=== PATIENT | female | born 1990 | race African-American/Black ===

== ENCOUNTER 2023-05-14 09:40 | Emergency (ER) | payer OTHER, SELFPAY ==
[2023-05-14 09:45] VITALS: BP 159/109; PULSE 68; RESP 16; TEMP 36.7; O2SAT 99; BMI 36.6
[2023-05-14 10:21] LABS: Basophils Absolute Auto 0.1 10^3/uL (0.0-0.1); Basophils Percent Auto 1.2 % (0.2-2.0); Eosinophils Absolute Auto 0.2 10^3/uL (0.0-0.7); Eosinophils Percent Auto 4.1 % (0.9-7.0); Hematocrit 37.6 % (36.0-48.0); Hemoglobin 12.6 g/dL (12.0-16.0); Immature Granulocytes Abs Auto 0.02 10^3/uL (0.00-0.03); Immature Granulocytes Pct Auto 0.3 % (0.0-0.5); Lymphocytes Absolute Auto 1.9 10^3/uL (1.2-3.8); Mean Corpuscular HGB Conc 33.5 g/dL (29.9-35.2); Mean Corpuscular Hemoglobin 28.8 pg (26.7-34.0); Mean Platelet Volume 9.3 fL (9.5-13.5); Monocytes Absolute Auto 0.4 10^3/uL (0.3-0.8); Monocytes Percent Auto 7.5 % (1.7-12.0); Neutrophils Absolute Auto 3.2 10^3/uL (1.4-6.5); Neutrophils Percent Auto 54.9 % (43.0-75.0); Platelet Count 332 10^3/uL (150-450); Red Blood Count 4.37 10^6/uL (4.20-5.40); Red Cell Distribution Width 13.5 % (11.0-15.0); White Blood Count 5.9 10^3/uL (4.0-11.0)
[2023-05-14 10:27] LABS: Bilirubin Urine NEGATIVE (NEGATIVE); Blood Urine NEGATIVE (NEGATIVE); Clarity Urine CLEAR (CLEAR); Color Urine YELLOW (YELLOW); Glucose Urine UA NEGATIVE (NEGATIVE); Ketones Urine NEGATIVE (NEGATIVE); Leukocyte Esterase Urine SMALL (NEGATIVE); Nitrite Urine NEGATIVE (NEGATIVE); Protein Urine NEGATIVE (NEG/TRACE); Specific Gravity Urine 1.015 (1.005-1.025); Urobilinogen Urine 0.2 EU/dL (0.2-1.0); pH Urine 6.5 (5.0-9.0)
--- NOTE | 2023-05-14 10:27 | US_ITS ---
[address] [address] Patient Name: ERICK LAST MRN: [id number] date: 1990 Sex: F Assigned Patient Location: ER Current Patient Location: Accession/Order Number: [id number] Exam Date: 05/14/2023 10:45 Report Date: 05/14/2023 12:01 At the request of: ANEESH ABRAHAM Procedure: US pelvis transvaginal PROCEDURE: US pelvis transvaginal, 05/14/2023 10:45 AM EDT CLINICAL INDICATIONS: Medical induced 3 weeks earlier, pain 4 para 1 AB 3 Uncertain LMP COMPARISON: None TECHNIQUE: Transabdominal, transvaginal pelvic sonogram, grayscale color and spectral evaluation. FINDINGS: Uterus: 10.2 x 5.8 x 6.8 cm. The endometrial echo complex is mildly heterogeneous, estimated at 1.1 cm. There is fluid within the endometrial cavity measuring up to 0.5 x 0.4 x 0.3 cm.. Internal vascularity is not confirmed. A focal uterine abnormality is not confirmed. Right ovary: 3.2 x 1.3 x 1.5 cm. Volume 3 mL. Normal sonographic morphology. Left ovary: 2.7 x 2.4 x 2.2 cm. Volume 8 mL. Normal sonographic morphology. DUPLEX PELVIC VASCULATURE: There is intact flow within the ovarian tissue bilaterally by color-flow assessment. Arterial spectral tracing is identified from within. Right resistive index 0.51, left 0.45. US/US pelvis transvaginal IMPRESSION: 1. Heterogeneous thickening of the endometrial echo complex up to 1.1 cm with nonspecific fluid accumulation within the endometrial cavity. No sign of intrauterine or extra uterine is documented. Incomplete spontaneous with retained products of conception are not excluded. Endometritis, endometrial clot could present a similar pattern in the appropriate clinical setting. Correlation with serial quantitative beta-hCG recommended in this regard. 2. No significant pelvic mass or free fluid 3. Normal bilateral ovarian sonographic morphology 4. No sonographic sign of maternal adnexal torsion Electronically authenticated by: GAGE SHARP Date: 05/14/2023 12:01
[2023-05-14 10:28] LABS: Urine Microscopic Indicated YES
--- NOTE | 2023-05-14 10:29 | CT_ITS ---
[address] [address] Patient Name: ERICK LAST MRN: [id number] date: 1990 Sex: F Assigned Patient Location: Current Patient Location: Accession/Order Number: [id number] Exam Date: 05/14/2023 11:00 Report Date: 05/14/2023 12:02 At the request of: ANEESH ABRAHAM Procedure: CT abdomen pelvis w con EXAMINATION: CT abdomen pelvis w con HISTORY: s/p 3 weeks ago ; bilateral lower quadrant pain, low back pain COMPARISON: No relevant comparison available. TECHNIQUE: Axial, Coronal, and Sagittal images were obtained without and/or with IV contrast as indicated by examination type. Dose reduction techniques were achieved by using automated exposure control and/or adjustment of mA and/or kV according to patient size and/or use of iterative reconstruction technique. FINDINGS: LUNG BASES: No visible pulmonary or pleural disease. LIVER: No enlargement, atrophy, suspicious density, or significant focal lesion. BILIARY: No dilatation or calcification. PANCREAS: No lesion, fluid collection, or abnormal duct dilatation. SPLEEN: No enlargement or focal lesion. ADRENALS: No mass or enlargement. KIDNEYS: Nonobstructing stone within left kidney. BOWEL/MESENTERY: No visible mass, obstruction, or bowel wall thickening. Normal appendix. AORTA/VASCULAR: No aneurysm or dissection. RETROPERITONEUM: No mass or adenopathy. LYMPH NODES: No adenopathy. URINARY BLADDER: No visible focal wall thickening, lesion, or calculus. PELVIC ORGANS: Fluid within endometrial cavity. Trace amount of free fluid within right adnexa. ABDOMINAL WALL: No mass or hernia. BONES: No bony lesion or fracture. OTHER: Negative. CT/CT abdomen pelvis w con IMPRESSION: 1.Suspect small moderate free fluid within endometrial cavity; nonspecific. 2.Trace amount of free fluid within right adnexa; nonspecific. 3.Unremarkable bowel. 4.No abscess or appreciable inflammatory changes within the pelvis. Electronically authenticated by: AMILCAR VALADEZ Date: 05/14/2023 12:02
--- NOTE | 2023-05-14 10:32 | ED_ITS ---
HPI - General Adult General Chief complaint: Abdominal Pain Stated complaint: LOWER ABDOMEN/BACK PAIN Time Seen by Provider: 05/14/23 10:27 Source: patient Mode of arrival: walk-in Limitations: no limitations History of Present Illness HPI narrative: Patient is a 32-year-old female who is presenting with abdominal pain, pelvic pain, and right lower quadrant pain. Patient had a 3 weeks ago. Patient had a 19-week-old fetus that she had a in [facility]. Patient states for the past few days been having right lower quadrant pain, right lower pelvic pain, that she was not having several weeks ago. Patient has no vaginal bleeding, no discharge, no orders. No urinary complaints. No diarrhea constipation. Patient still has her gallbladder and appendix. 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 Patient can't to the Emergency Room for evaluation. Patient has Segundo told us that of her testing is not back by 12 or 12:30, she is leaving the Emergency Room because she has to career technical supervisor her daughter. . All systems are negative except as noted/marked. All systems reviewed and otherwise negative. . Nurses note and vital signs reviewed and patient is not hypoxic. General: The patient appears well and in no apparent distress. Patient is resting comfortably on cart. Patient is not toxic, lethargic, or listless Skin: Warm, dry, no pallor noted. There is no rash noted. No petechiae, purpura. Head: Normocephalic, atraumatic Eye: Normal conjunctiva, no drainage, EOMI. PERRL Ears, Nose, Mouth, and Throat: oral mucosa is moist. Nares patent. Mouth without vesicles. Cardiovascular: Regular Rate and Rhythm, no murmur, gallop, rub Respiratory: Patient is in no distress, no accessory muscle use, lungs are clear to auscultation, no wheezing, rales or rhonchi Back: non-tender, no CVA tenderness bilaterally to percussion. No CT LS midline pain GI: soft, Moderate suprapubic tenderness to palpation, mild right lower quadrant tenderness to palpation, no rash, no guarding, no peritoneal signs, no flank pain bilateral; otherwise no tenderness to palpation, no masses appreciated. No rebound, guarding, or rigidity noted. No flank pain bilateral, No distention Musculoskeletal: Patient has full range of motion of all of the extremities, no motor, sensory, or focal neurological deficits Neurological: A&O x3, normal speech Psychiatric: Cooperative Related Data Allergies Allergy/AdvReac Type Severity Reaction Status Date / Time No Known Drug Allergies Allergy Verified 05/14/23 09:45 PFSH PFSH Social History Smoking status: Current every day smoker Exam Constitutional Vital Signs, click to edit/add: Last Vital Signs Temp 98.0 F 05/14/23 09:45 Pulse 68 05/14/23 09:45 Resp 16 05/14/23 09:45 BP 159/109 H 05/14/23 09:45 Pulse Ox 99 05/14/23 09:45 O2 Del Method Room Air 05/14/23 09:45 Course Vital Signs Vital signs: Vital Signs Temperature 98.0 F 05/14/23 09:45 Pulse Rate 68 05/14/23 09:45 Respiratory Rate 16 05/14/23 09:45 Blood Pressure 159/109 H 05/14/23 09:45 Pulse Oximetry 99 05/14/23 09:45 Oxygen Delivery Method Room Air 05/14/23 09:45 Temperature 98.0 F 05/14/23 09:45 Pulse Rate 68 05/14/23 09:45 Respiratory Rate 16 05/14/23 09:45 Blood Pressure 159/109 H 05/14/23 09:45 Pulse Oximetry 99 05/14/23 09:45 Oxygen Delivery Method Room Air 05/14/23 09:45 Medical Decision Making MDM Narrative Medical decision making narrative: Patient left against medical advice without patient's lab work, CT report and ultrasound report being completed. The patient is oriented to person, place, and time, demonstrating all staples elements of capacity to make decisions regarding the medical care offered. The patient speaks coherently and exhibits no evidence of having an altered level of consciousness or alcohol or drug intoxication to a point that would impair ability to delineate a choice. He/she is able to ambulate without difficulty. The patient demonstrates understanding and appreciation of the relevant information of the nature their medical condition, as well as the risks, benefits, and treatment alternatives (including nontreatment), Consequences of refusing care, and can appropriately communicative rational reasoning about their choice of care options. Patient is aware of a suspected diagnosis suggested by history and exam. The risks of refusing recommended care that were disclosed and acknowledged by the patient including , unforeseen complications, neurological dysfunction, permanent mental impairment, loss of limb, loss of sexual function, loss of current lifestyle, worsening chronic condition, long-term disability were disclosed. The patient understands they are welcome to return to the hospital anytime to receive the recommended care or any other care at any time, regardless of their ability to pay for such care. Discharge instructions were provided to the patient along with necessary prescriptions if indicated. 2015 I spoke to the patient on the telephone, patient had her CT report im pression and the ultrasound impression red to her over the phone by myself. Patient's lab work and urine was discussed as well. Patient understands importance of following up with TRACK LINER OPERATOR and calling their office tomorrow for a follow-up. Patient understands or could still be retained products of conception and she may need additional procedures done by her TRACK LINER OPERATOR. Patient understands this is extremely important. No questions at discharge. Patient voiced back to me that she understood the directions and said that she will call her TRACK LINER OPERATOR tomorrow. Lab Data Lab results reviewed: Yes I reviewed the patient's lab results Labs: Lab Results 05/14/23 Range/Units 10:00 WBC 5.9 (4.0-11.0) 10^3/uL RBC 4.37 (4.20-5.40) 10^6/uL Hgb 12.6 (12.0-16.0) g/dL Hct 37.6 (36.0-48.0) % MCV 86.0 (81.0-99.0) fL MCH 28.8 (26.7-34.0) pg MCHC 33.5 (29.9-35.2) g/dL RDW 13.5 (11.0-15.0) % Plt Count 332 (150-450) 10^3/uL MPV 9.3 L (9.5-13.5) fL Neut % (Auto) 54.9 (43.0-75.0) % Lymph % (Auto) 32.0 (20.5-60.0) % [place] % (Auto) 7.5 (1.7-12.0) % Eos % (Auto) 4.1 (0.9-7.0) % Baso % (Auto) 1.2 (0.2-2.0) % Neut # (Auto) 3.2 (1.4-6.5) 10^3/uL Lymph # (Auto) 1.9 (1.2-3.8) 10^3/uL [place] # (Auto) 0.4 (0.3-0.8) 10^3/uL Eos # (Auto) 0.2 (0.0-0.7) 10^3/uL Baso # (Auto) 0.1 (0.0-0.1) 10^3/uL Abs Immat Gran (auto) 0.02 (0.00-0.03) 10^3/uL Imm/Tot Granulo (auto) 0.3 (0.0-0.5) % Sodium 136 (136-145) mmol/L Potassium 3.7 (3.5-5.1) mmol/L Chloride 102 (98-107) mmol/L Carbon Dioxide 25.2 (21.0-32.0) mmol/L Anion Gap 12.5 BUN 6.0 L (7.0-18.0) mg/dL Creatinine 0.76 (0.55-1.02) mg/dL Est GFR ( Amer) >60 (>=60) Est GFR (Non-Af Amer) >60 (>=60) BUN/Creatinine Ratio 7.9 Glucose 84 (74-106) mg/dL Lactate 0.8 (0.4-2.0) mmol/L Calcium 9.1 (8.5-10.1) mg/dL Total Bilirubin 0.8 (0.2-1.0) mg/dL AST 17 (15-37) U/L ALT 14 (14-59) U/L Alkaline Phosphatase 66 (46-116) U/L Total Protein 7.3 (6.4-8.2) g/dL Albumin 3.5 (3.4-5.0) g/dL Globulin 3.8 g/dL Albumin/Globulin Ratio 0.9 Lipase 66.0 L (73.0-393.0) U/L Serum HCG, Qual Negative (NEGATIVE) HCG, Quant 3 mIU/mL Urine Color Yellow (YELLOW) Urine Clarity Clear (CLEAR) Urine pH 6.5 (5.0-9.0) Ur Specific [place] 1.015 (1.005-1.025) Urine Protein Negative (NEG/TRACE) mg/dL Urine Glucose (UA) Negative (NEGATIVE) mg/dL Urine Ketones Negative (NEGATIVE) mg/dL Urine Occult Blood Negative (NEGATIVE) Urine Nitrite Negative (NEGATIVE) Urine Bilirubin Negative (NEGATIVE) Urine Urobilinogen 0.2 (0.2-1.0) EU/dL Ur Leukocyte Esterase Small A (NEGATIVE) Urine RBC 0-2 (0-2) #/HPF Urine WBC 5-10 A (NONE SEEN) #/HPF Ur Squamous Epith Cells Few A (NONE/RARE) #/LPF Urine Crystals None seen (None Seen) #/HPF Urine Bacteria Trace A (NONE SEEN) #/HPF Urine Casts None seen (NONE SEEN) #/LPF Urine Mucus Moderate A (NONE SEEN) Ur Culture Indicated? Yes Imaging Data CT scan - abdomen: My impression: Patient CT shows small moderate free fluid within the endometrial cavity, trace amount of free fluid within the right adnexa, no abscess or appreciable inflammatory changes in the pelvis. See the official CT report. Ultrasound of the pelvis shows heterogeneous thickening of the endometrial echo complex up to 1.1 cm with nonspecific fluid accumulation with the endometrial cavity. No sign of intrauterine or extra intrauterine is documented. Incomplete spontaneous with retained products of conception are not excluded. Endometritis, endometrial clot could represent a similar pattern. See ultrasound official report. Discharge Plan Discharge Chief Complaint: Abdominal Pain Clinical Impression: Left against medical advice, Pelvic pain, Abdominal pain Patient Disposition: Left Against Medical Advice Instructions: Abdominal Pain (ED), Against Medical Advice (ED), Pelvic Pain (ED) Stand Alone Forms: Portal Instructions Referrals: Physician,Non-Staff, MD [Primary Care Provider] - 1 week Discharge Date/Time: 05/14/23 12:03
[2023-05-14] MEDS: ONDANSETRON PF 4 MG/2 ML VIAL IV (10:41)
[2023-05-14] MEDS: ACETAMINOPHEN 500 MG TABLET 1000 MG PO (10:41)
[2023-05-14] MEDS: KETOROLAC TROMETHAMINE 30 MG/ML VIAL 15 MG IVP (10:41)
[2023-05-14] MEDS: 0.9 % SODIUM CHLORIDE 1,000 ML 999 ML IV (10:41)
[2023-05-14 10:44] LABS: Alanine Aminotransferase 14 U/L (14-59); Albumin Globulin Ratio 0.9; Albumin Level 3.5 g/dL (3.4-5.0); Alkaline Phosphatase 66 U/L (46-116); Anion Gap 12.5; Aspartate Amino Transferase 17 U/L (15-37); BUN Creatinine Ratio 7.9; Bilirubin Total 0.8 mg/dL (0.2-1.0); Calcium 9.1 mg/dL (8.5-10.1); Carbon Dioxide 25.2 mmol/L (21.0-32.0); Chloride 102 mmol/L (98-107); Estimated GFR (African America >60 (>=60); Estimated GFR (Non-African Ame >60 (>=60); Globulin 3.8 g/dL; Glucose 84 mg/dL (74-106); Potassium 3.7 mmol/L (3.5-5.1); Sodium 136 mmol/L (136-145); Total Protein 7.3 g/dL (6.4-8.2)
[2023-05-14 10:46] LABS: HCG Qualitative NEGATIVE (NEGATIVE)
[2023-05-14 11:00] LABS: Lactate/Lactic Acid 0.8 mmol/L (0.4-2.0)
[2023-05-14 11:21] LABS: Bacteria Urine TRACE #/HPF (NONE SEEN); Cast Seen? NONE SEEN #/LPF (NONE SEEN); Crystals Seen? None Seen #/HPF (None Seen); Mucus Urine MODERATE (NONE SEEN); RBC Urine 0-2 #/HPF (0-2); Squamous Epithelial Cell Urine FEW #/LPF (NONE/RARE); Urine Culture Indicated YES
[2023-05-14 11:25] LABS: HCG Quantitative 3 mIU/mL
== END 2023-05-14 12:03 | disposition left against medical advice (07) ==
LOC: ER 09:47
PROVIDERS: Emergency Provider Emergency Medicine
DX: R10.2 Pelvic and perineal pain (principal); R10.9 Unspecified abdominal pain; Z53.29 Procedure and treatment not carried out because of patient's decision for other reasons; F17.210 Nicotine dependence, cigarettes, uncomplicated
CPT/HCPCS: 36415; 74177; 76830; 80053; 81001; 81003; 83605; 83690; 84702; 84703; 85025; 87086; 96374; 96375; 99285; Q9967

== ENCOUNTER 2024-03-24 23:37 | Observation (INO) | payer OTHER, SELFPAY ==
[2024-03-25 00:07] VITALS: BP 135/84; PULSE 86
[2024-03-25 00:15] VITALS: BP 138/88; PULSE 87; TEMP 35.9
[2024-03-25 00:29] LABS: Bilirubin Urine NEGATIVE (NEGATIVE); Blood Urine NEGATIVE (NEGATIVE); Clarity Urine CLEAR (CLEAR); Color Urine YELLOW (YELLOW); Glucose Urine UA NEGATIVE (NEGATIVE); Ketones Urine NEGATIVE (NEGATIVE); Leukocyte Esterase Urine NEGATIVE (NEGATIVE); Nitrite Urine NEGATIVE (NEGATIVE); Protein Urine NEGATIVE (NEG/TRACE); Urobilinogen Urine 0.2 EU/dL (0.2-1.0); pH Urine 6.5 (5.0-9.0)
[2024-03-25 00:30] LABS: Urine Microscopic Indicated NO
[2024-03-25 01:04] VITALS: BP 137/86; PULSE 75
[2024-03-25] MEDS: ACETAMINOPHEN 500 MG TABLET PO (01:29)
[2024-03-25 01:35] VITALS: BP 124/84; PULSE 79
[2024-03-25 01:57] VITALS: BP 125/75; PULSE 67
== END 2024-03-25 02:16 | disposition home or self-care (01) ==
PROVIDERS: Admitting Provider Obstetrics & Gynecology; Visit Provider Obstetrics & Gynecology
DX: O26.893 Other specified pregnancy related conditions, third trimester (principal); R10.9 Unspecified abdominal pain; Z3A.31 31 weeks gestation of pregnancy
CPT/HCPCS: 59025; 81003; G0378; G0379

== ENCOUNTER 2025-04-17 09:52 | Emergency (ER) | payer OTHER, SELFPAY ==
--- OUTSIDE RECORDS SUMMARY | 2023-10-09 10:11 | XMS_ITS | Continuity of Care Document ---
Author Organization [facility] Address [address] [place] [address] Phone Care Team Providers Care Manager Audio Name Role Phone Hamzah JANET STEPHANIEBekah Unavailable Unavaila ble Allergies, Adverse Reactions, Alerts Substance Reaction Status Criticality No Known Allergies Active No Inform ation Medications Medication Instructions Dosage Effective Dates (start - stop) Status Comments metronidazole 500 mg tablet take 1 tablet by oral route BID for 7 days - Active Problems Condition Type Effective Dates (start - stop) Clini michela Status Comments No Known Problems Procedures Procedure Date ROUTINE VENIPUNCTURE OFFICE/OUTPATIENT VISIT, EST URINE TEST OFFICE/OUTPATIENT VISIT, EST ROUTINE VENIPUNCTURE Intraoral-periapical 1st Film 3 [employer] Periodic Oral Eval Estab Patient 2022 Prophylaxis Adult High Risk Nutrit Couns For Control Of [place] Dis Nov Oral Hygiene Instruction Alcohol/drug screening PREV VISIT, EST, AGE 18-39 COVID-19 Antigen Test INFLUENZA ASSAY W/OPTIC COVID-19 Antigen Test URINE TEST OFFICE/OUTPATIENT VISIT, EST Extract; Erupted Th/exposted Rt 022 Extract; Erupted Th/exposted Rt 022 Extract; Erupted Th/exposted Rt 022 Comp Oral Eval New/estab Patient 2020 [employer] Films Panoramic Film Intraoral-periapical 1st Film URINE TEST URINALYSIS NONAUTO W/O SCOPE OFFICE/OUTPATIENT VISIT, EST PREV VISIT, EST, AGE 18-39 Intraoral-periapical 1st Film Oral Hygiene Instruction Limited Oral Eval Covid Testing [facility] Covid Testing [facility] URINE TEST OFFICE/OUTPATIENT VISIT, EST PREV VISIT, EST, AGE 18-39 URINE TEST PREV VISIT, EST, AGE 18-39 URINE TEST OFFICE/OUTPATIENT VISIT, EST OFFICE/OUTPATIENT VISIT, EST URINE TEST PREV VISIT, EST, AGE 18-39 OFFICE/OUTPATIENT VISIT, EST OFFICE/OUTPATIENT VISIT, EST Depo Provera 1 Ml PREV VISIT, EST, AGE 18-39 PREV VISIT, EST, AGE 18-39 Depo Provera 1 Ml URINE TEST OFFICE/OUTPATIENT VISIT, EST URINE TEST Advance Directives Directive Yes / No Effective Date File Name No Information Encounters Encounter Description Practice Location Reason(s) For Visit Diagnoses Date Provider Providers Copied on Encounter [facility], [address] [place] [address], [place], [place], [id number] , [place] tel:[phone] [facility] No Information 3 Hamzah WHCNAmanda Godfrey. [address] [place] [address], [id number] , [place]. tel: [phone] OFFICE/OUTPA TIENT VISIT, [facility], [address] [place] [address], [id number] , [place] tel: [phone] [facility] Encounter for test, result positiveLess than 8 weeks gestation of pregnancyEncounter for supervision of other normal , 1st trimester 3 [facility] Bekah. [address], [place], [id number] , [place]. tel: [phone] [facility], [address] [place] [address], [id number] , [place] tel: [phone] [facility] No Information 3 [facility] Bekah. [address] [place] [address], [id number] , [place]. tel: [phone] OFFICE/OUTPA TIENT VISIT, [facility], [address] [place] [address], [id number] , [place] tel: [phone] [facility] DARY (chief complaint) Body mass index [BMI] 34.0-34.9, adult- STD High risk heterosexual behavior- STD screenTrichomoniasi sEncounter for testASCUS on pap smear of cervixEncounter for test, result positive Dec-2 3 [facility] Bekah. [address] [place] [address], [id number] , [place]. tel: [phone] [facility], [address] [place] [address], [id number] , [place] tel: [phone] [facility] Encounter for screening for dental disorders 3 Yazmin Kirk. . tel: [phone] PREV VISIT, [facility], AGE 18-39 [facility], [address] [place] [address], [id number] , [place] tel: [phone] [facility] annual exam (chief complaint) Encounter for gynecological examination (general) (routine) without abnormal findings- STD screen- STD High risk heterosexual behaviorBody mass index [BMI] 33.0-33.9, adultOCP initial Rxcontraceptive managementEncounter for screening examination for other mental health and behavioral disorders 3 [facility] Bekah. [address], [place], [id number] , [place]. tel: [phone] [facility], [address], [place], [id number] , [place] tel: [phone] [facility] Appt rescheduled (chief complaint) Encounter for screening for COVID-19Fever, unspecifiedBody mass index [BMI] 35.0-35.9, adult 2 [facility] Bekah. [address] [place] [address], [id number] , [place]. tel: [phone] OFFICE/OUTPA TIENT VISIT, EST [facility], [address] [place] [address], [id number] , [place] tel: [phone] [facility] STI screening (chief complaint) Encounter for test, result negativeBody mass index [BMI] 34.0-34.9, adult- STD screen- STD liefstyle codecontraceptive management 2 [facility] Bekah. [address], [place], [id number] , [place]. tel: [phone] [facility], [address] [place] [address], [id number] , [place] tel: [phone] [facility] Ext. (chief complaint) Encounter for screening for dental disorders 2 Preet Valdes. [address], [place], [id number] , [place]. tel: [phone] [facility], [address] [place] [address], [id number] , [place] tel: [phone] [facility] DN (chief complaint) Encounter for screening for dental disorders 1 Preet Valdes. [address] [place] [address], [id number] , [place]. tel:[phone] OFFICE/OUTPA TIENT VISIT, EST [facility], [address], [place], [id number] , [place] tel: [phone] [facility] Test (chief complaint)Po ssible STD Exposure (chief complaint)va ginal discharge/it angella (chief complaint) Encounter for test, result positiveBody mass index [BMI] 35.0-35.9, adultTrichomonas vaginitis- STD screen9 weeks gestation of pregnancyEncounter for supervision of other normal , 1st trimester 1 [facility] Bekah. [address], [place], [id number] , [place]. tel: [phone] PREV VISIT, EST, AGE 18-39 [facility], [address] [place] [address], [id number] , [place] tel: [phone] [facility] annual exam (chief complaint) Encounter for gynecological examination (general) (routine) without abnormal findings- STD screen- STD liefstyle codeAcute vaginitisBody mass index [BMI] 34.0-34.9, adult Aug-3 1 [facility] Bekah. [address], [place], [id number] , [place]. tel: [phone] [facility], [address] [place] [address], [id number] , [place] tel: [phone] [facility] EMG (chief complaint) Encounter for screening for dental disorders 1 Nav Barnes. [address] [place], [address], [place]. tel: [phone] [facility], [address] [place] [address], [id number] , [place] tel:[phone] [facility] Encounter for screening for other viral diseases 0 Devante Naidu. [address], [place], [id number] , [place]. tel: [phone] [facility], [address] [place] [address], [id number] , [place] tel: [phone] [facility] Contact w and exposure to oth communicable diseases 0 Visci DO Kenneth. [address], [place], [id number] , [place]. tel: [phone] OFFICE/OUTPA TIENT VISIT, EST [facility], [address], [place], [id number] , [place] tel: [phone] [facility] vaginal discharge/it angella (chief complaint) Body mass index (BMI) 33.0-33.9, adult- STD liefstyle code- STD screenTrichomoniasi s 0 [facility] Bekah. [address] [place] [address], [id number] , [place]. tel: [phone] PREV VISIT, EST, AGE 18-39 [facility], [address] [place] [address], [id number] , [place] tel: [phone] [facility] annual exam (chief complaint) Encounter for testBody mass index (BMI) 33.0-33.9, adultEncntr for haunted history tour guide exam (general) (routine) w/o abn findings- STD screen- STD liefstyle code 0 [facility] Bekah. [address] [place] [address], [id number] , [place]. tel: [phone] PREV VISIT, EST, AGE 18-39 [facility], [address] [place] [address], [id number] , [place] tel: [phone] [facility] annual exam (chief complaint) Body mass index (BMI) 37.0-37.9, adultEncntr for haunted history tour guide exam (general) (routine) w/o abn findings- STD screen- STD liefstyle code 0- 8 [facility] Bekah. [address] [place] [address], [id number] , [place]. tel: [phone] OFFICE/OUTPA TIENT VISIT, EST [facility], [address], [place], [id number] , [place] tel: [phone] [facility] STD screen (chief complaint) Encounter for test, result negative- STD screen- STD liefstyle codecontraceptive managementBody mass index (BMI) 36.0-36.9, adult Dec-2 8- 8 [facility] Bekah. [address] [place] [address], [id number] , [place]. tel: [phone] OFFICE/OUTPA TIENT VISIT, EST [facility], [address], [place], [id number] , [place] tel: [phone] [facility] DARY (chief complaint) - STD liefstyle codeGonococcal cervicitisTrichomon iasis Jun-0 7 [facility] Bekah. [address], [place], [id number] , [place]. tel: [phone] [facility], [address] [place] [address], [id number] , [place] tel: [phone] [facility] Medication (chief complaint) - STD liefstyle code Mar- 7 [facility] Bekah. [address] [place] [address], [id number] , [place]. 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 [address] [place] [address], [id number] , [place]. tel: [phone] OFFICE/OUTPA TIENT VISIT, EST [facility], [address] [place] [address], [id number] , [place] tel: [phone] [facility] Depo (chief complaint) Other specified contraceptive management 5 Hamzah [facility] Bekah. [address], [place], [id number] , [place]. tel: [phone] PREV VISIT, EST, AGE 18-39 [facility], [address], [place], [id number] , [place] tel: [phone] [facility] annual exam (chief complaint)me nopausal symptoms (chief complaint)me nopausal symptoms (chief complaint) Gynecological ExaminationOther specified contraceptive management 5 Hamzah [facility] Bekah. [address], [place], [id number] , [place]. tel: [phone] OFFICE/OUTPA TIENT VISIT, EST [facility], [address], [place], [id number] , [place] tel: [phone] [facility] test (chief complaint) No Information 3 Visci DO Kenneth. [address], [place], [id number] , [place]. tel: [phone] Family History Family Member Type Diagnosis Age At Onset Sister Problem (finding) Alive and well Mother Problem (finding) Alive and well Father Problem (finding) Alive and well Brother Problem (finding) Alive and well Payers Payer name Insurance type Covered alliance party ID Authoriza tion(s) [id number] Medicaid Wrap - [employer] [id number] Social History Type Description Quantity Date Captured Comments Alcohol Use Details Unknown Caffeine Use Details Unknown Tobacco Use Status Smoking Status No Information Sex Female Yes - Patient is cur rently Sexual Orientation Straight or heterosexual Gender Identity Female Chief Complaint And Reason For Visit No Information Reason For Referral Reason For Referral No Information Plan Of Treatment Date Type Action Status Goal Depression screening. Due on due Goal Tdap Vaccine. Due on 2022 due Goal Influenza vaccine. Due on due Goal Hepatitis C screening. Due o n due Goal Tdap. Due on due Goal PRAPARE ASSESSMENT. Due on D due Goal HPV. Due on due Goal RLP. Due on due Goal Unhealthy drug use screening . Due on due Goal Depression screening. Due on due Goal RLP. Due on due Goal Tdap Vaccine. Due on 2022 due Goal Tdap. Due on due Goal PRAPARE ASSESSMENT. Due on A due Goal Influenza vaccine. Due on due Goal PRAPARE ASSESSMENT. Due on A due Goal RLP. Due on due Goal Depression screening. Due on due Goal Tdap Vaccine. Due on 2022 due Goal Tdap. Due on due Goal Influenza vaccine. Due on due Goal Tobacco cessation counseling completed Goal Tdap Vaccine. Due on 2022 due Goal RLP. Due on due Goal Depression screening. Due on due Goal PRAPARE ASSESSMENT. Due on M due Goal Influenza vaccine. Due on due Goal Tdap. Due on due Goal Dietary management education , guidance, and counseling completed Goal Tobacco cessation counseling completed Goal PAP. Due on due Goal Depression screening. Due on due Goal RLP. Due on due Goal Influenza vaccine. Due on Oc due Goal PRAPARE ASSESSMENT. Due on O due Goal Tdap. Due on due Goal Influenza vaccine. Due on Ja due Goal Tdap. Due on due Goal PRAPARE ASSESSMENT. Due on J due Goal RLP. Due on due Goal PAP. Due on due Goal Depression screening. Due on due Goal Tobacco cessation counseling completed Goal Dietary management education , guidance, and counseling completed Goal Depression screening. Due on due Goal PAP. Due on due Goal Influenza vaccine. Due on due Goal PRAPARE ASSESSMENT. Due on due Goal Tdap. Due on due Goal RLP. Due on due Goal Dietary management education , guidance, and counseling completed Goal Tobacco cessation counseling completed Goal Dietary management education , guidance, and counseling completed Goal Dietary management education , guidance, and counseling completed Goal Tobacco cessation counseling completed Goal Tobacco cessation counseling completed Goal Dietary management education , guidance, and counseling completed Goal Tobacco cessation counseling completed Goal Dietary management education , guidance, and counseling completed Goal Dietary management education , guidance, and counseling completed Goal Dietary management education , guidance, and counseling completed Goal Tobacco cessation counseling completed Goal Dietary management education , guidance, and counseling completed Goal Tobacco cessation counseling completed Goal Tobacco cessation counseling completed Referral Ordered: Referrals: Family Medicine Appointment date/timeframe: 06/16/2021 ordered History Of Present Illness Encounter Date Complaint History Of Prese nt Illness DARY Patient is here for DARY for Trich. States she was doing well, but has started to feel irritation over the last month. IS unsure if partner has stepped outside the relationship. She desires to change form OCPs to IUD for BCM. She has not been on Sprintec for over 1 month. Patient states her last unprotected IC was 2 weeks ago. She does not desire a and if this test is confirmed she does not plan to maintain the . annual exam Currently pregna nt: no. : 3. Parity: Term: 1. induced: 2. Livin. Patient is not contemplating . The patient states she uses none and condoms, male for control. Last LMP was 10/03/2022. Her menses is irregular with heavy flow with a frequency of >28 days. Negative for dysmenorrhea and menorrhagia. Negative for: breast discharge, breast lump(s), breast pain and breast self exam.Negative for Hormone replacement therapy. Pertinent negatives include anxiety and depression. The patient does use tobacco. Tobacco cessation has been discussed. She does drink alcohol. Additional information: Patient is here for annual exam. She is currently not on BC and desires to get an IUD. She has 1 child who is 8yrs old and she does not desire another child in the near future. She would like to start OCPs until IUD can be placed. Her last unprotected IC was over 2 weeks ago. 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 Appt rescheduled STI screening Patient denies h aving any symptoms today. Additional information: Patient is here for STD screen. States a partner called and recommended she get screened. Did not say for what. States she is not on BC and does not desires any BC at this time. may consider using con. Ext. DN DN vaginal discharge/itching Her sy mptoms began 1 Week ago. Presently the patient is experiencing vaginal irritation and vaginal odor. The patient is premenopausal. Test Possible STD Exposure annual exam Currently pregna nt: no. : 1. Parity: Term: 1. Livin. Patient is not contemplating . The patient states she uses none and condoms, male for control. Last LMP was 06/10/2021. Her menses is regular with heavy flow with a frequency of every 28 days. Negative for dysmenorrhea and menorrhagia. Negative for: breast discharge, breast lump(s), breast pain and breast self exam.Negative for Hormone replacement therapy. Pertinent negatives include anxiety and depression. The patient does use tobacco. Tobacco cessation has been discussed. She does drink alcohol. Additional information: Patient is here for annual exam and c/o increased vaginal irritation. Using Condoms for BC and does not desires to change at this time. Denies change in sexual partners. Does not have a PCP and would like one to evaluate HTN. EMG vaginal discharge/itching The pa tient is premenopausal. Additional information: Patient states she took Flagyl for trich and now has vaginal itching and irritation. c/o vaginal itching and discharge. Denies change in sexual partners. annual exam Currently pregna nt: no. : 1. Parity: Term: 1. Livin. Patient is not contemplating . The patient states she uses none and condoms, male for control. Last LMP was 04/23/2020. Her menses is regular with heavy flow with a frequency of every 28 days. Negative for dysmenorrhea and menorrhagia. Negative for: breast discharge, breast lump(s), breast pain and breast self exam.Negative for Hormone replacement therapy. She does drink alcohol. annual exam Currently pregna nt: no. : 1. Parity: Term: 1. Livin. The patient states she uses none and condoms, male for control. Last LMP was 04/04/2018. The patient does use tobacco. Tobacco cessation has been discussed. She does drink alcohol. Additional information: Patient is here for annual exam. Using conroms for BC and does not desires to change at this time. 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 STD screen Patient is here for STD screen and to start Nuvaring. States she got a Rx 03/31, but never started it. 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 DARY Patient is here for DARY for Gonorrhea and Trich. States she is no longer together with partner. Was sexually active for the first time about 1 week ago and did use a condoms. Does not desires any form of BC except condoms. Medication Pt presents for .Pt declines condoms and smoking cessation information. Pt tolerates injection without complaint. Pt scheduled for DARY on 07/11/18. Jeffery annual exam Currently pregna nt: no. : 1. Parity: Term: 1. Livin. The patient states she uses none for control. The patient no longer uses tobacco. Tobacco cessation has been discussed. She does drink alcohol. Additional information: Here for annual exam. States she desires BC, but does not want Depo PRovera or BCP. Is interested in the nuvaring. Has a history of irregular menses and is happy her test is negative today. 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 Depo Patient here tod ay for Depo. She was having some bleeding a few weeks ago but has now stopped. Return to clinic 03/23/15 @ 9:00AM for next Depo. -LUANA LY. annual exam The patient stat es she uses none for control. Last LMP was 10/05/2014.The patient is not post-menopausal. The patient does use tobacco. Tobacco cessation has been discussed. Additional information: Pap & cultues, desires depo. Consent signed. Denies unprotected sex x2 weeks, PT-. Shawn Grande. menopausal symptoms menopausal symptoms Functional Status Date Functional Assessmen t No Information Instructions Date Instruction Additional Infor cameron Faint positive pregn nessa test noted in office today. Will order Quant HCG. Patient to call for results in 2 days. IF negative will then schedule for IUD insertion. Patient does not want to restart OCPs until IUD is placed. Plans to use Abstinence. Related to Encounter for test Cervical cultures se nt to lab. Patient to call in 1 week for results. Stressed the importance of using condoms to prevent STDs in the future. Related to - STD High risk heterosexual behavior Dietary management e ducation, guidance, and counseling Related to Body mass index [BMI] 34.0-34.9, adult Giving encouragement to exercise Related to Body mass index [BMI] 34.0-34.9, adult Discussed BC options and patient desires to have IUD inserted. Desires appt with Dr Low. Related to contraceptive management Encouraged to start Sprintec today. Take 1 pill po QD at HS. If misses a pill take it as soon as she remembers and if she misses two pills take two pills one day and two pills the next day. Encouraged condoms for back up BC and to prevent STDs. Encouraged to keep IUD appt. with Dr. Low. Related to OCP initial Rx Cervical cultures se nt to lab. Patient to call in 1 week for results Related to - STD screen Encouraged monthly B SE. Recommend calcium 1000mg QD. Encouraged good dietary intake and exercise. Laboratory specimens sent to lab. Patient to call in 2 weeks if desires results.Discussed control options and patient desires IUD. Plans to start OCPs until IUD can be placed Related to Encounter for gynecological examination (general) (routine) without abnormal findings Giving encouragement to exercise Related to Body mass index [BMI] 33.0-33.9, adult Dietary management e ducation, guidance, and counseling Related to Body mass index [BMI] 33.0-33.9, adult Dietary management e ducation, guidance, and counseling Related to Body mass index [BMI] 35.0-35.9, adult Giving encouragement to exercise Related to Body mass index [BMI] 35.0-35.9, adult Discussed BC options and patient declines all BCM except she may consider condoms in the future. Offered condoms while in the office today, but patient left them behind after the appt. Related to contraceptive management Cervical cultures se nt to lab. Patient to call in 1 week for results Related to - STD screen Giving encouragement to exercise Related to Body mass index [BMI] 34.0-34.9, adult Dietary management e ducation, guidance, and counseling Related to Body mass index [BMI] 34.0-34.9, adult Giving encouragement to exercise Related to Body mass index [BMI] 35.0-35.9, adult Dietary management e ducation, guidance, and counseling Related to Body mass index [BMI] 35.0-35.9, adult Discussed vaginal ir ritation in detail and encouraged proper hygiene measures. Rx for nystatin cream and triamcinolone were sent to her pharmacy. Encouraged to mix the two creams and apply to vulva BID. Related to Acute vaginitis Encouraged monthly B SE. Recommend calcium 1000mg QD. Encouraged good dietary intake and exercise. Laboratory specimens sent to lab. Patient to call in 2 weeks if desires results.Referral to PCP for Evaluation of HTNDiscussed control options and patient desires Condoms Related to Encounter for gynecological examination (general) (routine) without abnormal findings Cervical cultures se nt to lab. Patient to call in 1 week for results Related to - STD screen Giving encouragement to exercise Related to Body mass index [BMI] 34.0-34.9, adult Dietary management e ducation, guidance, and counseling Related to Body mass index [BMI] 34.0-34.9, adult DARY obtained. Encour aged to use condoms to prevent STDs in the future. Related to Trichomoniasis Giving encouragement to exercise Related to Body mass index (BMI) 33.0-33.9, adult Dietary management e ducation, guidance, and counseling Related to Body mass index (BMI) 33.0-33.9, adult test negat diane in office today. Discussed BC options and patient declines desires to use withdrawal or condoms. Related to Encounter for test Encouraged monthly B SE. Recommend calcium 1000mg QD. Encouraged good dietary intake and exercise. Laboratory specimens sent to lab. 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 Patient to call in 1 week for results Related to - STD screen Giving encouragement to exercise Related to Body mass index (BMI) 33.0-33.9, adult Dietary management e ducation, guidance, and counseling Related to Body mass index (BMI) 33.0-33.9, adult Cervical cultures se nt to lab. Patient to call in 1 week for results Related to - STD screen Encouraged monthly B SE. Recommend calcium 1000mg QD. Encouraged good dietary intake and exercise. Laboratory specimens sent to lab. Patient to call in 2 weeks if desires results. Condoms given to patient today. 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 Rx for 1 ring and 12 RF sent to pharmacy. Encouraged condoms for back up BC and to prevent STDs. Related to contraceptive management Cervical cultures se nt to lab. Patient to call in 1 week for results Related to - STD screen Dietary management e ducation, guidance, and counseling Related to Body mass index (BMI) 36.0-36.9, adult Giving encouragement to exercise Related to Body mass index (BMI) 36.0-36.9, adult Cervical cultures se nt to lab for DARY. Moralesn to call in 1 week for result. Encouraged condoms for BC and to prevent STDs. Patient states understanding. Related to Gonococcal cervicitis Discussed BC options and patietn desires to start nuvaring with onset of next menses. COndoms given to patient for back up BC. ENcouraged to use nuvaring as instructed patient states understanding. Related to contraceptive management Encouraged monthly B SE. Recommend calcium 1000mg QD. Encouraged good dietary intake and exercise. Laboratory specimens sent to lab. Patient to call in 2 weeks if desires results. 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 Patient to call in 1 week for results Related to - STD screen May continue Depo Pr overa. Encouraged calcium 1000mg QD. Recommend condoms for back up BC and to prevent STDs. IF BTB continue patient to call the office and will Rx estrace. Reassurance given BTB may resolve with second shot of Depo Provera Related to Other specified contraceptive management May start Depo Prove ra today. Encouraged calcium 1000mg QD. Recommend condoms for back up BC and to prevent STDs Related to Other specified contraceptive management Encouraged monthly B SE. Recommend calcium 1000mg QD. Encouraged good dietary intake and exercise. Pap and cervical cultures sent to lab. Patient to call in 2 weeks if desires results. Related to Gynecological Examination Assessments Type Assessment Date No Information Patient Care Teams Name Effective Dates (start - stop) Status Members No Information
--- OUTSIDE RECORDS SUMMARY | 2025-04-10 09:00 | XMS_ITS | Encounter Summary ---
Author Organization [facility] Address [id number] [address] [place] [address] Care Team Providers Care Museum Host/Hostess Name Role Phone Unavailable Primary Care Provider Unavailabl e Reason for Visit * Reason Comments Annual Exam Encounter Details Date Type Department Care Team (Latest Contact Info) Description 04/10/2025 9:00 AM EDT Office Visit [facility] [address] [place] [id number] Aleyda Elam, SECONDARY SET UP MAN-WASTE HANDLING TECHNICIAN [address] [place], [place] [id number] Well woman exam with routine gynecological exam (Primary Dx); Standardized adult depression screening tool completed; Initial encounter for management of contraceptive patch use; Acute vaginitis; Screening for STD (sexually transmitted disease) Social History Tobacco Use Types Packs/Day Years Used Date Smoking Tobacco: Former Cigarettes Cigars Smokeless Tobacco: Never Alcohol Use Standard Drinks/Week Comments Not Currently 0 (1 standard drink = 0.6 oz pur e alcohol) [facility] Utilities Answer Date Recorded In the past 12 months has e electric, gas, oil, or water company threatened to shut off services in your home? No 05/19/2024 PHQ-2 Answer Date Recorded Total Score 0 04/10/2025 PRAPARE - Transportation Answer Date Re corded In the past 12 months, has l ack of transportation kept you from medical appointments or from getting medications? No 02/2024 In the past 12 months, has l ack of transportation kept you from meetings, work, or from getting things needed for daily living? No 05/19/2024 Patterson Depression Scale Answer Date Recorded Patterson Depression Scale Total 5 05/26/2024 The thought of harming myself has occurred to me . Never 05/26/2024 Housing Instability Answer Date Recorde d Are you worried or concerned that in the next two months you may not have stable housing that you own, rent or stay in as a part of a household? No 05/19/2024 Hunger Screening Answer Date Recorded Within the past 12 months we worried whether our food would run out before we got money to buy more. Never True 07/16/2024 Within the past 12 months th e food we bought just didn't last and we didn't have money to get more. Never True 07/16/2024 Comments No Sex and Gender Information Value Date Recorded Sex Assigned at Not on file Legal Sex Female 1:36 PM EDT Gender Identity Not on file Sexual Orientation Not on file documented as of this encounter Last Filed Vital Signs Vital Sign Reading Time Taken Comments Blood Pressure 116/72 04/10/2025 9:10 AM EDT Pulse - - Temperature - - Respiratory Rate - - Oxygen Saturation - - Inhaled Oxygen Concentration - - Weight 95.1 kg (209 lb 9.6 oz) 04/10/2025 9:10 A M EDT Height 165.1 cm (5' 5 ) 04/10/2025 9:10 AM EDT Body Mass Index 34.88 04/10/2025 9:10 AM EDT documented in this encounter Patient Instructions * Attachments The following attachments cannot be sent through Care Everywhere. * Ethinyl Estradiol and Levonorgestrel, ADULT (Tamazight) * Vaping (Tamazight) documented in this encounter Progress Notes * Aleyda Elam, [employer]-WASTE HANDLING TECHNICIAN - 04/10/2025 9:00 AM EDT Annual Well Woman Visit 04/10/2025 Subjective Ramya Pederson is a pleasant 34 y.o. female who presents for annual nurse obgyn exam. Periods are regular every 28-30 days, lasting 4 days. Dysmenorrhea: mild, occurring throughout menses. Cyclic symptoms include none. no intermenstrual bleeding, spotting, or abnormal discharge. no pelvic pain. Patient desires STD testing today. Complaints today: vaginal irritation, itching and burning. Wants to switch from BC pills to patch. Relationship status: in a relationship The patient reports that there is not domestic violence in her life. Sexually active: Yes Former smoker, quit 2 years ago Children YES How many Two c-sections Current contraception: oral progesterone-only contraceptive History of abnormal Pap smear: no Last pap: 01/29/24- Neg, Neg HPV Regular self breast exam: no Last mammogram: n/a Family history of breast cancer: no Family history of uterine or ovarian cancer: no Family history of pancreatic or prostate cancer: no Family history of colon cancer: no HPV vaccinated: no PHQ9 depression screenin LMP 03/23/2025 OB History 5 Para 2 Term 2 0 AB 3 Living 2 SAB 0 IAB 0 Ectopic 0 Multiple 0 Live Births 2 The following portions of the patient's history were reviewed and updated as appropriate: allergies, current medications, past family history, past medical history, past social history, past surgicalhistory and problem list. MEDICAL HX Past Medical History: Diagnosis Date History of elective x 3 10/04/2023 SURGICAL HX Past Surgical History: Procedure Laterality Date REPEAT N/A 05/19/2024 Performed by Ekaterina Martinez MD at [facility] OR SECTION INDUCED x 3 FAMILY HX Family History Problem Relation Age of Onset No Known Problems Father No Known Problems Mother MEDS Current Outpatient Medications Medication Sig Dispense Refill acetaminophen (TYLENOL EXTRA STRENGTH) 500 mg tablet Take 2 tablets (1,000 mg total) by mouth every8 (eight) hours Indications: fever, headache, pain. 30 tablet 0 ferrous sulfate 325 (65 FE) mg tablet Take 1 tablet (325 mg total) by mouth in the morning and 1 tablet (325 mg total) in the evening. Take with meals. 60 tablet 2 ibuprofen (MOTRIN) 800 mg tablet Take 1 tablet (800 mg total) by mouth every 8 (eight) hours. 30 tablet 0 levonorgestreL-ethinyl estrad 120-30 mcg/[address] a new patch on the skin as directed once weekly for three weeks, followed by a patch free week 3 patch 3 No current facility-administered medications for this visit. ALLERGIES No Known Allergies Review of Systems Constitutional: Negative. Respiratory: Negative. Negative for chest tightness and shortness of breath. Cardiovascular: Negative. Negative for chest pain and palpitations. Gastrointestinal: Negative. Negative for constipation, diarrhea, nausea and vomiting. Endocrine: Negative. Genitourinary: Negative. Negative for dyspareunia, menstrual problem and pelvic pain. Musculoskeletal: Negative. Skin: Negative. Allergic/Immunologic: Negative. Neurological: Negative. Hematological: Negative. Psychiatric/Behavioral: Negative. Objective BP 116/72 Ht 165.1 cm (5' 5 ) Wt 95.1 kg (209 lb 9.6 oz) LMP 03/23/2025 (Approximate) BMI 34.88 kg/m² Physical Exam Vitals and nursing note reviewed. Constitutional: Appearance: Normal appearance. HENT: Head: Normocephalic and atraumatic. Cardiovascular: Rate and Rhythm: Normal rate and regular rhythm. Pulses: Normal pulses. Heart sounds: Normal heart sounds. Pulmonary: Effort: Pulmonary effort is normal. Breath sounds: Normal breath sounds. Chest: Breasts: Breasts are symmetrical. Right: Normal. No mass, skin change or tenderness. Left: Normal. No mass, skin change or tenderness. Abdominal: General: Bowel sounds are normal. Palpations: Abdomen is soft. Genitourinary: General: Normal vulva. Labia: Right: No rash or lesion. Left: No rash or lesion. Vagina: Normal. Cervix: Normal. Uterus: Normal. Not enlarged and not tender. Adnexa: Right adnexa normal and left adnexa normal. Right: No mass, tenderness or fullness. Left: No mass, tenderness or fullness. Musculoskeletal: General: Normal range of motion. Cervical back: Normal range of motion and neck supple. Skin: General: Skin is warm and dry. Neurological: Mental Status: She is alert and oriented to person, place, and time. Psychiatric: Mood and Affect: Mood normal. Speech: Speech normal. Behavior: Behavior normal. Thought Content: Thought content normal. Judgment: Judgment normal. Assessment/Plan: Ramya was seen today for annual exam. Diagnoses and all orders for this visit: Well woman exam with routine gynecological exam Standardized adult depression screening tool completed Initial encounter for management of contraceptive patch use - levonorgestreL-ethinyl estrad 120-30 mcg/24 hr patch weekly; Place a new patch on the skin as directed once weekly for three weeks, followed by a patch free week BMI is above average; Discussed eating tips for weight loss and and exercise steps. Recommend breast self-awareness. Notify provider for any breast changes or concerns Discussed healthy lifestyle modifications. Educational material distributed. RTO 3 months for medication follow up. Follow up in 1 year for annual nurse obgyn exam. Follow up as needed. Next pap due 2028 per ASCCP guidelines. Discussed taking a multivitamin. Recommend cessation of vaping. Discussed Calcium and Vitamin D for prevention of osteoporosis. Discussed recommendations for HPV vaccine between 9-45 yo. [facility] or the health department. Discussed need for yearly mammogram after 40 yo. Discussed colon cancer screening recommendations to begin at 45 yo, patient to discuss with PCP. All questions answered. CARITO THRASHER APRN-CNP Lisa M Krotzer, APRN-CNP 04/10/25937 DELFINA Amaro 04/10/25938 documented in this encounter Miscellaneous Notes * Addendum Note - Greg Rankin CMA - 04/10/2025 9:00 AM EDTAddended by: GREG RANKIN on: 04/10/2025 09:48 AM Modules accepted: Orders documented in this encounter Plan of Treatment Not on file documented as of this encounter Procedures Procedure Name Priority Date/Time Associated Diagnosis Comments CHLAMYDIA/GC BY PCR JALYN SWAB Routine 04/10/2025 9:48 AM EDT Screening for STD (sexually transmitted disease) VAGINITIS PANEL PCR Routine 04/10/2025 9 :48 AM EDT Acute vaginitis documented in this encounter Results * (ABNORMAL) Vaginitis Panel PCR (04/10/2025 9:48 AM EDT) BACT. VAGINOSIS DNA Detected(A) Not Detected 04/11/2025 10:20 AM EDT [facility] Comment:Qualitative results are reported based on detection and quantitation of targeted organism markers which include: Lactobacillus spp. (L. crispatus and L. jensenii), Gardnerella vaginalis, Atopobium vaginae, Bacterial Vaginosis Associated Bacteria-2 (BVAB-2) and Megasphaera-1. RAND SPECIES DNA Not Detected Not Detected 04/11/2025 10:20 AM EDT [facility] Comment:Rand species not detected include: C. albicans, C. tropicalis, C. parapsilosis or C. dubliniensis. RAND KRUSEI DNA Not Detected Not Detected 04/11/2025 10:20 AM EDT [facility] Comment:No Rand krusei de tected. RAND GLABRATA DNA Not Detected Not Detected 04/11/2025 10:20 AM EDT [facility] Comment:No Rand glabrata detected. TRICHOMONAS VAG DNA Not Detected Not Detected 04/11/2025 10:20 AM EDT [facility] Comment: No Trichomonas vaginalis detected. BD MAX Vaginal Panel has not been evaluated for patients under 18 years old. Results for these patients should be reviewed and assessed in accordance with clinical presentation to determine patient diagnosis. Swab Vaginal structure / Unknown 04/10/2025 9:48 AM EDT 04/10/2025 9:48 AM EDT us Aleyda Elam SECONDARY SET UP MAN-WASTE HANDLING TECHNICIAN MICROBIOLOGY - GENERAL O RDERABLES Final Result [facility] [address] [place] [address], * Chlamydia/GC by PCR Jalyn Swab (04/10/2025 9:48 AM EDT) CHLAMYDIA DNA(PCR) Negative Negative 04/12/2025 12:44 PM EDT [facility] Comment:Chlamydia trachomati s not detected by nucleic acid amplification. This does not exclude the possibility of infection because results are dependent on adequate specimen collection. GONORRHOEAE DNA(PCR) Negative Negative 04/12/2025 12:44 PM EDT [facility] Comment:Neisseria gonorrhoea e not detected by nucleic acid amplification. This does not exclude the possibility of infection because results are dependent on adequate specimen collection. Swab Endocervical structure / Unknown 04/10/2025 9:48 AM EDT 04/10/2025 9:48 AM EDT us Aledya Elam SECONDARY SET UP MAN-WASTE HANDLING TECHNICIAN MICROBIOLOGY - GENERAL O RDERABLES Final Result [facility] [address] [place] [address], [place] [phone] documented in this encounter Visit Diagnoses Diagnosis Well woman exam with routine gynecological exam- Primary Routine gynecological examination Standardized adult depression screening tool completed Initial encounter for management of contraceptive patch use Acute vaginitis Unspecified vaginitis and vulvovaginitis Screening for STD (sexually transmitted disease) documented in this encounter Additional Health Concerns Assessment Noted Time PHQ-9 Depression Total Score: 0 04/10/20 9:09 AM EDT A Body Mass Index follow-up plan has been documented for the patient 04/10/2025 9:39 AM EDT documented as of this encounter
[2025-04-17 09:54] VITALS: BP 149/98; PULSE 75; TEMP 36.6; O2SAT 99; BMI 34.8
--- OUTSIDE RECORDS SUMMARY | 2025-04-17 10:02 | XMS_ITS | Clinical Summary ---
Author Organization [employer] tem Address [facility] [id number] [address] [place] [address] Care Team Providers Care Company Laborer Name Role Phone Unavailable Primary Care Provider Unavailabl e Allergies No known active allergies Medications acetaminophen (TYLENOL EXTRA STRENGTH) 500 mg tabletIndications :fever,headache disorder,pain Take 2 tablets (1,000 mg total) by mouth every 8 (eight) hours Indications: fever, headache, pain. 30 tablet 4 Active ferrous sulfate 325 (65 FE) mg tablet Take 1 tablet (325 mg total) by mouth in the morning and 1 tablet (325 mg total) in the evening. Take with meals. 60 tablet 2 4 Active ibuprofen (MOTRIN) 800 mg tablet Take 1 tablet (800 mg total) by mouth every 8 (eight) hours. 30 tablet 4 Active levonorgestreL-et hinyl estrad 120-30 mcg/24 hr patch weeklyIndications :Initial encounter for management of contraceptive patch use Place a new patch on the skin as directed once weekly for three weeks, followed by a patch free week 3 patch 3 5 Active metroNIDAZOLE (FLAGYL) 500 mg tabletIndications :Bacterial vaginosis Take 1 tablet (500 mg total) by mouth in the morning and 1 tablet (500 mg total) before bedtime. Do all this for 7 days. 14 tablet 5 04/20/20 25 Active 22-kthp-lzbnes 9-dha 31 mg iron- 1 mg-200 mg capsuleIndication s:First trimester Take 1 capsule by mouth in the morning. 90 capsule 3 3 04/10/20 25 Discontin ued(Thera py completed ) NIFEdipine XL (PROCARDIA XL) 60 mg 24 hr tablet Take 1 tablet (60 mg total) by mouth in the morning. 60 tablet 1 4 04/10/20 25 Discontin ued(Thera py completed ) NIFEdipine XL (PROCARDIA XL) 30 mg 24 hr tabletIndications : hypertension Take 1 tablet (30 mg total) by mouth in the morning. 30 tablet 1 4 04/10/20 25 Discontin ued(Thera py completed ) drospirenone, contraceptive, 4 mg (28) tabletIndications :Encounter for initial prescription of contraceptive pills Take 4 mg by mouth in the morning. 84 tablet 3 4 04/10/20 25 Discontin ued(Alter jesus therapy) Active Problems Problem Noted Date Diagnosed Date Iron deficiency anemia secon kate to inadequate dietary iron intake 05/21/2024 hypertension 05/21/2024 Vapes nicotine containing substance 10/04/2023 Overview (10/04/2023): Encouraged cessation Resolved Problems Problem Noted Date Diagnosed Date Resolved Date History of elective x 3 10/04/2023 05/21/2024 Encounters Date Type Department Care Team Description 04/13/2025 Orders Only [facility] Obstetrics/Gynecolo elijah [address] [place] [address] Olga Tolbert, HOUSEKEEPER CAREGIVER-AIRCRAFT RESTORER Bacterial vaginosis (Primary Dx) 04/13/2025 Telephone [facility] Obstetrics/Gynecolo elijah [address] [place] [address] Kymberly Ty MA 04/10/2025 9:00 AM EDT Office Visit [facility] Obstetrics/Gyneceloisa nava [address] [place] [address] Aleyda Elam, HOUSEKEEPER CAREGIVER-AIRCRAFT RESTORER Well woman exam with routine gynecological exam (Primary Dx); Standardized adult depression screening tool completed; Initial encounter for management of contraceptive patch use; Acute vaginitis; Screening for STD (sexually transmitted disease) 04/10/2025 Travel from Last 3 Months Family History Medical History Relation Name Comments No Known Problems Father No Known Problems Mother Relation Name Status Comments Father Mother Social History Tobacco Use Types Packs/Day Years Used Date Smoking Tobacco: Former Cigarettes Cigars Smokeless Tobacco: Never Alcohol Use Standard Drinks/Week Comments Not Currently 0 (1 standard drink = 0.6 oz pur e alcohol) [facility] Utilities Answer Date Recorded In the past 12 months has th e electric, gas, oil, or water company [...] things needed for daily living? No 05/19/2024 [place] Depression Scale Answer Date Recorded [place] Depression Scale Total 5 05/26/2024 The thought [...] on file Sexual Orientation Not on file Last Filed Vital Signs Vital Sign Reading Time Taken Comments Blood Pressure 116/72 04/10/2025 9:10 AM EDT Pulse 64 05/26/2024 12:45 PM EDT Temperature 37.1 C (98.8 F) 05/26/2024 12:09 PM EDT Respiratory Rate 20 05/26/2024 12:15 PM EDT Oxygen Saturation 100% 05/26/2024 12:15 PM EDT Inhaled Oxygen Concentration - - Weight 95.1 kg (209 lb 9.6 oz) 04/10/2025 9:10 A M EDT Height 165.1 cm (5' 5 ) 04/10/2025 9:10 AM EDT Body Mass Index 34.88 04/10/2025 9:10 AM EDT Plan of Treatment Health Maintenance Due Date Last Done Comments DTaP,Tdap and Td Vaccines (1 - Tdap) 2011 Influenza Vaccine 06/15/2025 Adult BMI Follow Up Plan 04/10/2026 04/10/2025 Adult BMI Screening 04/10/2026 04/10/2025 Depression Screening 04/10/2026 04/10/2025, 05/26/20 Tobacco Screening 04/10/2026 04/10/2025 Pap Smear 01/28/2027 01/29/2024, 01/29/2024 Medical Devices Not on file Procedures Procedure Name Priority Date/Time Associated Diagnosis Comments VAGINITIS PANEL PCR Routine 04/10/2025 9:48 AM EDT Acute vaginitis CHLAMYDIA/GC BY PCR JALYN SWAB Routine 04/10/2025 9:48 AM EDT Screening for STD (sexually transmitted disease) PAP SMEAR Routine 01/29/2024 4:29 AM EDT Pap smear, as part of routine gynecological examination from Last 3 Months or Most Recently Relevant to Health Maintenance Results * Chlamydia/GC by PCR Jalyn Swab (04/10/2025 9:48 AM EDT) CHLAMYDIA DNA(PCR) Negative Negative 04/12/2025 12:44 PM EDT [facility] Comment:Chlamydia trachomati s not detected by nucleic acid amplification. This does not exclude the possibility of infection because results are dependent on adequate specimen collection. GONORRHOEAE DNA(PCR) Negative Negative 04/12/2025 12:44 PM EDT [facility] Comment:Neisseria gonorrhoea e not detected by nucleic acid amplification. This does not exclude the possibility of infection because results are dependent on adequate specimen collection. Swab Endocervical structure / Unknown 04/10/2025 9:48 AM EDT 04/10/2025 9:48 AM EDT Aleyda Elam HOUSEKEEPER [facility] MI[facility] - GENERAL O RDERABLES Final Result [facility] [address] [place] [address], [place] [phone] * (ABNORMAL) Vaginitis Panel PCR (04/10/2025 9:48 AM EDT) Pathologist [facility] BACT. VAGINOSIS DNA Detected(A) Not Detected 04/11/2025 10:20 AM EDT [facility] Comment:Qualitative results are reported based on detection and quantitation of targeted organism markers which include: Lactobacillus spp. (L. crispatus and L. jensenii), Gardnerella vaginalis, Atopobium vaginae, Bacterial Vaginosis Associated Bacteria-2 (BVAB-2) and Megasphaera-1. RAND SPECIES DNA Not Detected Not Detected 04/11/2025 10:20 AM EDT [facility] Comment:Rand species not detected include: C. albicans, C. tropicalis, C. parapsilosis or C. dubliniensis. RADN KRUSEI DNA Not Detected Not Detected 04/11/2025 10:20 AM EDT [facility] Comment:No Rand krusei de tected. RAND GLABRATA DNA Not Detected Not Detected 04/11/2025 10:20 AM EDT [facility] Comment:No Rand glabrata detected. TRICHOMONAS VAG DNA Not Detected Not Detected 04/11/2025 10:20 AM EDT [facility] Comment: No Trichomonas vaginalis detected. BD MAX Vaginal Panel has not been evaluated for patients under 18 years old. Results for these patients should be reviewed and assessed in accordance with clinical presentation to determine patient diagnosis. Swab Vaginal structure / Unknown 04/10/2025 9:48 AM EDT 04/10/2025 9:48 AM EDT Aleyda Elam HOUSEKEEPER [facility] - GENERAL O RDERABLES Final Result [facility] [address] [place] [address] [address] [place] [address], * Pap Smear (01/29/2024 4:29 AM EDT) 01/29/2024 4:29 AM EDT 01/29/2024 4:53 AM EDT Narrative COP[facility] - 02/14/2024 4:06 PM EDT [email or web address] [address] [place] [address] Gynecologic Cytology Consultation Patient Name:ERICK PEDERSON:1990 (Age: 33)Gender:FTaken:4Reported:02/14/2024hysician(s):Aleyda Magaña APRN- CNPCopy To: Rec. #:[id number]: #[id number] Final Cytologic Interpretation ThinPrep Pap Test (Cervical): Satisfactory for evaluation. A transformation zone component is present. NEGATIVE FOR INTRAEPITHELIAL LESION OR MALIGNANCY. [facility] [place]/14/2024 Interpretation performed at [email or web address], [address] [place] [address], License number: [id number]. Electronically Signed Out By CAROL Velazco(ASCP) Date of Last Menstrual Period: 08/15/23 Other Clinical Conditions: Clinical History: Z01.419 Demurrage Clerk exam wo/abn findings Source of Specimen ThinPrep Pap Test (Cervical) Thin Prep Pap (STREET VENDOR) Fee Code(s): G0145 The Pap test is a screening test with an inherent, but low, probability of error. The Pap test is primarily effective for the diagnosis and prevention of squamous cell carcinoma. Regular screening is critical for prevention. ThinPrep liquid-based slides, which meet the Client Experience Consultant criteria for automated screening, have been screened by the Resource Guru[employer] Imaging System (as of 07/01/07) along with an additional manual rescreening by a welt edge rounder and, if indicated, by a pathologist. us Aleyda Elam HOUSEKEEPER CAREGIVER-AIRCRAFT RESTORER PATHOLOGY/CYTOLOGY ORDER PATRICE Final Result [facility] from Last 3 Months or Most Recently Relevant to [place] [address] [place] [address] [place] [employer] Advance Directives * Full Code (Latest Code Status on File) Date Activated Date Inactivated Comments 05/19/2024 9:07 AM 05/22/2024 7:29 PM * Full Code Date Activated Date Inactivated Comments 05/12/2024 6:30 PM 05/12/2024 9:08 PM
--- OUTSIDE RECORDS SUMMARY | 2025-04-17 10:02 | XMS_ITS | Encounter Summary ---
Author Organization [employer] [facility] tem Address [facility] [id number] [address] 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 Role Phone Unavailable Primary Care Provider Unavailabl e Encounter Details Date Type Department Care Team (Late st Contact Info) Description 04/13/2025 Telephone [facility] Obstetrics/Gynecology [address] [place] [address] Kymberly Ty MA Social History Tobacco Use Types Packs/Day Years Used Date Smoking Tobacco: Former Cigarettes Cigars Smokeless Tobacco: Never Alcohol Use Standard Drinks/Week Comments Not Currently 0 (1 standard drink = 0.6 oz pur e alcohol) [facility] Utilities Answer Date Recorded In the [...] things needed for daily living? No 05/19/2024 [place] Depression Scale Answer Date Recorded [place] Depression Scale Total 5 05/26/2024 The thought [...] on file documented as of this encounter Miscellaneous Notes * Telephone Encounter - Kymberly Ty MA - 04/13/2025 9:25 AM EDT Pt called inquiring about GCCT and VNAP results. Appt was on 04/10/25. Please advise, thank you! - Kymberly Ty MA 04/13/25 9:27 AM * Telephone Encounter - Kymberly Ty MA - 04/13/2025 9:25 AM EDT Pt was informed per Olga Tolbert CNP result note. Pt voiced understanding. - Kymberly Ty MA 04/13/25 3:46 PM * Telephone Encounter - Ekaterina Martinez MD - 04/13/2025 9:25 AM EDT THANK YOU NILTON documented in this encounter Plan of Treatment Not on file documented as of this encounter Visit Diagnoses Not on filedocumented in this encounter Additional Health Concerns Assessment Noted Time PHQ-9 Depression Total Score: 0 04/10/20 9:09 AM EDT A Body Mass Index follow-up plan has been documented for the patient 04/10/2025 9:39 AM EDT documented as of this encounter
--- OUTSIDE RECORDS SUMMARY | 2025-04-17 10:02 | XMS_ITS | Clinical Summary ---
Author Organization [facility] Address [address] [facility] [place] [address] Care Team Providers Care Principal Quality Engineer Name Role Phone Unavailable Primary Care Provider Unavailabl e Social History Tobacco Use Types Packs/Day Years Used Date Smoking Tobacco: Never Assessed Comments Unknown Sex and Gender Information Value Date Recorded Sex Assigned at Not on file Legal Sex Female 7:15 PM EDT Gender Identity Not on file Sexual Orientation Not on file Last Filed Vital Signs Vital Sign Reading Time Taken Comments Blood Pressure 130/90 08/06/2018 12:00 PM EDT Pulse - - Temperature - - Respiratory Rate - - Oxygen Saturation - - Inhaled Oxygen Concentration - - Weight 101 kg (223 lb) 08/06/2018 12:00 PM EDT Height 162.6 cm (5' 4 ) 08/06/2018 12:00 PM EDT Body Mass Index 38.28 08/06/2018 12:00 PM EDT Plan of Treatment Not on file
--- NOTE | 2025-04-17 10:03 | ED_ITS ---
HPI HPI - General Adult General Chief complaint: Eye Problems Stated complaint: EYE IRRITATION Time Seen by Provider: 04/17/25 09:57 Source: patient Mode of arrival: walk-in Limitations: no limitations History of Present Illness HPI narrative: 34-year-old female presents for left eye redness and drainage. She woke up this way today. She had dried crusty drainage in her eye. No symptoms in the right eye and she gives no history of trauma or foreign body. Related Data Previous Rx's �Medication �Instructions �Recorded sulfacetamide sodium 10 % eye drops 2 drp ophthalmic ( eye) Q4H #15 mL 04/17/25 Allergies Allergy/AdvReac Type Severity Reaction Status Date / Time No Known Drug Allergies Allergy Verified 04/17/25 09:54 Opioid HPI Opioid Management Most Recent Opioid Data: Last Pain Scale 5 Today, 09:59 Review of Systems ROS Narrative A ten point review of systems is negative except as noted above. PFSH PFSH Social History Smoking status: Current every day smoker Little interest or pleasure in doing things: not at all Feeling down, depressed, or hopeless: not at all Exam Narrative Exam Narrative: Nurses note and vital signs reviewed and patient is not hypoxic. General: The patient appears well and in no apparent distress. Patient is resting comfortably on cart. Skin: Warm, dry, no pallor noted. There is no rash noted. Head: Normocephalic, atraumatic Eye: Right eye is normal. Left conjunctiva is injected and she has minimal drainage. No periorbital swelling or erythema. Ears, Nose, Mouth, and Throat: oral mucosa is moist. Nares patent. Cardiovascular: Regular Rate and Rhythm Respiratory: Patient is in no distress, no accessory muscle use Back: non-tender GI: Soft and nontender Musculoskeletal: No joint swelling Neurological: Awake and alert Psychiatric: Cooperative Constitutional Vital Signs, click to edit/add: Last Vital Signs Temp 97.9 F 04/17/25 09:54 Pulse 75 04/17/25 09:54 Resp 20 04/17/25 09:54 BP 149/98 H 04/17/25 09:54 Pulse Ox 99 04/17/25 09:54 Course Vital Signs Vital signs: Vital Signs Temperature 97.9 F 04/17/25 09:54 Pulse Rate 75 04/17/25 09:54 Respiratory Rate 20 04/17/25 09:54 Blood Pressure 149/98 H 04/17/25 09:54 Pulse Oximetry 99 04/17/25 09:54 Temperature 97.9 F 04/17/25 09:54 Pulse Rate 75 04/17/25 09:54 Respiratory Rate 20 04/17/25 09:54 Blood Pressure 149/98 H 04/17/25 09:54 Pulse Oximetry 99 04/17/25 09:54 Discharge Plan Discharge Chief Complaint: Eye Problems Clinical Impression: Acute conjunctivitis of left eye Patient Disposition: Home, Self-Care Time of Disposition Decision: 10:03 Condition: Good Mode of Transportation: Private Vehicle Prescriptions / Home Meds: New sulfacetamide sodium 10 % drops 2 drp ophthalmic (eye) Q4H Qty: 15 0RF Print Language: Tunisian Instructions: How to Use Eye Drops (ED), Conjunctivitis (ED) Referrals: Physician,Non-Staff, MD [Primary Care Provider] - 1 week
--- OUTSIDE RECORDS SUMMARY | 2025-04-17 10:03 | XMS_ITS | Encounter Summary ---
Author Organization [employer] s tem Address [facility] [id number] [address] [place] [address] Care Team Providers Care Can Stacker Name Role Phone No Pcp, No Pcp Primary Care Provider Unavailabl e Encounter Details Date Type Department Care Team (Late st Contact Info) Description 05/27/2024 Telephone [facility] Cardiology [address] [place] [id number] Bo Smith MD [address] [place] [address] Social History Tobacco Use Types Packs/Day Years Used Date Smoking Tobacco: Former Cigarettes Cigars Smokeless Tobacco: Never Alcohol Use Standard Drinks/Week Comments Not Currently 0 (1 standard drink = 0.6 oz pur e alcohol) [facility] Utilities Answer Date Recorded In the past 12 months has [employer], gas, oil, or water [employer] threatened to shut off services in your home? No 05/19/2024 PRAPARE - Transportation Answer Date Re corded In the past 12 months, has l ack of transportation kept you from medical appointments or from getting medications? No 02/2024 In the past 12 months, has l ack of transportation kept you from meetings, work, or from getting things needed for daily living? No 05/19/2024 [place] Depression Scale Answer Date Recorded [place] Depression Scale Total 5 05/26/2024 The thought [...] got money to buy more. Never True 05/19/2024 Within the past 12 months th e food we bought just didn't last and we didn't have money to get more. Never True 05/19/2024 Comments No Sex and Gender Information Value Date Recorded Sex Assigned at Not on file Legal Sex Female 1:36 PM EDT Gender Identity Not on file Sexual Orientation Not on file documented as of this encounter Miscellaneous Notes * Telephone Encounter - Isaura Fitch - 05/27/2024 6:53 AM EDT This is notification that we have received a referral for the patient. Please reach out to schedulenew patient appointment in your office. Please check the referral tab in appt desk for details and to make sure to assign referral or schedule off of it. Thank you. documented in this encounter Plan of Treatment Not on file documented as of this encounter Visit Diagnoses Not on filedocumented in this encounter Care Teams Can Stacker Relationship Specialty Start Date End Date No Pcp, No Pcp THU [place] [id number] PCP - General Family Medicine 01/28/24 04/09/25 documented as of this encounter
--- OUTSIDE RECORDS SUMMARY | 2025-04-17 10:03 | XMS_ITS | Encounter Summary ---
Author Organization [employer] Address [facility] [id number] [address] [place] [address] Care Team Providers Care Catering Administrative Assistant Name Role Phone Unavailable Primary Care Provider Unavailabl e Encounter Details Date Type Department Care Team (Late st Contact Info) Description 04/13/2025 Orders Only [facility] Obstetrics/Gynecology [address] [place] [address] Olga Tolbert, PRESS CUTTER-LEATHER TANNER [address] [facility] [address] [place], [place] [id number] Bacterial vaginosis (Primary Dx) Social History Tobacco Use Types Packs/Day Years Used Date Smoking Tobacco: Former Cigarettes Cigars Smokeless Tobacco: Never Alcohol Use Standard Drinks/Week Comments Not Currently 0 (1 standard drink = 0.6 oz pur e alcohol) [facility] Utilities Answer Date Recorded In the past 12 months has e [employer], gas, oil, or water [employer] threatened to shut off services in your [...] things needed for daily living? No 05/19/2024 [place] Depression Scale Answer Date Recorded [place] Depression Scale Total 5 05/26/2024 The thought [...] on file documented as of this encounter Plan of Treatment Not on file documented as of this encounter Visit Diagnoses Diagnosis Bacterial vaginosis- Primary Unspecified vaginitis and vulvovaginitis documented in this encounter Additional Health Concerns Assessment Noted Time PHQ-9 Depression Total Score: 0 04/10/20 9:09 AM EDT A Body Mass Index follow-up plan has been documented for the patient 04/10/2025 9:39 AM EDT documented as of this encounter
--- OUTSIDE RECORDS SUMMARY | 2025-04-17 10:03 | XMS_ITS | Encounter Summary ---
Author Organization [employer] tem Address [facility] [place]-[id number] [address] [place] [address] Care Team Providers Care Medical Logistics Specialist Name Role Phone Unavailable Primary Care Provider Unavailabl e Encounter Details Date Type Department Care Team (Latest Contact Info) Description 04/10/2025 Travel Social History Tobacco Use Types Packs/Day Years Used Date Smoking Tobacco: Former Cigarettes Cigars Smokeless Tobacco: Never Alcohol Use Standard Drinks/Week Comments Not Currently 0 (1 standard drink = 0.6 oz pur e alcohol) [facility] Utilities Answer Date Recorded In [...] things needed for daily living? No 05/19/2024 [place] Depression Scale Answer Date Recorded [place] Depression Scale Total 5 05/26/2024 The thought [...]
--- OUTSIDE RECORDS SUMMARY | 2025-04-17 10:04 | XMS_ITS | CCD ---
Author Organization [facility] Care Team Providers Care Book Binder Name Role Phone NO FAMILY, PHYSICIAN Primary Care Provider Unava ilable Bullimore, DUPLIGRAPH OPERATOR-BC Diana E Emergency Provider Bullimore, Diana E Admitting Unavailable Bullimore, Diana E Attending Unavailable NO FAMILY, PHYSICIAN Primary Care Unavailable Saffle, Angela N Admitting Unavailable Saffle, Angela N Attending Unavailable NO FAMILY, PHYSICIAN Primary Care Unavailable Tupa, Sagar M Admitting Unavailable Tupa, Sagar M Attending Unavailable NO FAMILY, PHYSICIAN Primary Care Unavailable NO FAMILY, PHYSICIAN Primary Care Unavailable Bullimore, Diana E Admitting Unavailable Bullimore, Diana E Attending Unavailable KRYSTA, ALEYDA M Referring Unavailable NO PCP, NO PCP Primary Care Unavailable TABBY WOMACK Attending Unavailable KRYSTA, ALEYDA M Referring Unavailable NO PCP, NO PCP Primary Care Unavailable OLGA DIAZ Referring Unavailable NO PCP, NO PCP Primary Care Unavailable REGAN, EKATERINA Referring Unavailable NO PCP, NO PCP Primary Care Unavailable KRYSTA, ALEYDA M Attending Unavailable KRYSTA, ALEYDA M Referring Unavailable KRYSTA, ALEYDA M Referring Unavailable KRYSTA, ALEYDA M Referring Unavailable NO PCP, NO PCP Primary Care Unavailable KRYSTA, ALEYDA M Referring Unavailable NO PCP, NO PCP Primary Care Unavailable KRYSTA, ALEYDA M Referring Unavailable NO PCP, NO PCP Primary Care Unavailable REGAN, EKATERINA Attending Unavailable REGAN, EKATERINA Referring Unavailable NO PCP, NO PCP Primary Care Unavailable FRIES, KRYSTAL S Admitting Unavailable FRIES, KRYSTAL S Attending Unavailable REGAN, EKATERINA Referring Unavailable NO PCP, NO PCP Primary Care Unavailable KRYSTA, ALEYDA M Referring Unavailable NO PCP, NO PCP Primary Care Unavailable REGAN, EKATERINA Attending Unavailable REGAN, EKATERINA Referring Unavailable NO PCP, NO PCP Primary Care Unavailable REGAN, EKATERINA Attending Unavailable NO PCP, NO PCP Primary Care Unavailable NATASHAKAITLYNN KRYSTAL Gabriela Admitting Unavailable KT BRODY Attending Unavailable NO PCP, NO PCP Primary Care Unavailable ERIK OLIVER Admitting Unavailable ERIK OLIVER Attending Unavailable NO PCP, NO PCP Primary Care Unavailable No Pcp, No Pcp Primary Care Provider Unavailabl e Unavailable Primary Care Provider Unavailabl e Unavailable Primary Care Provider Unavailabl e EKATERINA SPEARS L Attending Unavailable NO PCP, NO PCP Primary Care Unavailable EKATERINA SPEARS Attending Unavailable NO PCP, NO PCP Primary Care Unavailable ALEYDA ELAM Attending Unavailable NO PCP, NO PCP Primary Care Unavailable ALEYDA ELAM Attending Unavailable NO PCP, NO PCP Primary Care Unavailable Medications Current Medications Medication Drug Class(es) Dates Sig (Normalized) Sig (Original) acetaminophen 500 mg oral tablet (11 sources) Start: 05-22-2024 take 2 tablets by mouth every eight hours acetaminophen (TYLENOL EXTRA STRENGTH) 500 mg tablet Indications: fever , headache disorder , pain Take 2 tablets (1,000 mg total) by mouth every 8 (eight) hours Indications: fever, headache, pain. 30 tablet 05/22/2024 Active Start: 05-19-2024 1,000 mg, oral , Every 8 hours, First dose (after last modification) on Sun05/19/24 at 2300, , Alternate administration every 4 hours with ketorolac or ibuprofen, Indications: fever, headache disorder, pain Start: 05-19-2024 End: 05-19-2024 1,000 mg, oral, Every 6 hour s, First dose on Sun05/19/24 at 1500, , Alternate administration every 4 hours with ketorolac or ibuprofen, Indications: fever, headache disorder, pain Start: 05-19-2024 End: 05-19-2024 take 1000 mg by mouth once 1,000 mg, oral, Once, On 05/19/24 at 0915, For 1 dose, L&D Pre-Delivery bisacodyl 10 mg rectal suppository (1 source) Stimulant Laxative Start: 05-20-2024 10 mg, rectal, Once as needed, constipation, no relief from docusate or senna/docusate, Starting on Sun05/20/24 at 0000, For 1 dose, , Start 2nd day Look-alike/sound-alike medication - verify indication for use. 1 ml carboprost 0.25 mg/ml injection (1 source) Prostaglandin Analog Start: 05-19-2024 inject 250 ug by intramuscular injection once as needed 250 mcg, intramuscular, Once as needed, hemorrhage management, Starting on Sun05/19/24 at 0857, For 1 dose, , Administer as directed by provider for Hemorrhage management. DO NOT ADMINISTER IV. Contraindicated if patient has a history of asthma or cardiovascular disease diphenhydrAMINE (1 source) Histamine-1 Receptor Antagonist Start: 05-19-2024 take 12.5 mg intravenously every six hours as needed 12.5 mg, intravenous, Every 6 hours PRN, itching, if Nubain is ineffective, Starting on Sun05/19/24 at 1253, For 3 doses, PACU & Post-op, Look-alike/sound-alike medication - verify indication for use., Intravenous Specific Administration: IV Push drospirenone, contraceptive, 4 mg (28) tablet (3 sources) Start: 07-16-2024 End: 04-10-2025 take 1 tablet by mouth in the morning drospirenone, contraceptive, 4 mg (28) tablet Indications: Encounter for initial prescription of contraceptive pills Take 4 mg by mouth in the morning. 84 tablet 3 07/16/2024 04/10/2025 Discontinued (Alternate therapy) Start: 07-16-2024 take 1 tablet by frank th in the morning drospirenone, contraceptive, 4 mg (28) tablet Indications: Encounter for initial prescription of contraceptive pills Take 4 mg by mouth in the morning. 84 tablet 3 07/16/2024 Active 0.4 ml enoxaparin sodium 100 mg/ml prefilled syringe (1 source) Low Molecular Weight Heparin Start: 05-20-2024 End: 05-23-2024 inject 40 mg by subcutaneous injection every twenty-four hours 40 mg, subcutaneous, Every 24 hours scheduled, First dose on Sun05/20/24 at 0800, For 3 days, , Look-alike/sound-alike medication - verify indication for use. ferrous sulfate 325 mg oral tablet (9 sources) Start: 05-21-2024 take 1 tablet by mouth in the morning, then take 1 tablet by mouth at mealtime ferrous sulfate 325 (65 FE) mg tablet Take 1 tablet (325 mg total) by mouth in the morning and 1 tablet (325 mg total) in the evening. Take with meals. 60 tablet 2 05/22/2024 Active hydrocortisone 25 mg/ml topical cream (1 source) Corticosteroid Start: 05-19-2024 1 Application, rectal, As needed, hemorrhoids, Starting on Sun05/19/24 at 1259, , May keep at bedside, Indications: hemorrhoids ibuprofen 800 mg oral tablet (9 sources) Nonsteroidal Anti-inflammatory Drug Start: 05-20-2024 take 1 tablet by mouth every eight hours ibuprofen (MOTRIN) 800 mg tablet Take 1 tablet (800 mg total) by mouth every 8 (eight) hours. 30 tablet 05/22/2024 Active lanolin 1000 mg/ml topical cream (1 source) Start: 05-19-2024 1 Application, topical, As needed, sore/cracked nipples, Starting on Sun05/19/24 at 1259, , May keep at bedside levonorgestreL-et hinyl estrad 120-30 mcg/24 hr patch weekly (3 sources) Start: 04-10-2025 apply 1 dose transdermal route every week levonorgestreL-ethinyl estrad 120-30 mcg/24 hr patch weekly Indications: Initial encounter for management of contraceptive patch use Place a new patch on the skin as directed once weekly for three weeks, followed by a patch free week 3 patch 3 04/10/2025 Active metroNIDAZOLE 500 mg oral tablet (2 sources) Nitroimidazole Antimicrobial Start: 04-13-2025 End: 04-20-2025 take 1 tablet by mouth in the morning, then take 1 tablet by mouth at bedtime metroNIDAZOLE (FLAGYL) 500 mg tablet Indications: Bacterial vaginosis Take 1 tablet (500 mg total) by mouth in the morning and 1 tablet (500 mg total) before bedtime. Do all this for 7 days. 14 tablet 04/13/2025 04/20/2025 Active miSOPROStol 0.2 mg oral tablet (1 source) Prostaglandin E1 Analog Start: 05-19-2024 take 1000 ug rectal route once as needed 1,000 mcg, rectal, Once as needed, hemorrhage treatment, Starting on Sun05/19/24 at 0857, For 1 dose, , Administer as directed by provider for Hemorrhage management Look-alike/sound-alike medication - verify indication for use. 1 ml nalbuphine hydrochloride 10 mg/ml injection (1 source) Opioid Agonist/Antagonis t Start: 05-19-2024 take 5 mg intravenously every six hours as needed 5 mg, intravenous, Every 6 hours PRN, for nausea and/or pruritis, Starting on Sun05/19/24 at 1253, For 3 doses, PACU & Post-op, Look-alike/sound-alike medication - verify indication for use. NIFEdipine 30 mg osmotic 24 hr extended release oral tablet (12 sources) Dihydropyridine Calcium Channel Ying Start: 05-26-2024 End: 04-10-2025 take 1 tablet by mouth every twenty-four hours in the morning NIFEdipine XL (PROCARDIA XL) 30 mg 24 hr tablet Indications: hypertension Take 1 tablet (30 mg total) by mouth in the morning. 30 tablet 1 05/26/2024 04/10/2025 Discontinued (Therapy completed) Start: 05-22-2024 End: 04-10-2025 take 1 tablet by mouth every twenty-four hours in the morning NIFEdipine XL (PROCARDIA XL) 60 mg 24 hr tablet Take 1 tablet (60 mg total) by mouth in the morning. 60 tablet 1 05/22/2024 04/10/2025 Discontinued (Therapy completed) Start: 05-22-2024 take 60 mg by mouth every twenty-four hours 60 mg, oral, Every 24 hours scheduled, First dose (after last modification) on Sun05/22/24 at 0900, Look-alike/sound-alike medication - verify indication for use. Swallow whole-do not split, crush, or chew. Avoid grapefruit juice. Start: 05-21-2024 End: 05-21-2024 take 30 mg by mouth once 30 mg, oral, Once, On 05/07 at 1145, For 1 dose, Look-alike/sound-alike medication - verify indication for use. Swallow whole-do not split, crush, or chew. Avoid grapefruit juice. Start: 05-20-2024 End: 05-21-2024 take 30 mg by mouth every twenty-four hours 30 mg, oral, Every 24 hours scheduled, First dose on Sun05/20/24 at 1545, Look-alike/sound-alike medication - verify indication for use. Swallow whole-do not split, crush, or chew. Avoid grapefruit juice. [place] (No Known Home Meds) (1 source) Start: 01-24-2021 [place] (No Known Home Meds) Active January 24, 2021 12:00am 2 ml ondansetron 2 mg/ml injection (2 sources) Serotonin-3 Receptor Antagonist Start: 05-19-2024 take 4 mg intravenously every six hours as needed for nausea and vomiting 4 mg, intravenous, Every 6 hours PRN, nausea, vomiting, Starting on Sun05/19/24 at 1253, For 3 doses, PACU & Post-op, Administer over 2-5 minutes., Intravenous Specific Administration: IV Push Start: 12-02-2019 End: 01-24-2021 take 4 mg by mouth every eight hours Ondansetron Discontinued 4 MG PO Q8H 9 3 December 02, 2019 1:00am January 24, 2021 7:26am oxyCODONE hydrochloride 5 mg oral tablet (5 sources) Opioid Agonist Start: 05-19-2024 End: 05-29-2024 take 1 tablet by mouth every four hours as needed for pain oxyCODONE (ROXICODONE) 5 mg immediate release tablet Indications: Delivery of by section Take 1 tablet (5 mg total) by mouth every 4 (four) hours as needed for pain for up to 7 days. Max Daily Amount: 30 mg 12 tablet 05/22/2024 05/29/2024 Active Start: 05-19-2024 take 1 tablet by frank th every four hours as needed for pain 10 mg, oral, Every 4 hours PRN, severe pain - pain scale 7-10, breakthrough pain, Starting on Sun05/19/24 at 1259, , Look-alike/sound-alike medication - verify indication for use. Immediate release. 1 ml oxytocin 10 unt/ml injection (1 source) Oxytocic Start: 05-19-2024 inject 10 [IU] by intramuscular injection once as needed 10 Units, intramuscular, Once as needed, hemorrhage treatment, Starting on Sun05/19/24 at 0857, For 1 dose, , administer as directed by provider for Hemorrhage management oxytocin (PITOCIN) bolus from bag solution 10 Units (1 source) Start: 05-19-2024 10 Units, intravenous, Administer over 30 Minutes, Once as needed, post-delivery hemostasis, Starting on Sun05/19/24 at 0857, For 1 dose, , Administer via programmable pump with lactated ringers solution oxytocin (PITOCIN) infusion 30 units/500 mL in lactated ringers (0.06 units/mL premix) (1 source) Start: 05-19-2024 oxytocin (PITOCIN) infusion 30 units/500 mL in lactated ringers (0.06 units/mL premix) polyethylene glycol [id number] 61391 mg powder for oral solution (1 source) Osmotic Laxative Start: 05-19-2024 17 g, oral, Daily PRN, constipation, Starting on Sun05/19/24 at 1259, , Look-alike/sound-al yvonne medication - verify indication for use. Dissolve 1 packet (17 gm) in 8 ounces of water, juice, soda, coffee or tea. 31-yvnu-rjsmcy 9-dha 31 mg iron- 1 mg-200 mg capsule (16 sources) Start: 10-04-2023 End: 04-10-2025 take 1 capsule by mouth in the morning 35-ttoy-pppqfe 9-dha 31 mg iron- 1 mg-200 mg capsule Indications: First trimester Take 1 capsule by mouth in the morning. 90 capsule 3 10/04/2023 04/10/2025 Discontinued (Therapy completed) Start: 10-04-2023 take 1 capsule by mo uth in the morning 08-zdbj-zelenv 9-dha 31 mg iron- 1 mg-200 mg capsule Indications: First trimester Take 1 capsule by mouth in the morning. 90 capsule 3 10/04/2023 Start: 10-04-2023 take 1 capsule by mo uth in the morning 90-rdbz-knavbi 9-dha 31 mg iron- 1 mg-200 mg capsule Indications: First trimester Take 1 capsule by mouth in the morning. 90 capsule 3 10/04/2023 Suspended Start: 10-04-2023 take 1 capsule by mo uth in the morning 04-lzfp-ssmyko 9-dha 31 mg iron- 1 mg-200 mg capsule Indications: First trimester Take 1 capsule by mouth in the morning. 90 capsule 3 10/04/2023 Active simethicone 80 mg chewable tablet (1 source) Start: 05-19-2024 80 mg, oral, 4 times daily before meals and at bedtime as needed, flatulence, abdominal discomfort caused by gas and distension, Starting on Sun05/19/24 at 1259, , Maximum dose 500 mg daily 10 ml tranexamic acid 100 mg/ml injection (1 source) Antifibrinolytic Agent Start: 05-19-2024 take 1 dose intravenously once 1,000 mg, intravenous, Administer over 10 Minutes, Every 30 min PRN, hemostasis/ post- hemorrhage, Starting on Sun05/19/24 at 0857, For 2 doses, , As directed by provider for hemostasis/post hemorrhage management. Give slow IV push over 10 minutes, may repeat one time in 30 minutes after initial dose Completed/Discontinued Medications Medication Drug Class(es) Dates Sig (Normalized) Sig (Original) amoxicillin 500 mg oral capsule (1 source) Penicillin-class Antibacterial Start: 06-03-2019 End: 12-02-2019 take 500 mg by mouth three times daily Amoxicillin Discontinued 500 MG PO Three times daily June 03, 2019 12:00am December 02, 2019 11:22am aspirin 81 mg chewable tablet (10 sources) Platelet Aggregation Inhibitor, Nonsteroidal Anti-inflammatory Drug Start: 01-29-2024 End: 05-19-2024 aspirin 81 mg chewable tablet Indications: Second trimester , Hx of preeclampsia, prior , currently Chew 1 tablet (81 mg total) and swallow in the morning. 90 tablet 1 01/29/2024 05/19/2024 Discontinued (Therapy completed) benzonatate 100 mg oral capsule (1 source) Non-narcotic Antitussive Start: 12-02-2019 End: 01-24-2021 take 1 capsule by mouth three times daily Benzonatate (Tessalon Perles) 100 mg capsule Discontinued 100 MG PO Three times daily December 02, 2019 1:00am January 24, 2021 7:26am calcium chloride 0.0014 meq/ml / potassium chloride 0.004 meq/ml / sodium chloride 0.103 meq/ml / sodium lactate 0.028 meq/ml injectable solution (2 sources) Start: 05-19-2024 take 125 mL intravenously every hour 125 mL/hr, intravenous, Continuous, Starting on Sun05/19/24 at 0915, , Start after 4 hour oxytocin (PITOCIN) infusion and lactated ringers infusion is completed. ceFAZolin 2000 mg injection (1 source) Cephalosporin Antibacterial Start: 05-19-2024 End: 05-19-2024 2,000 mg, intravenous, at 100 mL/hr, Administer over 30 Minutes, Once, On Sun05/19/24 at 0915, For 1 dose, L&D Pre-Delivery, Initiate within 1 hour of incision Look-alike/sound-a like medication - verify indication for use., Indication: Surgical prophylaxis cephalexin 500 mg oral capsule (1 source) Cephalosporin Antibacterial Start: 12-02-2019 End: 01-24-2021 take 1 capsule by mouth every twelve hours Cephalexin (Keflex) 500 mg capsule Discontinued 500 MG PO Q12H 03 08December 02, 2019 1:00am January 24, 2021 7:26am citric acid 66.8 mg/ml / sodium citrate 100 mg/ml oral solution (1 source) Calculi Dissolution Agent, Anti-coagulant Start: 05-19-2024 End: 05-19-2024 take 1 dose by mouth every hour 30 mL, oral, Once, On Sun05/19/24 at 0915, For 1 dose, L&D Pre-Delivery, Within one hour prior to transfer to surgical suite Look-alike/sound-a like medication - verify indication for use. docusate sodium 100 mg oral capsule (5 sources) Start: 05-19-2024 End: 07-16-2024 take 1 capsule by mouth in the morning, then take 1 capsule by mouth at bedtime docusate sodium (COLACE) 100 mg capsule Take 1 capsule (100 mg total) by mouth in the morning and 1 capsule (100 mg total) before bedtime. 20 capsule 05/22/2024 07/16/2024 Discontinued (Therapy completed) naproxen 500 mg oral tablet (1 source) Nonsteroidal Anti-inflammatory Drug Start: 08-22-2018 End: 06-03-2019 take 1 tablet by mouth twice daily Naproxen (Naprosyn) 500 mg tablet Discontinued 500 MG PO Twice daily August 22, 2018 1:00am June 03, 2019 3:58pm oseltamivir 75 mg oral capsule (1 source) Neuraminidase Inhibitor Start: 12-02-2019 End: 01-24-2021 take 1 capsule by mouth twice daily Oseltamivir (Tamiflu) 75 mg capsule Discontinued 75 MG PO Twice daily 10 December 02, 2019 1:00am January 24, 2021 7:26am oxytocin in lactated ringers 30 unit/500 mL infusion - Pyxis Override Pull (1 source) Start: 05-19-2024 End: 05-19-2024 Starting on Sun05/19/24 at 0930, For 1 dose, Murray Nixon: cabinet override 1 mL/hour = 1 aroldo-unit/min penicillin v potassium 500 mg oral tablet (1 source) Start: 10-05-2017 End: 08-22-2018 take 500 mg by mouth twice daily Penicillin V Potassium Discontinued 500 MG PO Twice daily October 05, 2017 1:00am August 22, 2018 6:48pm Problems Active Problems Problem Classification Problem Date Documented Da te Episodic/Chronic Hypertension complicating ; childbirth and the puerperium (11 sources) Unspecified maternal hypertension, complicating the puerperium; Translations: [Hypertensive disorder] Onset: 05-21-2024 05-21-2024 Chronic Immunizations and screening for infectious disease (2 sources) Contact with and (suspected) exposure to other viral communicable diseases; Translations: [Exposure to influenza] 12-02-2019 Episodic Inflammatory diseases of female pelvic organs (2 sources) Acute vaginitis; Translations: [Acute vaginitis] 04-10-2025 Episodic Nausea and vomiting (1 source) Nausea; Translations: [Nausea] Onset: 01-22-2023 Episodic Other complications of ; puerperium affecting management of mother (1 source) Encounter for delivery without indication; Translations: [Encounter for delivery without indication] Onset: 05-21-2024 Episodic Other complications of (1 source) Supervision of with insufficient care, unspecified trimester; Translations: [Supervision of with insufficient care, unspecified trimester] Onset: 05-13-2024 Episodic Other screening for suspected conditions (not mental disorders or infectious disease) (2 sources) Encounter for other screening follow-up; Translations: [Patient encounter status] Onset: 05-13-2024 02-21-2024 Episodic Screening and history of mental health and substance abuse codes (2 sources) Standardized adult depression screening tool completed ; Translations: [Encounter for screening for depression] Onset: 04-10-2025 04-10-2025 Episodic Spondylosis; intervertebral disc disorders; other back problems (1 source) Dorsalgia, unspecified; Translations: [Dorsalgia, unspecified] Onset: 03-07-2023 Episodic Unclassified (1 source) Low back pain, unspecified; Translations: [Low back pain, unspecified] Onset: 03-03-2023 Unclassified (1 source) Diarrhea, unspecified; Translations: [Diarrhea, unspecified] Onset: 01-22-2023 Unclassified (1 source) Late care Onset: 02-21-2024 Unclassified (1 source) Non-stress Test Onset: 05-12-2024 Unclassified (1 source) repeat Onset: 05-12-2024 Unclassified (1 source) Annual Exam Onset: 04-10-2025 Unclassified (1 source) Routine Visit Onset: 05-12-2024 Urinary tract infections (1 source) Urinary tract infectious disease; Translations: [Urinary tract infection, site not specified] 12-02-2019 Episodic Viral infection (1 source) Disease caused by 2019-nCoV; Translations: [COVID-19] 09-03-2020 Episodic Past or Other Problems Problem Classification Problem Date Documented Date Episodic/Chronic Administrative/social admission (1 source) Other problems related to medical facilities and other health care; Translations: [Other specified conditions influencing health status] 07-16-2024 Episodic Contraceptive and procreative management (5 sources) Patient encounter status; Translations: [Encounter for initial prescription of contraceptive pills] Onset: 07-16-2024 07-16-2024 Episodic Deficiency and other anemia (8 sources) Iron deficiency anemia secondary to inadequate dietary iron intake; Translations: [Other iron deficiency anemias] Onset: 05-21-2024 05-21-2024 Episodic Mood disorders (3 sources) Mood disorders Onset: 04-10-2025 04-10-2025 Other complications of ; puerperium affecting management of mother (4 sources) Deliveries by ; Translations: [Encounter for delivery without indication] Onset: 05-21-2024 05-22-2024 Episodic Other complications of (13 sources) Maternal obesity complicating , childbirth and the puerperium, antepartum; Translations: [Obesity complicating , unspecified trimester] Onset: 10-04-2023 Resolved: 05-22-2024 10-04-2023 Chronic Other complications of (1 source) Supervision of with other poor reproductive or obstetric history, unspecified trimester; Translations: [Supervision of with other poor reproductive or obstetric history, unspecified trimester] Onset: 10-04-2023 Episodic Other complications of (16 sources) History of pre-eclampsia; Translations: [Supervision of with other poor reproductive or obstetric history, unspecified trimester] Onset: 10-04-2023 10-04-2023 Episodic Other complications of (12 sources) Bacterial vaginosis in ; Translations: [Infection of other part of genital tract in , unspecified trimester] Onset: 10-04-2023 Resolved: 05-21-2024 10-04-2023 Episodic Other complications of (12 sources) Insufficient care; Translations: [Supervision of with insufficient care, unspecified trimester] Onset: 01-29-2024 Resolved: 05-21-2024 01-29-2024 Episodic Other and delivery including normal (16 sources) test positive; Translations: [Encounter for test, result positive] Onset: 12-17-2023 Resolved: 05-22-2024 03-04-2021 Episodic Other upper respiratory disease (1 source) Nasal congestion; Translations: [Nasal congestion] Onset: 07-03-2022 Episodic Other upper respiratory infections (4 sources) Upper respiratory infection; Translations: [Acute upper respiratory infection, unspecified] Onset: 07-03-2022 01-24-2021 Episodic Previous (1 source) Maternal request for obstetric intervention; Translations: [Maternal care for unspecified type scar from previous delivery] 04-09-2024 Episodic Residual codes; unclassified (17 sources) Nicotine-filled electronic cigarette user; Translations: [Tobacco use] Onset: 10-04-2023 10-04-2023 Episodic Residual codes; unclassified (17 sources) Past history of procedure; Translations: [Other specified postprocedural states] Onset: 10-04-2023 Resolved: 05-21-2024 10-04-2023 Episodic Residual codes; unclassified (1 source) Gestation period, 26 weeks; Translations: [26 weeks gestation of ] 02-21-2024 Episodic Residual codes; unclassified (1 source) Gestation period, 31 weeks; Translations: [31 weeks gestation of ] 03-28-2024 Episodic Unclassified (3 sources) Onset: 04-10-2025 04-10-2025 Results Test Name Value Interpretation Reference Range Facility CHLAMYDIA/GC BY PCR [facility] ABon 04-10-2025 CHLAMYDIA/GC BY PCR [facility] SWAB CHLAMYDIA DNA(PCR) Negative Chlamydia trachomatis not detected by nucleic acid amplification. This does not exclude the possibility of infection because results are dependent on adequate specimen collection. GONORRHOEAE DNA(PCR) Negative Neisseria gonorrhoeae not detected by nucleic acid amplification. This does not exclude the possibility of infection because results are dependent on adequate specimen collection. Normal [facility] Comment on above: Performed By: #### C GS #### [facility] (SELECT [facility] [address] [place] [address] VIR VAGINITIS PANEL PCRon 2024 VAGINITIS PANEL PCR BACT. VAGINOSIS DNA Detected Qualitative results are reported based on detection and quantitation of targeted organism markers which include: Lactobacillus spp. (L. crispatus and L. jensenii), Gardnerella vaginalis, Atopobium vaginae, Bacterial Vaginosis Associated Bacteria-2 (BVAB-2) and Megasphaera-1. QUETA SPECIES DNA Not Detected Queta species not detected include: C. albicans, C. tropicalis, C. parapsilosis or C. dubliniensis. QUETA KRUSEI DNA Not Detected No Queta krusei detected. QUETA GLABRATA DNA Not Detected No Queta glabrata detected. TRICHOMONAS VAG DNA Not Detected No Trichomonas vaginalis detected. BD MAX Vaginal Panel has not been evaluated for patients under 18 years old. Results for these patients should be reviewed and assessed in accordance with clinical presentation to determine patient diagnosis. Normal [facility] Comment on above: Performed By: #### V PPCR #### [facility] ([facility] [address] [place] [address] VIR POCT , urineon 10-0 Beta HCG ( test) Ql (U) Negative [facility] Internal Livestock Inspector Jazmine ck Completed and Passed Yes [facility] Interpretation and review of laboratory results Normal [facility] COMPLETE BLOOD COUNTon 05-26 Erythrocyte distribution wid th (RBC) [Ratio] 13.7 % Normal 11.5-15.0 [facility] Comment on above: Performed By: #### C BC, CMP, 2532-0, 3084-1, AHP, 34594-8, 65435-6, 25532-0, 25329-6 #### [facility] ([id number]) [address], [address] [place] [address] Hematocrit (Bld) [Volume fraction] 31.5 % Low 35-47 [facility] Comment on above: Performed By: #### C BC, CMP, 2532-0, 3084-1, AHP, 69865-2, 30730-7, 55527-5, 16465-2 #### [facility] ([id number]) [address], [address] [place] [address] Hemoglobin (Bld) [Mass/Vol] 10.7 g/dL Low 11.7-15. 5 [facility] Comment on above: Performed By: #### C BC, CMP, 2532-0, 3084-1, AHP, 20928-3, 77840-6, 00013-4, 06049-3 #### [facility] ([id number]) [address], [address] [place] [address] MCH (RBC) [Entitic mass] 27.4 pg Normal 27-34 [facility] Comment on above: Performed By: #### C BC, CMP, 2532-0, 3084-1, AHP, 91708-7, 81587-3, 23215-3, 96518-5 #### [facility] ([id number]) [address], [address] [place] [address] MCHC (RBC) [Mass/Vol] 33.9 g/dL Normal 32-36 [facility] Comment on above: Performed By: #### C BC, CMP, 2532-0, 3084-1, AHP, 36949-9, 47290-2, 41499-6, 35429-0 #### [facility] ([id number]) [address], [address] [place] [address] MCV (RBC) [Entitic vol] 81 fL Normal 80-100 P [facility] Comment on above: Performed By: #### C BC, CMP, 2532-0, 3084-1, AHP, 33537-1, 92902-5, 94677-0, 38791-8 #### [facility] ([id number]) [address], [address] [place] [address] Platelet mean volume (Bld) [Entitic vol] 6.6 fL Low 7-12 [facility] Comment on above: Performed By: #### C BC, CMP, 2532-0, 3084-1, AHP, 99074-0, 31625-5, 45732-8, 02071-8 #### [facility] ([id number]) [address], [address] [place] [address] Platelets (Bld) [#/Vol] 419 10*3/uL Normal 150-450 [facility] Comment on above: Performed By: #### C BC, CMP, 2532-0, 3084-1, AHP, 43842-1, 38541-3, 39894-3, 98787-0 #### [facility] ([id number]) [address], [address] [place] [address] RBC COUNT 3.90 X10E12/L Normal 3.80-5.20 [facility] Comment on above: Performed By: #### C BC, CMP, 2532-0, 3084-1, AHP, 23091-5, 70720-1, 93269-1, 87984-8 #### [facility] ([id number]) [address], [address] [place] [address] WBC (Bld) [#/Vol] 7.2 10*3/uL Normal 4.0-11.0 [facility] Comment on above: Performed By: #### C BC, CMP, 2532-0, 3084-1, AHP, 33014-6, 05016-7, 29989-2, 68307-5 #### [facility] ([id number]) [address], [address] [place] [address] COMPREHENSIVE METABOLIC PANE Velasquez 05-26-2024 Albumin [Mass/Vol] 3.2 g/dL Normal 3.2-5.3 [facility] Comment on above: Performed By: #### C BC, CMP, 2532-0, 3084-1, AHP, 28239-0, 28480-3, 43279-2, 58089-7 #### [facility] ([id number]) [address], [address] [place] [address] ALP [Catalytic activity/Vol] 83 U/L Normal 39-130 [facility] Comment on above: Performed By: #### C BC, CMP, 2532-0, 3084-1, AHP, 14907-8, 22262-0, 12144-5, 83073-4 #### [facility] ([id number]) [address], [address] [place] [address] ALT [Catalytic activity/Vol] 19 U/L Normal 0-31 [facility] Comment on above: Performed By: #### C BC, CMP, 2532-0, 3084-1, AHP, 35163-1, 95954-7, 94593-8, 65338-3 #### [facility] ([id number]) [address], [address] [place] [address] Anion gap [Moles/Vol] 5 mmol/L Normal 5-15 [facility] Comment on above: Performed By: #### C BC, CMP, 2532-0, 3084-1, AHP, 32301-7, 03636-8, 32387-5, 36196-8 #### [facility] ([id number]) [address], [address] [place] [address] AST [Catalytic activity/Vol] 17 U/L Normal 0-41 [facility] Comment on above: Performed By: #### C BC, CMP, 2532-0, 3084-1, AHP, 53461-4, 01433-6, 63371-1, 29698-9 #### [facility] ([id number]) [address], [address] [place] [address] Bilirubin [Mass/Vol] 0.4 mg/dL Normal 0.3-1.2 [facility] Comment on above: Performed By: #### C BC, CMP, 2532-0, 3084-1, AHP, 13175-3, 77511-8, 03910-6, 32185-4 #### [facility] ([id number]) [address], [address] [place] [address] Calcium [Mass/Vol] 8.6 mg/dL Normal 8.5-10.5 [facility] Comment on above: Performed By: #### C BC, CMP, 2532-0, 3084-1, AHP, 50743-6, 27613-5, 63334-0, 58347-9 #### [facility] ([id number]) [address], [address] [place] [address] Chloride [Moles/Vol] 108 mmol/L Normal 98-109 [facility] Comment on above: Performed By: #### C BC, CMP, 2532-0, 3084-1, AHP, 49161-9, 30367-3, 89696-3, 54145-3 #### [facility] ([id number]) [address], [address] [place] [address] CO2 [Moles/Vol] 23 mmol/L Normal 22-32 [facility] Comment on above: Performed By: #### C BC, CMP, 2532-0, 3084-1, AHP, 64157-3, 29849-7, 73708-4, 51932-4 #### [facility] ([id number]) [address], [address] [place] [address] Creatinine [Mass/Vol] 0.69 mg/dL Normal 0.40-1.00 [facility] Comment on above: Result Comment: METH OD TRACEABLE TO IDMS STANDARD Performed By: #### C BC, CMP, 2532-0, 3084-1, AHP, 04355-5, 90529-7, 68799-3, 61044-1 #### [facility] ([id number]) [address], [address] [place] [address] eGFR (CKD-EPI) NON-RACE DEPENDENT >90 Normal >59 [facility] Comment on above: Result Comment: Reported eGFR is based on the CKD-EPI 2020 equation that does not use a race coefficient. Performed By: #### C BC, CMP, 2532-0, 3084-1, AHP, 34943-5, 93864-6, 64775-2, 06617-6 #### [facility] ([id number]) [address], [address] [place] [address] Glucose [Mass/Vol] 75 mg/dL Normal 65-99 [facility] Comment on above: Performed By: #### C BC, CMP, 2532-0, 3084-1, AHP, 03165-4, 93150-4, 04647-2, 82590-3 #### [facility] ([id number]) [address], [address] [place] [address] Potassium [Moles/Vol] 3.9 mmol/L Normal 3.5-5.0 [facility] Comment on above: Performed By: #### C BC, CMP, 2532-0, 3084-1, AHP, 86230-0, 92818-6, 71746-2, 46478-9 #### [facility] ([id number]) [address], [address] [place] [address] Protein [Mass/Vol] 6.5 g/dL Normal 6.0-8.0 [facility] Comment on above: Performed By: #### C BC, CMP, 2532-0, 3084-1, AHP, 02685-0, 76338-9, 34152-8, 96784-1 #### [facility] ([id number]) [address], [address] [place] [address] Sodium [Moles/Vol] 136 mmol/L Normal 134-146 [facility] Comment on above: Performed By: #### C BC, CMP, 2532-0, 3084-1, AHP, 13976-5, 49878-1, 69061-1, 84428-1 #### [facility] ([id number]) [address], [address] [place] [address] Urea nitrogen [Mass/Vol] 12 mg/dL Normal 5-23 [facility] Comment on above: Performed By: #### C BC, CMP, 2532-0, 3084-1, AHP, 45613-5, 54962-5, 72912-0, 57233-5 #### [facility] ([id number]) [address], [address] [place] [address] LDH [Catalytic activity/Vol] on 05-26-2024 LDH 146 U/L Normal 100-235 [facility] Comment on above: Performed By: #### C BC, CMP, 2532-0, 3084-1, AHP, 77304-5, 19368-9, 35276-3, 16598-5 #### [facility] ([id number]) [address], [address] [place] [address] PROTEIN CREAT RATIOon 2023 RANDOM URINE PROTEIN 190 mg/L High <120 [facility] Comment on above: Performed By: #### C BC, CMP, 2532-0, 3084-1, AHP, 16991-9, 78452-5, 74922-3, 97738-4 #### [facility] ([id number]) [address], [address] [place] [address] U/PRO/SNOWMOBILE MECHANIC RATIO CALC 0.06 Normal <0.2 [facility] Comment on above: Result Comment: Neph rotic Syndrome is associated with ratios >3.5 Performed By: #### C BC, CMP, 2532-0, 3084-1, AHP, 86500-3, 54173-7, 91488-7, 71358-4 #### [facility] ([id number]) [address], [address] [place] [address] URINE CREATININE,RDM 316.99 mg/dL Normal Pr [facility] Comment on above: Performed By: #### C BC, CMP, 2532-0, 3084-1, AHP, 68999-3, 00598-7, 79488-0, 04920-0 #### [facility] ([id number]) [address], [address] [place] [address] URIC ACIDon 05-26-2024 Urate [Mass/Vol] 5.1 mg/dL Normal 2.6-7.2 [facility] Comment on above: Performed By: #### C BC, CMP, 2532-0, 3084-1, AHP, 04900-7, 26812-7, 81889-2, 65774-2 #### [facility] ([id number]) [address], [address] [place] [address] CBC without diffon Erythrocyte distribution wid th (RBC) [Ratio] 13.5 % 11.5 - 15.0 % [facility] Hematocrit (Bld) [Volume fraction] 26.4 % Low 35 - 47 % [facility] Hemoglobin (Bld) [Mass/Vol] 9.0 g/dL Low 11.7 - 15.5 g/dL [facility] Interpretation and review of laboratory results Abnormal [facility] MCH (RBC) [Entitic mass] 27.1 pg 27 - 34 pg [facility] MCHC (RBC) [Mass/Vol] 34.1 g/dL 32 - 3 6 g/dL [facility] MCV (RBC) [Entitic vol] 80 fL 80 - 100 fL [facility] Platelet mean volume (Bld) [Entitic vol] 7.9 fL 7 - 12 fL [facility] Platelets (Bld) [#/Vol] 280 10*3/uL [facility] RBC (Bld) [#/Vol] 3.32 10*6/uL Low [facility] WBC corrected for nucl RBC A uto (Bld) [#/Vol] 14.4 High [facility] COMPLETE BLOOD COUNTon 05-20 Erythrocyte distribution wid th (RBC) [Ratio] 13.5 % Normal 11.5-15.0 [facility] Comment on above: Performed By: #### C BC, CMP, 2532-0, 3084-1, AHP, 33752-3, 54129-5, 41544-1, 38981-7 #### [facility] ([id number]) [address], [address] [place] [address] Hematocrit (Bld) [Volume fraction] 26.4 % Low 35-47 [facility] Comment on above: Performed By: #### C BC, CMP, 2532-0, 3084-1, AHP, 08874-9, 47171-8, 05896-6, 90780-0 #### [facility] ([id number]) [address], [address] [place] [address] Hemoglobin (Bld) [Mass/Vol] 9.0 g/dL Low 11.7-15. 5 [facility] Comment on above: Performed By: #### C BC, CMP, 2532-0, 3084-1, AHP, 57091-5, 39078-6, 05593-7, 97964-7 #### [facility] ([id number]) [address], [address] [place] [address] MCH (RBC) [Entitic mass] 27.1 pg Normal 27-34 [facility] Comment on above: Performed By: #### C BC, CMP, 2532-0, 3084-1, AHP, 26021-9, 06503-1, 65822-4, 20623-1 #### [facility] ([id number]) [address], [address] [place] [address] MCHC (RBC) [Mass/Vol] 34.1 g/dL Normal 32-36 [facility] Comment on above: Performed By: #### C BC, CMP, 2532-0, 3084-1, AHP, 49994-9, 28193-6, 60703-2, 60949-1 #### [facility] ([id number]) [address] [address] [place] [address] MCV (RBC) [Entitic vol] 80 fL Normal 80-100 P [facility] Comment on above: Performed By: #### C BC, CMP, 2532-0, 3084-1, AHP, 08163-2, 71009-7, 14750-1, 92152-3 #### [facility] ([id number]) [address] [address] [place] [address] Platelet mean volume (Bld) [Entitic vol] 7.9 fL Normal 7-12 [facility] Comment on above: Performed By: #### C BC, CMP, 2532-0, 3084-1, AHP, 28227-8, 26704-3, 09695-7, 35881-6 #### [facility] ([id number]) [address] [address] [place] [address] Platelets (Bld) [#/Vol] 280 10*3/uL Normal 150-450 [facility] Comment on above: Performed By: #### C BC, CMP, 2532-0, 3084-1, AHP, 61234-3, 20790-3, 89881-5, 59398-2 #### [facility] ([id number]) [address], [address] [place] [address] RBC COUNT 3.32 X10E12/L Low 3.80-5.20 [facility] Comment on above: Performed By: #### C BC, [facility], 2532-0, 3084-1, P, 34352-6, 84298-4, 67411-6, 48866-0 #### [facility] ([id number]) [address], [address] [place] [address] WBC (Bld) [#/Vol] 14.4 10*3/uL High 4.0-11.[address] [facility] Comment on above: Performed By: #### C BC, [facility], 2532-0, 3084-1, [facility], 25009-3, 94392-9, 42782-7, 88491-8 #### [facility] ([id number]) [address], [address] [place] [address] CBC without diffon 4 Erythrocyte distribution wid th (RBC) [Ratio] 13.3 % 11.5 - 15.0 % [facility] Hematocrit (Bld) [Volume fraction] 31.0 % Low 35 - 47 % [facility] Hemoglobin (Bld) [Mass/Vol] 10.7 g/dL Low 11.7 - 15.5 g/dL [facility] Interpretation and review of laboratory results Abnormal [facility] MCH (RBC) [Entitic mass] 27.9 pg 27 - 34 pg [facility] MCHC (RBC) [Mass/Vol] 34.6 g/dL 32 - 3 6 g/dL [facility] MCV (RBC) [Entitic vol] 81 fL 80 - 100 fL [facility] Platelet mean volume (Bld) [Entitic vol] 7.6 fL 7 - 12 fL [facility] Platelets (Bld) [#/Vol] 308 10*3/uL [facility] RBC (Bld) [#/Vol] 3.85 10*6/uL [facility] WBC corrected for nucl RBC A uto (Bld) [#/Vol] 8.3 [facility] COMPLETE BLOOD COUNTon 05-19 Erythrocyte distribution wid th (RBC) [Ratio] 13.3 % Normal 11.5-15.0 [facility] Comment on above: Performed By: #### C BC, CMP, 2532-0, 3084-1, AHP, 81004-5, 89122-9, 15805-3, 32126-3 #### [facility] ([id number]) [address] [place] [address] Hematocrit (Bld) [Volume fraction] 31.0 % Low 35-47 [facility] Comment on above: Performed By: #### C BC, CMP, 2532-0, 3084-1, AHP, 59927-6, 46624-3, 93841-8, 85946-4 #### [facility] ([id number]) [address] [place] [address] Hemoglobin (Bld) [Mass/Vol] 10.7 g/dL Low 11.7-15. 5 [facility] Comment on above: Performed By: #### C BC, CMP, 2532-0, 3084-1, AHP, 31970-0, 44606-4, 35810-0, 84208-0 #### [facility] ([id number]) [address], [address] [place] [address] MCH (RBC) [Entitic mass] 27.9 pg Normal 27-34 [facility] Comment on above: Performed By: #### C BC, CMP, 2532-0, 3084-1, AHP, 40385-9, 81389-5, 93556-8, 20978-4 #### [facility] ([id number]) [address] [place] [address] MCHC (RBC) [Mass/Vol] 34.6 g/dL Normal 32-36 [facility] Comment on above: Performed By: #### C BC, CMP, 2532-0, 3084-1, AHP, 27737-4, 98327-2, 51396-7, 93959-5 #### [facility] ([id number]) [address], [facility] [address] [place] [address] MCV (RBC) [Entitic vol] 81 fL Normal 80-100 [facility] Comment on above: Performed By: #### C BC, CMP, 2532-0, 3084-1, AHP, 90851-8, 33287-9, 75373-6, 06873-0 #### [facility] ([id number]) [address], [facility] [address] [place] [address] Platelet mean volume (Bld) [Entitic vol] 7.6 fL Normal 7-12 [facility] Comment on above: Performed By: #### C BC, CMP, 2532-0, 3084-1, AHP, 70148-3, 86457-5, 56587-8, 37900-0 #### [facility] ([id number]) [address], [facility] [address] [place] [address] Platelets (Bld) [#/Vol] 308 10*3/uL Normal 150-450 [facility] Comment on above: Performed By: #### C BC, CMP, 2532-0, 3084-1, AHP, 64034-2, 41050-0, 21970-6, 66437-9 #### [facility] ([id number]) [address] [address] [place] [address] RBC COUNT 3.85 X10E12/L Normal 3.80-5.20 [facility] Comment on above: Performed By: #### C BC, CMP, 2532-0, 3084-1, AHP, 49529-3, 18682-8, 76209-4, 02920-6 #### [facility] ([id number]) [address], [address] [place] [address] WBC (Bld) [#/Vol] 8.3 10*3/uL Normal 4.0-11.0 [facility] Comment on above: Performed By: #### C BC, CMP, 2532-0, 3084-1, AHP, 18485-6, 94293-8, 20017-5, 26332-4 #### [facility] ([id number]) [address], [address] [place] [address] COMPREHENSIVE METABOLIC PANE Velasquez 05-19-2024 Albumin [Mass/Vol] 3.1 g/dL Low 3.2-5.3 [facility] Comment on above: Performed By: #### C BC, CMP, 2532-0, 3084-1, AHP, 19636-5, 09748-1, 05335-5, 54981-2 #### [facility] ([id number]) [address], [address] [place] [address] ALP [Catalytic activity/Vol] 125 U/L Normal 39-130 [facility] Comment on above: Performed By: #### C BC, CMP, 2532-0, 3084-1, AHP, 61263-6, 33185-4, 33129-5, 71355-1 #### [facility] ([id number]) [address] [place] [address] ALT [Catalytic activity/Vol] 18 U/L Normal 0-31 [facility] Comment on above: Performed By: #### C BC, CMP, 2532-0, 3084-1, AHP, 93209-2, 70127-2, 98064-6, 72109-8 #### [facility] ([id number]) [address] [place] [address] Anion gap [Moles/Vol] 9 mmol/L Normal 5-15 [facility] Comment on above: Performed By: #### C BC, CMP, 2532-0, 3084-1, AHP, 40305-7, 81766-8, 55466-2, 99390-4 #### [facility] ([id number]) [address] [place] [address] AST [Catalytic activity/Vol] 22 U/L Normal 0-41 [facility] Comment on above: Performed By: #### C BC, CMP, 2532-0, 3084-1, AHP, 77593-1, 92988-9, 29885-3, 66120-7 #### [facility] ([id number]) [address] [place] [address] Bilirubin [Mass/Vol] 0.3 mg/dL Normal 0.3-1.2 [facility] Comment on above: Performed By: #### C BC, CMP, 2532-0, 3084-1, AHP, 80314-5, 05311-0, 62875-7, 18941-7 #### [facility] ([id number]) [address] [place] [address] Calcium [Mass/Vol] 8.8 mg/dL Normal 8.5-10.5 [facility] Comment on above: Performed By: #### C BC, CMP, 2532-0, 3084-1, AHP, 00342-0, 34349-9, 42907-7, 59056-6 #### [facility] ([id number]) [address] [place] [address] Chloride [Moles/Vol] 106 mmol/L Normal 98-109 [facility] Comment on above: Performed By: #### C BC, CMP, 2532-0, 3084-1, AHP, 22983-1, 75467-2, 89648-5, 27432-6 #### [facility] ([id number]) [address], [address] [place] [address] CO2 [Moles/Vol] 19 mmol/L Low 22-32 [facility] Comment on above: Performed By: #### C BC, CMP, 2532-0, 3084-1, AHP, 40636-4, 18446-1, 70728-3, 38102-0 #### [facility] ([id number]) [address], [address] [place] [address] Creatinine [Mass/Vol] 0.69 mg/dL Normal 0.40-1.00 [facility] Comment on above: Result Comment: METH OD TRACEABLE TO IDMS STANDARD Performed By: #### C BC, CMP, 2532-0, 3084-1, AHP, 56766-3, 28369-7, 73475-2, 75767-9 #### [facility] ([id number]) [address], [address] [place] [address] eGFR (CKD-EPI) NON-RACE DEPENDENT >90 Normal >59 [facility] Comment on above: Result Comment: Reported eGFR is based on the CKD-EPI 2020 equation that does not use a race coefficient. Performed By: #### C BC, CMP, 2532-0, 3084-1, AHP, 10488-1, 70871-0, 63958-2, 31384-9 #### [facility] ([id number]) [address], [address] [place] [address] Glucose [Mass/Vol] 93 mg/dL Normal 65-99 [facility] Comment on above: Performed By: #### C BC, CMP, 2532-0, 3084-1, AHP, 42203-3, 31101-0, 00041-5, 86959-9 #### [facility] ([id number]) [address], [address] [place] [address] Potassium [Moles/Vol] 3.7 mmol/L Normal 3.5-5.0 [facility] Comment on above: Performed By: #### C BC, CMP, 2532-0, 3084-1, AHP, 83705-6, 00212-5, 73106-0, 22249-2 #### [facility] ([id number]) [address], [address] [place] [address] Protein [Mass/Vol] 6.5 g/dL Normal 6.0-8.0 [facility] Comment on above: Performed By: #### C BC, CMP, 2532-0, 3084-1, AHP, 25991-2, 09167-8, 00754-9, 61109-8 #### [facility] ([id number]) [address], [address] [place] [address] Sodium [Moles/Vol] 134 mmol/L Normal 134-146 [facility] Comment on above: Performed By: #### C BC, CMP, 2532-0, 3084-1, AHP, 43697-0, 25212-3, 77015-7, 33891-9 #### [facility] ([id number]) [address], [address] [place] [address] Urea nitrogen [Mass/Vol] 6 mg/dL Normal 5-23 [facility] Comment on above: Performed By: #### C BC, CMP, 2532-0, 3084-1, AHP, 86229-3, 51705-7, 01484-4, 35633-5 #### [facility] ([id number]) [address], [address] [place] [address] CORD ARTERIAL GASon 05-19-20 24 JESSICA'S TEST Normal [facility] Comment on above: Performed By: #### C BC, CMP, 2532-0, 3084-1, AHP, 54150-5, 27955-6, 41248-6, 38872-4 #### [facility] ([id number]) [address], [address] [place] [address] BASE,DEFICIT 5.0 MMOL/L High 0.0-2.0 [facility] Comment on above: Performed By: #### C BC, CMP, 2532-0, 3084-1, AHP, 88773-0, 75180-1, 96113-6, 42846-0 #### [facility] ([id number]) [address], [address] [place] [address] HCO3 (Bld) [Moles/Vol] 21.4 mmol/L Low 22-26 P [facility] Comment on above: Performed By: #### C BC, CMP, 2532-0, 3084-1, AHP, 40507-0, 78517-8, 88702-0, 08033-3 #### [facility] ([id number]) [address], [address] [place] [address] Oxygen (Bld) [Partial pressure] 27 mm[Hg] High 12-2 4 [facility] Comment on above: Performed By: #### C BC, CMP, 2532-0, 3084-1, AHP, 54496-0, 50313-6, 09021-6, 32255-1 #### [facility] ([id number]) [address], [address] [place] [address] Oxygen saturation in Blood 43.0 % High 7.1-39.5 [facility] Comment on above: Performed By: #### C BC, CMP, 2532-0, 3084-1, AHP, 42795-2, 20749-8, 12304-1, 50471-7 #### [facility] ([id number]) [address], [address] [place] [address] OXYGEN SOURCE RoomAir Normal [facility] Comment on above: Performed By: #### C BC, CMP, 2532-0, 3084-1, AHP, 08193-4, 50996-6, 92029-4, 30277-7 #### [facility] ([id number]) [address], [address] [place] [address] PCO2 44.6 MMHG Normal 40.8-57.6 [facility] Comment on above: Performed By: #### C BC, CMP, 2532-0, 3084-1, AHP, 97117-4, 61575-5, 48438-2, 77501-1 #### [facility] ([id number]) [address], [address] [place] [address] pH (Bld) 7.289 [pH] Normal 7.24-7.30 [facility] Comment on above: Performed By: #### C BC, CMP, 2532-0, 3084-1, AHP, 04014-8, 25390-8, 77838-1, 33566-5 #### [facility] ([id number]) [address], [address] [place] [address] SAMPLE SITE ArtCord Normal [facility] Comment on above: Performed By: #### C BC, CMP, 2532-0, 3084-1, AHP, 08152-4, 50456-9, 25000-4, 96607-1 #### [facility] ([id number]) [address], [address] [place] [address] SAMPLE TYPE UMBILICALCORD Normal [facility] Comment on above: Performed By: #### C BC, CMP, 2532-0, 3084-1, AHP, 17210-6, 07147-2, 94538-0, 92074-1 #### [facility] ([id number]) [address], [address] [place] [address] CORD VENOUS GASon 05-19-2024 JESSICA'S TEST Normal [facility] Comment on above: Performed By: #### C BC, CMP, 2532-0, 3084-1, AHP, 91177-1, 76637-5, 16320-5, 33118-7 #### [facility] ([id number]) [address], [address] [place] [address] BASE,DEFICIT 5.0 MMOL/L High 0.0-2.0 [facility] Comment on above: Performed By: #### C BC, CMP, 2532-0, 3084-1, AHP, 71129-6, 79802-2, 09051-7, 29282-7 #### [facility] ([id number]) [address], [address] [place] [address] HCO3 (Bld) [Moles/Vol] 22.1 mmol/L Normal 20.0-24.0 [facility] Comment on above: Performed By: #### C BC, CMP, 2532-0, 3084-1, AHP, 31753-6, 89192-4, 47406-7, 21743-0 #### [facility] ([id number]) [address], [address] [place] [address] Oxygen (Bld) [Partial pressure] 26 mm[Hg] Normal 22-3 5 [facility] Comment on above: Performed By: #### C BC, CMP, 2532-0, 3084-1, AHP, 53328-7, 13521-2, 56890-3, 12187-0 #### [facility] ([id number]) [address], [address] [place] [address] Oxygen saturation in Blood 39.0 % Normal 32.5-66.3 [facility] Comment on above: Performed By: #### C BC, CMP, 2532-0, 3084-1, AHP, 56475-0, 37098-5, 61425-8, 27132-2 #### [facility] ([id number]) [address], [address] [place] [address] OXYGEN SOURCE RoomAir Normal [facility] Comment on above: Performed By: #### C BC, CMP, 2532-0, 3084-1, AHP, 81566-9, 18332-7, 54358-6, 94612-3 #### [facility] ([id number]) [address], [address] [place] [address] PCO2 48.0 MMHG High 32.6-43.8 [facility] Comment on above: Performed By: #### C BC, CMP, 2532-0, 3084-1, AHP, 32050-3, 72365-0, 02447-8, 97501-8 #### [facility] ([id number]) [address], [address] [place] [address] pH (Bld) 7.272 [pH] Normal 7.25-7.37 [facility] Comment on above: Performed By: #### C BC, CMP, 2532-0, 3084-1, AHP, 68539-1, 78844-3, 85583-1, 68198-3 #### [facility] ([id number]) [address], [address] [place] [address] SAMPLE SITE VenCord Normal [facility] Comment on above: Performed By: #### C BC, CMP, 2532-0, 3084-1, AHP, 11967-0, 43422-5, 41145-4, 36331-4 #### [facility] ([id number]) [address], [address] [place] [address] SAMPLE TYPE UMBILICALCORD Normal [facility] Comment on above: Performed By: #### C BC, CMP, 2532-0, 3084-1, AHP, 28535-7, 66519-7, 96770-5, 41065-3 #### [facility] ([id number]) [address], [address] [place] [address] Comprehensive metabolic pane velasquez 05-19-2024 Albumin [Mass/Vol] 3.1 g/dL Low 3.2 - 5.3 g/dL [facility] ALP [Catalytic activity/Vol] 125 U/L 39 - 130 U/L [facility] ALT No additional P-5'-P [Catalytic activity/Vol] 18 U/L 0 - 31 U/L [facility] Anion gap [Moles/Vol] 9 mmol/L 5 - 15 mmol/L [facility] AST [Catalytic activity/Vol] 22 U/L 0 - 41 U/L [facility] Bilirubin [Mass/Vol] 0.3 mg/dL 0.3 - 1 .2 mg/dL [facility] Calcium [Mass/Vol] 8.8 mg/dL 8.5 - 10. 5 mg/dL [facility] Chloride [Moles/Vol] 106 mmol/L 98 - 10 9 mmol/L [facility] CO2 [Moles/Vol] 19 mmol/L Low 22 - 32 mmol/L [facility] Creatinine [Mass/Vol] 0.69 mg/dL 0.40 - 1.00 mg/dL [facility] Comment on above: METHOD TRACEABLE TO [facility] STANDARD eGFR (CKD-EPI)non-race dependent - PINF [facility] Comment on above: Reported eGFR is based on the CKD-EPI 2020 equation that does not use a race coefficient. Glucose [Mass/Vol] 93 mg/dL 65 - 99 mg/dL [facility] Interpretation and review of laboratory results Abnormal [facility] Potassium [Moles/Vol] 3.7 mmol/L 3.5 - 5.0 mmol/L [facility] Protein [Mass/Vol] 6.5 g/dL 6.0 - 8.0 g/dL [facility] Sodium [Moles/Vol] 134 mmol/L 134 - 146 mmol/L [facility] Urea nitrogen [Mass/Vol] 6 mg/dL 5 - 23 mg/dL [facility] Cord Arterial Blood Gason CO2 (BldCoA) [Partial pressure] 44.6 [facility] HCO3 (Bld) [Moles/Vol] 21.4 mmol/L Low P [facility] Oxygen (BldCoA) [Partial pressure] 27 High [facility] Oxygen saturation in Blood 43.0 % High 7 .1 - 39.5 % [facility] pH (BldCoA) 7.289 7.24 - 7.30 [facility] Specimen site Narrative ArtCord P [facility] Cord Venous Blood Gason CO2 (BldCoV) [Partial pressure] 48.0 High [facility] HCO3 (Bld) [Moles/Vol] 22.1 mmol/L P [facility] Oxygen (BldCoV) [Partial pressure] 26 [facility] Oxygen saturation in Blood 39.0 % 3 2.5 - 66.3 % [facility] pH (BldCoV) 7.272 7.25 - 7.37 [facility] Specimen site Narrative VenCord P [facility] DRUG SCREEN, URINEon 024 AMPHETAMINE/METHAMP Negative Normal NEG [facility] Comment on above: Result Comment: AMPH /METH screening cut off = 1000 ng/mL Performed By: #### C BC, CMP, 2532-0, 3084-1, AHP, 65694-5, 79413-3, 90622-4, 14069-4 #### [facility] ([id number]) [address], [address] [place] [address] BARBITURATES Negative Normal NEG [facility] Comment on above: Result Comment: Adenike iturates screening cut off value = 200 ng/mL Performed By: #### C BC, CMP, 2532-0, 3084-1, AHP, 07465-2, 45939-2, 01350-7, 52874-5 #### [facility] ([id number]) [address], [address] [place] [address] BENZODIAZEPINES Negative Normal NEG [facility] Comment on above: Result Comment: Domingo odiazepines screening cut off value = 200 ng/mL Performed By: #### C BC, CMP, 2532-0, 3084-1, AHP, 83380-2, 45511-4, 35729-6, 91993-0 #### [facility] ([id number]) [address], [address] [place] [address] CANNABINOIDS Negative Normal NEG [facility] Comment on above: Result Comment: Mile abinoids/THC screening cut off value = 50 ng/mL Performed By: #### C BC, CMP, 2532-0, 3084-1, AHP, 55200-9, 40428-0, 30400-1, 12501-0 #### [facility] ([id number]) [address], [address] [place] [address] COCAINE METABOLITE Negative Normal NEG [facility] Comment on above: Result Comment: Coca ine screening cut off value = 300 ng/mL Performed By: #### C BC, CMP, 2532-0, 3084-1, AHP, 88419-8, 81184-8, 49119-4, 41418-4 #### [facility] ([id number]) [address], [address] [place] [address] ECSTASY Negative Normal [facility] Comment on above: Result Comment: Ecst asy screening cut off value = 500 ng/mL This report is intended for use in clinical monitoring or management of patients. Performed By: #### C BC, CMP, 2532-0, 3084-1, AHP, 46766-4, 41398-9, 15154-0, 48288-6 #### [facility] ([id number]) [address], [address] [place] [address] METHADONE Negative Normal [facility] Comment on above: Result Comment: Meth adone screening cut off value = 300 ng/mL. Performed By: #### C BC, CMP, 2532-0, 3084-1, AHP, 94229-3, 80303-3, 35314-2, 33596-9 #### [facility] ([id number]) [address], [address] [place] [address] OPIATES Negative Normal NEG [facility] Comment on above: Result Comment: Opia arthur screening cut off value = 300 ng/mL NOTE: This test is used for the detection of codeine, hydrocodone (>1000 ng/mL), morphine and hydromorphone (>900 ng/mL) in urine. Performed By: #### C KARO, [facility], 2532-0, 3084-1, AHP, 62509-8, 50297-9, 48521-6, 28975-9 #### [facility] ([id number]) [address], [address] [place] [address] OXYCODONE Negative Normal NEG [facility] Comment on above: Result Comment: Oxyc odone screening cut off value = 300 ng/mL NOTE: This test is used for the detection of oxycodone and oxymorphone in urine. Performed By: #### C KARO, [facility], 2532-0, 3084-1, P, 08675-2, 29252-6, 94396-2, 26584-1 #### [facility] ([id number]) [address] [facility], [address] [place] [address] PHENCYCLIDINE Negative Normal NEG [facility] Comment on above: Result Comment: Phen cyclidine screening cut off value = 25 ng/mL Performed By: #### C KARO, [facility], 2532-0, 3084-1, P, 74834-5, 95861-5, 02976-2, 84274-8 #### [facility] ([id number]) [address] [address], [address] [place] [address] Drug Screen, Urineon 024 Amphetamines Screen method >1000 ng/mL Ql (U) Negative Negative^N [facility] Comment on above: AMPH/METH screening cut off = 1000 ng/mL Barbiturates Screen Ql (U) Negative N egative^N [facility] Comment on above: Barbiturates screeni ng cut off value = 200 ng/mL Benzodiazepines Ql (U) Negative Negat diane^N [facility] Comment on above: Benzodiazepines scre ening cut off value = 200 ng/mL Cocaine Ql (U) Negative Negative^N [facility] Comment on above: Cocaine screening cu t off value = 300 ng/mL Methadone Screen Ql (U) Negative Nega tive^N [facility] Comment on above: Methadone screening cut off value = 300 ng/mL. Methylenedioxymethamphetamin e Screen Ql (U) Negative Negative^N [facility] Comment on above: Ecstasy screening cu t off value = 500 ng/mL This report is intended for use in clinical monitoring or management of patients. Opiates Screen Ql (U) Negative Negati ve^N [facility] Comment on above: Opiates screening cu t off value = 300 ng/mL NOTE: This test is used for the detection of codeine, hydrocodone (>1000 ng/mL), morphine and hydromorphone (>900 ng/mL) in urine. oxyCODONE Ql (U) Negative Negative^N [facility] Comment on above: Oxycodone screening cut off value = 300 ng/mL NOTE: This test is used for the detection of oxycodone and oxymorphone in urine. Phencyclidine Screen method >25 ng/mL Ql (U) Negative Negative^N [facility] Comment on above: Phencyclidine screen ing cut off value = 25 ng/mL Tetrahydrocannabinol Screen method >50 ng/mL Ql (U) Negative Negative^N [facility] Comment on above: Cannabinoids/THC scr eening cut off value = 50 ng/mL [facility] LDHon 05-19-2024 LDH [Catalytic activity/Vol] 140 U/L 100 - 235 U/L [facility] LDH [Catalytic activity/Vol] on 05-19-2024 LDH 140 U/L Normal 100-235 [facility] Comment on above: Performed By: #### C BC, CMP, 2532-0, 3084-1, AHP, 98325-3, 29050-0, 50327-1, 34009-7 #### [facility] ([id number]) [address], [address] [place] [address] Laboratory - Chemistry and C hemistry - challengeon 05-19-2024 Base deficit (Bld) [Moles/Vol] 5.0 mmol/L High [facility] Laboratory - Specimen inform ationon 05-19-2024 Specimen type Nom (Spec) UMBILICALCORD [facility] No Panel Informationon 05-19 Arterial patency Wrist arter y --pre arterial puncture [facility] Interpretation and review of laboratory results Abnormal [facility] PROTEIN CREAT RATIOon 2023 RANDOM URINE PROTEIN 360 mg/L High <120 [facility] Comment on above: Performed By: #### C BC, CMP, 2532-0, 3084-1, AHP, 05307-2, 03659-4, 13686-3, 77656-8 #### [facility] ([id number]) [address], [address] [place] [address] U/PRO/SNOWMOBILE MECHANIC RATIO CALC 0.12 Normal <0.2 [facility] Comment on above: Result Comment: Neph rotic Syndrome is associated with ratios >3.5 Performed By: #### C BC, CMP, 2532-0, 3084-1, AHP, 48113-8, 60343-3, 85705-8, 30251-4 #### [facility] ([id number]) [address], [address] [place] [address] URINE CREATININE,RDM 302.81 mg/dL Normal Pr [facility] Comment on above: Performed By: #### C BC, CMP, 2532-0, 3084-1, AHP, 11439-5, 54120-5, 74359-1, 93859-2 #### [facility] ([id number]) [address], [address] [place] [address] Survey instrumentson 024 Oxygen therapy source and amount [CARE] RoomAir [facility] Syphilis Total(Unknown Syphi lis Status)on 05-19-2024 T. pallidum IgG+IgM IA Ql (S) [facility] Comment on above: NON REACTIVE No serologic evidence of infection to Treponema pallidum (syphilis). Repeat testing may be considered in patients with suspected acute or primary syphilis in 2 to 4 weeks. T. pallidum IgG+IgM IA Ql (S )on 05-19-2024 [facility] Syphilis Total <0.2 Normal 0.0-0.8 [facility] Comment on above: Result Comment: NON REACTIVE No serologic evidence of infection to Treponema pallidum (syphilis). Repeat testing may be considered in patients with suspected acute or primary syphilis in 2 to 4 weeks. Performed By: #### C BC, CMP, 2532-0, 3084-1, AHP, 68882-0, 42285-1, 09270-9, 74293-4 #### [facility] ([id number]) [address], [address] [place] [address] Type and screen(includes ind irect braxton)on 05-19-2024 ABO B [facility] Rh Nom (Bld) Positive [facility] URIC ACIDon 05-19-2024 Urate [Mass/Vol] 5.0 mg/dL Normal 2.6-7.2 [facility] Comment on above: Performed By: #### C BC, CMP, 2532-0, 3084-1, P, 45347-4, 88977-7, 50641-1, 37112-0 #### [facility] ([id number]) [address], [address] [place] [address] Uric acidon 05-19-2024 Urate [Mass/Vol] 5.0 mg/dL 2.6 - 7.2 mg/dL [facility] Urine protein creatinine rat ioon 05-19-2024 Creatinine (U) [Mass/Vol] 302.81 mg/dL [facility] Interpretation and review of laboratory results Abnormal [facility] Protein (U) [Mass/Vol] 360 mg/L High NINF - 120 mg/L [facility] Protein/Creatinine (U) [Ratio] 0.12 NINF - 0.2 [facility] Comment on above: Nephrotic Syndrome i s associated with ratios >3.5 [facility] CBC AND AUTO DIFFon 05-12-20 24 ABSOLUTE BASOPHIL 0.1 X10E9/L Normal 0.0-0.2 [facility] Comment on above: Performed By: #### C BC, CMP, 2532-0, 3084-1, AHP, 54642-7, 47198-5, 88469-8, 84015-1 #### [facility] ([id number]) [address], [address] [place] [address] ABSOLUTE NEUTROPHIL 5.8 X10E9/L Normal 1.5-6.6 [facility] Comment on above: Performed By: #### C BC, CMP, 2532-0, 3084-1, AHP, 77672-7, 17988-2, 99892-0, 46828-1 #### [facility] ([id number]) [address], [address] [place] [address] Basophils/100 WBC (Bld) 1.0 % Normal [facility] Comment on above: Performed By: #### C BC, CMP, 2532-0, 3084-1, AHP, 79866-8, 69171-8, 19982-3, 22999-1 #### [facility] ([id number]) [address], [address] [place] [address] Eosinophils (Bld) [#/Vol] 0.2 10*3/uL Normal 0.0-0.4 [facility] Comment on above: Performed By: #### C BC, CMP, 2532-0, 3084-1, AHP, 98354-1, 32794-9, 77593-7, 47145-0 #### [facility] ([id number]) [address], [address] [place] [address] Eosinophils/100 WBC (Bld) 2.3 % Normal [facility] Comment on above: Performed By: #### C BC, CMP, 2532-0, 3084-1, AHP, 75339-1, 82898-0, 62031-1, 23783-0 #### [facility] ([id number]) [address], [address] [place] [address] Erythrocyte distribution wid th (RBC) [Ratio] 13.1 % Normal 11.5-15.0 [facility] Comment on above: Performed By: #### C BC, CMP, 2532-0, 3084-1, AHP, 09951-6, 25479-6, 26791-3, 07198-3 #### [facility] ([id number]) [address], [address] [place] [address] Hematocrit (Bld) [Volume fraction] 32.5 % Low 35-47 [facility] Comment on above: Performed By: #### C BC, CMP, 2532-0, 3084-1, AHP, 03399-1, 96343-2, 89842-9, 79164-7 #### [facility] ([id number]) [address], [address] [place] [address] Hemoglobin (Bld) [Mass/Vol] 11.0 g/dL Low 11.7-15. 5 [facility] Comment on above: Performed By: #### C BC, CMP, 2532-0, 3084-1, AHP, 07443-1, 47887-9, 42095-0, 21092-2 #### [facility] ([id number]) [address], [facility] [address] [place] [address] Lymphocytes (Bld) [#/Vol] 1.5 10*3/uL Normal 1.0-3.5 [facility] Comment on above: Performed By: #### C BC, CMP, 2532-0, 3084-1, AHP, 47018-2, 85258-2, 35407-8, 26049-2 #### [facility] ([id number]) [address] [place] [address] Lymphocytes/100 WBC (Bld) 18.9 % Normal [facility] Comment on above: Performed By: #### C BC, CMP, 2532-0, 3084-1, AHP, 16868-3, 81086-9, 91491-9, 22627-7 #### [facility] ([id number]) [address], [address] [place] [address] MCH (RBC) [Entitic mass] 27.3 pg Normal 27-34 [facility] Comment on above: Performed By: #### C BC, CMP, 2532-0, 3084-1, AHP, 09914-1, 05948-6, 00661-5, 53013-9 #### [facility] ([id number]) [address], [address] [place] [address] MCHC (RBC) [Mass/Vol] 33.8 g/dL Normal 32-36 [facility] Comment on above: Performed By: #### C BC, CMP, 2532-0, 3084-1, AHP, 09648-6, 92603-8, 86894-4, 47251-4 #### [facility] ([id number]) [address], [address] [place] [address] MCV (RBC) [Entitic vol] 81 fL Normal 80-100 P [facility] Comment on above: Performed By: #### C BC, CMP, 2532-0, 3084-1, AHP, 13642-7, 15177-3, 22078-5, 90966-4 #### [facility] ([id number]) [address], [address] [place] [address] Monocytes (Bld) [#/Vol] 0.5 10*3/uL Normal 0-0.9 [facility] Comment on above: Performed By: #### C BC, CMP, 2532-0, 3084-1, AHP, 86336-0, 92677-2, 87581-9, 03708-0 #### [facility] ([id number]) [address], [address] [place] [address] Monocytes/100 WBC (Bld) 6.1 % Normal P [facility] Comment on above: Performed By: #### C BC, CMP, 2532-0, 3084-1, AHP, 89405-6, 63976-1, 24170-7, 75561-2 #### [facility] ([id number]) [address], [address] [place] [address] Neutrophils/100 WBC (Bld) 71.7 % Normal [facility] Comment on above: Performed By: #### C BC, CMP, 2532-0, 3084-1, AHP, 72394-1, 20223-3, 11516-7, 70247-1 #### [facility] ([id number]) [address], [address] [place] [address] Platelet mean volume (Bld) [Entitic vol] 8.3 fL Normal 7-12 [facility] Comment on above: Performed By: #### C BC, CMP, 2532-0, 3084-1, AHP, 89713-1, 41775-9, 70757-3, 22346-7 #### [facility] ([id number]) [address], [address] [place] [address] Platelets (Bld) [#/Vol] 293 10*3/uL Normal 150-450 [facility] Comment on above: Performed By: #### C BC, CMP, 2532-0, 3084-1, AHP, 49564-1, 48133-4, 32649-5, 42230-3 #### [facility] ([id number]) [address], [address] [place] [address] RBC COUNT 4.02 X10E12/L Normal 3.80-5.20 [facility] Comment on above: Performed By: #### C BC, CMP, 2532-0, 3084-1, AHP, 36364-1, 49884-8, 89837-0, 42626-4 #### [facility] ([id number]) [address] [place] [address] WBC (Bld) [#/Vol] 8.1 10*3/uL Normal 4.0-11.0 [facility] Comment on above: Performed By: #### C BC, CMP, 2532-0, 3084-1, AHP, 99284-2, 08506-5, 05551-2, 04862-6 #### [facility] ([id number]) [address], [address] [place] [address] COMPREHENSIVE METABOLIC PANE Velasquez 05-12-2024 Albumin [Mass/Vol] 3.4 g/dL Normal 3.2-5.3 [facility] Comment on above: Performed By: #### C BC, CMP, 2532-0, 3084-1, AHP, 49304-8, 98348-2, 31522-0, 30143-2 #### [facility] ([id number]) [address], [address] [place] [address] ALP [Catalytic activity/Vol] 123 U/L Normal 39-130 [facility] Comment on above: Performed By: #### C BC, CMP, 2532-0, 3084-1, AHP, 89981-1, 97667-8, 15952-4, 57208-9 #### [facility] ([id number]) [address], [address] [place] [address] ALT [Catalytic activity/Vol] 19 U/L Normal 0-31 [facility] Comment on above: Performed By: #### C BC, CMP, 2532-0, 3084-1, AHP, 66470-7, 48253-7, 55017-0, 47047-5 #### [facility] ([id number]) [address], [address] [place] [address] Anion gap [Moles/Vol] 11 mmol/L Normal 5-15 [facility] Comment on above: Performed By: #### C BC, CMP, 2532-0, 3084-1, AHP, 72392-6, 70676-8, 88370-6, 70388-1 #### [facility] ([id number]) [address], [address] [place] [address] AST [Catalytic activity/Vol] 28 U/L Normal 0-41 [facility] Comment on above: Performed By: #### C BC, CMP, 2532-0, 3084-1, AHP, 16478-7, 52602-2, 75102-5, 77263-0 #### [facility] [facility] ([id number]) [address], [address] [place] [address] Bilirubin [Mass/Vol] 0.6 mg/dL Normal 0.3-1.2 [facility] Comment on above: Performed By: #### C BC, CMP, 2532-0, 3084-1, AHP, 42243-5, 47272-9, 13444-7, 55124-0 #### [facility] ([id number]) [address], [address] [place] [address] Calcium [Mass/Vol] 9.2 mg/dL Normal 8.5-10.5 [facility] Comment on above: Performed By: #### C BC, CMP, 2532-0, 3084-1, AHP, 06578-3, 78635-2, 69631-5, 73497-1 #### [facility] ([id number]) [address], [address] [place] [address] Chloride [Moles/Vol] 103 mmol/L Normal 98-109 [facility] Comment on above: Performed By: #### C BC, CMP, 2532-0, 3084-1, AHP, 85888-0, 27739-0, 88981-3, 11568-7 #### [facility] ([id number]) [address], [address] [place] [address] CO2 [Moles/Vol] 18 mmol/L Low 22-32 [facility] Comment on above: Performed By: #### C BC, CMP, 2532-0, 3084-1, AHP, 39908-6, 77050-0, 48389-2, 83550-4 #### [facility] ([id number]) [address], [address] [place] [address] Creatinine [Mass/Vol] 0.61 mg/dL Normal 0.40-1.00 [facility] Comment on above: Result Comment: METH OD TRACEABLE TO IDMS STANDARD Performed By: #### C KARO, CMP, 2532-0, 3084-1, AHP, 77553-3, 89128-0, 95943-8, 75811-6 #### [facility] ([id number]) [address], [address] [place] [address] eGFR (CKD-EPI) NON-RACE DEPENDENT >90 Normal >59 [facility] Comment on above: Result Comment: Reported eGFR is based on the CKD-EPI 2020 equation that does not use a race coefficient. Performed By: #### C BC, CMP, 2532-0, 3084-1, AHP, 53745-4, 88164-3, 11167-0, 47698-9 #### [facility] ([id number]) [address], [address] [place] [address] Glucose [Mass/Vol] 67 mg/dL Normal 65-99 [facility] Comment on above: Performed By: #### C BC, CMP, 2532-0, 3084-1, AHP, 99769-5, 32468-5, 46877-4, 53601-0 #### [facility] ([id number]) [address], [address] [place] [address] Potassium [Moles/Vol] 3.8 mmol/L Normal 3.5-5.0 [facility] Comment on above: Performed By: #### C BC, CMP, 2532-0, 3084-1, AHP, 35398-3, 04903-2, 06779-7, 02199-9 #### [facility] ([id number]) [address], [address] [place] [address] Protein [Mass/Vol] 7.0 g/dL Normal 6.0-8.0 [facility] Comment on above: Performed By: #### C BC, CMP, 2532-0, 3084-1, AHP, 21259-3, 53206-2, 30749-5, 87723-4 #### [facility] ([id number]) [address], [address] [place] [address] Sodium [Moles/Vol] 132 mmol/L Low 134-146 [facility] Comment on above: Performed By: #### C BC, CMP, 2532-0, 3084-1, AHP, 05581-3, 39204-1, 73005-4, 36128-2 #### [facility] ([id number]) [address], [address] [place] [address] Urea nitrogen [Mass/Vol] 8 mg/dL Normal 5-23 [facility] Comment on above: Performed By: #### C BC, CMP, 2532-0, 3084-1, AHP, 02915-9, 22269-8, 49611-4, 25302-8 #### [facility] ([id number]) [address], [address] [place] [address] LDH [Catalytic activity/Vol] on 05-12-2024 LDH 185 U/L Normal 100-235 [facility] Comment on above: Performed By: #### C BC, CMP, 2532-0, 3084-1, AHP, 98670-6, 58683-5, 04759-8, 76543-4 #### [facility] ([id number]) [address], [address] [place] [address] PROTEIN CREAT RATIOon 2023 RANDOM URINE PROTEIN 160 mg/L High <120 [facility] Comment on above: Performed By: #### C BC, CMP, 2532-0, 3084-1, AHP, 21451-0, 35361-4, 53291-3, 84837-3 #### [facility] ([id number]) [address], [address] [place] [address] U/PRO/SNOWMOBILE MECHANIC RATIO CALC 0.11 Normal <0.2 [facility] Comment on above: Result Comment: Neph rotic Syndrome is associated with ratios >3.5 Performed By: #### C BC, CMP, 2532-0, 3084-1, AHP, 17566-9, 71157-8, 25710-7, 33996-4 #### [facility] ([id number]) [address], [address] [place] [address] URINE CREATININE,RDM 144.19 mg/dL Normal Pr [facility] Comment on above: Performed By: #### C BC, CMP, 2532-0, 3084-1, AHP, 28595-1, 09793-5, 71406-4, 51050-3 #### [facility] ([id number]) [address], [address] [place] [address] STREP B SCREEN CULTUREon S. agalactiae Org specific c x Ql (Vag+Rectum) CULTURE RESULTS NEGATIVE FOR GROUP B STREPTOCOCCUS BY NUCLEIC ACID AMPLIFICATION Normal [facility] Comment on above: Performed By: #### 7 2607-5 #### [facility] ([id number]) [address], [address] [place] [address] URIC ACIDon 05-12-2024 Urate [Mass/Vol] 4.6 mg/dL Normal 2.6-7.2 [facility] Comment on above: Performed By: #### C BC, CMP, 2532-0, 3084-1, AHP, 82689-9, 14031-4, 11179-1, 48898-6 #### [facility] ([id number]) [address], [address] [place] [address] URINALYSISon 05-12-2024 Bilirubin Ql (U) Negative Normal NEG [facility] Comment on above: Performed By: #### C BC, CMP, 2532-0, 3084-1, AHP, 24178-3, 46361-8, 70331-4, 40824-3 #### [facility] ([id number]) [address], [address] [place] [address] BLOOD/HGB Negative Normal NEG [facility] Comment on above: Performed By: #### C BC, CMP, 2532-0, 3084-1, AHP, 30707-9, 26159-0, 87851-6, 14802-9 #### [facility] ([id number]) [address], [address] [place] [address] Color (U) YELLOW Normal YELLOW [facility] Comment on above: Performed By: #### C BC, CMP, 2532-0, 3084-1, AHP, 67971-7, 18187-7, 47086-8, 35736-9 #### [facility] ([id number]) [address], [address] [place] [address] Glucose Ql (U) Negative Normal NEG [facility] Comment on above: Performed By: #### C BC, CMP, 2532-0, 3084-1, AHP, 48352-3, 83398-5, 29996-1, 71377-3 #### [facility] ([id number]) [address], [address] [place] [address] Ketones Ql (U) 15 mg/dL Abnormal NEG [facility] Comment on above: Performed By: #### C BC, CMP, 2532-0, 3084-1, AHP, 85287-1, 56577-2, 17973-3, 01997-4 #### [facility] ([id number]) [address], [address] [place] [address] Leukocyte esterase Test stri p Ql (U) Negative Normal NEG [facility] Comment on above: Performed By: #### C BC, CMP, 2532-0, 3084-1, AHP, 11228-6, 33863-1, 97876-6, 79357-4 #### [facility] ([id number]) [address], [address] [place] [address] Nitrite Ql (U) Negative Normal NEG [facility] Comment on above: Performed By: #### C BC, CMP, 2532-0, 3084-1, AHP, 38143-8, 75314-5, 27492-3, 72072-1 #### [facility] ([id number]) [address], [address] [place] [address] pH (U) 6.0 [pH] Normal 5.0-8.5 [facility] Comment on above: Performed By: #### C BC, CMP, 2532-0, 3084-1, AHP, 29908-8, 25771-8, 72315-9, 83268-8 #### [facility] ([id number]) [address], [address] [place] [address] Protein Ql (U) Negative Normal NEG [facility] Comment on above: Performed By: #### C BC, CMP, 2532-0, 3084-1, AHP, 84112-9, 47860-7, 67493-0, 38218-4 #### [facility] ([id number]) [address], [address] [place] [address] Specific gravity (U) [Rel density] 1.025 Normal 1.003-1.03 5 [facility] Comment on above: Performed By: #### C BC, CMP, 2532-0, 3084-1, AHP, 77062-1, 65588-9, 14423-1, 81809-5 #### [facility] ([id number]) [address], [address] [place] [address] TURBIDITY CLEAR Normal CLEAR [facility] Comment on above: Performed By: #### C BC, CMP, 2532-0, 3084-1, AHP, 35668-9, 43717-5, 24535-2, 56437-9 #### [facility] ([id number]) [address], [address] [place] [address] Urobilinogen Qn (U) 0.2 {Kody'U}/dL Normal <1.1 [facility] Comment on above: Performed By: #### C BC, CMP, 2532-0, 3084-1, AHP, 35711-0, 28659-6, 47428-4, 54710-5 #### [facility] ([id number]) [address], [address] [place] [address] US PREG TRANSABD FU PER FETU on 05-12-2024 US PREG TRANSABD FU PER FETU US PREG TRA NSABD FU PER FETU Clinical history: Preeclampsia Multiplanar sonography was performed of the pelvis for purposes of evaluating position and amniotic fluid. Findings/Impressio n: * Heart rate: 148 bpm * Amniotic fluid volume: 26.4 cm/DVP: 8.81 cm * Placenta: Posterior * position: Cephalic * 3 images were obtained to better evaluate the anterior superficial facial structures. 05 Finalized by Bimal Nazario MD on 05/12/2024 3:59 PM Normal [facility] US for limitedon 0 05-12-2024 Clinical history: Preeclampsia Multiplanar sonography was performed of the pelvis for purposes of evaluating position and amniotic fluid. Findings/Impressio n: * Heart rate: 148 bpm * Amniotic fluid volume: 26.4 cm/DVP: 8.81 cm * Placenta: Posterior * position: Cephalic * 3 images were obtained to better evaluate the anterior superficial facial structures. 05 Finalized by Bimal Nazario MD on 05/12/2024 3:59 PM [facility] Bimal Nazario MD - 05/12/2024 Clinical history: Preeclampsia Multiplanar sonography was performed of the pelvis for purposes of evaluating position and amniotic fluid. Findings/Impressio n: * Heart rate: 148 bpm * Amniotic fluid volume: 26.4 cm/DVP: 8.81 cm * Placenta: Posterior * position: Cephalic * 3 images were obtained to better evaluate the anterior superficial facial structures. 05 Finalized by Bimal Nazario MD on 05/12/2024 3:59 PM [facility] Radiology Study observation (narrative) [facility] US for limitedOrde red By: Bimal Nazario on 05-12-2024 [facility] Work Phone: PROTEIN CREAT RATIOon 2023 RANDOM URINE PROTEIN 140 mg/L High <120 [facility] Comment on above: Performed By: #### U PCR #### [facility] ([id number]) [address], [address] [place] [address] U/PRO/SNOWMOBILE MECHANIC RATIO CALC 0.11 Normal <0.2 [facility] Comment on above: Result Comment: Neph rotic Syndrome is associated with ratios >3.5 Performed By: #### U PCR #### [facility] ([id number]) [address], [address] [place] [address] URINE CREATININE,RDM 128.61 mg/dL Normal [facility] Comment on above: Performed By: #### U PCR #### [facility] ([id number]) [address], [address] [place] [address] CHLAMYDIA/GC PCR, FLon 01-28 CHLAMYDIA/GC PCR, FL SPECIMEN SOURCE ThinPrep CHLAMYDIA DNA(PCR) Negative (qualifier value) Chlamydia trachomatis not detected by nucleic acid amplification. This does not exclude the possibility of infection because results are dependent on adequate specimen collection. GONORRHOEAE DNA(PCR) Negative (qualifier value) Neisseria gonorrhoeae not detected by nucleic acid amplification. This does not exclude the possibility of infection because results are dependent on adequate specimen collection. Normal [facility] Comment on above: Performed By: #### C BC, CMP, 2532-0, 3084-1, AHP, 44263-8, 89138-5, 06632-5, 37559-4 #### [facility] ([id number]) [address] [place] [address], [address] [place] [address] Cytologyon 01-29-2024 Cytology Normal [facility] Comment on above: Result Comment: [facility] [address] [place] [address] Gynecologic Cytology Consultation Patient Name:RAMYA LAST:1990 (Age: 33)Gender:FTaken:4Reported:02/14/2024hysician(s ):Aleyda Magaña, PERFECT BIND MACHINE OPERATOR-CNPCopy To: Rec. #:[id number]: #[id number] Final Cytologic Interpretation ThinPrep Pap Test (Cervical): Satisfactory for evaluation. A transformation zone component is present. NEGATIVE FOR INTRAEPITHELIAL LESION OR MALIGNANCY. [facility] [place]/02/14/2024 [facility] [place] [address], License number: [id number]. 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 The Pap test is primarily effective for the diagnosis and prevention of squamous cell carcinoma. Regular screening is critical for prevention. ThinPrep liquid-based slides, which meet the Mammography Technologist criteria for automated screening, have been screened by the [employer] System (as of 07/01/07) along with an additional manual rescreening by a import coordination and production head and, if indicated, by a pathologist. HIGH RISK HPV W/GENOon 01-28 HPV 31+33+35+39+45+51+52+56+58+59+6 6+68 DNA CHANA+probe Ql (Cvx) HPV SPECIMEN TYPE ThinPrep HPV 16 Negative (qualifier value) HPV 18 Negative (qualifier value) OTHER HIGH RISK HPV Negative (qualifier value) HPV types 31,33,35,39,45,52, 56,58,59,66 and 68 DNA were undetectable. Normal [facility] Comment on above: Performed By: #### C BC, CMP, 2532-0, 3084-1, AHP, 77397-2, 09929-4, 83562-8, 77972-3 #### [facility] ([id number]) [address], [address] [place] [address] ACUTE HEPATITIS PANELon 01-13 ANTI HCV W/PCR REFLX Non-Reactive Normal NRCT Pr [facility] Comment on above: Result Comment: If recent infection suspected, recommend repeat testing (>2 months). Kfedqi-ku-wnzmso ratio is <0.80. Performed By: #### C BC, CMP, 2532-0, 3084-1, AHP, 06679-9, 93719-9, 42097-0, 39300-4 #### [facility] ([id number]) [address], [address] [place] [address] HEPATITIS A IGM Non-Reactive Normal NRCT [facility] Comment on above: Performed By: #### C BC, CMP, 2532-0, 3084-1, AHP, 52887-8, 49742-3, 42431-5, 81169-9 #### [facility] ([id number]) [address] [facility], [address] [place] [address] HEPATITIS B CORE IGM Negative Normal NEG [facility] Comment on above: Performed By: #### C BC, CMP, 2532-0, 3084-1, AHP, 90996-7, 14907-8, 33846-4, 40344-8 #### [facility] ([id number]) [address], [facility] [address] [place] [address] HEPATITIS B SURF AG Negative Normal NEG [facility] Comment on above: Performed By: #### C BC, CMP, 2532-0, 3084-1, AHP, 45239-6, 32485-1, 73839-7, 25384-6 #### [facility] ([id number]) [address], [address] [address] COMPLETE BLOOD COUNTon 01-27 Erythrocyte distribution wid th (RBC) [Ratio] 13.4 % Normal 11.5-15.0 [facility] Comment on above: Performed By: #### C BC, CMP, 2532-0, 3084-1, AHP, 34687-6, 30016-7, 62709-3, 12169-4 #### [facility] ([id number]) [address] [address] Hematocrit (Bld) [Volume fraction] 31.4 % Low 35-47 [facility] Comment on above: Performed By: #### C BC, CMP, 2532-0, 3084-1, AHP, 50268-3, 88316-1, 32157-9, 52052-9 #### [facility] ([id number]) [address], [address] [place] [address] Hemoglobin (Bld) [Mass/Vol] 10.7 g/dL Low 11.7-15. 5 [facility] Comment on above: Performed By: #### C BC, CMP, 2532-0, 3084-1, AHP, 37027-5, 09804-5, 99369-3, 67803-2 #### [facility] ([id number]) [address], [address] [place] [address] MCH (RBC) [Entitic mass] 29.5 pg Normal 27-34 [facility] Comment on above: Performed By: #### C BC, CMP, 2532-0, 3084-1, AHP, 31949-8, 51995-1, 88508-1, 10938-4 #### [facility] ([id number]) [address], [address] [place] [address] MCHC (RBC) [Mass/Vol] 34.2 g/dL Normal 32-36 [facility] Comment on above: Performed By: #### C BC, CMP, 2532-0, 3084-1, AHP, 02083-6, 14140-8, 97025-9, 93560-4 #### [facility] ([id number]) [address], [address] [place] [address] MCV (RBC) [Entitic vol] 86 fL Normal 80-100 [facility] Comment on above: Performed By: #### C BC, CMP, 2532-0, 3084-1, AHP, 90482-8, 23240-7, 68888-1, 97849-7 #### [facility] ([id number]) [address], [address] [place] [address] Platelet mean volume (Bld) [Entitic vol] 8.2 fL Normal 7-12 [facility] Comment on above: Performed By: #### C BC, CMP, 2532-0, 3084-1, AHP, 25432-2, 33752-8, 28655-8, 00968-5 #### [facility] ([id number]) [address] [address] [place] [address] Platelets (Bld) [#/Vol] 289 10*3/uL Normal 150-450 [facility] Comment on above: Performed By: #### C BC, CMP, 2532-0, 3084-1, AHP, 47502-4, 04878-5, 32784-0, 62251-3 #### [facility] ([id number]) [address], [address] [place] [address] RBC COUNT 3.64 X10E12/L Low 3.80-5.20 [facility] Comment on above: Performed By: #### C BC, CMP, 2532-0, 3084-1, AHP, 34116-5, 44848-5, 79870-8, 78249-6 #### [facility] ([id number]) [address], [address] [place] [address] WBC (Bld) [#/Vol] 7.3 10*3/uL Normal 4.0-11.0 [facility] Comment on above: Performed By: #### C BC, CMP, 2532-0, 3084-1, AHP, 91534-1, 50133-5, 19385-5, 90423-0 #### [facility] ([id number]) [address], [address] [place] [address] COMPREHENSIVE METABOLIC PANE Velasquez 01-28-2024 Albumin [Mass/Vol] 3.5 g/dL Normal 3.2-5.3 [facility] Comment on above: Performed By: #### C BC, CMP, 2532-0, 3084-1, AHP, 27963-6, 92634-9, 43992-6, 42759-0 #### [facility] ([id number]) [address], [address] [place] [address] ALP [Catalytic activity/Vol] 65 U/L Normal 39-130 [facility] Comment on above: Performed By: #### C BC, CMP, 2532-0, 3084-1, AHP, 81872-9, 77191-0, 54992-5, 72380-4 #### [facility] ([id number]) [address], [address] [place] [address] ALT [Catalytic activity/Vol] 11 U/L Normal 0-31 [facility] Comment on above: Performed By: #### C BC, CMP, 2532-0, 3084-1, AHP, 35270-1, 85081-6, 31420-7, 23851-2 #### [facility] ([id number]) [address], [address] [place] [address] Anion gap [Moles/Vol] 9 mmol/L Normal 5-15 [facility] Comment on above: Performed By: #### C BC, CMP, 2532-0, 3084-1, AHP, 56175-6, 56012-9, 40157-8, 52896-8 #### [facility] ([id number]) [address], [address] [place] [address] AST [Catalytic activity/Vol] 15 U/L Normal 0-41 [facility] Comment on above: Performed By: #### C BC, CMP, 2532-0, 3084-1, AHP, 48697-0, 72329-4, 22121-3, 48319-9 #### [facility] ([id number]) [address], [address] [place] [address] Bilirubin [Mass/Vol] 0.4 mg/dL Normal 0.3-1.2 [facility] Comment on above: Performed By: #### C BC, CMP, 2532-0, 3084-1, AHP, 58100-6, 56997-4, 81435-3, 06388-4 #### [facility] ([id number]) [address], [address] [place] [address] Calcium [Mass/Vol] 8.7 mg/dL Normal 8.5-10.5 [facility] Comment on above: Performed By: #### C BC, CMP, 2532-0, 3084-1, AHP, 23184-1, 49698-9, 26777-1, 03897-0 #### [facility] ([id number]) [address], [address] [place] [address] Chloride [Moles/Vol] 105 mmol/L Normal 98-109 [facility] Comment on above: Performed By: #### C BC, CMP, 2532-0, 3084-1, AHP, 26621-1, 01795-9, 48915-3, 54820-1 #### [facility] ([id number]) [address], [address] [place] [address] CO2 [Moles/Vol] 23 mmol/L Normal 22-32 [facility] Comment on above: Performed By: #### C BC, CMP, 2532-0, 3084-1, AHP, 40456-6, 35039-7, 81094-1, 64840-6 #### [facility] ([id number]) [address], [address] [place] [address] Creatinine [Mass/Vol] 0.57 mg/dL Normal 0.40-1.00 [facility] Comment on above: Result Comment: METH OD TRACEABLE TO IDMS STANDARD Performed By: #### C BC, CMP, 2532-0, 3084-1, AHP, 42454-9, 43482-4, 31947-7, 77514-8 #### [facility] ([id number]) [address], [address] [place] [address] eGFR (CKD-EPI) NON-RACE DEPENDENT >90 Normal >59 [facility] Comment on above: Result Comment: Reported eGFR is based on the CKD-EPI 2020 equation that does not use a race coefficient. Performed By: #### C BC, CMP, 2532-0, 3084-1, AHP, 67253-2, 23945-5, 70242-3, 18579-4 #### [facility] ([id number]) [address], [address] [place] [address] Glucose [Mass/Vol] 79 mg/dL Normal 65-99 [facility] Comment on above: Performed By: #### C BC, CMP, 2532-0, 3084-1, AHP, 63267-1, 56295-0, 65262-8, 47683-8 #### [facility] ([id number]) [address], [address] [place] [address] Potassium [Moles/Vol] 3.7 mmol/L Normal 3.5-5.0 [facility] Comment on above: Performed By: #### C BC, CMP, 2532-0, 3084-1, AHP, 99217-8, 58624-0, 87623-2, 58741-9 #### [facility] ([id number]) [address], [address] [place] [address] Protein [Mass/Vol] 6.3 g/dL Normal 6.0-8.0 [facility] Comment on above: Performed By: #### C BC, CMP, 2532-0, 3084-1, AHP, 59981-9, 40590-1, 24367-3, 56286-3 #### [facility] ([id number]) [address], [address] [place] [address] Sodium [Moles/Vol] 137 mmol/L Normal 134-146 [facility] Comment on above: Performed By: #### C BC, CMP, 2532-0, 3084-1, AHP, 69809-5, 40579-5, 07538-1, 43055-0 #### [facility] ([id number]) [address], [address] [place] [address] Urea nitrogen [Mass/Vol] 5 mg/dL Normal 5-23 [facility] Comment on above: Performed By: #### C BC, CMP, 2532-0, 3084-1, AHP, 71864-1, 99977-1, 82003-1, 33578-7 #### [facility] ([id number]) [address], [address] [place] [address] Creatinine (U) [Mass/Vol]on 01-28-2024 URINE CREATININE,RDM 265.74 mg/dL Normal Pr [facility] Comment on above: Performed By: #### C BC, CMP, 2532-0, 3084-1, AHP, 15603-7, 50187-1, 78492-4, 27872-6 #### [facility] ([id number]) [address], [address] [place] [address] DRUG SCREEN, URINEon 024 AMPHETAMINE/METHAMP Negative Normal NEG [facility] Comment on above: Result Comment: AMPH /METH screening cut off = 1000 ng/mL Performed By: #### C BC, CMP, 2532-0, 3084-1, AHP, 21823-5, 14738-6, 36022-0, 49163-4 #### [facility] ([id number]) [address], [address] [place] [id number] BARBITURATES Negative Normal NEG [facility] Comment on above: Result Comment: Adenike iturates screening cut off value = 200 ng/mL Performed By: #### C BC, CMP, 2532-0, 3084-1, AHP, 67730-0, 83166-2, 30729-3, 07687-9 #### [facility] ([id number]) [address], [address] [place] [address] BENZODIAZEPINES Negative Normal NEG [facility] Comment on above: Result Comment: Domingo odiazepines screening cut off value = 200 ng/mL Performed By: #### C BC, CMP, 2532-0, 3084-1, AHP, 64210-5, 94016-8, 56829-7, 53186-5 #### [facility] ([id number]) [address], [address] [place] [address] CANNABINOIDS Positive Abnormal NEG [facility] Comment on above: Result Comment: Conf irmation available upon request. Cannabinoids/THC screening cut off value = 50 ng/mL Performed By: #### C BC, CMP, 2532-0, 3084-1, AHP, 64142-7, 84058-3, 77901-8, 60460-5 #### [facility] ([id number]) [address], [address] [place] [address] COCAINE METABOLITE Negative Normal NEG [facility] Comment on above: Result Comment: Coca ine screening cut off value = 300 ng/mL Performed By: #### C BC, CMP, 2532-0, 3084-1, AHP, 71169-0, 98145-4, 28763-4, 89780-4 #### [facility] ([id number]) [address] [facility], [address] [place] [address] ECSTASY Negative Normal [facility] Comment on above: Result Comment: Ecst asy screening cut off value = 500 ng/mL This report is intended for use in clinical monitoring or management of patients. Performed By: #### C BC, CMP, 2532-0, 3084-1, AHP, 31375-1, 89616-9, 73934-3, 32810-1 #### [facility] ([id number]) [address], [address] [place] [address] METHADONE Negative Normal [facility] Comment on above: Result Comment: Meth adone screening cut off value = 300 ng/mL. Performed By: #### C BC, CMP, 2532-0, 3084-1, AHP, 52196-2, 16252-2, 14870-3, 24657-6 #### [facility] ([id number]) [address], [address] [place] [address] OPIATES Negative Normal NEG [facility] Comment on above: Result Comment: Opia arthur screening cut off value = 300 ng/mL NOTE: This test is used for the detection of codeine, hydrocodone (>1000 ng/mL), morphine and hydromorphone (>900 ng/mL) in urine. Performed By: #### C BC, CMP, 2532-0, 3084-1, AHP, 44061-0, 15235-8, 33921-5, 19121-3 #### [facility] ([id number]) [address], [address] [place] [address] OXYCODONE Negative Normal NEG [facility] Comment on above: Result Comment: Oxyc odone screening cut off value = 300 ng/mL NOTE: This test is used for the detection of oxycodone and oxymorphone in urine. Performed By: #### C BC, CMP, 2532-0, 3084-1, AHP, 64929-8, 49489-9, 89856-2, 56538-1 #### [facility] ([id number]) [address], [address] [place] [address] PHENCYCLIDINE Negative Normal NEG [facility] Comment on above: Result Comment: Phen cyclidine screening cut off value = 25 ng/mL Performed By: #### C BC, CMP, 2532-0, 3084-1, AHP, 53015-8, 18494-7, 92717-0, 93804-0 #### [facility] ([id number]) [address], [address] [place] [address] HIV 1+2 Ab+HIV1 p24 Ag IA Ql on 01-28-2024 HIV 1 and 2 Ab/Ag Screen Non-Reactive Normal NRCT [facility] Comment on above: Result Comment: This information has been disclosed to you from confidential records protected from disclosure by state law. You shall make no further disclosure of this information without the specific, written and informed release of the individual to whom it pertains, or as otherwise permitted by state law. A general authorization for the release of medical or other information is not sufficient for the purpose of the release of HIV test results or diagnoses. Performed By: #### C BC, CMP, 2532-0, 3084-1, AHP, 77114-5, 72847-3, 23024-4, 94449-4 #### [facility] ([id number]) [address] [place] [address], [address] [place] [address] LDH [Catalytic activity/Vol] on 01-28-2024 LDH 160 U/L Normal 100-235 [facility] Comment on above: Performed By: #### C BC, CMP, 2532-0, 3084-1, AHP, 86123-8, 25913-9, 08231-2, 02748-5 #### [facility] ([id number]) [address] [place] [address], [address] [place] [address] Rubella virus Ab Ql (S)on RUBELLA IMMUNE IgG 2.7 AI Normal [facility] Comment on above: Result Comment: Interpretation-------- <0.8 NEGATIVE-considered Not Immune 0.8-0.9 EQUIVOCAL-consider retesting with new specimen >0.9 POSITIVE-considered Immune Performed By: #### C BC, CMP, 2532-0, 3084-1, AHP, 77133-8, 74085-7, 40851-2, 29084-8 #### [facility] ([id number]) [address] [place] [address], [address] [place] [address] T. pallidum IgG+IgM IA Ql (S )on 01-28-2024 Syphilis Total <0.2 Normal 0.0-0.8 [facility] Comment on above: Result Comment: NON REACTIVE No serologic evidence of infection to Treponema pallidum (syphilis). Repeat testing may be considered in patients with suspected acute or primary syphilis in 2 to 4 weeks. Performed By: #### C BC, CMP, 2532-0, 3084-1, AHP, 85312-1, 86958-5, 83375-1, 64505-3 #### [facility] ([id number]) [address], [address] [place] [address] URIC ACIDon 01-28-2024 Urate [Mass/Vol] 3.1 mg/dL Normal 2.6-7.2 [facility] Comment on above: Performed By: #### C BC, CMP, 2532-0, 3084-1, AHP, 08665-6, 16104-6, 11670-8, 59347-4 #### [facility] ([id number]) [address], [address] [place] [address] URINALYSISon 01-28-2024 Amorphous sediment LM Ql (Ur ine sed) PRESENT Abnormal NONE [facility] Bilirubin Ql (U) Negative Normal NEG [facility] BLOOD/HGB Negative Normal NEG [facility] Color (U) YELLOW Normal YELLOW [facility] Glucose Ql (U) Negative Normal NEG [facility] Ketones Ql (U) Trace Abnormal NEG [facility] Leukocyte esterase Test stri p Ql (U) Negative Normal NEG [facility] MUCOUS PRESENT Abnormal NONE [facility] Nitrite Ql (U) Negative Normal NEG [facility] pH (U) 7.5 [pH] Normal 5.0-8.5 [facility] Protein Ql (U) 30 mg/dL Abnormal NEG [facility] R.B.CELLS 1 /hpf Normal 0-5 [facility] Specific gravity (U) [Rel density] 1.026 Normal 1.003-1.03 5 [facility] SQUAMOUS EPITHELIUM 4 /hpf Normal 0-[address] [facility] TURBIDITY HAZY Abnormal CLEAR [facility] Urobilinogen (U) [Mass/Vol] mg/dL Normal <1.1 [facility] W.B.CELLS 3 /hpf Normal 0-5 [facility] URINE CULTUREon 01-28-2024 Bacteria identified Cx Nom (U) CULTURE R ESULTS 10-50,000 ORGANISMS/mL NORMAL UROGENITAL ERICK Normal [facility] Comment on above: Performed By: #### C KARO, [facility], 2532-0, 3084-1, [facility], 87371-9, 35316-0, 58049-8, 67221-2 #### [facility] ([id number]) [address], [address] [place] [address] VZV IgG IA Ql (S)on 01-28-20 24 VARICELLA IgG 5.2 AI High <0.9 [facility] Comment on above: Result Comment: Interpretation-------- <0.9 Negative 0.9 - 1.0 Equivocal >1.0 Positive Performed By: #### C , [facility], 2532-0, 3084-1, [facility], 56626-1, 48313-2, 27038-1, 56222-6 #### [facility] ([id number]) [address], [address] [place] [address] US PREG TRANSABD FU PER FETU on 12-17-2023 US PREG TRANSABD FU PER FETU US PREG TRA NSABD FU PER FETU US PREG TRANSABD FU PER FETU: 12/17/2023 1:22 PM Clinical: Check dates Real-time sonography fetus performed There is a single live intrauterine in a cephalic presentation. heart motion 150 bpm. Growth parameters are as follows. BPD- 3.7 cm, 17 weeks 3 days. Head circumference 12.8 cm, 16 weeks 4 days. Abdomen circumference 11.6 cm, 17 weeks 3 days. Femur length 2.3 cm, 17 weeks 0 days. Average gestational age is 17 week 1 day. Amniotic fluid volume is subjectively normal. The placenta is posterior without previa. anatomic survey not performed. Maternal Adnexa: Normal Impression: * Single live intrauterine cephalic presentation. * Average gestational age 17 weeks 1 day. * Ultrasound SINCERE 05/25/2024.. This is a standard (Level I) ultrasound, which cannot exclude all anomalies with certainty. 58 Finalized by Bassam Childs MD on 12/17/2023 7:12 PM Normal [facility] US renal BIon 03-04-2023 US renal BI [facility] [address] [place] [address] Ultrasound Report Signed Patient: Ramya Last MR#: [id number] : 1990 Acct:[id number] Age/Sex: 32 / F ADM Date: 03/03/23 Loc: ER Room: Type: [facility] ER Attending Dr: Ordering Provider: Angela Ventura APRN Date of Service: 03/03/23 US/US renal BI: pain Copies to: Angela Ventura APRN Bilateral Renal Ultrasound HISTORY: Back and flank pain for one day. COMPARISON: None RIGHT kidney measures 11.0 cm. LEFT kidney measures 10.9 cm. Hydronephrosis: None RENAL STONE: 5 mm echogenic left mid nonobstructing stone versus artifact. RENAL LESIONS: No renal lesion identified. URINARY BLADDER: Bilateral ureteral jets. No post void residual of the urinary bladder. PROSTATE GLAND Not assessed US/US renal BI IMPRESSION : No hydronephrosis. Impression dictated by: Brandon Tom M.D.03/03/2023 10:55 PM Dictation Location: [place] [address] Tech: Susan Richard Transcribed By: [facility] 03/03/232254 Dictated By: Brandon Tom DO 03/03/232253 Signed By: 03/03/232254 Normal [facility] Complete Blood Count Auto Di ffon 03-03-2023 Basophils (Bld) [#/Vol] 0.1 10*3/uL Normal 0.0-0.2 [facility] Comment on above: Result Comment: PERF ORMED BY: [address] [address] PATHOLOGIST GYROSCOPIC ENGINEERING TECHNICIAN MARTIN MAYA M.D. Performed By: #### C BC #### [address] [place] [address] [place] Basophils/100 WBC (Bld) 0.7 % Normal . F [facility] Comment on above: Performed By: #### C BC #### [address] Eosinophils (Bld) [#/Vol] 0.3 10*3/uL Normal 0.0-0.45 [facility] Comment on above: Performed By: #### C BC #### [address] Eosinophils/100 WBC (Bld) 2.5 % Normal . [facility] Comment on above: Performed By: #### C BC #### [address] Erythrocyte distribution wid th (RBC) [Ratio] 14.7 % Normal 11.9-15.3 [facility] Comment on above: Performed By: #### C BC #### [address] Hematocrit (Bld) [Volume fraction] 38.0 % Normal 34.0-46.4 [facility] Comment on above: Performed By: #### C BC #### [address] Hemoglobin (Bld) [Mass/Vol] 12.6 g/dL Normal 11.8-15. 4 [facility] Comment on above: Performed By: #### C BC #### [address] Lymphocytes (Bld) [#/Vol] 2.0 10*3/uL Normal 1.00-4.8 [facility] Comment on above: Performed By: #### C BC #### [address] Lymphocytes/100 WBC (Bld) 18.8 % Normal . [facility] Comment on above: Performed By: #### C BC #### [address] MCH (RBC) [Entitic mass] 28.3 pg Normal 24.7-34.3 [facility] Comment on above: Performed By: #### C BC #### [facility] [address] [place] [address] [place] MCV (RBC) [Entitic vol] 84.9 fL Normal 80-100 F [facility] Comment on above: Performed By: #### C BC #### [facility] [address] Mean Corpuscular HGB Conc 33.3 g/dL Normal 32.0-35.0 [facility] Comment on above: Performed By: #### C BC #### [facility] [address] [place] [address] [place] Monocytes (Bld) [#/Vol] 0.8 10*3/uL Normal 0.0-0.8 [facility] Comment on above: Performed By: #### C BC #### [facility] [address] [place] [address] [place] Monocytes/100 WBC (Bld) 17.51 % Normal 0.00-20.00 F [facility] Comment on above: Performed By: #### C BC #### [facility] [address] [place] [address] [place] Monocytes/100 WBC (Bld) 7.2 % Normal . [facility] Comment on above: Performed By: #### C BC #### [facility] [address] [place] [address] [place] Neutrophils (Bld) [#/Vol] 7.4 10*3/uL Normal 1.8-7.7 [facility] Comment on above: Performed By: #### C BC #### [facility] [address] [place] [address] [place] Neutrophils/100 WBC (Bld) 70.8 % Normal . [facility] Comment on above: Performed By: #### C BC #### [facility] [address] [place] [address] [place] NRBC% 0.0 /100{WBC} Normal 0-0.5 [facility] Comment on above: Performed By: #### C BC #### [facility] [address] Platelet mean volume (Bld) [Entitic vol] 7.7 fL Normal 6.3-10.7 [facility] Comment on above: Performed By: #### C BC #### [facility] [address] Platelets (Bld) [#/Vol] 342 10*3/uL Normal 150-450 [facility] Comment on above: Performed By: #### C BC #### [address] RBC (Bld) [#/Vol] 4.47 10*6/uL Normal 3.60-5.00 [facility] Comment on above: Performed By: #### C BC #### [address] WBC (Bld) [#/Vol] 10.5 10*3/uL Normal 3.8-11.6 [facility] Comment on above: Performed By: #### C BC #### [address] Comprehensive Metabolic Pane velasquez 03-03-2023 Albumin [Mass/Vol] 3.9 g/dL Normal 3.5-5.7 [facility] Comment on above: Performed By: #### C MP, HCGQNT #### [address] Albumin/Globulin [Mass ratio] 1.4 {ratio} Normal [facility] Comment on above: Performed By: #### C MP, HCGQNT #### [address] ALP [Catalytic activity/Vol] 53 U/L Normal 34-104 [facility] Comment on above: Performed By: #### C MP, HCGQNT #### [address] ALT [Catalytic activity/Vol] 17 U/L Normal 7-52 [facility] Comment on above: Performed By: #### C MP, HCGQNT #### [facility] [address] [place] [address] [place] Anion gap [Moles/Vol] 12.5 mmol/L Normal 6.0-15.[address] [facility] Comment on above: Performed By: #### C MP, HCGQNT #### [facility] [address] AST [Catalytic activity/Vol] 14 U/L Normal 13-39 [facility] Comment on above: Performed By: #### C MP, HCGQNT #### [facility] [address] Bilirubin [Mass/Vol] 0.3 mg/dL Normal 0.3-1.0 [facility] Comment on above: Performed By: #### C MP, HCGQNT #### [facility] [address] Calcium [Mass/Vol] 9.0 mg/dL Normal 8.6-10.3 [facility] Comment on above: Performed By: #### C MP, HCGQNT #### [facility] [address] [place] [address] [place] Chloride [Moles/Vol] 104 mmol/L Normal 98-107 [facility] Comment on above: Performed By: #### C MP, HCGQNT #### [facility] [address] CO2 [Moles/Vol] 23.1 mmol/L Normal 21.0-31.0 [facility] Comment on above: Performed By: #### C MP, HCGQNT #### [facility] [address] [place] [address] [place] Creatinine [Mass/Vol] 0.63 mg/dL Normal 0.60-1.20 [facility] Comment on above: Performed By: #### C MP, HCGQNT #### [facility] [address] [place] [address] [place] Creatinine Clr Calc Pharmacy 144.83 Normal [facility] Comment on above: Performed By: #### C MP, HCGQNT #### [place] [address] GFR/1.73 sq M.predicted MDRD (S/P/Bld) [Vol rate/Area] mL/min/{1.73_m2} Normal [facility] Comment on above: Performed By: #### C MP, HCGQNT #### [facility] [address] Globulin (S) [Mass/Vol] 2.8 g/dL Normal F [facility] Comment on above: Performed By: #### C MP, HCGQNT #### [address] Glucose [Mass/Vol] 90 mg/dL Normal 70-100 [facility] Comment on above: Result Comment: [place] Glucose Reference Range is dependent on time and content of last meal. Glucose of more than 200 mg/dL in a nonstressed, ambulatory subject supports the diagnosis of Diabetes Mellitus. ADA recommended reference range Performed By: #### C SANTIAGO, HCGQNT #### [address] Potassium [Moles/Vol] 3.6 mmol/L Normal 3.5-5.1 [facility] Comment on above: Performed By: #### C MP, HCGQNT #### [address] Protein [Mass/Vol] 6.7 g/dL Normal 6.4-8.9 [facility] Comment on above: Performed By: #### C MP, HCGQNT #### [place] [address] [place] Sodium [Moles/Vol] 136 mmol/L Normal 136-145 [facility] Comment on above: Performed By: #### C MP, HCGQNT #### [address] Urea nitrogen [Mass/Vol] 8 mg/dL Normal 7-25 [facility] Comment on above: Performed By: #### C MP, HCGQNT #### [address] Dipstick and Microscopicon 0 03-03-2023 Appearance (U) Clear Normal Clear [facility] Comment on above: Order Comment: Name Collection Type:: Clean-Voided Midstream Performed By: #### U HCG, ADDONUAPLUS, CUU #### [facility] [address] Bacteria,Urine 4+ High None Seen [facility] Comment on above: Order Comment: Name Collection Type:: Clean-Voided Midstream Performed By: #### U HCG, ADDONUAPLUS, CUU #### [facility] [address] [place] [address] [place] Bilirubin,Urine Negative Normal Negative [facility] Comment on above: Order Comment: Name Collection Type:: Clean-Voided Midstream Performed By: #### U HCG, ADDONUAPLUS, CUU #### [facility] [address] [place] [address] Color (U) Yellow Normal Yellow [facility] Comment on above: Order Comment: Name Collection Type:: Clean-Voided Midstream Performed By: #### U HCG, ADDONUAPLUS, CUU #### [facility] [address] [place] [address] Glucose Ql (U) Normal Normal Normal [facility] Comment on above: Order Comment: Name Collection Type:: Clean-Voided Midstream Performed By: #### U HCG, ADDONUAPLUS, CUU #### [facility] [address] [place] [address] [place] Hyaline Casts,Urine 0-8 Normal 0-8 [facility] Comment on above: Order Comment: Name Collection Type:: Clean-Voided Midstream Performed By: #### U HCG, ADDONUAPLUS, CUU #### [facility] [address] [place] [address] [place] Ketones Ql (U) Negative Normal Negative [facility] Comment on above: Order Comment: Name Collection Type:: Clean-Voided Midstream Performed By: #### U HCG, ADDONUAPLUS, CUU #### [facility] [address] [place] [address] [place] Leukocyte esterase Test stri p Ql (U) 2+ High Negative [facility] Comment on above: Order Comment: Name Collection Type:: Clean-Voided Midstream Performed By: #### U HCG, ADDONUAPLUS, CUU #### [address] Nitrite,Urine Negative Normal Negative [facility] Comment on above: Order Comment: Name Collection Type:: Clean-Voided Midstream Performed By: #### U HCG, ADDONUAPLUS, CUU #### [address] Occult Blood,Urine Negative Normal Negative [facility] Comment on above: Order Comment: Name Collection Type:: Clean-Voided Midstream Performed By: #### U HCG, ADDONUAPLUS, CUU #### [address] pH (U) 6.0 [pH] Normal 5.0-9.0 [facility] Comment on above: Order Comment: Name Collection Type:: Clean-Voided Midstream Performed By: #### U HCG, ADDONUAPLUS, CUU #### [address] Protein,Urine Negative Normal Negative [facility] Comment on above: Order Comment: Name Collection Type:: Clean-Voided Midstream Performed By: #### U HCG, ADDONUAPLUS, CUU #### [facility] [address] [place] [address] RBC LM.HPF (Urine sed) [#/Area] 0 /[HPF] Normal 0-4 [facility] Comment on above: Order Comment: Name Collection Type:: Clean-Voided Midstream Performed By: #### U HCG, ADDONUAPLUS, CUU #### [address] Specificy [place],Urine 1.013 Normal 1.00 1-1.03 0 [facility] Comment on above: Order Comment: Name Collection Type:: Clean-Voided Midstream Performed By: #### U HCG, ADDONUAPLUS, CUU #### [facility] [address] [place] [address] Squamous Epithelial Cell,Urine 0-1 Normal 0-2 [facility] Comment on above: Order Comment: Name Collection Type:: Clean-Voided Midstream Performed By: #### U HCG, ADDONUAPLUS, CUU #### [facility] [address] [place] [address] Urobilinogen,Urine Normal Normal Normal [facility] Comment on above: Order Comment: Name Collection Type:: Clean-Voided Midstream Performed By: #### U HCG, ADDONUAPLUS, CUU #### [address] WBC,Urine 5-9 High 0-4 [facility] Comment on above: Order Comment: Name Collection Type:: Clean-Voided Midstream Performed By: #### U HCG, ADDONUAPLUS, CUU #### [address] HCG,Quantitativeon HCG,Quantitative 88503.00 m[iU]/mL Normal [facility] Comment on above: Result Comment: Appr oximate Approximate hCG Gestational Age Range (mIU/ml) (weeks) 0.2-1 5-50 1-2 50-500 2-3 100-5,000 3-4 500-10,000 4-5 1,000-50,000 5-6 10,000-100,000 6-8 15,000-200,000 8-12 10,000-100,000 PERFORMED BY: [place] [address] PATHOLOGIST GYROSCOPIC ENGINEERING TECHNICIAN MARTIN MAYA M.D. Performed By: #### C MP, HCGQNT #### [facility] [address] [place] [address] HCG,Urineon 03-03-2023 Beta HCG ( test) Ql (U) Positive [facility] Comment on above: Order Comment: Name Collection Type:: Clean-Voided Midstream Result Comment: PERF ORMED BY: [address] [place] [address] PATHOLOGIST GYROSCOPIC ENGINEERING TECHNICIAN MARTIN MAYA M.D. Performed By: #### U HCG, JUAN MIGUEL YOUNGMigel #### [address] US OB <= 14 weeks fetuson US OB <= 14 weeks fetus [facility] Main [facility] [address] [place] [address] Ultrasound Report Signed Patient: Ramya Last MR#: [id number] : 1990 Acct:[id number] Age/Sex: 32 / F ADM Date: 03/03/23 Loc: ER Room: Type: [facility] ER Attending Dr: Ordering Provider: Angela Ventura APRN Date of Service: 03/03/23 US/US OB <= 14 weeks fetus: Back Pain/Injury Copies to: Angela Ventura APRN Obstetrical ultrasound for fetus less than 14 weeks HISTORY: Back pain for one day COMPARISON: None The heart rate is 172bpm. Left ovary not visualized. Right ovary unremarkable. Possible bicornuate uterus. No free fluid identified in cul-de-sac. No subchorionic hemorrhage identified. [place]-rump length measures 4.0cm consistent with 11 weeks 0 days. The yolk sac is not seen. The estimated due date by this ultrasound is 09/22/2023. US/US OB <= 14 weeks fetus IMPRESSION: Single live anterior and gestation 11 weeks 0 days.. Impression dictated by: Brandon Tom M.D.03/03/2023 6:37 PM Dictation Location: [place] [address] Tech: Susan Hilary Transcribed By: [facility] 03/03/231836 Dictated By: Brandon Tom DO 03/03/231833 Signed By: 03/03/231836 [facility] Urine Cultureon 03-03-2023 Bacteria identified Cx Nom (U) ORGANISM: Escherichia coli (ESBL) (O:ESCCOLESBL) [place] Count 50,000 Aerobic [place] Charge ([id number]) ------- SUSCEPTIBILITY ------ ORGANISM: O:ESCCOLESBL ANTIBIOTIC INTERPRETATION [place] Amikacin S <16 Amoxacillin/K Clavulanate S <8 Ampicillin R* >16 Ampicillin/Sulbact am S <4 Aztreonam ESBL >16 Cefazolin R* >16 Cefepime R* >16 Ceftazidime ESBL 4 Ceftazidime/Avibac contreras S <4 Ceftolozane/Tazoba ctam S <2 Ceftriaxone ESBL >32 Cefuroxime R* >16 Ciprofloxacin S <0.25 Ertapenem S <0.5 Gentamicin S <2 Levofloxacin S <0.5 Meropenem S <1 Meropenem/Vaborbac contreras S <2 Nitrofurantoin S <32 Piperacillin/Tazob actam S <8 Tetracycline S <4 Tigecycline S <2 Tobramycin S <2 Trimethoprim/Sulfa methoxazole S <0.5 S = SUSCEPTIBLE I = INTERMEDIATE R = RESISTANT BLANK = DATA NOT AVAILABLE, OR DRUG NOT ADVISABLE OR TESTED R* = RESISTANCE DUE TO EXTENDED SPECTRUM BETA-LACTAMASES ESBL = EXTENDED SPECTRUM BETA-LACTAMASE TFG = THYMIDINE-DEPENDEN T STRAIN YOGI = BETA-LACTAMASE POSITIVE IB = INDUCIBLE BETA-LACTAMASE. APPEARS IN PLACE OF 'S' WITH SPECIES KNOWN TO POSSESS INDUCIBLE BETA-LACTAMASES. POTENTIALLY THEY MAY BECOME RESISTANT TO ALL B-LACTAM DRUGS. PERFORMED BY: [place] [address] PATHOLOGIST GYROSCOPIC ENGINEERING TECHNICIAN MARTIN MAYA M.D. [facility] Comment on above: Performed By: #### U HANNAH JAMESON CUU #### [facility] [address] Quick Strepon 07-03-2022 Quick Strep Streptococcus pyogenes Ag [Presence] in Throat by Rapid immunoassay Negative for Group A Strep Antigen Note 1 ---- NOTE 2 Results are those of a screening test. NOTE 3 If clinically indicated please order a culture. NOTE 4 ---- NOTE 5 Reference range = Negative PERFORMED BY: [place] [address] PATHOLOGIST GYROSCOPIC ENGINEERING TECHNICIAN MARTIN MAYA M.D. [facility] Comment on above: Performed By: #### Q S #### [address] Streptococcus pyogenes antig en detectionOrdered By: Diana Solano on 07-03-2022 S. pyogenes Ag Ql (Unsp spec) [facility] Vital Signs Date Time Vital Sign Value Performing Clinician Rodrigo bee 04-10-2025 09:10-0400 Body height 165.1 cm Aleyda Krotzer PERFECT BIND MACHINE OPERATOR-FIELD LOGISTICS COORDINATOR Work Phone: [facility] [employer] [facility] 04-10-2025 09:10-0400 Body mass index (BMI) [Ratio] 34.88 kg/m2 Aleyda Krotzer PERFECT BIND MACHINE OPERATOR-FIELD LOGISTICS COORDINATOR Work Phone: [facility] [employer] 04-10-2025 09:10-0400 Body weight 95.07 kg Aleyda Krotzer PERFECT BIND MACHINE OPERATOR-FIELD LOGISTICS COORDINATOR Work Phone: [facility] 04-10-2025 09:10-0400 Diastolic blood pressure 72 mm[Hg] Aleyda Krotzer PERFECT BIND MACHINE OPERATOR-FIELD LOGISTICS COORDINATOR Work Phone: [facility] 04-10-2025 09:10-0400 Systolic blood pressure 116 mm[Hg] Aleyda Krotzer PERFECT BIND MACHINE OPERATOR-FIELD LOGISTICS COORDINATOR Work Phone: [employer] 07-16-2024 13:24-0400 Body mass index (BMI) [Ratio] 34.98 kg/m2 Aleyda Krotzer PERFECT BIND MACHINE OPERATOR-FIELD LOGISTICS COORDINATOR Work Phone: [employer] [facility] 07-16-2024 13:24-0400 Body weight 95.35 kg Aleyda Krotzer PERFECT BIND MACHINE OPERATOR-FIELD LOGISTICS COORDINATOR Work Phone: [facility] 07-16-2024 13:24-0400 Diastolic blood pressure 90 mm[Hg] Aleyda Elam PERFECT BIND MACHINE OPERATOR-FIELD LOGISTICS COORDINATOR Work Phone: [facility] 07-16-2024 13:24-0400 Systolic blood pressure 138 mm[Hg] Aleyda Dykeszer PERFECT BIND MACHINE OPERATOR-FIELD LOGISTICS COORDINATOR Work Phone: [facility] 05-26-2024 11:20-0400 Body height 165.1 cm Ekaterina Spears MD Work Phone: [facility] 05-26-2024 11:20-0400 Body mass index (BMI) [Ratio] 35.84 kg/m2 Ekaterina Spears MD Work Phone: [facility] 05-26-2024 11:20-0400 Body weight 97.7 kg Ekaterina Spears MD Work Phone: [facility] 05-26-2024 11:20-0400 Diastolic blood pressure 110 mm[Hg] Ekaterina Spears MD Work Phone: [facility] 05-26-2024 11:20-0400 Systolic blood pressure 164 mm[Hg] Ekaterina Spears MD Work Phone: [facility] 05-22-2024 13:41-0400 Body temperature 98.1 [degF] Ekaterina Spears MD Work Phone: [facility] 05-22-2024 13:41-0400 Diastolic blood pressure 85 mm[Hg] Ekaterina Spears MD Work Phone: [facility] 05-22-2024 13:41-0400 Heart rate 101 /min Ekaterina Spears MD Work Phone: [facility] 05-22-2024 13:41-0400 Respiratory rate 16 /min Ekaterina Spears MD Work Phone: [facility] 05-22-2024 13:41-0400 SaO2% (BldA) [Mass fraction] 100 % Ekaterina Spears MD Work Phone: [facility] 05-22-2024 13:41-0400 Systolic blood pressure 150 mm[Hg] Ekaterina Spears MD Work Phone: [facility] 05-19-2024 10:00-0400 Body height 165.1 cm Ekaterina Spears MD Work Phone: [facility] 05-19-2024 10:00-0400 Body mass index (BMI) [Ratio] 37.44 kg/m2 Ekaterina Spears MD Work Phone: [facility] 05-19-2024 10:00-0400 Body weight 102.06 kg Ekaterian Spears MD Work Phone: [facility] 05-12-2024 14:10-0400 Body mass index (BMI) [Ratio] 37.44 kg/m2 Ekaterina Spears MD Work Phone: [facility] 05-12-2024 14:10-0400 Body weight 102.06 kg Ekaterina Spears MD Work Phone: [facility] 05-12-2024 14:10-0400 Diastolic blood pressure 78 mm[Hg] Ekaterina Spears MD Work Phone: [facility] 05-12-2024 14:10-0400 Systolic blood pressure 124 mm[Hg] Ekaterina Spears MD Work Phone: [facility] 04-09-2024 10:27-0400 Body mass index (BMI) [Ratio] 35.54 kg/m2 [facility] 04-09-2024 10:27-0400 Body weight 96.89 kg [facility] 04-09-2024 10:27-0400 Diastolic blood pressure 80 mm[Hg] [facility] 04-09-2024 10:27-0400 Systolic blood pressure 124 mm[Hg] [facility] 03-28-2024 10:23-0400 Body mass index (BMI) [Ratio] 34.88 kg/m2 Olga Diaz PERFECT BIND MACHINE OPERATOR-FIELD LOGISTICS COORDINATOR Work Phone: [facility] 03-28-2024 10:23-0400 Body weight 95.07 kg Olga Diaz PERFECT BIND MACHINE OPERATOR-FIELD LOGISTICS COORDINATOR Work Phone: [facility] 03-28-2024 10:23-0400 Diastolic blood pressure 64 mm[Hg] Olga Diaz PERFECT BIND MACHINE OPERATOR-FIELD LOGISTICS COORDINATOR Work Phone: [facility] 03-28-2024 10:23-0400 Systolic blood pressure 122 mm[Hg] Olga Diaz PERFECT BIND MACHINE OPERATOR-FIELD LOGISTICS COORDINATOR Work Phone: [facility] 02-21-2024 13:02-0400 Body height 165.1 cm Tabby Womack MD Work Phone: [facility] 02-21-2024 13:02-0400 Body mass index (BMI) [Ratio] 33.48 kg/m2 Tabby Womack MD Work Phone: [facility] 02-21-2024 13:02-0400 Body weight 91.26 kg Tabby Womack MD Work Phone: [facility] 02-21-2024 13:02-0400 Diastolic blood pressure 77 mm[Hg] Tabby Womack MD Work Phone: [facility] 02-21-2024 13:02-0400 Heart rate 81 /min Tabby Womack MD Work Phone: [facility] 02-21-2024 13:02-0400 Systolic blood pressure 125 mm[Hg] Tabby Womcak MD Work Phone: [facility] 01-29-2024 12:55-0400 Body mass index (BMI) [Ratio] 33.18 kg/m2 [facility] Nuclear Fuel Enrichment Technician [facility] 01-29-2024 12:55-0400 Body weight 90.45 kg [facility] Nuclear Fuel Enrichment Technician [facility] 01-29-2024 12:55-0400 Diastolic blood pressure 68 mm[Hg] [facility] Nuclear Fuel Enrichment Technician [facility] 01-29-2024 12:55-0400 Systolic blood pressure 118 mm[Hg] [facility] Nuclear Fuel Enrichment Technician [facility] 07-03-2022 10:18-0400 Body height 165.1 cm PHYSICIAN NO [facility] 07-03-2022 10:18-0400 Body temperature 98.3 [degF] PHYSICIAN NO [facility] 07-03-2022 10:18-0400 Body weight 81.64 kg PHYSICIAN NO [facility] 07-03-2022 10:18-0400 Diastolic blood pressure 92 mm[Hg] PHYSICIAN NO [facility] 07-03-2022 10:18-0400 Heart rate 84 /min PHYSICIAN NO [facility] 07-03-2022 10:18-0400 Respiratory rate 18 /min PHYSICIAN NO [facility] 07-03-2022 10:18-0400 SaO2% (BldA) [Mass fraction] 100 % PHYSICIAN NO [facility] 07-03-2022 10:18-0400 Systolic blood pressure 126 mm[Hg] PHYSICIAN NO [facility] Encounters Encounter Date Encounter Type Care Provider Facility Start: 04-13-2025 End: 04-13-2025 Orders Only Olga Diaz PERFECT BIND MACHINE OPERATOR-FIELD LOGISTICS COORDINATOR Work Phone: [facility] Comment on above: Bacterial vaginosis (Primary Dx) Start: 04-10-2025 End: 04-10-2025 ambulatory [facility] Lola [facility] Start: 04-10-2025 Encounter for gynecological examination (general) (routine) without abnormal findings [facility] Lola [facility] Start: 04-10-2025 End: 04-10-2025 Patient encounter procedure Aleyda Elam PERFECT BIND MACHINE OPERATOR-FIELD LOGISTICS COORDINATOR Work Phone: [facility] Work Phone: Start: 04-10-2025 End: 04-10-2025 Periodic preventive med est patient 18-39 yrs Aleyda Elam PERFECT BIND MACHINE OPERATOR-FIELD LOGISTICS COORDINATOR Work Phone: [facility] Comment on above: Well woman exam with routine gynecological exam (Primary Dx); Standardized adult depression screening tool completed; Initial encounter for management of contraceptive patch use; Acute vaginitis; Screening for STD (sexually transmitted disease) Start: 07-18-2024 End: 07-18-2024 Telephone encounter Peg Banda CMA [facility] Start: 07-16-2024 End: 07-16-2024 Office outpatient visit 15 minutes Aleyda Elam PERFECT BIND MACHINE OPERATOR-FIELD LOGISTICS COORDINATOR [facility] Phone: [facility] Comment on above: Encounter for initia l prescription of contraceptive pills (Primary Dx); General counselling and advice on contraception; Does not have primary care provider Start: 07-16-2024 End: 07-16-2024 ambulatory [facility] Lola [facility] Start: 05-26-2024 End: 05-26-2024 ambulatory [facility] Start: 05-26-2024 End: 05-26-2024 care visit Ekaterina Spears MD Work Phone: [facility] Comment on above: hypertens ion (Primary Dx) Start: 05-22-2024 End: 05-22-2024 [facility] Start: 05-19-2024 End: 05-22-2024 Evaluation and management of inpatient [facility] Comment on above: Delivery of pregnanc y by section (Primary Dx) Start: 05-13-2024 End: 05-13-2024 ambulatory ALEYDA Lola [facility] Start: 05-12-2024 End: 05-12-2024 Office outpatient visit 15 minutes Ekaterina Spears MD Work Phone: [facility] Comment on above: GA: 38w1d Start: 05-12-2024 End: 05-12-2024 Telephone encounter [facility] Start: 05-12-2024 End: 05-14-2024 ambulatory [facility] Start: 05-12-2024 End: 05-12-2024 ambulatory EKATERINA [facility] Start: 05-07-2024 End: 05-07-2024 Telephone encounter [facility]e [facility] Start: 04-15-2024 End: 04-22-2024 Telephone encounter [facility] Start: 04-09-2024 End: 04-09-2024 Subsequent care visit [facility] Nuclear Fuel Enrichment Technician [facility] Comment on above: GA: 33w3d Start: 03-28-2024 End: 03-28-2024 ambulatory OLGA Davila [facility] Start: 03-28-2024 End: 03-28-2024 Subsequent care visit Olga Diaz PERFECT BIND MACHINE OPERATOR-FIELD LOGISTICS COORDINATOR [facility] Phone: [facility] Comment on above: GA: 31w5d Start: 02-21-2024 End: 02-21-2024 Office consultation new/estab patient 60 min Tabby Womack MD Work Phone: [facility] Comment on above: 26 weeks gestation o f (Primary Dx); History of delivery, currently ; Hx of pre-eclampsia in prior , currently Start: 02-21-2024 End: 02-21-2024 ambulatory ALEYDA [facility] Comment on above: Encounter for follow -up ultrasound of anatomy (Primary Dx) Start: 01-29-2024 End: 01-29-2024 Initial care visit [facility] Nuclear Fuel Enrichment Technician [facility] Comment on above: GA: 23w6d Start: 01-29-2024 End: 01-29-2024 ambulatory ALEYDA [facility] Start: 01-29-2024 End: 01-29-2024 Encounter for gynecological examination (general) (routine) without abnormal findings [facility] Work Phone: Start: 01-28-2024 End: 01-28-2024 ambulatory ALEYDA Davila [facility] Start: 01-02-2024 Telephone encounter No Pcp No Pcp [facility] Start: 12-17-2023 End: 12-17-2023 ambulatory ALEYDA Davila [facility] Start: 03-07-2023 End: 03-07-2023 Emergency department patient visit PHYSICIAN NO FAMILY Facility:[facility] Start: 03-03-2023 End: 03-03-2023 Emergency department patient visit Angela Winklerantoniostephanie Facility:[facility] Start: 01-22-2023 End: 01-22-2023 Emergency department patient visit Sagar Dudley Facility:[facility] Start: 07-03-2022 End: 07-03-2022 Emergency department patient visit Diana Calloway Wandasiria Facility:[facility] Start: 07-03-2022 End: 07-03-2022 Emergency department patient visit PHYSICIAN NO FAMILY [facility] Procedures Date Procedure Procedure Detail Performing Clinician Start: 04-10-2025 Adult depression screening assessment Aleyda Papa PERFECT BIND MACHINE OPERATOR-FIELD LOGISTICS COORDINATOR Work Phone: Start: 07-16-2024 Urine test visual color cmprsn meths Aleyda Davila Papa PERFECT BIND MACHINE OPERATOR-FIELD LOGISTICS COORDINATOR Work Phone: Start: 05-26-2024 care Care EKATERINA SPEARS Start: 05-26-2024 Adult depression screening assessment Ekaterina Spears MD Work Phone: Start: 05-20-2024 Blood count complete automated Krystal West PERFECT BIND MACHINE OPERATOR-CNM Work Phone: Start: 05-19-2024 Antibody screen Ekaterina Spears MD Work Phone: Start: 05-19-2024 End: 05-19-2024 Blood gases any combination ph pco2 po2 co2 hco3 Krystal West PERFECT BIND MACHINE OPERATOR-CNM Work Phone: Start: 05-19-2024 End: 05-19-2024 delivery attempted Ekaterina Spears MD Work Phone: Start: 05-19-2024 End: 05-19-2024 Blood typing serologic abo Krystal West PERFECT BIND MACHINE OPERATOR-CNM Work Phone: Start: 05-19-2024 End: 05-19-2024 Comprehensive metabolic panel Krystal West PERFECT BIND MACHINE OPERATOR-CNM Work Phone: Start: 01-29-2024 Microscopic observation [Identifier] in Cervix by Cyto stain Neida Brennan CMA Start: 10-04-2023 End: 05-21-2024 H/O: section History of delivery, currently No No Pcp H/O: section History of delivery, currently Tabby Womack MD Work Phone: H/O: section History of delivery, currently Olga Diaz PERFECT BIND MACHINE OPERATOR-FIELD LOGISTICS COORDINATOR Work Phone: Streptococcus pyogen es antigen assay PHYSICIAN NO FAMILY Plan of Treatment Date Care Activity Detail Author Start: 01-28-2027 Screening for malign ant neoplasm of cervix Pap Smear [facility] Start: 04-10-2026 Adult BMI Follow Up Plan Adult BMI Follow Up Plan [facility] Start: 04-10-2026 Adult BMI Screening Adult BMI Screen ing [facility] Start: 04-10-2026 Depression Screening Depression Scre [facility] Start: 04-10-2026 Tobacco Screening Tobacco Screening [facility] Start: 07-16-2025 Adult BMI Screening Adult BMI Screen ing [facility] Start: 07-16-2025 Tobacco Screening Tobacco Screening [facility] Start: 06-15-2025 Influenza vaccination Influenza Vacc ine [facility] Start: 05-26-2025 Adult BMI Screening Adult BMI Screen ing [facility] Start: 05-26-2025 Depression Screening Depression Scre ening [facility] Start: 05-26-2025 Tobacco Screening Tobacco Screening [facility] Start: 05-12-2025 Adult BMI Screening Adult BMI Screen ing [facility] Start: 05-12-2025 Tobacco Screening Tobacco Screening [facility] Start: 04-09-2025 Adult BMI Screening Adult BMI Screen ing [facility] Start: 04-09-2025 Tobacco Screening Tobacco Screening [facility] Start: 03-28-2025 Adult BMI Screening Adult BMI Screen ing [facility] Start: 03-28-2025 Tobacco Screening Tobacco Screening [facility] Start: 02-20-2025 Adult BMI Screening Adult BMI Screen ing [facility] Start: 02-20-2025 Tobacco Screening Tobacco Screening [facility] Start: 02-20-2025 End: 02-20-2025 US MFM with or without consult US MFM with or without consult Imaging Routine Encounter for follow-up ultrasound of anatomy Expected: 02/20/2025 (Approximate), Expires: 02/20/2025 [employer] Work Phone: Comment on above: Expected: 02/20/2025 (Approximate), Expires: 02/20/2025 Start: 01-28-2025 Adult BMI Screening Adult BMI Screen ing [facility] Start: 01-28-2025 Tobacco Screening Tobacco Screening [facility] Start: 10-04-2024 Tobacco Screening Tobacco Screening [facility] Start: 09-26-2024 Adult BMI Screening Adult BMI Screen ing [facility] Start: 07-21-2024 End: 07-21-2024 Patient encounter procedure 07/21/2024 10:30 AM EDT Office Visit [facility] [address] [place] [id number] Jose Ramon Erik, PERFECT BIND MACHINE OPERATOR-[address], [address] [address] Bee Haddad MD [address] [place] [address] [facility] Start: 06-30-2024 Subsequent hospital visit by physician 06/30/2024 4:29 AM EDT Hospital Encounter [facility] [address] [place] [id number] Pap smear, as part of routine gynecological examination [facility] Comment on above: Pap smear, as part o f routine gynecological examination Start: 06-15-2024 Influenza vaccination Influenza Vacc ine [facility] Start: 05-26-2024 End: 05-26-2024 ambulatory 05/26/2024 10:45 AM EDT Visit [facility] [address] [place] [id number] Ekaterina Spears MD [address] [place] [address] [facility] Start: 05-19-2024 End: 04-09-2025 US for limited Ultrasound limited 1 or more fetus Imaging Routine Hx of pre-eclampsia in prior , currently Third trimester Expected: 05/19/2024, Expires: 04/09/2025 [facility] Comment on above: Expected: 05/19/2024 , Expires: 04/09/2025 Start: 05-19-2024 End: 05-19-2024 Admission to same day surgery center 05/19/2024 10:30 AM EDT - 05/19/2024 12:30 PM EDT Surgery [facility] [address] [place] [phone] Ekaterina Spears MD [address] [place] [address] REPEAT [75670 (CPT )] [facility] Comment on above: REPEAT [59 620 (CPT )] Start: 05-19-2024 End: 05-19-2024 delivery attempted REPEAT repeat 05/19/2024 10:30 AM EDT [facility] Start: 05-19-2024 Subsequent hospital visit by physician 05/19/2024 10:30 AM EDT Hospital Encounter [facility] [address] [place] [id number] Ekaterina Spears MD [address] [place] [address] [facility] Start: 05-15-2024 End: 05-15-2024 Patient encounter procedure 05/15/2024 10:00 AM EDT Appointment [facility] [address] [place] [address] Aleyda Magaña, PERFECT BIND MACHINE OPERATOR-FIELD LOGISTICS COORDINATOR [address] [place] [address] [facility] Start: 05-13-2024 End: 05-13-2024 Patient encounter procedure 05/13/2024 10:15 AM EDT Appointment [facility] [address] [place] [address] [facility] Start: 05-13-2024 Subsequent hospital visit by physician 05/13/2024 10:15 AM EDT Hospital Encounter [facility] [address] [place] [address] [facility] Start: 05-12-2024 End: 05-12-2024 Patient encounter procedure 05/12/2024 2:00 PM EDT Routine [facility] [address] [place] [address] Ekaterina Spears MD [address] [address] [facility] Start: 05-12-2024 End: 05-12-2025 Strep B screen Strep B screen Microbiology Routine care, third trimester Expected: 05/12/2024 (Approximate), Expires: 05/12/2025 [facility] Work Phone: Comment on above: Expected: 05/12/2024 (Approximate), Expires: 05/12/2025 Start: 05-12-2024 End: 04-09-2025 US for limited Ultrasound limited 1 or more fetus Imaging Routine Hx of pre-eclampsia in prior , currently Third trimester Expected: 05/12/2024, Expires: 04/09/2025 [facility] Comment on above: Expected: 05/12/2024 , Expires: 04/09/2025 Start: 05-05-2024 End: 04-09-2025 US for limited Ultrasound limited 1 or more fetus Imaging Routine Hx of pre-eclampsia in prior , currently Third trimester Expected: 05/05/2024, Expires: 04/09/2025 [facility] Comment on above: Expected: 05/05/2024 , Expires: 04/09/2025 Start: 04-28-2024 End: 04-09-2025 US for limited Ultrasound limited 1 or more fetus Imaging Routine Hx of pre-eclampsia in prior , currently Third trimester Expected: 04/28/2024, Expires: 04/09/2025 [facility] Comment on above: Expected: 04/28/2024 , Expires: 04/09/2025 Start: 04-23-2024 End: 04-23-2024 Patient encounter procedure 04/23/2024 2:15 PM EDT Office Visit [facility] [address] [place] [phone] [facility] Start: 04-09-2024 End: 04-09-2025 US for limited Ultrasound transabdominal follow up per fetus Imaging Routine Hx of pre-eclampsia in prior , currently Third trimester Expected: 04/09/2024, Expires: 04/09/2025 [facility]: Comment on above: Expected: 04/09/2024 , Expires: 04/09/2025 Start: 04-09-2024 End: 04-09-2024 Patient encounter procedure 04/09/2024 10:15 AM EDT Routine [facility] [address] [place] [address] [facility] Start: 03-25-2024 End: 03-25-2024 Patient encounter procedure 03/25/2024 2:45 PM EDT Appointment [facility] [address] [place] [address] [facility] Start: 02-26-2024 End: 02-26-2024 Patient encounter procedure 02/26/2024 11:15 AM EDT Routine [facility] [address] [place] [address] [facility] Start: 01-29-2024 End: 01-28-2025 US MFM with or without consult US MFM with or without consult Imaging Routine Second trimester Expected: 01/29/2024, Expires: 01/28/2025 [facility] Comment on above: Expected: 01/29/2024 , Expires: 01/28/2025 Start: 06-15-2023 Influenza vaccination Influenza Vacc ine [facility] Start: 2013 Screening for malign ant neoplasm of cervix Pap Smear [facility] Start: 2011 DTaP,Tdap and Td Vaccines (1 - Tdap) DTaP,Tdap and Td Vaccines (1 - Tdap) [facility] Start: 2010 Adult BMI Follow Up Plan Adult BMI Follow Up Plan [facility] Start: 2004 [facility] End: 03-28-2025 CBC panel - Blood by Automated count CBC without diff Lab Routine 31 weeks gestation of Third trimester 1 Occurrences starting 03/28/2024 until 03/28/2025 [facility] Comment on above: 1 Occurrences starti ng 03/28/2024 until 03/28/2025 Chlamydia trachomati s DNA [Presence] in Unspecified specimen by CHANA with probe detection Chlamydia/GC by PCR Larry Swab Microbiology Routine Screening for STD (sexually transmitted disease) 04/10/2025 9:48 AM EDT [facility] Work Phone: End: 01-28-2025 Chlamydia/GC by PCR ThinPrep fluid Chlamydia/GC by PCR ThinPrep fluid Microbiology Routine Pap smear, as part of routine gynecological examination 1 Occurrences starting 01/29/2024 until 01/28/2025 [facility]: 1 Occurrences starti ng 01/29/2024 until 01/28/2025 End: 01-28-2025 Cytopathology procedure, preparation of smear, genital source Pap Smear Pathology and Cytology Routine Pap smear, as part of routine gynecological examination 1 Occurrences starting 01/29/2024 until 01/28/2025 [facility] Work Phone: Comment on above: 1 Occurrences starti ng 01/29/2024 until 01/28/2025 End: 05-19-2024 Discontinue all L&D and recovery orders Discontinue all L&D and recovery orders OB Routine Once for 1 Occurrences starting 05/19/2024 until 05/19/[facility]24 [facility]: Once for 1 Occurrenc es starting 05/19/2024 until 05/19/2024 End: 04-09-2025 nonstress test nonstress test OB Routine Hx of pre-eclampsia in prior , currently Third trimester Weekly starting at 36 weeks for 5 Occurrences starting 04/09/2024 until 04/09/2025 [facility] on above: Weekly starting at 3 6 weeks for 5 Occurrences starting 04/09/2024 until 04/09/2025 End: 03-28-2025 Glucose 1h post 50g load Glucose 1h post 50g load Lab Routine 31 weeks gestation of Third trimester 1 Occurrences starting 03/28/2024 until 03/28/2025 [facility] above: 1 Occurrences starti ng 03/28/2024 until 03/28/2025 End: 01-28-2025 High risk HPV w/jhonathan High risk HPV w/jhonathan Lab Routine Pap smear, as part of routine gynecological examination 1 Occurrences starting 01/29/2024 until 01/28/2025 [facility] above: 1 Occurrences starti ng 01/29/2024 until 01/28/2025 End: 05-19-2024 Pathology Pathology Pathology and Cytology Routine Once for 1 Occurrences starting 05/19/2024 until 05/19/2024 [facility] Work Phone: Comment on above: Once for 1 Occurrenc es starting 05/19/2024 until 05/19/2024 Patient Education Sore Throat, Adult ED F [facility] Work Phone: Patient referral [facility] Work Phone: End: 03-28-2025 Protein creat ratio Protein creat ratio Lab Routine Hx of pre-eclampsia in prior , currently 1 Occurrences starting 03/28/2024 until 03/28/2025 [facility] Work Phone: Comment on above: 1 Occurrences starti ng 03/28/2024 until 03/28/2025 End: 03-28-2025 Syphilis Total(Unknown Syphilis Status) Syphilis Total(Unknown Syphilis Status) Lab Routine 31 weeks gestation of Third trimester 1 Occurrences starting 03/28/2024 until 03/28/2025 [employer] Comment on above: 1 Occurrences starti ng 03/28/2024 until 03/28/2025 Vaginitis Panel PCR Vaginitis Pa carina PCR Microbiology Routine Acute vaginitis 04/10/2025 9:48 AM EDT [employer] Payers Date Payer Category Payer Self-pay [id number] 2020 Medicaid [place] [employer] [employer] [id number] 2020-Present [phone] [place] [id number] [id number] 2020 Medicaid [place] [id number] 2020 Medicaid [id number] 1992 Unknown [id number] 2.16840.1.836938.3.579.2.1285 1992 Unknown [id number] 2.16840.1.228867.3.579.2.1285 1992 Unknown [id number] 2.16840.1.864796.3.579.2.1285 1992 Unknown [id number] 2.840.1.853830.3.579.2.1285 1992 Unknown [id number] 2.16840.1.311748.3.579.2.1285 1992 Unknown [id number] 2.16840.1.512161.3.579.2.1285 1992 Unknown [id number] 2.16840.1.532383.3.579.2.1285 1992 Unknown [id number] 2.16840.1.771638.3.579.2.1285 1992 Unknown [id number] 2.16840.1.417336.3.579.2.1285 1992 Unknown [id number] 2.16840.1.699738.3.579.2.1285 1992 Unknown [id number] 2.16840.1.189015.3.579.2.1285 1992 Unknown [id number] 2.16840.1.467887.3.579.2.1285 1992 Unknown [id number] 2.16840.1.814041.3.579.2.1286 1992 Unknown [id number] 2.16840.1.676968.3.579.2.1286 1992 Unknown [id number] 2.16840.1.033584.3.579.2.1286 1992 Unknown [id number] 2.16840.1.803812.3.579.2.1286 1992 Unknown [id number] 2.16840.1.176929.3.579.2.1286 1992 Unknown [id number] 2.840.1.195931.3.579.2.128 1992 Unknown [id number] 2.840.1.749811.3.579.2.128 1992 Unknown [id number] 2.0.1.425890.3.579.2.128 1992 Unknown [id number] 2.840.1.340147.3.579.2.1286 Medicaid [place] Advantage [id number] [facility] [id number] Unknown [id number] 2.840.1.905184.3.579.2.531 Unknown [id number] 20.1.690024.3.579.2.531 Unknown [id number] 20.1.231085.3.579.2.531 Unknown [id number] Social History Date Type Detail Facility Start: 07-03-2022 Tobacco smoking stat [facility] Smoker (finding) [facility] Start: 1990 Sex Assigned At Female F [facility] Start: 05-22-2023 Tobacco smoking stat [facility] Ex-smoker [facility] History of tobacco use Cigarette Smoker P [facility] History of tobacco use Cigar Smoker [employer] [facility] Start: 05-22-2023 Tobacco use and exposure Smokeless tobacco non-user [facility] Start: 02-21-2024 End: 04-10-2025 Alcoholic beverage intake Ex-drinker (finding) [facility] Start: 02-21-2024 End: 07-16-2024 History of Social function [facility] Start: 02-21-2024 End: 07-16-2024 Tobacco use panel [facility] Within the past 12 months we worried whether our food would run out before we got money to buy more. Never True [facility] Start: 08-29-2023 [facility] Start: 1990 Sex assigned at Not on file P [facility] Has the [employer], [employer], [employer], or water company threatened to shut off services in your home in past 12Mo No [facility] The thought of bailey helton myself has occurred to me Never [facility] Start: 05-21-2023 Sex Female (finding) [facility] Clinical Notes 01-02-2024 to 04-13-2025 Telephone Encounter - Kymberly Ty MA - 04/13/2025 9:25 AM EDTTelephone Encounter - Kymberly Ty MA - 04/13/2025 9:25 AM SALO Rojas CNP - 04/10/2025 9:00 AM EDT Note Date & Type Note Facility 04-13-2025 Miscellaneous Notes Pt called inquiring about GCCT and VNAP results. Appt was on 04/10/25. Please advise, thank you! - Kymberly Ty MA 04/13/25 9:27 AM Pt was informed per Olga Diaz CNP result note. Pt voiced understanding. - Kymberly Ty MA 04/13/25 3:46 PM THANK YOU NILTON documented in this encounter [facility] 04-13-2025 Telephone encounter Note Pt called inquiring about GCCT and VNAP results. Appt was on 04/10/25. Please advise, thank you! - Kymberly Ty MA 04/13/25 9:27 AM [facility] 04-13-2025 Telephone encounter Note Pt was informed per Olga Diaz CNP result note. Pt voiced understanding. - Kymberly Ty MA 04/13/25 3:46 PM [facility] 04-13-2025 Telephone encounter Note THANK YOU NILTON [facility] Work Phone: 04-10-2025 History of Presen t illness Narrative Annual Well Woman Visit 04/10/2025 Subjective Ramya Last is a pleasant 34 y.o. 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 Periods are regular every 28-30 days, [...] past medical history, past social history, past surgical history and problem list. MEDICAL HX Past Medical History: Diagnosis Date History of elective x 3 10/04/2023 SURGICAL HX Past Surgical History: Procedure Laterality Date REPEAT N/A 05/19/2024 Performed by Ekaterina Spears MD at [facility] OR SECTION INDUCED x 3 FAMILY [...] 9.6 oz) LMP 03/23/2025 (Approximate) BMI 34.88 kg/m Physical Exam Vitals and nursing note reviewed. 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 Follow up as needed. Next pap due 2028 per ASCCP guidelines. Discussed taking a multivitamin. Recommend cessation of vaping. Discussed Calcium and Vitamin D for prevention of osteoporosis. Discussed recommendations for HPV vaccine between 9-45 yo. Can be received at [facility] or the [facility]. Discussed need for yearly mammogram after 40 yo. Discussed colon cancer screening recommendations to begin at 45 yo, patient to discuss with PCP. All questions answered. CARITO THRASHER APRN-JANET Elam APRN-JANET 04/10/25 0938 Aleyda Elam APRN-JANET 04/10/2539 documented in this encounter [facility] 04-10-2025 Miscellaneous Notes Addended by: GREG MARTE on: 04/10/2025 09:48 AM Modules accepted: Orders documented in this encounter [facility] 04-10-2025 Note Addended by: GREG MARTE on: 04/10/2025 09:48 AM Modules accepted: Orders [facility] 07-18-2024 Miscellaneous Notes Left message for patient to remind them to bring their most current medication list with them to their appointment. documented in this encounter [facility] 07-18-2024 Telephone encounter Note Left message for patient to remind them to bring their most current medication list with them to their appointment. [facility] 07-16-2024 History of Presen t illness Narrative HPI Subjective Ramya Last is a pleasant 33 y.o. female who presents for contraception counseling. Current contraception: none. Periods are regular every 28-30 days, lasting 7 days. Dysmenorrhea: none. Cyclic symptoms include none. No intermenstrual bleeding, spotting, or discharge. The patient has no complaints today. Relationship status: in a relationship Children YES How many Two Sexually active: Yes Non-smoker Pertinent past medical history: hypertension. HPV vaccinated: unsure Menstrual History: Patient's last menstrual period was 06/20/2024 (approximate). The following portions of the patient's history were reviewed and updated as appropriate: allergies, current medications, past family history, past medical history, past social history, past surgical history, problem list, and medication reconciliation was completed including current medication and post discharge medication. Review of Systems Review of Systems Constitutional: Negative. Respiratory: Negative. Negative for chest tightness and shortness of breath. Cardiovascular: Negative. Negative for chest pain and palpitations. Gastrointestinal: Negative. Negative for constipation, diarrhea, nausea and vomiting. Genitourinary: Negative. Negative for menstrual problem and pelvic pain. Neurological: Negative. Psychiatric/Behavioral: Negative. Objective BP 138/90 Wt 95.3 kg (210 lb 3.2 oz) LMP 06/20/2024 (Approximate) No BMI 34.98 kg/m Physical Exam Vitals and nursing note reviewed. Constitutional: Appearance: Normal appearance. Cardiovascular: Rate and Rhythm: Normal rate and regular rhythm. Pulses: Normal pulses. Heart sounds: Normal heart sounds. Pulmonary: Effort: Pulmonary effort is normal. Breath sounds: Normal breath sounds. Musculoskeletal: General: Normal range of motion. Skin: General: Skin is warm and dry. Neurological: Mental Status: She is alert and oriented to person, place, and time. Psychiatric: Mood and Affect: Mood normal. Behavior: Behavior normal. Thought Content: Thought content normal. Judgment: Judgment normal. Lab Review Urine test negative today Assessment / Plan Ramya was seen today for contraception. Diagnoses and all orders for this visit: Encounter for initial prescription of contraceptive pills - POCT , urine - drospirenone, contraceptive, 4 mg (28) tablet; Take 4 mg by mouth in the morning. General counselling and advice on contraception Does not have primary care provider - Ambulatory Referral to [facility] Primary Care; Future Discussed risks / benefits of progesterone only BC options: POPs vs LARCs (IUDs/implant/Depo provera). Patient desires POPs. Patient to begin pills with the start of her menstrual cycle or return in one week for UPT. Educational information provided. All questions answered. HPV vaccine is recommended between 9-45 yo. Can be received at [facility] or the health department. RTO for annual (due January 2025) or sooner as needed. MAI Riley APRN-DELFINA Bennett 07/16/24 1354 documented in this encounter [facility] 05-26-2024 History of Presen t illness Narrative Ramya Last is a 33 y.o.female. Patient's last menstrual period was 08/15/2023 (approximate).. She presents 1 week incision check. EPDS: 5. Pt is complaining of swelling in feet and hands, as well as headaches. Pt reports right sided pain with her c/section and rates it a 7.5 out of 10 on pain scale. OB History 5 Para 2 Term 2 0 AB 3 Living 2 SAB 0 IAB 0 Ectopic 0 Multiple 0 Live Births 2 MEDICAL HX Past Medical History: Diagnosis Date History of elective x 3 10/04/2023 Preeclampsia 2014 SURGICAL HX Past Surgical History: Procedure Laterality Date REPEAT N/A 05/19/2024 Performed by Ekaterina Spears MD at [facility] OR SECTION INDUCED x 3 FAMILY HX Family History Problem Relation Age of Onset No Known Problems Father No Known Problems Mother MEDS Current Outpatient Medications Medication Sig Dispense Refill acetaminophen (TYLENOL EXTRA STRENGTH) 500 mg tablet Take 2 tablets (1,000 mg total) by mouth every 8 (eight) hours Indications: fever, headache, pain. 30 tablet 0 docusate sodium (COLACE) 100 mg capsule Take 1 capsule (100 mg total) by mouth in the morning and 1 capsule (100 mg total) before bedtime. 20 capsule 0 ferrous sulfate 325 (65 FE) mg tablet Take 1 tablet (325 mg total) by mouth in the morning and 1 tablet (325 mg total) in the evening. Take with meals. 60 tablet 2 ibuprofen (MOTRIN) 800 mg tablet Take 1 tablet (800 mg total) by mouth every 8 (eight) hours. 30 tablet 0 NIFEdipine XL (PROCARDIA XL) 60 mg 24 hr tablet Take 1 tablet (60 mg total) by mouth in the morning. 60 tablet 1 oxyCODONE (ROXICODONE) 5 mg immediate release tablet Take 1 tablet (5 mg total) by mouth every 4 (four) hours as needed for pain for up to 7 days. Max Daily Amount: 30 mg 12 tablet 0 [id number] 9-dha 31 mg iron- 1 mg-200 mg capsule Take 1 capsule by mouth in the morning. 90 capsule 3 No current facility-administered medications for this visit. ALLERGIES No Known Allergies Review of Systems Review of Systems Objective LMP 08/15/2023 (Approximate) Physical Exam BP (!) 164/110 Ht 165.1 cm (5' 5 ) Wt 97.7 kg (215 lb 6.4 oz) LMP 08/15/2023 (Approximate) Yes BMI 35.84 kg/m Physical Exam GEN AAOX3, NAD HEENT UNREMARKABLE HEART RRR LUNGS CTAB ABD BENIGN, OBESE, NTND INCISION: CLEAN DRY INTACT WITHOUT SIGNS OR SYMPTOMS OF INFECTION PELVIS: deferred RECTAL DEFERRED EXTREM +1-2EDEMA, +2-3DTR, NO CLONUS, NO CALF TENDERNESS Assessment/Plan: POD#7 SP LTCS ELEV BP RO PIH SENT TO L&D FOR EVAL AND LABS CNM NOTIFIED MD GREG DIAZ CMA documented in this encounter [facility] 05-22-2024 Plan of care note Problem: Pain Goal: Patient goal is pain score less than 4, able to rest, and participant in treatment plan as appropriate Description: INTERVENTIONS: 1. Encourage patient or legal agency sales representative to report early pain and ask for pain medicine when needed 2. Assess pain using appropriate pain scale and include the scale used when documenting 3. Administer analgesics based on type and severity of pain and evaluate response within appropriate time frame 4. Implement non-pharmacological measures as appropriate and evaluate response 5. Consider cultural and social influences on pain and pain management 6. Notify LIP if interventions ineffective or patient reports new pain 7. Monitor vital signs including pulse ox, end-tidal CO2 based on pain intervention 8. Reassess pain per policy 9. Teach patient or legal agency sales representative interventions for comforting Outcome: Completed Note: Evaluation of progress towards goal: Patient reports satisfactory pain relief using acetaminophen, ibuprofen, and roxicodone. Problem: Safety Goal: Patient will be injury free during hospitalization Description: INTERVENTIONS: 1. Assess patient's risk for falls and implement fall prevention plan of care per policy 2. Provide and maintain a safe environment 3. Proper use of double Identifiers 4. Medication administration using the 5 rights 5. Hand hygiene 6. Specimens are labeled at the bedside 7. Instruct patient/ patient agency sales representative about use of safety devices 8. Include patient/ patient agency sales representative in decisions related to safety Outcome: Completed Note: Evaluation of progress towards goal: Patient remains injury free. Problem: Infection Goal: Absence of infection during hospitalization Description: Interventions: 1. Assess and monitor for signs and symptoms of infection 2. Monitor lab/diagnostic results 3. Monitor all insertion sites i.e., indwelling lines, tubes and drains 4. Monitor endotracheal (as able) and nasal secretions for changes in amount and color 5. Administer medications as ordered 6. Instruct and encourage patient and family to use good hand hygiene technique 7. Identify and instruct patient/patient agency sales representative in use of appropriate isolation precautions for identified infection/symptoms 8. Provide and discuss with patient/patient agency sales representative on educational MDRO sheet 9. Encourage and monitor nutritional status daily and consult foreign correspondent if indicated 10. Implement neutropenic guidelines as needed 11. Review exposure to history of communicable disease and recent travel history on admission 12. Encourage annual influenza vaccine 13. Encourage pneumonia vaccine Outcome: Completed Note: Evaluation of progress towards goal: Patient has displayed no signs or symptoms of infection. Problem: Knowledge Deficit Goal: Patient/patient agency sales representative demonstrates understanding of disease process, treatment plan, medications, and discharge instructions Description: INTERVENTIONS 1. Complete learning assessment and assess knowledge base 2. Provide teaching at level of understanding 3. Provide teaching via preferred learning method(s) Outcome: Completed Note: Evaluation of progress towards goal: Patient verbalizes understanding of plan of care and discharge instructions. Problem: Discharge Planning Goal: Discharge to post-acute care, other facility, or home with appropriate resources Description: Patient's goal is: INTERVENTIONS 1. Conduct assessment to determine patient/family and health care team treatment goals, and need for post-acute services based on payer coverage, community resources, and patient preferences, and barriers to discharge 2. Coordinate with Social work, Care Navigation, and Utilization Review to arrange appropriate level of services according to patient's needs based on patient preference and payer coverage in collaboration with the physician and health care team 3. Address psychosocial, clinical, and financial barriers to discharge as identified in assessment in conjunction with the patient/family and health care team 4. Consult appropriate ancillary services (i.e.. PT/OT/ST, etc) as needed 5. Communicate with and update the patient/family, physician, and health care team regarding progress on the discharge plan 6. Identify discharge learning needs (meds, wound care, etc). 7. Arrange for needed discharge transportation as appropriate Outcome: Completed Note: Evaluation of progress towards goal: Patient discharged home and has follow up visit with OB DR on Sunday05-22-24. Problem: Low Risk Fall Score Description: Owens Fall Score of 0 - 24 or indicated by [facility] Assessment Goal: Patient should be free from fall Description: Interventions: 1. [place] to environment 2. Hourly rounds addressing the 4 P's (Pain, Positioning, Possessions, Potty) 3. Clear area of hazards (spills, clutter, electrical cords, unnecessary equipment) 4. Place equipment (bed & TV controls, call light, phone, urinal) within reach 5. Encourage patient to wear glasses and hearing aides as appropriate 6. Maintain bed in lowest position 7. Lock wheels on bed/wheelchair 8. Provide adequate lighting, including night light 9. Assess need for additional bedding, food/fluids, pain med's prior to sleep/routinely 10. Provide gripper slippers or personal non-skid footwear 11. Teach patient and patient agency sales representative to maintain environment for safety and engage in all aspects of fall prevention program Outcome: Completed Note: Evaluation of progress towards goal: Patient remains free from falls. Additional Comments: . [facility] 05-22-2024 Miscellaneous Notes Problem: Pain Goal: Patient goal is pain score less than 4, able to rest, and participant in treatment plan as appropriate Description: INTERVENTIONS: 1. Encourage patient or legal agency sales representative to report early pain and ask for pain medicine when needed 2. Assess pain using appropriate pain scale and include the scale used when documenting 3. Administer analgesics based on type and severity of pain and evaluate response within appropriate time frame 4. Implement non-pharmacological measures as appropriate and evaluate response 5. Consider cultural and social influences on pain and pain management 6. Notify LIP if interventions ineffective or patient reports new pain 7. Monitor vital signs including pulse ox, end-tidal CO2 based on pain intervention 8. Reassess pain per policy 9. Teach patient or legal agency sales representative interventions for comforting Outcome: Completed Note: Evaluation of progress towards goal: Patient reports satisfactory pain relief using acetaminophen, ibuprofen, and roxicodone. Problem: Safety Goal: Patient will be injury free during hospitalization Description: INTERVENTIONS: 1. Assess patient's risk for falls and implement fall prevention plan of care per policy 2. Provide and maintain a safe environment 3. Proper use of double Identifiers 4. Medication administration using the 5 rights 5. Hand hygiene 6. Specimens are labeled at the bedside 7. Instruct patient/ patient agency sales representative about use of safety devices 8. Include patient/ patient agency sales representative in decisions related to safety Outcome: Completed Note: Evaluation of progress towards goal: Patient remains injury free. Problem: Infection Goal: Absence of infection during hospitalization Description: Interventions: 1. Assess and monitor for signs and symptoms of infection 2. Monitor lab/diagnostic results 3. Monitor all insertion sites i.e., indwelling lines, tubes and drains 4. Monitor endotracheal (as able) and nasal secretions for changes in amount and color 5. Administer medications as ordered 6. Instruct and encourage patient and family to use good hand hygiene technique 7. Identify and instruct patient/patient agency sales representative in use of appropriate isolation precautions for identified infection/symptoms 8. Provide and discuss with patient/patient agency sales representative on educational MDRO sheet 9. Encourage and monitor nutritional status daily and consult foreign correspondent if indicated 10. Implement neutropenic guidelines as needed 11. Review exposure to history of communicable disease and recent travel history on admission 12. Encourage annual influenza vaccine 13. Encourage pneumonia vaccine Outcome: Completed Note: Evaluation of progress towards goal: Patient has displayed no signs or symptoms of infection. Problem: Knowledge Deficit Goal: Patient/patient agency sales representative demonstrates understanding of disease process, treatment plan, medications, and discharge instructions Description: INTERVENTIONS 1. Complete learning assessment and assess knowledge base 2. Provide teaching at level of understanding 3. Provide teaching via preferred learning method(s) Outcome: Completed Note: Evaluation of progress towards goal: Patient verbalizes understanding of plan of care and discharge instructions. Problem: Discharge Planning Goal: Discharge to post-acute care, other facility, or home with appropriate resources Description: Patient's goal is: INTERVENTIONS 1. Conduct assessment to determine patient/family and health care team treatment goals, and need for post-acute services based on payer coverage, community resources, and patient preferences, and barriers to discharge 2. Coordinate with Social work, Care Navigation, and Utilization Review to arrange appropriate level of services according to patient's needs based on patient preference and payer coverage in collaboration with the physician and health care team 3. Address psychosocial, clinical, and financial barriers to discharge as identified in assessment in conjunction with the patient/family and health care team 4. Consult appropriate ancillary services (i.e.. PT/OT/ST, etc) as needed 5. Communicate with and update the patient/family, physician, and health care team regarding progress on the discharge plan 6. Identify discharge learning needs (meds, wound care, etc). 7. Arrange for needed discharge transportation as appropriate Outcome: Completed Note: Evaluation of progress towards goal: Patient discharged home and has follow up visit with OB DR on Sunday05-22-24. Problem: Low Risk Fall Score Description: Owens Fall Score of 0 - 24 or indicated by [facility] Assessment Goal: Patient should be free from fall Description: Interventions: 1. [place] to environment 2. Hourly rounds addressing the 4 P's (Pain, Positioning, Possessions, Potty) 3. Clear area of hazards (spills, clutter, electrical cords, unnecessary equipment) 4. Place equipment (bed & TV controls, call light, phone, urinal) within reach 5. Encourage patient to wear glasses and hearing aides as appropriate 6. Maintain bed in lowest position 7. Lock wheels on bed/wheelchair 8. Provide adequate lighting, including night light 9. Assess need for additional bedding, food/fluids, pain med's prior to sleep/routinely 10. Provide gripper slippers or personal non-skid footwear 11. Teach patient and patient agency sales representative to maintain environment for safety and engage in all aspects of fall prevention program Outcome: Completed Note: Evaluation of progress towards goal: Patient remains free from falls. Additional Comments: Problem: Pain Goal: Patient goal is pain score less than 4, able to rest, and participant in treatment plan as appropriate Description: INTERVENTIONS: 1. Encourage patient or legal agency sales representative to report early pain and ask for pain medicine when needed 2. Assess pain using appropriate pain scale and include the scale used when documenting 3. Administer analgesics based on type and severity of pain and evaluate response within appropriate time frame 4. Implement non-pharmacological measures as appropriate and evaluate response 5. Consider cultural and social influences on pain and pain management 6. Notify LIP if interventions ineffective or patient reports new pain 7. Monitor vital signs including pulse ox, end-tidal CO2 based on pain intervention 8. Reassess pain per policy 9. Teach patient or legal agency sales representative interventions for comforting Outcome: Progressing Note: Evaluation of progress towards goal: Pt able to report pain according to 0/10 pain scale. Medicating patient for pain per orders. Pt encouraged to report early pain, analgesics administered as needed, hourly rounding completed and pain assessed. Problem: Safety Goal: Patient will be injury free during hospitalization Description: INTERVENTIONS: 1. Assess patient's risk for falls and implement fall prevention plan of care per policy 2. Provide and maintain a safe environment 3. Proper use of double Identifiers 4. Medication administration using the 5 rights 5. Hand hygiene 6. Specimens are labeled at the bedside 7. Instruct patient/ patient agency sales representative about use of safety devices 8. Include patient/ patient agency sales representative in decisions related to safety Outcome: Progressing Note: Evaluation of progress towards goal: Safety measures initiated/maintained. Pt remains safe from harm/injury/falls. Pt's risk for falls assessed and fall prevention implemented as needed, safe environment provided and maintained, hand hygiene completed. Call light within reach/ hourly rounding to meet needs/ safety equipment used as needed/up with assistance when needed. Problem: Infection Goal: Absence of infection during hospitalization Description: Interventions: 1. Assess and monitor for signs and symptoms of infection 2. Monitor lab/diagnostic results 3. Monitor all insertion sites i.e., indwelling lines, tubes and drains 4. Monitor endotracheal (as able) and nasal secretions for changes in amount and color 5. Administer medications as ordered 6. Instruct and encourage patient and family to use good hand hygiene technique 7. Identify and instruct patient/patient agency sales representative in use of appropriate isolation precautions for identified infection/symptoms 8. Provide and discuss with patient/patient agency sales representative on educational MDRO sheet 9. Encourage and monitor nutritional status daily and consult foreign correspondent if indicated 10. Implement neutropenic guidelines as needed 11. Review exposure to history of communicable disease and recent travel history on admission 12. Encourage annual influenza vaccine 13. Encourage pneumonia vaccine Outcome: Progressing Note: Evaluation of progress towards goal: Vitals obtained per order. Patient remains afebrile. She denies pain with urination. Lochia is small and free from odor. Problem: Knowledge Deficit Goal: Patient/patient agency sales representative demonstrates understanding of disease process, treatment plan, medications, and discharge instructions Description: INTERVENTIONS 1. Complete learning assessment and assess knowledge base 2. Provide teaching at level of understanding 3. Provide teaching via preferred learning method(s) Outcome: Progressing Note: Evaluation of progress towards goal: Pt learning and knowledge base assessed, teaching provided at an understandable level as needed, teaching provided via preferred learning method. POC discussed with patient, questions answered PRN. Problem: Discharge Planning Goal: Discharge to post-acute care, other facility, or home with appropriate resources Description: Patient's goal is: INTERVENTIONS 1. Conduct assessment to determine patient/family and health care team treatment goals, and need for post-acute services based on payer coverage, community resources, and patient preferences, and barriers to discharge 2. Coordinate with Social work, Care Navigation, and Utilization Review to arrange appropriate level of services according to patient's needs based on patient preference and payer coverage in collaboration with the physician and health care team 3. Address psychosocial, clinical, and financial barriers to discharge as identified in assessment in conjunction with the patient/family and health care team 4. Consult appropriate ancillary services (i.e.. PT/OT/ST, etc) as needed 5. Communicate with and update the patient/family, physician, and health care team regarding progress on the discharge plan 6. Identify discharge learning needs (meds, wound care, etc). 7. Arrange for needed discharge transportation as appropriate Outcome: Progressing Note: Evaluation of progress towards goal: Discharge knowledge assessed. Discharge planning implemented and ongoing. Problem: Low Risk Fall Score Description: Owens Fall Score of 0 - 24 or indicated by [facility] Assessment Goal: Patient should be free from fall Description: Interventions: 1. [place] to environment 2. Hourly rounds addressing the 4 P's (Pain, Positioning, Possessions, Potty) 3. Clear area of hazards (spills, clutter, electrical cords, unnecessary equipment) 4. Place equipment (bed & TV controls, call light, phone, urinal) within reach 5. Encourage patient to wear glasses and hearing aides as appropriate 6. Maintain bed in lowest position 7. Lock wheels on bed/wheelchair 8. Provide adequate lighting, including night light 9. Assess need for additional bedding, food/fluids, pain med's prior to sleep/routinely 10. Provide gripper slippers or personal non-skid footwear 11. Teach patient and patient agency sales representative to maintain environment for safety and engage in all aspects of fall prevention program Outcome: Progressing Note: Evaluation of progress towards goal: Pt remains free from falls or accidental injury during stay. Fall prevention measures in place. Hourly rounding completed to meet needs, area clear of hazards, bed in lowest position with wheels locked. Call light in reach. Additional Comments: Additional Comments: Problem: Pain Goal: Patient goal is pain score less than 4, able to rest, and participant in treatment plan as appropriate Description: INTERVENTIONS: 1. Encourage patient or legal agency sales representative to report early pain and ask for pain medicine when needed 2. Assess pain using appropriate pain scale and include the scale used when documenting 3. Administer analgesics based on type and severity of pain and evaluate response within appropriate time frame 4. Implement non-pharmacological measures as appropriate and evaluate response 5. Consider cultural and social influences on pain and pain management 6. Notify LIP if interventions ineffective or patient reports new pain 7. Monitor vital signs including pulse ox, end-tidal CO2 based on pain intervention 8. Reassess pain per policy 9. Teach patient or legal agency sales representative interventions for comforting Outcome: Progressing Note: Evaluation of progress towards goal: Pt able to report pain according to 0/10 pain scale. Medicating patient for pain per orders. Pt encouraged to report early pain, analgesics administered as needed, hourly rounding completed and pain assessed. Problem: Safety Goal: Patient will be injury free during hospitalization Description: INTERVENTIONS: 1. Assess patient's risk for falls and implement fall prevention plan of care per policy 2. Provide and maintain a safe environment 3. Proper use of double Identifiers 4. Medication administration using the 5 rights 5. Hand hygiene 6. Specimens are labeled at the bedside 7. Instruct patient/ patient agency sales representative about use of safety devices 8. Include patient/ patient agency sales representative in decisions related to safety Outcome: Progressing Note: Evaluation of progress towards goal: Safety measures initiated/maintained. Pt remains safe from harm/injury/falls. Pt's risk for falls assessed and fall prevention implemented as needed, safe environment provided and maintained, hand hygiene completed. Call light within reach/ hourly rounding to meet needs/ safety equipment used as needed/up with assistance when needed. Problem: Infection Goal: Absence of infection during hospitalization Description: Interventions: 1. Assess and monitor for signs and symptoms of infection 2. Monitor lab/diagnostic results 3. Monitor all insertion sites i.e., indwelling lines, tubes and drains 4. Monitor endotracheal (as able) and nasal secretions for changes in amount and color 5. Administer medications as ordered 6. Instruct and encourage patient and family to use good hand hygiene technique 7. Identify and instruct patient/patient agency sales representative in use of appropriate isolation precautions for identified infection/symptoms 8. Provide and discuss with patient/patient agency sales representative on educational MDRO sheet 9. Encourage and monitor nutritional status daily and consult foreign correspondent if indicated 10. Implement neutropenic guidelines as needed 11. Review exposure to history of communicable disease and recent travel history on admission 12. Encourage annual influenza vaccine 13. Encourage pneumonia vaccine Outcome: Progressing Note: Evaluation of progress towards goal: Patient afebrile at this time, patient VS WNL. Pt assessed and monitored for signs and symptoms of infection, lab and diagnostic results monitored as needed, administer medications as needed. Hand hygiene completed. Continue to monitor. Problem: Knowledge Deficit Goal: Patient/patient agency sales representative demonstrates understanding of disease process, treatment plan, medications, and discharge instructions Description: INTERVENTIONS 1. Complete learning assessment and assess knowledge base 2. Provide teaching at level of understanding 3. Provide teaching via preferred learning method(s) Outcome: Progressing Note: Evaluation of progress towards goal: Pt learning and knowledge base assessed, teaching provided at an understandable level as needed, teaching provided via preferred learning method. POC discussed with patient, questions answered PRN. Problem: Discharge Planning Goal: Discharge to post-acute care, other facility, or home with appropriate resources Description: Patient's goal is: INTERVENTIONS 1. Conduct assessment to determine patient/family and health care team treatment goals, and need for post-acute services based on payer coverage, community resources, and patient preferences, and barriers to discharge 2. Coordinate with Social work, Care Navigation, and Utilization Review to arrange appropriate level of services according to patient's needs based on patient preference and payer coverage in collaboration with the physician and health care team 3. Address psychosocial, clinical, and financial barriers to discharge as identified in assessment in conjunction with the patient/family and health care team 4. Consult appropriate ancillary services (i.e.. PT/OT/ST, etc) as needed 5. Communicate with and update the patient/family, physician, and health care team regarding progress on the discharge plan 6. Identify discharge learning needs (meds, wound care, etc). 7. Arrange for needed discharge transportation as appropriate Outcome: Progressing Note: Evaluation of progress towards goal: Pt discharge initiated with attending provider, Pt/Family communicated with and updated regarding process on discharge as needed. Reviewed discharge plan and questions answered Problem: Low Risk Fall Score Description: Owens Fall Score of 0 - 24 or indicated by [facility] Assessment Goal: Patient should be free from fall Description: Interventions: 1. [place] to environment 2. Hourly rounds addressing the 4 P's (Pain, Positioning, Possessions, Potty) 3. Clear area of hazards (spills, clutter, electrical cords, unnecessary equipment) 4. Place equipment (bed & TV controls, call light, phone, urinal) within reach 5. Encourage patient to wear glasses and hearing aides as appropriate 6. Maintain bed in lowest position 7. Lock wheels on bed/wheelchair 8. Provide adequate lighting, including night light 9. Assess need for additional bedding, food/fluids, pain med's prior to sleep/routinely 10. Provide gripper slippers or personal non-skid footwear 11. Teach patient and patient agency sales representative to maintain environment for safety and engage in all aspects of fall prevention program Outcome: Progressing Note: Evaluation of progress towards goal: Pt remains free from falls or accidental injury during stay. Fall prevention measures in place. Hourly rounding completed to meet needs, area clear of hazards, bed in lowest position with wheels locked. Call light in reach. Problem: Potential for Compromised Skin Integrity Goal: Patient's nutritional intake is adequate Description: Patient's goal is: INTERVENTIONS 1. Assess and monitor food intake and supplements, patient food preferences, nausea, vomiting, labs, oral cavity (gums, teeth, tongue, mucosa), proper denture fit, and cultural beliefs 2. Monitor for signs of hypoglycemia and hyperglycemia 3. Collaborate with interdisciplinary team and initiate plan and interventions as ordered 4. Monitor patient's weight 5. Assist patient with meals/food selection 6. Assist patient with eating 7. Allow adequate time for meals 8. Provide pleasant environment during mealtime 9. Increase social contact during mealtimes 10. Plan activities to conserve energy 11. Encourage/perform oral hygiene as appropriate 12. Encourage patient to take dietary supplement as ordered 13. Collaborate with clinical foreign correspondent 14. Include patient/ patient's agency sales representative in decisions related to nutrition Outcome: Completed Note: Evaluation of progress towards goal: Pt eating 100% of meals. Appetite is good. Problem: Urinary Incontinence Goal: Perineal skin integrity is maintained or improved Description: INTERVENTIONS 1. Assess genitourinary system, perineal skin, labs (urinalysis), and history of incontinence to include past management, aggravating, and alleviating factors 2. Keep skin clean and dry 3. Apply skin protectant 4. Develop skin care regimen 5. Provide privacy when changing patients incontinence device to maintain their dignity 6. Consider placing an indwelling catheter 7. Collaborate with interdisciplinary team and initiate plans and interventions as needed Outcome: Completed Note: Evaluation of progress towards goal: Pt ambulates to bathroom per self. Independent with hygiene. Additional Comments: Problem: Pain Goal: Patient goal is pain score less than 4, able to rest, and participant in treatment plan as appropriate Description: INTERVENTIONS: 1. Encourage patient or legal agency sales representative to report early pain and ask for pain medicine when needed 2. Assess pain using appropriate pain scale and include the scale used when documenting 3. Administer analgesics based on type and severity of pain and evaluate response within appropriate time frame 4. Implement non-pharmacological measures as appropriate and evaluate response 5. Consider cultural and social influences on pain and pain management 6. Notify LIP if interventions ineffective or patient reports new pain 7. Monitor vital signs including pulse ox, end-tidal CO2 based on pain intervention 8. Reassess pain per policy 9. Teach patient or legal agency sales representative interventions for comforting Outcome: Progressing Note: Evaluation of progress towards goal: Pt able to report pain according to 0/10 pain scale. Medicating patient for pain per orders. Pt encouraged to report early pain, analgesics administered as needed, hourly rounding completed and pain assessed. Problem: Safety Goal: Patient will be injury free during hospitalization Description: INTERVENTIONS: 1. Assess patient's risk for falls and implement fall prevention plan of care per policy 2. Provide and maintain a safe environment 3. Proper use of double Identifiers 4. Medication administration using the 5 rights 5. Hand hygiene 6. Specimens are labeled at the bedside 7. Instruct patient/ patient agency sales representative about use of safety devices 8. Include patient/ patient agency sales representative in decisions related to safety Outcome: Progressing Note: Evaluation of progress towards goal: Safety measures initiated/maintained. Pt remains safe from harm/injury/falls. Pt's risk for falls assessed and fall prevention implemented as needed, safe environment provided and maintained, hand hygiene completed. Call light within reach/ hourly rounding to meet needs/ safety equipment used as needed/up with assistance when needed. Problem: Infection Goal: Absence of infection during hospitalization Description: Interventions: 1. Assess and monitor for signs and symptoms of infection 2. Monitor lab/diagnostic results 3. Monitor all insertion sites i.e., indwelling lines, tubes and drains 4. Monitor endotracheal (as able) and nasal secretions for changes in amount and color 5. Administer medications as ordered 6. Instruct and encourage patient and family to use good hand hygiene technique 7. Identify and instruct patient/patient agency sales representative in use of appropriate isolation precautions for identified infection/symptoms 8. Provide and discuss with patient/patient agency sales representative on educational MDRO sheet 9. Encourage and monitor nutritional status daily and consult foreign correspondent if indicated 10. Implement neutropenic guidelines as needed 11. Review exposure to history of communicable disease and recent travel history on admission 12. Encourage annual influenza vaccine 13. Encourage pneumonia vaccine Outcome: Progressing Note: Evaluation of progress towards goal: Patient afebrile at this time, patient VS WNL. Pt assessed and monitored for signs and symptoms of infection, lab and diagnostic results monitored as needed, administer medications as needed. Hand hygiene completed. Continue to monitor. Problem: Knowledge Deficit Goal: Patient/patient agency sales representative demonstrates understanding of disease process, treatment plan, medications, and discharge instructions Description: INTERVENTIONS 1. Complete learning assessment and assess knowledge base 2. Provide teaching at level of understanding 3. Provide teaching via preferred learning method(s) Outcome: Progressing Note: Evaluation of progress towards goal: Pt learning and knowledge base assessed, teaching provided at an understandable level as needed, teaching provided via preferred learning method. POC discussed with patient, questions answered PRN. Problem: Discharge Planning Goal: Discharge to post-acute care, other facility, or home with appropriate resources Description: Patient's goal is: INTERVENTIONS 1. Conduct assessment to determine patient/family and health care team treatment goals, and need for post-acute services based on payer coverage, community resources, and patient preferences, and barriers to discharge 2. Coordinate with Social work, Care Navigation, and Utilization Review to arrange appropriate level of services according to patient's needs based on patient preference and payer coverage in collaboration with the physician and health care team 3. Address psychosocial, clinical, and financial barriers to discharge as identified in assessment in conjunction with the patient/family and health care team 4. Consult appropriate ancillary services (i.e.. PT/OT/ST, etc) as needed 5. Communicate with and update the patient/family, physician, and health care team regarding progress on the discharge plan 6. Identify discharge learning needs (meds, wound care, etc). 7. Arrange for needed discharge transportation as appropriate Outcome: Progressing Note: Evaluation of progress towards goal: Pt discharge initiated with attending provider, Pt/Family communicated with and updated regarding process on discharge as needed. Reviewed discharge plan and questions answered Problem: Low Risk Fall Score Description: Owens Fall Score of 0 - 24 or indicated by [facility] Assessment Goal: Patient should be free from fall Description: Interventions: 1. [place] to environment 2. Hourly rounds addressing the 4 P's (Pain, Positioning, Possessions, Potty) 3. Clear area of hazards (spills, clutter, electrical cords, unnecessary equipment) 4. Place equipment (bed & TV controls, call light, phone, urinal) within reach 5. Encourage patient to wear glasses and hearing aides as appropriate 6. Maintain bed in lowest position 7. Lock wheels on bed/wheelchair 8. Provide adequate lighting, including night light 9. Assess need for additional bedding, food/fluids, pain med's prior to sleep/routinely 10. Provide gripper slippers or personal non-skid footwear 11. Teach patient and patient agency sales representative to maintain environment for safety and engage in all aspects of fall prevention program Outcome: Progressing Note: Evaluation of progress towards goal: Pt remains free from falls or accidental injury during stay. Fall prevention measures in place. Hourly rounding completed to meet needs, area clear of hazards, bed in lowest position with wheels locked. Call light in reach. Problem: Potential for Compromised Skin Integrity Goal: Patient's nutritional intake is adequate Description: Patient's goal is: INTERVENTIONS 1. Assess and monitor food intake and supplements, patient food preferences, nausea, vomiting, labs, oral cavity (gums, teeth, tongue, mucosa), proper denture fit, and cultural beliefs 2. Monitor for signs of hypoglycemia and hyperglycemia 3. Collaborate with interdisciplinary team and initiate plan and interventions as ordered 4. Monitor patient's weight 5. Assist patient with meals/food selection 6. Assist patient with eating 7. Allow adequate time for meals 8. Provide pleasant environment during mealtime 9. Increase social contact during mealtimes 10. Plan activities to conserve energy 11. Encourage/perform oral hygiene as appropriate 12. Encourage patient to take dietary supplement as ordered 13. Collaborate with clinical foreign correspondent 14. Include patient/ patient's agency sales representative in decisions related to nutrition Outcome: Progressing Note: Evaluation of progress towards goal: Pt with continuous fluids running and eating all of meals. Problem: Urinary Incontinence Goal: Perineal skin integrity is maintained or improved Description: INTERVENTIONS 1. Assess genitourinary system, perineal skin, labs (urinalysis), and history of incontinence to include past management, aggravating, and alleviating factors 2. Keep skin clean and dry 3. Apply skin protectant 4. Develop skin care regimen 5. Provide privacy when changing patients incontinence device to maintain their dignity 6. Consider placing an indwelling catheter 7. Collaborate with interdisciplinary team and initiate plans and interventions as needed Outcome: Progressing Note: Evaluation of progress towards goal: Davidson catheter removed and latia pads changed as needed Additional Comments: Problem: Pain Goal: Patient goal is pain score less than 4, able to rest, and participant in treatment plan as appropriate Description: INTERVENTIONS: 1. Encourage patient or legal agency sales representative to report early pain and ask for pain medicine when needed 2. Assess pain using appropriate pain scale and include the scale used when documenting 3. Administer analgesics based on type and severity of pain and evaluate response within appropriate time frame 4. Implement non-pharmacological measures as appropriate and evaluate response 5. Consider cultural and social influences on pain and pain management 6. Notify LIP if interventions ineffective or patient reports new pain 7. Monitor vital signs including pulse ox, end-tidal CO2 based on pain intervention 8. Reassess pain per policy 9. Teach patient or legal agency sales representative interventions for comforting Outcome: Progressing Note: Evaluation of progress towards goal: Patient denies pain. Problem: Safety Goal: Patient will be injury free during hospitalization Description: INTERVENTIONS: 1. Assess patient's risk for falls and implement fall prevention plan of care per policy 2. Provide and maintain a safe environment 3. Proper use of double Identifiers 4. Medication administration using the 5 rights 5. Hand hygiene 6. Specimens are labeled at the bedside 7. Instruct patient/ patient agency sales representative about use of safety devices 8. Include patient/ patient agency sales representative in decisions related to safety Outcome: Progressing Note: Evaluation of progress towards goal: Patient remains injury free. Problem: Discharge Planning Goal: Discharge to post-acute care, other facility, or home with appropriate resources Description: Patient's goal is: INTERVENTIONS 1. Conduct assessment to determine patient/family and health care team treatment goals, and need for post-acute services based on payer coverage, community resources, and patient preferences, and barriers to discharge 2. Coordinate with Social work, Care Navigation, and Utilization Review to arrange appropriate level of services according to patient's needs based on patient preference and payer coverage in collaboration with the physician and health care team 3. Address psychosocial, clinical, and financial barriers to discharge as identified in assessment in conjunction with the patient/family and health care team 4. Consult appropriate ancillary services (i.e.. PT/OT/ST, etc) as needed 5. Communicate with and update the patient/family, physician, and health care team regarding progress on the discharge plan 6. Identify discharge learning needs (meds, wound care, etc). 7. Arrange for needed discharge transportation as appropriate Outcome: Progressing Note: Evaluation of progress towards goal: Patient plans to return home upon discharge. Problem: Low Risk Fall Score Description: Owens Fall Score of 0 - 24 or indicated by [facility] Assessment Goal: Patient should be free from fall Description: Interventions: 1. [place] to environment 2. Hourly rounds addressing the 4 P's (Pain, Positioning, Possessions, Potty) 3. Clear area of hazards (spills, clutter, electrical cords, unnecessary equipment) 4. Place equipment (bed & TV controls, call light, phone, urinal) within reach 5. Encourage patient to wear glasses and hearing aides as appropriate 6. Maintain bed in lowest position 7. Lock wheels on bed/wheelchair 8. Provide adequate lighting, including night light 9. Assess need for additional bedding, food/fluids, pain med's prior to sleep/routinely 10. Provide gripper slippers or personal non-skid footwear 11. Teach patient and patient agency sales representative to maintain environment for safety and engage in all aspects of fall prevention program Outcome: Progressing Note: Evaluation of progress towards goal: Patient remains free from falls. Problem: Potential for Compromised Skin Integrity Goal: Skin integrity is maintained or improved Description: Patient's goal is: INTERVENTIONS 1. Perform initial skin assessment on admission and as needed 2. Turn patient every 2 hours and PRN 3. Relieve pressure to bony prominences 4. Avoid shearing 5. Keep skin clean and dry 6. Alternate a full bath with partial baths for elderly 7. Apply lotion/moisturizer on skin 8. Monitor patient's hygiene practices 9. Float heels 10. Collaborate with interdisciplinary team and initiate plans and interventions as needed Outcome: Progressing Note: Evaluation of progress towards goal: Patients incision remains intact without redness or drainage. Goal: Patient's nutritional intake is adequate Description: Patient's goal is: INTERVENTIONS 1. Assess and monitor food intake and supplements, patient food preferences, nausea, vomiting, labs, oral cavity (gums, teeth, tongue, mucosa), proper denture fit, and cultural beliefs 2. Monitor for signs of hypoglycemia and hyperglycemia 3. Collaborate with interdisciplinary team and initiate plan and interventions as ordered 4. Monitor patient's weight 5. Assist patient with meals/food selection 6. Assist patient with eating 7. Allow adequate time for meals 8. Provide pleasant environment during mealtime 9. Increase social contact during mealtimes 10. Plan activities to conserve energy 11. Encourage/perform oral hygiene as appropriate 12. Encourage patient to take dietary supplement as ordered 13. Collaborate with clinical foreign correspondent 14. Include patient/ patient's agency sales representative in decisions related to nutrition Outcome: Progressing Note: Evaluation of progress towards goal: Patient has eaten dinner without nausea. Problem: Urinary Incontinence Goal: Perineal skin integrity is maintained or improved Description: INTERVENTIONS 1. Assess genitourinary system, perineal skin, labs (urinalysis), and history of incontinence to include past management, aggravating, and alleviating factors 2. Keep skin clean and dry 3. Apply skin protectant 4. Develop skin care regimen 5. Provide privacy when changing patients incontinence device to maintain their dignity 6. Consider placing an indwelling catheter 7. Collaborate with interdisciplinary team and initiate plans and interventions as needed Outcome: Progressing Note: Evaluation of progress towards goal: Perineum is intact without redness or edema. Additional Comments: Delivery Record Patient Observations (Last 24 hours) None Patient Observations (Last 24 hours) None [place] Baby Girl Ramya [[id number]] Events of Labor labor?: No steroids?: None Cervical ripening date/time: Antibiotics received during labor?: No Rupture date/time: 05/19/24 1123 Rupture type: Artificial Fluid color: Clear Fluid odor: No Labor Event Times No data filed Anesthesia Method: Spinal Anesthesia provided by: LAKISHA Wu Assisted Delivery Forceps attempted?: No Vacuum extractor attempted?: No Document Additional Attempt Document Additional Attempt Shoulder Dystocia Shoulder dystocial present?: No Second Maneuver Third Maneuver Fourth Maneuver Fifth Maneuver Sixth Maneuver Seventh Maneuver Eighth Maneuver \Ninth Maneuver Presentation No data filed Information Delivery date/time: 05/19/241123 Delivery type: details: Trial of labor?: No categorization: repeat priority: scheduled Indications for : Prior Uterine Surgery Delivery Providers Delivering clinician: Ekaterina Spears MD Provider Role Mindi Herrera RN Delivery Nurse Krystal West PERFECT BIND MACHINE OPERATOR-[facility] Delivery Assist [place] Nurse Cord Information Vessels: 3 vessels Complications: None Delayed cord clamping?: Yes Cord clamped date/time: 05/19/2024 11:25 AM Cord blood obtained?: Yes Cord blood disposition: Lab Gases sent?: Yes Stem cell collection (by )?: No Placenta Date/time: 05/19/2024 112 Removal: Manual removal Appearance: Intact Disposition: lab hemorrhage: No Resuscitation Method: Suctioning, Tactile stimulation Resuscitation needed: No Additional resources called: No Assessment Skin color: Heart rate: Reflex irritability: Muscle tone: Respiratory effort: Total: 1 Minute: 1 2 2 2 2 9 1 total from OB History 5 Minute: 1 2 2 2 2 9 5 total from OB History 10 Minute: 15 Minute: 20 Minute: Apgars assigned by: José Miguel HERRERA RN Skin to Skin Skin to skin initiation date/time: 05/19/24 1335 EDT [place] Measurements Weight: 3.4 kg Length: 48.3 cm Head circumference: 34.5 cm Lacerations/EBL Surgical or additional est. blood loss (mL): 600 Combined est. blood loss (mL): 600 Other Delivery Procedures No data filed Brief Post-op Note NAME: Ramya Last : 1990 PROCEDURE DATE: 05/19/2024 Surgeon: Surgeons and Role: * Ekaterina Spears MD - Primary Assistants: MONICA LEE Staff: Medicare Contact Specialist Primary: Kadie Bourne RN Scrub Person: Michelle Grigsby Baby Nurse : Mindi Herrera RN Pre-op Diagnosis: repeat Procedure Details: Procedure(s) with comments: REPEAT - Baby girl delivered on 05/19/2024 at 11:24.10 - Wound Class: Clean Contaminated - Incision Closure: Deep and Superficial Layers Anesthesia Type: Spinal * No Diagnosis Codes entered * Complications: NONE Additions (Drains, Specimens, Implants): Specimens: * No specimens in log * Estimated Blood Loss: * No values recorded between 05/19/2024 10:46 AM and 05/19/2024 12:08 PM * OB Surgical Procedure Blood Loss: Anesthesia EBL: 600 mL OB QBL: 600 mL Total IV Fluids: Intravenous fluids were administered Crystalloids 1700mls Colloids 0 mls. Condition: stable Findings: Evidence of infection was not visualized at time of surgery. Section Procedure Note Pre-operative Diagnosis: 33 y.o. with intra-uterine @ 39 week 1 day(s) with previous uterine incision LTCS X 1; contraceptive choice- Post-operative Diagnosis: same Procedure: repeat Low Transverse Section via PFANNENSTIEL Surgeon: EKATERINA SPEARS MD Prison Librarian: MONICA LEE CNM assisted me during this surgery. She provided retraction, allowing for adequate visualization of surgical field, and improved safety and efficiency during the case. She assisted with delivery of the infant, allowing for adequate exposure, fundal pressure and assessment while primary surgeon continued surgical procedure. She assisted with wound closure, independantly performing skin closure. Indications for skilled speech language pathologist assistant, in addition to the above documentation: obesity, increased risk for hemorrhage, and prior surgical history Anesthesia: spinal Estimated Blood Loss: 500 mL Total IV Fluids: 1700 mL UOP: 1400 mL Findings: Normal uterus, bilateral tubes and ovaries. Viable female infant at 1124, scores 9 at 1 minute and 9 at 5 minutes. Weight: 7 lb 8 oz. Specimens: Placenta, cord blood Complications: none apparent Indications: Ramya Last is a 33 y.o. at 39 weeks and 1 day(s) for delivery due to previous delivery x 1 for repeat . The risks, benefits, complications, alternative treatment options, and expected outcomes were discussed with the patient. Risks of surgery were discussed, including but not limited to: pain, bleeding, need for blood transfusion, infection, injury to internal organs including intestines, bladder, uterus, fallopian tubes, ovaries and rarely injury to the fetus. Postoperative complications including pain, bleeding, need for blood transfusion, infection, re-operation, infection of the incisions were also explained. The patient verbalized understanding and agreed to proceed, giving informed consent. The patient was taken to Operating Room, identified as Ramya Last and the procedure verified as Delivery. A Time Out was held and the above information confirmed. Procedure Details After induction of anesthesia, the patient was draped and prepped in the usual sterile manner in a dorsal supine position with a leftward tilt. A PFANNENSTIEL incision was made with a scalpel and carried down to the fascia. Fascial incision was made by scoring fascia in midline then CARRYING THE INCISION BILATERALLY WITH ELECTROCAUTERY. THE RECTUS MUSCLES ALSO NEEDED TO BE DISSECTED IN ORDER TO ALLOW ADEQUATE EXPOSURE. The peritoneum was identified and entered superiorly. Peritoneal incision was extended longitudinally with blunt dissection with good visualization of the bladder. The BLADDER RETRACTOR was placed and a Low Transverse uterine incision was made. This incision was extended using blunt dissection in a cephalad to caudad manner. At 1124, a live female was delivered without complications. The infant was vigorous with spontaneous cry and there was delayed cord clamping of approximately 1 minute. scores were 9 at 1 minute and 9 at 5 minutes. Weight: 7 lb 8 oz. After the umbilical cord was clamped and cut, was handed off to awaiting nurse. Then cord blood was collected and the placenta was delivered using gentle traction and fundal massage, it was intact and appeared normal. The uterus was exteriorized and cleared of all clots and debris. The uterine incision was closed 0 CHROMIC IN LOCKING FASHION FOLLOWED BY IMBRICATING LAYER OF THE SAME. THE BLADDER FLAP WAS ALSO CLOSED WITH 3-0 VICRYL. Gutters were cleared of all clots and debris. The uterus was returned to abdomen and incision was reinspected and found to be hemostatic. The uterus, bilateral tubes and ovaries were WITHIN NORMAL LIMITS The fascia was then reapproximated with running sutures of 0 Vicryl. The subcutaneous tissue was irrigated, any bleeding sites were cauterized, then re-approximated with 3-0 vicryl. The skin was closed with INSORB then dressed with Telfa and large Tegaderm dressing. Instrument, sponge, and needle counts were correct prior to the procedure, prior to the abdominal closure and RFID scan was negative at the conclusion of the case. The patient received preoperative antibiotics and intraoperative analgesic. Patient was transferred to recovery room in stable condition. EKATERINA SPEARS MD Brief Post-op Note NAME: Ramya Last : 1990 PROCEDURE DATE: 05/19/2024 Surgeon: Surgeons and Role: * Ekaterina Spears MD - Primary Assistants: MONICA LEE Staff: Medicare Contact Specialist Primary: Kadie Bourne RN Scrub Person: Michelle Grigsby Baby Nurse : iMndi Herrera RN Pre-op Diagnosis: repeat Procedure Details: Procedure(s) with comments: REPEAT - Baby girl delivered on 05/19/2024 at 11:24.10 - Wound Class: Clean Contaminated - Incision Closure: Deep and Superficial Layers Anesthesia Type: Spinal * No Diagnosis Codes entered * Complications: NONE Additions (Drains, Specimens, Implants): Specimens: * No specimens in log * Estimated Blood Loss: * No values recorded between 05/19/2024 10:46 AM and 05/19/2024 12:08 PM * OB Surgical Procedure Blood Loss: Anesthesia EBL: 600 mL OB QBL: 600 mL Total IV Fluids: Intravenous fluids were administered Crystalloids 1700mls Colloids 0 mls. Condition: stable Findings: Evidence of infection was not visualized at time of surgery. Section Procedure Note Pre-operative Diagnosis: 33 y.o. with intra-uterine @ 39 week 1 day(s) with previous uterine incision LTCS X 1; contraceptive choice- Post-operative Diagnosis: same Procedure: repeat Low Transverse Section via PFANNENSTIEL Surgeon: EKATERINA SPEARS MD Prison Librarian: MONICA LEE CNM assisted me during this surgery. She provided retraction, allowing for adequate visualization of surgical field, and improved safety and efficiency during the case. She assisted with delivery of the infant, allowing for adequate exposure, fundal pressure and assessment while primary surgeon continued surgical procedure. She assisted with wound closure, independantly performing skin closure. Indications for skilled speech language pathologist assistant, in addition to the above documentation: obesity, increased risk for hemorrhage, and prior surgical history Anesthesia: spinal Estimated Blood Loss: 500 mL Total IV Fluids: 1700 mL UOP: 1400 mL Findings: Normal uterus, bilateral tubes and ovaries. Viable female infant at 1124, scores 9 at 1 minute and 9 at 5 minutes. Weight: 7 lb 8 oz. Specimens: Placenta, cord blood Complications: none apparent Indications: Ramya Last is a 33 y.o. at 39 weeks and 1 day(s) for delivery due to previous delivery x 1 for repeat . The risks, benefits, complications, alternative treatment options, and expected outcomes were discussed with the patient. Risks of surgery were discussed, including but not limited to: pain, bleeding, need for blood transfusion, infection, injury to internal organs including intestines, bladder, uterus, fallopian tubes, ovaries and rarely injury to the fetus. Postoperative complications including pain, bleeding, need for blood transfusion, infection, re-operation, infection of the incisions were also explained. The patient verbalized understanding and agreed to proceed, giving informed consent. The patient was taken to Operating Room, identified as Ramya Last and the procedure verified as Delivery. A Time Out was held and the above information confirmed. Procedure Details After induction of anesthesia, the patient was draped and prepped in the usual sterile manner in a dorsal supine position with a leftward tilt. A PFANNENSTIEL incision was made with a scalpel and carried down to the fascia. Fascial incision was made by scoring fascia in midline then CARRYING THE INCISION BILATERALLY WITH ELECTROCAUTERY. THE RECTUS MUSCLES ALSO NEEDED TO BE DISSECTED IN ORDER TO ALLOW ADEQUATE EXPOSURE. The peritoneum was identified and entered superiorly. Peritoneal incision was extended longitudinally with blunt dissection with good visualization of the bladder. The BLADDER RETRACTOR was placed and a Low Transverse uterine incision was made. This incision was extended using blunt dissection in a cephalad to caudad manner. At 1124, a live female infant was delivered without complications. The was vigorous with spontaneous cry and there was delayed cord clamping of approximately 1 minute. scores were 9 at 1 minute and 9 at 5 minutes. Weight: 7 lb 8 oz. After the umbilical cord was clamped and cut, infant was handed off to awaiting nurse. Then cord blood was collected and the placenta was delivered using gentle traction and fundal massage, it was intact and appeared normal. The uterus was exteriorized and cleared of all clots and debris. The uterine incision was closed 0 CHROMIC IN LOCKING FASHION FOLLOWED BY IMBRICATING LAYER OF THE SAME. THE BLADDER FLAP WAS ALSO CLOSED WITH 3-0 VICRYL. Gutters were cleared of all clots and debris. The uterus was returned to abdomen and incision was reinspected and found to be hemostatic. The uterus, bilateral tubes and ovaries were WITHIN NORMAL LIMITS The fascia was then reapproximated with running sutures of 0 Vicryl. The subcutaneous tissue was irrigated, any bleeding sites were cauterized, then re-approximated with 3-0 vicryl. The skin was closed with INSORB then dressed with Telfa and large Tegaderm dressing. Instrument, sponge, and needle counts were correct prior to the procedure, prior to the abdominal closure and RFID scan was negative at the conclusion of the case. The patient received preoperative antibiotics and intraoperative analgesic. Patient was transferred to recovery room in stable condition. EKATERINA SPEARS MD Brief Post-op Note NAME: Ramya Last : 1990 PROCEDURE DATE: 05/19/2024 Surgeon: Surgeons and Role: * Ekaterina Spears MD - Primary Assistants: MONICA LEE Staff: Medicare Contact Specialist Primary: Kadie Bourne RN Scrub Person: Michelle Grigsby Baby Nurse : Mindi Herrera RN Pre-op Diagnosis: repeat Procedure Details: Procedure(s) with comments: REPEAT - Baby girl delivered on 05/19/2024 at 11:24.10 - Wound Class: Clean Contaminated - Incision Closure: Deep and Superficial Layers Anesthesia Type: Spinal * No Diagnosis Codes entered * Complications: NONE Additions (Drains, Specimens, Implants): Specimens: * No specimens in log * Estimated Blood Loss: * No values recorded between 05/19/2024 10:46 AM and 05/19/2024 12:08 PM * OB Surgical Procedure Blood Loss: Anesthesia EBL: 600 mL OB QBL: 600 mL Total IV Fluids: Intravenous fluids were administered Crystalloids 1700mls Colloids 0 mls. Condition: stable Findings: Evidence of infection was not visualized at time of surgery. Section Procedure Note Pre-operative Diagnosis: 33 y.o. with intra-uterine @ 39 week 1 day(s) with previous uterine incision LTCS X 1 ; contraceptive choice- Post-operative Diagnosis: same Procedure: repeat Low Transverse Section via PFANNENSTIEL Surgeon: EKATERINA SPEARS MD Prison Librarian: MONICA LEE CNM assisted me during this surgery. She provided retraction, allowing for adequate visualization of surgical field, and improved safety and efficiency during the case. She assisted with delivery of the , allowing for adequate exposure, fundal pressure and assessment while primary surgeon continued surgical procedure. She assisted with wound closure, independantly performing skin closure. Indications for skilled speech language pathologist assistant, in addition to the above documentation: obesity, increased risk for hemorrhage, and prior surgical history Anesthesia: spinal Estimated Blood Loss: 500 mL Total IV Fluids: 1700 mL UOP: 1400 mL Findings: Normal uterus, bilateral tubes and ovaries. Viable female at 1124, scores 9 at 1 minute and 9 at 5 minutes. Weight: 7 lb 8 oz. Specimens: Placenta, cord blood Complications: none apparent Indications: Ramya Last is a 33 y.o. at 39 weeks and 1 day(s) for delivery due to previous delivery x 1 for repeat . The risks, benefits, complications, alternative treatment options, and expected outcomes were discussed with the patient. Risks of surgery were discussed, including but not limited to: pain, bleeding, need for blood transfusion, infection, injury to internal organs including intestines, bladder, uterus, fallopian tubes, ovaries and rarely injury to the fetus. Postoperative complications including pain, bleeding, need for blood transfusion, infection, re-operation, infection of the incisions were also explained. The patient verbalized understanding and agreed to proceed, giving informed consent. The patient was taken to Operating Room, identified as Ramya Last and the procedure verified as Delivery. A Time Out was held and the above information confirmed. Procedure Details After induction of anesthesia, the patient was draped and prepped in the usual sterile manner in a dorsal supine position with a leftward tilt. A PFANNENSTIEL incision was made with a scalpel and carried down to the fascia. Fascial incision was made by scoring fascia in midline then CARRYING THE INCISION BILATERALLY WITH ELECTROCAUTERY. THE RECTUS MUSCLES ALSO NEEDED TO BE DISSECTED IN ORDER TO ALLOW ADEQUATE EXPOSURE. The peritoneum was identified and entered superiorly. Peritoneal incision was extended longitudinally with blunt dissection with good visualization of the bladder. The BLADDER RETRACTOR was placed and a Low Transverse uterine incision was made. This incision was extended using blunt dissection in a cephalad to caudad manner. At 1124, a live female was delivered without complications. The infant was vigorous with spontaneous cry and there was delayed cord clamping of approximately 1 minute. scores were 9 at 1 minute and 9 at 5 minutes. Weight: 7 lb 8 oz. After the umbilical cord was clamped and cut, was handed off to awaiting nurse. Then cord blood was collected and the placenta was delivered using gentle traction and fundal massage, it was intact and appeared normal. The uterus was exteriorized and cleared of all clots and debris. The uterine incision was closed 0 CHROMIC IN LOCKING FASHION FOLLOWED BY IMBRICATING LAYER OF THE SAME. THE BLADDER FLAP WAS ALSO CLOSED WITH 3-0 VICRYL. Gutters were cleared of all clots and debris. The uterus was returned to abdomen and incision was reinspected and found to be hemostatic. The uterus, bilateral tubes and ovaries were WITHIN NORMAL LIMITS The fascia was then reapproximated with running sutures of 0 Vicryl. The subcutaneous tissue was irrigated, any bleeding sites were cauterized, then re-approximated with 3-0 vicryl. The skin was closed with INSORB then dressed with Telfa and large Tegaderm dressing. Instrument, sponge, and needle counts were correct prior to the procedure, prior to the abdominal closure and RFID scan was negative at the conclusion of the case. The patient received preoperative antibiotics and intraoperative analgesic. Patient was transferred to recovery room in stable condition. EKATERINA SPEARS MD documented in this encounter [facility] 05-22-2024 Hospital Discharg e instructions Mindi Herrera RN - 05/22/2024 8:46 AM EDT Discharge Instructions Vaginal Bleeding Vaginal drainage, lochia , will last 2-3 weeks after your baby was born. Intermittent and/or light spotting can continue up to 6-8 weeks . Use the latia bottle filled with warm water each time you use the bathroom, pat dry. Continue this until your drainage stops. Always wipe from front to back after you urinate or have a bowel movement Change your sanitary pad every 2-4 hours Notify your CNM if you experience any of the following: Ccntinuous clots larger than a plum If you are saturating a latia pad greater than one pad an hour Any foul smelling vaginal drainage Abdominal Cramping Cramping gets stronger with each baby. You may try a heating pad Bathing/Showering Take a shower each day unless you were told not to To help with episiotomy discomfort you may sit in a clean tub of warm water Stitches in your perineum will dissolve over 6 weeks, for comfort you may: Use a sitz bath Latia bottle Dermoplast (use each time after latia care) Tucks (use each time after latia care) Tucks and Dermoplast spray may also help with hemorrhoid discomfort (use each time after latia care) Sexual [place] No tampons, douching, or sexual intercourse until after you see your doctor You may need to use a water-soluble lubricant such as [place] Jelly for dryness Talk to your CNM regarding control and which method would be best for you Talk to your CNM regarding the use of a long acting, but reversible, control method It is recommended to space pregnancies apart by at least 18 months, this is for the safety of future outcomes Discharge Instructions Vaginal Bleeding Vaginal drainage, lochia , will last 2-3 weeks after your baby was born Use the latia bottle filled with warm water each time you use the bathroom, pat dry. Continue this until your drainage stops. Always wipe from front to back after you urinate or have a bowel movement Change your sanitary pad every 2-4 hours Notify your doctor/CNM if you experience any of the following: Clots larger than a plum If you are saturating a latia pad greater than one pad an hour Any foul smelling vaginal drainage Abdominal Cramping Cramping gets stronger with each baby. You may try a heating pad Bathing/Showering Take a shower each day unless you were told not to To help with episiotomy discomfort you may sit in a clean tub of warm water Stitches in your perineum will dissolve over 6 weeks, for comfort you may: Use a sitz bath Latia bottle Dermoplast (use each time after latia care) Tucks (use each time after latia care) Tucks and Dermoplast spray may also help with hemorrhoid discomfort (use each time after latia care) Sexual [place] No tampons, douching, or sexual intercourse until after you see your doctor You may need to use a water-soluble lubricant such as [place] Jelly for dryness Talk to your doctor/CNM regarding control and which method would be best for you Talk to your doctor/CNM regarding the use of a long acting, but reversible, control method It is recommended to space pregnancies apart by at least 18 months, this is for the safety of future outcomes Notify your doctor if you have: Any vaginal burning or itching Any burning or pain when urinating, or inability to urinate A temperature greater than 100.4 degrees Fahrenheit or severe chills Pain in calf or leg Nausea or vomiting, dizziness or fainting If you have not had a bowel movement in 5 days Diet: Drink 8-12 glasses of water each day Make sure you eat a balanced diet, especially high in fiber (whole grains, raw vegetables, etc.) If drink 8 oz. of liquid every time you nurse your baby Continue to take your vitamins as prescribed by your doctor Abdominal Incision / Tubal Ligation Care: Wash your incision with soap and water and be sure to rinse and dry well If you had harpal they will be removed by your doctor/CNM If you had sutures they will dissolve on their own For ease of movement hold a pillow against the incision: When you get up from a lying or sitting position When you laugh or cough Notify your doctor/CNM for any of the following: Redness Drainage Open areas around your incision Breast Care: To help with discomfort: Feed your baby frequently to avoid engorgement Apply warm compresses to breast before feeding Apply cold compresses to breast after feeding Wear a supportive nursing bra 24 hours a day Do not put soap on your nipples Allow nipples to air dry after feeding Bottle feeding: To help with discomfort: Use cold compresses Wear a tight fitting bra 24 hours a day Notify your doctor/CNM: For swelling, redness, or tenderness in one area of your breast Blues / Depression: Blues : Usually occurs within 3-5 days after delivery Normally goes away on its own Depression: Can also occur within days of delivery, or within a year Warning Signs: Increased crying for no obvious reason Lack of patience Being irritable Being restless Not being able to sleep Not wanting to eat Anxiety Notify your doctor/CNM: If you experience any of the warning signs If you are having any violent thoughts If you are having thoughts of harming yourself or your baby Sibling / Family Adjustment: Each family member will take different amounts of time to adjust to the new baby Be patient and offer lots of love and comfort Offer some individual attention to other children Exercise / Activity: Get plenty of rest Take catnaps while baby is sleeping during the day No heavy cleaning or other housework for the first couple of weeks Lift nothing heavier than your baby for 2 weeks No driving for one week Do not drive while taking narcotics You may start walking and stretching in 2 weeks No strenuous exercises like jogging, aerobics, etc. until after you have seen your doctor/CNM You may start Kegel exercises now documented in this encounter [facility] 05-22-2024 Hospital course Narrative Obstetric Discharge Summary Patient Name: Ramya Last Patient : 1990 Room/Bed: 104/ Primary Care Physician: NO PCP, NO PCP Admit Date: 05/19/2024 8:13 AM Admitting Diagnosis scheduled rpt. section OB History 5 Para 2 Term 2 0 AB 3 Living 2 SAB 0 IAB 0 Ectopic 0 Multiple 0 Live Births 2 Patient Active Problem List Diagnosis Vapes nicotine containing substance Hx of pre-eclampsia in prior , currently Delivery of by section Iron deficiency anemia secondary to inadequate dietary iron intake hypertension Reasons for Admission on 05/19/2024 8:13 AM Normal intrauterine in third trimester [Z34.93] No comment available Medical Section indications: prior declines Procedures none Intrapartum Procedures monitoring Procedures none /Operative Complications Anemia, elevated blood pressures [place] Data Information for the patient's : Dacia, Baby Girl Ramya [[id number]] female 3.4 kg Discharge with mother Discharge Diagnosis repeat section Discharge Information/Patient Instructions: Medication List ASK your doctor about these medications Instructions Last Dose Given Next Dose Due [id number] 9-dha 31 mg iron- 1 mg-200 mg capsule Take 1 capsule by mouth in the morning. @PROCDISCHARGE@ Activity: no sex for 6 weeks and no driving while on analgesics Diet: regular diet Wound Care: keep wound clean and dry Discharge to: home Follow up in 4 days, appointment scheduled for Sunday at 10:[address] Spears Discharge Date: 05/22/2024 SRINI SHETH Comments: discharge teaching reviewed Home care, Follow-up care and control were reviewed. Signs and symptoms of mastitis and Post Depression were reviewed. The patient is to notify her physician if any of these occur. The patient was counseled on secondary smoke risks and the increased risk of sudden syndrome and respiratory problems to her baby with exposure. She was counseled on various alternate recommendations to decrease the exposure to secondary smoke to her children. SRINI Sheth 05/22/24 0845 [facility] History of Presen t illness Narrative Ramya Last 1990 39w1d Vitals: 05/22/24 0207 BP: 128/81 Pulse: 99 Resp: 16 Temp: SpO2: No Known Allergies Lab Results Component Value Date WBC 14.4 (H) 05/20/2024 HGB 9.0 (L) 05/20/2024 HCT 26.4 (L) 05/20/2024 MCV 80 05/20/2024 PLT 280 05/20/2024 Day :3 SUBJECTIVE: continues to complain of some incisional pain. Patient also has had a headache since procardia was increased to 60 mg GENERAL APPEARANCE: alert, well appearing, in no apparent distress MENTAL STATUS: appropriate HEART: RRR LUNGS: normal air entry, lungs clear to auscultation BREAST: and bottle feeding ABDOMEN :soft, nondistended, and appropriately tender INCISION: clean, dry, intact and without erythema EXTREMITIES: no redness or tenderness in the calves or thighs, no edema FUNDUS :u/1 LOCHIA : small VOID: without difficulty BOWEL HABITS: passing flatus BOWEL SOUNDS: active BOWEL MOVEMENT:no PAIN CONTROL :fair Assessment: post op day 3 S/P rpt section Elevated blood pressures, started on procardia xl Breast and bottle feeding anemia Plan: discussed blood pressure management with Dr Montero who clears patient for discharge Home on Procardia XL 60 mg daily PO FeSo4 Follow up office visit scheduled for Sunday at 10:45 AM for BP and incisional check Discharge teaching reviewed SRINI Sheth 05/22/24 0841 Discussed blood pressures with Dr. Melchor. Orders received to increase Procardia XL to 60mg daily. RN to give an additional 30mg now. SRINI Quiroga 05/21/24 1140 - Post-op Day 2 Ramya Last is a 33 y.o. who had a repeat section at 39w1d for hx of section, declined TOLAC. She denies complaints today. She is ambulating without difficulty. She denies dizziness, SOB or palpitations. She is taking ibuprofen and acetaminophen regularly and Roxicodone prn for pain. She reports that her pain is currently 7/10. She is passing flatus. She has not had a BM. She is voiding spontaneously without difficulty. She is tolerating a regular diet and reports good hydration. She is breast feeding. She has good support at home. She is undecided what she wants to do for contraception. She reports that her mood is stable. No Known Allergies PHYSICAL EXAM: BP 125/90 Pulse 91 Temp 37.1 C (98.7 F) (Oral) Resp 16 Ht 165.1 cm (5' 5 ) Wt 102.1 kg (225 lb) LMP 08/15/2023 (Approximate) SpO2 100% Yes BMI 37.44 kg/m Lab Results Component Value Date WBC 14.4 (H) 05/20/2024 HGB 9.0 (L) 05/20/2024 HCT 26.4 (L) 05/20/2024 MCV 80 05/20/2024 PLT 280 05/20/2024 General: patient is calm, alert and well appearing Emotional: normal affect Heart: RRR without murmur Lungs: Clear to ausculation bilaterally Breast: nipples everted, intact without cracking or bleeding Abdomen: soft, non-tender, no masses, non-distended, normal BS present x 4 quadrants Incision: well approximated, no erythema or bruising Extremities: trace edema, negative Socorro's sign, no tenderness in LE Fundus: midline, firm, u/2 Lochia: small rubra lochia without clots Assessment: S/p POD 2 hypertension Breast feeding Plan: Continue post operative orders Discussed with patient: self care, hygiene, incision care, expected bleeding, breast care Discussed recommendations for adequate sleep, nutrition and hydration. Discussed calling for temperature above 100.4, excessive bleeding, mastitis, incision infection, headache, difficulty speaking, visual disturbances, SOB, chest pain, pain on urination, back pain and pain or swelling in leg. Discussed signs of pp blues vs pp depression and when to call. She is aware of need to present to ER for SI/HI. We discussed narcotic medications and potential risk for addiction. She was encouraged to use sparingly and for shortest duration possible. She was instructed on need to secure medication and properly dispose of medication when therapy completed. Discussed activity recommendations including no heavy lifting above 10 lbs for 6 weeks. Plan to discharge home tomorrow - SRINI Quiroga 05/21/24 9:52 AM SRINI Quiroga 05/21/24 0955 Blood pressures have been 140/90-150/90. She denies headaches visual changes or epigastric pain. Discussed with Dr Spears. Will start patient on Procardia XL. Discussed with patient and family. SRINI Sheth 05/20/24 1543 Ramya Last 1990 39w1d Vitals: 05/20/24 0333 BP: 145/86 Pulse: 88 Resp: 16 Temp: 36.9 C (98.4 F) SpO2: No Known Allergies Lab Results Component Value Date WBC 14.4 (H) 05/20/2024 HGB 9.0 (L) 05/20/2024 HCT 26.4 (L) 05/20/2024 MCV 80 05/20/2024 PLT 280 05/20/2024 Day :1 SUBJECTIVE: Patient complaining of incisional pain. Denies any headache, visual changes or epigastric pain. Patient has a history of preeclampsia in prior but was on no medications GENERAL APPEARANCE: alert, well appearing, in no apparent distress MENTAL STATUS: appropriate HEART: RRR LUNGS: normal air entry, lungs clear to auscultation BREAST: and bottle feeding ABDOMEN :soft, nondistended, and appropriately tender INCISION: clean, dry, intact and without erythema EXTREMITIES: no redness or tenderness in the calves or thighs, no edema FUNDUS :u/1 LOCHIA : small VOID: without difficulty BOWEL HABITS: passing flatus BOWEL SOUNDS: active BOWEL MOVEMENT:no PAIN CONTROL :fair Assessment: normal post op day 1 S/P Rpt section Breast and bottle feeding History of preeclampsia in prior anemia Plan: will discontinue IV after last dose of torodol Discharge teaching done Will start po iron in AM Monitor blood pressures SRINI Sheth 05/20/24 0904 Brief Post-op Note NAME: Ramya Last : 1990 PROCEDURE DATE: 05/19/2024 Surgeon: Surgeons and Role: * Ekaterina Spears MD - Primary Assistants: MONICA LEE Staff: Medicare Contact Specialist Primary: Kadie Bourne RN Scrub Person: Michelle Grigsby Baby Nurse : Mindi Herrera RN Pre-op Diagnosis: repeat Procedure Details: Procedure(s) with comments: REPEAT - Baby girl delivered on 05/19/2024 at 11:24.10 - Wound Class: Clean Contaminated - Incision Closure: Deep and Superficial Layers Anesthesia Type: Spinal * No Diagnosis Codes entered * Complications: NONE Additions (Drains, Specimens, Implants): Specimens: * No specimens in log * Estimated Blood Loss: * No values recorded between 05/19/2024 10:46 AM and 05/19/2024 12:08 PM * OB Surgical Procedure Blood Loss: Anesthesia EBL: 600 mL OB QBL: 600 mL Total IV Fluids: Intravenous fluids were administered Crystalloids 1700mls Colloids 0 mls. Condition: stable Findings: Evidence of infection was not visualized at time of surgery. Section Procedure Note Pre-operative Diagnosis: 33 y.o. with intra-uterine @ 39 week 1 day(s) with previous uterine incision LTCS X 1; contraceptive choice- Post-operative Diagnosis: same Procedure: repeat Low Transverse Section via PFANNENSTIEL Surgeon: EKATERINA SPEARS MD Prison Librarian: MONICA LEE CNM assisted me during this surgery. She provided retraction, allowing for adequate visualization of surgical field, and improved safety and efficiency during the case. She assisted with delivery of the infant, allowing for adequate exposure, fundal pressure and assessment while primary surgeon continued surgical procedure. She assisted with wound closure, independantly performing skin closure. Indications for skilled speech language pathologist assistant, in addition to the above documentation: obesity, increased risk for hemorrhage, and prior surgical history Anesthesia: spinal Estimated Blood Loss: 500 mL Total IV Fluids: 1700 mL UOP: 1400 mL Findings: Normal uterus, bilateral tubes and ovaries. Viable female infant at 1124, scores 9 at 1 minute and 9 at 5 minutes. Weight: 7 lb 8 oz. Specimens: Placenta, cord blood Complications: none apparent Indications: Ramya Last is a 33 y.o. at 39 weeks and 1 day(s) for delivery due to previous delivery x 1 for repeat . The risks, benefits, complications, alternative treatment options, and expected outcomes were discussed with the patient. Risks of surgery were discussed, including but not limited to: pain, bleeding, need for blood transfusion, infection, injury to internal organs including intestines, bladder, uterus, fallopian tubes, ovaries and rarely injury to the fetus. Postoperative complications including pain, bleeding, need for blood transfusion, infection, re-operation, infection of the incisions were also explained. The patient verbalized understanding and agreed to proceed, giving informed consent. The patient was taken to Operating Room, identified as Ramya Last and the procedure verified as Delivery. A Time Out was held and the above information confirmed. Procedure Details After induction of anesthesia, the patient was draped and prepped in the usual sterile manner in a dorsal supine position with a leftward tilt. A PFANNENSTIEL incision was made with a scalpel and carried down to the fascia. Fascial incision was made by scoring fascia in midline then CARRYING THE INCISION BILATERALLY WITH ELECTROCAUTERY. THE RECTUS MUSCLES ALSO NEEDED TO BE DISSECTED IN ORDER TO ALLOW ADEQUATE EXPOSURE. The peritoneum was identified and entered superiorly. Peritoneal incision was extended longitudinally with blunt dissection with good visualization of the bladder. The BLADDER RETRACTOR was placed and a Low Transverse uterine incision was made. This incision was extended using blunt dissection in a cephalad to caudad manner. At 1124, a live female infant was delivered without complications. The infant was vigorous with spontaneous cry and there was delayed cord clamping of approximately 1 minute. scores were 9 at 1 minute and 9 at 5 minutes. Weight: 7 lb 8 oz. After the umbilical cord was clamped and cut, infant was handed off to awaiting nurse. Then cord blood was collected and the placenta was delivered using gentle traction and fundal massage, it was intact and appeared normal. The uterus was exteriorized and cleared of all clots and debris. The uterine incision was closed 0 CHROMIC IN LOCKING FASHION FOLLOWED BY IMBRICATING LAYER OF THE SAME. THE BLADDER FLAP WAS ALSO CLOSED WITH 3-0 VICRYL. Gutters were cleared of all clots and debris. The uterus was returned to abdomen and incision was reinspected and found to be hemostatic. The uterus, bilateral tubes and ovaries were WITHIN NORMAL LIMITS The fascia was then reapproximated with running sutures of 0 Vicryl. The subcutaneous tissue was irrigated, any bleeding sites were cauterized, then re-approximated with 3-0 vicryl. The skin was closed with INSORB then dressed with Telfa and large Tegaderm dressing. Instrument, sponge, and needle counts were correct prior to the procedure, prior to the abdominal closure and RFID scan was negative at the conclusion of the case. The patient received preoperative antibiotics and intraoperative analgesic. Patient was transferred to recovery room in stable condition. EKATERINA SPEARS MD assistant head cashier Section for previous uterine incision low transverse uterine and abdominal incisinsion . Surgeon Dr. Ekaterina Spears MD I assisted Dr. Spears perform a repeat C/Section on this patient since she already had had C/Section and did not want a trial of labor with this . I assisted by providing traction, suction and sponging for better visualization of the surgical field. I also provided fundal pressure for delivery of the baby. I assisted with suturing also. This patient was delivered of a live born female infant with spontaneous cry noted. was 9 and 9 at 1 and 5 minutes respectively. weight is 7 pounds 8 ounces. Patient tolerated the procedure well. EBL was 600 ml. She and the baby was returned to her room instable condition. SRINI Cade 05/19/24 1243 documented in this encounter [facility] 05-22-2024 Plan of care note Problem: Pain Goal: Patient goal is pain score less than 4, able to rest, and participant in treatment plan as appropriate Description: INTERVENTIONS: 1. Encourage patient or legal agency sales representative to report early pain and ask for pain medicine when needed 2. Assess pain using appropriate pain scale and include the scale used when documenting 3. Administer analgesics based on type and severity of pain and evaluate response within appropriate time frame 4. Implement non-pharmacological measures as appropriate and evaluate response 5. Consider cultural and social influences on pain and pain management 6. Notify LIP if interventions ineffective or patient reports new pain 7. Monitor vital signs including pulse ox, end-tidal CO2 based on pain intervention 8. Reassess pain per policy 9. Teach patient or legal agency sales representative interventions for comforting Outcome: Progressing Note: Evaluation of progress towards goal: Pt able to report pain according to 0/10 pain scale. Medicating patient for pain per orders. Pt encouraged to report early pain, analgesics administered as needed, hourly rounding completed and pain assessed. Problem: Safety Goal: Patient will be injury free during hospitalization Description: INTERVENTIONS: 1. Assess patient's risk for falls and implement fall prevention plan of care per policy 2. Provide and maintain a safe environment 3. Proper use of double Identifiers 4. Medication administration using the 5 rights 5. Hand hygiene 6. Specimens are labeled at the bedside 7. Instruct patient/ patient agency sales representative about use of safety devices 8. Include patient/ patient agency sales representative in decisions related to safety Outcome: Progressing Note: Evaluation of progress towards goal: Safety measures initiated/maintained. Pt remains safe from harm/injury/falls. Pt's risk for falls assessed and fall prevention implemented as needed, safe environment provided and maintained, hand hygiene completed. Call light within reach/ hourly rounding to meet needs/ safety equipment used as needed/up with assistance when needed. Problem: Infection Goal: Absence of infection during hospitalization Description: Interventions: 1. Assess and monitor for signs and symptoms of infection 2. Monitor lab/diagnostic results 3. Monitor all insertion sites i.e., indwelling lines, tubes and drains 4. Monitor endotracheal (as able) and nasal secretions for changes in amount and color 5. Administer medications as ordered 6. Instruct and encourage patient and family to use good hand hygiene technique 7. Identify and instruct patient/patient agency sales representative in use of appropriate isolation precautions for identified infection/symptoms 8. Provide and discuss with patient/patient agency sales representative on educational MDRO sheet 9. Encourage and monitor nutritional status daily and consult foreign correspondent if indicated 10. Implement neutropenic guidelines as needed 11. Review exposure to history of communicable disease and recent travel history on admission 12. Encourage annual influenza vaccine 13. Encourage pneumonia vaccine Outcome: Progressing Note: Evaluation of progress towards goal: Vitals obtained per order. Patient remains afebrile. She denies pain with urination. Lochia is small and free from odor. Problem: Knowledge Deficit Goal: Patient/patient agency sales representative demonstrates understanding of disease process, treatment plan, medications, and discharge instructions Description: INTERVENTIONS 1. Complete learning assessment and assess knowledge base 2. Provide teaching at level of understanding 3. Provide teaching via preferred learning method(s) Outcome: Progressing Note: Evaluation of progress towards goal: Pt learning and knowledge base assessed, teaching provided at an understandable level as needed, teaching provided via preferred learning method. POC discussed with patient, questions answered PRN. Problem: Discharge Planning Goal: Discharge to post-acute care, other facility, or home with appropriate resources Description: Patient's goal is: INTERVENTIONS 1. Conduct assessment to determine patient/family and health care team treatment goals, and need for post-acute services based on payer coverage, community resources, and patient preferences, and barriers to discharge 2. Coordinate with Social work, Care Navigation, and Utilization Review to arrange appropriate level of services according to patient's needs based on patient preference and payer coverage in collaboration with the physician and health care team 3. Address psychosocial, clinical, and financial barriers to discharge as identified in assessment in conjunction with the patient/family and health care team 4. Consult appropriate ancillary services (i.e.. PT/OT/ST, etc) as needed 5. Communicate with and update the patient/family, physician, and health care team regarding progress on the discharge plan 6. Identify discharge learning needs (meds, wound care, etc). 7. Arrange for needed discharge transportation as appropriate Outcome: Progressing Note: Evaluation of progress towards goal: Discharge knowledge assessed. Discharge planning implemented and ongoing. Problem: Low Risk Fall Score Description: Owens Fall Score of 0 - 24 or indicated by [facility] Assessment Goal: Patient should be free from fall Description: Interventions: 1. [place] to environment 2. Hourly rounds addressing the 4 P's (Pain, Positioning, Possessions, Potty) 3. Clear area of hazards (spills, clutter, electrical cords, unnecessary equipment) 4. Place equipment (bed & TV controls, call light, phone, urinal) within reach 5. Encourage patient to wear glasses and hearing aides as appropriate 6. Maintain bed in lowest position 7. Lock wheels on bed/wheelchair 8. Provide adequate lighting, including night light 9. Assess need for additional bedding, food/fluids, pain med's prior to sleep/routinely 10. Provide gripper slippers or personal non-skid footwear 11. Teach patient and patient agency sales representative to maintain environment for safety and engage in all aspects of fall prevention program Outcome: Progressing Note: Evaluation of progress towards goal: Pt remains free from falls or accidental injury during stay. Fall prevention measures in place. Hourly rounding completed to meet needs, area clear of hazards, bed in lowest position with wheels locked. Call light in reach. Additional Comments: [facility] 05-21-2024 Plan of care note Additional Comments: T [facility] 05-20-2024 Plan of care note Problem: Pain Goal: Patient goal is pain score less than 4, able to rest, and participant in treatment plan as appropriate Description: INTERVENTIONS: 1. Encourage patient or legal agency sales representative to report early pain and ask for pain medicine when needed 2. Assess pain using appropriate pain scale and include the scale used when documenting 3. Administer analgesics based on type and severity of pain and evaluate response within appropriate time frame 4. Implement non-pharmacological measures as appropriate and evaluate response 5. Consider cultural and social influences on pain and pain management 6. Notify LIP if interventions ineffective or patient reports new pain 7. Monitor vital signs including pulse ox, end-tidal CO2 based on pain intervention 8. Reassess pain per policy 9. Teach patient or legal agency sales representative interventions for comforting Outcome: Progressing Note: Evaluation of progress towards goal: Pt able to report pain according to 0/10 pain scale. Medicating patient for pain per orders. Pt encouraged to report early pain, analgesics administered as needed, hourly rounding completed and pain assessed. Problem: Safety Goal: Patient will be injury free during hospitalization Description: INTERVENTIONS: 1. Assess patient's risk for falls and implement fall prevention plan of care per policy 2. Provide and maintain a safe environment 3. Proper use of double Identifiers 4. Medication administration using the 5 rights 5. Hand hygiene 6. Specimens are labeled at the bedside 7. Instruct patient/ patient agency sales representative about use of safety devices 8. Include patient/ patient agency sales representative in decisions related to safety Outcome: Progressing Note: Evaluation of progress towards goal: Safety measures initiated/maintained. Pt remains safe from harm/injury/falls. Pt's risk for falls assessed and fall prevention implemented as needed, safe environment provided and maintained, hand hygiene completed. Call light within reach/ hourly rounding to meet needs/ safety equipment used as needed/up with assistance when needed. Problem: Infection Goal: Absence of infection during hospitalization Description: Interventions: 1. Assess and monitor for signs and symptoms of infection 2. Monitor lab/diagnostic results 3. Monitor all insertion sites i.e., indwelling lines, tubes and drains 4. Monitor endotracheal (as able) and nasal secretions for changes in amount and color 5. Administer medications as ordered 6. Instruct and encourage patient and family to use good hand hygiene technique 7. Identify and instruct patient/patient agency sales representative in use of appropriate isolation precautions for identified infection/symptoms 8. Provide and discuss with patient/patient agency sales representative on educational MDRO sheet 9. Encourage and monitor nutritional status daily and consult foreign correspondent if indicated 10. Implement neutropenic guidelines as needed 11. Review exposure to history of communicable disease and recent travel history on admission 12. Encourage annual influenza vaccine 13. Encourage pneumonia vaccine Outcome: Progressing Note: Evaluation of progress towards goal: Patient afebrile at this time, patient VS WNL. Pt assessed and monitored for signs and symptoms of infection, lab and diagnostic results monitored as needed, administer medications as needed. Hand hygiene completed. Continue to monitor. Problem: Knowledge Deficit Goal: Patient/patient agency sales representative demonstrates understanding of disease process, treatment plan, medications, and discharge instructions Description: INTERVENTIONS 1. Complete learning assessment and assess knowledge base 2. Provide teaching at level of understanding 3. Provide teaching via preferred learning method(s) Outcome: Progressing Note: Evaluation of progress towards goal: Pt learning and knowledge base assessed, teaching provided at an understandable level as needed, teaching provided via preferred learning method. POC discussed with patient, questions answered PRN. Problem: Discharge Planning Goal: Discharge to post-acute care, other facility, or home with appropriate resources Description: Patient's goal is: INTERVENTIONS 1. Conduct assessment to determine patient/family and health care team treatment goals, and need for post-acute services based on payer coverage, community resources, and patient preferences, and barriers to discharge 2. Coordinate with Social work, Care Navigation, and Utilization Review to arrange appropriate level of services according to patient's needs based on patient preference and payer coverage in collaboration with the physician and health care team 3. Address psychosocial, clinical, and financial barriers to discharge as identified in assessment in conjunction with the patient/family and health care team 4. Consult appropriate ancillary services (i.e.. PT/OT/ST, etc) as needed 5. Communicate with and update the patient/family, physician, and health care team regarding progress on the discharge plan 6. Identify discharge learning needs (meds, wound care, etc). 7. Arrange for needed discharge transportation as appropriate Outcome: Progressing Note: Evaluation of progress towards goal: Pt discharge initiated with attending provider, Pt/Family communicated with and updated regarding process on discharge as needed. Reviewed discharge plan and questions answered Problem: Low Risk Fall Score Description: Owens Fall Score of 0 - 24 or indicated by [facility] Assessment Goal: Patient should be free from fall Description: Interventions: 1. [place] to environment 2. Hourly rounds addressing the 4 P's (Pain, Positioning, Possessions, Potty) 3. Clear area of hazards (spills, clutter, electrical cords, unnecessary equipment) 4. Place equipment (bed & TV controls, call light, phone, urinal) within reach 5. Encourage patient to wear glasses and hearing aides as appropriate 6. Maintain bed in lowest position 7. Lock wheels on bed/wheelchair 8. Provide adequate lighting, including night light 9. Assess need for additional bedding, food/fluids, pain med's prior to sleep/routinely 10. Provide gripper slippers or personal non-skid footwear 11. Teach patient and patient agency sales representative to maintain environment for safety and engage in all aspects of fall prevention program Outcome: Progressing Note: Evaluation of progress towards goal: Pt remains free from falls or accidental injury during stay. Fall prevention measures in place. Hourly rounding completed to meet needs, area clear of hazards, bed in lowest position with wheels locked. Call light in reach. Problem: Potential for Compromised Skin Integrity Goal: Patient's nutritional intake is adequate Description: Patient's goal is: INTERVENTIONS 1. Assess and monitor food intake and supplements, patient food preferences, nausea, vomiting, labs, oral cavity (gums, teeth, tongue, mucosa), proper denture fit, and cultural beliefs 2. Monitor for signs of hypoglycemia and hyperglycemia 3. Collaborate with interdisciplinary team and initiate plan and interventions as ordered 4. Monitor patient's weight 5. Assist patient with meals/food selection 6. Assist patient with eating 7. Allow adequate time for meals 8. Provide pleasant environment during mealtime 9. Increase social contact during mealtimes 10. Plan activities to conserve energy 11. Encourage/perform oral hygiene as appropriate 12. Encourage patient to take dietary supplement as ordered 13. Collaborate with clinical foreign correspondent 14. Include patient/ patient's agency sales representative in decisions related to nutrition Outcome: Completed Note: Evaluation of progress towards goal: Pt eating 100% of meals. Appetite is good. Problem: Urinary Incontinence Goal: Perineal skin integrity is maintained or improved Description: INTERVENTIONS 1. Assess genitourinary system, perineal skin, labs (urinalysis), and history of incontinence to include past management, aggravating, and alleviating factors 2. Keep skin clean and dry 3. Apply skin protectant 4. Develop skin care regimen 5. Provide privacy when changing patients incontinence device to maintain their dignity 6. Consider placing an indwelling catheter 7. Collaborate with interdisciplinary team and initiate plans and interventions as needed Outcome: Completed Note: Evaluation of progress towards goal: Pt ambulates to bathroom per self. Independent with hygiene. Additional Comments: [facility] [employer] 05-20-2024 Plan of care note Problem: Pain Goal: Patient goal is pain score less than 4, able to rest, and participant in treatment plan as appropriate Description: INTERVENTIONS: 1. Encourage patient or legal agency sales representative to report early pain and ask for pain medicine when needed 2. Assess pain using appropriate pain scale and include the scale used when documenting 3. Administer analgesics based on type and severity of pain and evaluate response within appropriate time frame 4. Implement non-pharmacological measures as appropriate and evaluate response 5. Consider cultural and social influences on pain and pain management 6. Notify LIP if interventions ineffective or patient reports new pain 7. Monitor vital signs including pulse ox, end-tidal CO2 based on pain intervention 8. Reassess pain per policy 9. Teach patient or legal agency sales representative interventions for comforting Outcome: Progressing Note: Evaluation of progress towards goal: Pt able to report pain according to 0/10 pain scale. Medicating patient for pain per orders. Pt encouraged to report early pain, analgesics administered as needed, hourly rounding completed and pain assessed. Problem: Safety Goal: Patient will be injury free during hospitalization Description: INTERVENTIONS: 1. Assess patient's risk for falls and implement fall prevention plan of care per policy 2. Provide and maintain a safe environment 3. Proper use of double Identifiers 4. Medication administration using the 5 rights 5. Hand hygiene 6. Specimens are labeled at the bedside 7. Instruct patient/ patient agency sales representative about use of safety devices 8. Include patient/ patient agency sales representative in decisions related to safety Outcome: Progressing Note: Evaluation of progress towards goal: Safety measures initiated/maintained. Pt remains safe from harm/injury/falls. Pt's risk for falls assessed and fall prevention implemented as needed, safe environment provided and maintained, hand hygiene completed. Call light within reach/ hourly rounding to meet needs/ safety equipment used as needed/up with assistance when needed. Problem: Infection Goal: Absence of infection during hospitalization Description: Interventions: 1. Assess and monitor for signs and symptoms of infection 2. Monitor lab/diagnostic results 3. Monitor all insertion sites i.e., indwelling lines, tubes and drains 4. Monitor endotracheal (as able) and nasal secretions for changes in amount and color 5. Administer medications as ordered 6. Instruct and encourage patient and family to use good hand hygiene technique 7. Identify and instruct patient/patient agency sales representative in use of appropriate isolation precautions for identified infection/symptoms 8. Provide and discuss with patient/patient agency sales representative on educational MDRO sheet 9. Encourage and monitor nutritional status daily and consult foreign correspondent if indicated 10. Implement neutropenic guidelines as needed 11. Review exposure to history of communicable disease and recent travel history on admission 12. Encourage annual influenza vaccine 13. Encourage pneumonia vaccine Outcome: Progressing Note: Evaluation of progress towards goal: Patient afebrile at this time, patient VS WNL. Pt assessed and monitored for signs and symptoms of infection, lab and diagnostic results monitored as needed, administer medications as needed. Hand hygiene completed. Continue to monitor. Problem: Knowledge Deficit Goal: Patient/patient agency sales representative demonstrates understanding of disease process, treatment plan, medications, and discharge instructions Description: INTERVENTIONS 1. Complete learning assessment and assess knowledge base 2. Provide teaching at level of understanding 3. Provide teaching via preferred learning method(s) Outcome: Progressing Note: Evaluation of progress towards goal: Pt learning and knowledge base assessed, teaching provided at an understandable level as needed, teaching provided via preferred learning method. POC discussed with patient, questions answered PRN. Problem: Discharge Planning Goal: Discharge to post-acute care, other facility, or home with appropriate resources Description: Patient's goal is: INTERVENTIONS 1. Conduct assessment to determine patient/family and health care team treatment goals, and need for post-acute services based on payer coverage, community resources, and patient preferences, and barriers to discharge 2. Coordinate with Social work, Care Navigation, and Utilization Review to arrange appropriate level of services according to patient's needs based on patient preference and payer coverage in collaboration with the physician and health care team 3. Address psychosocial, clinical, and financial barriers to discharge as identified in assessment in conjunction with the patient/family and health care team 4. Consult appropriate ancillary services (i.e.. PT/OT/ST, etc) as needed 5. Communicate with and update the patient/family, physician, and health care team regarding progress on the discharge plan 6. Identify discharge learning needs (meds, wound care, etc). 7. Arrange for needed discharge transportation as appropriate Outcome: Progressing Note: Evaluation of progress towards goal: Pt discharge initiated with attending provider, Pt/Family communicated with and updated regarding process on discharge as needed. Reviewed discharge plan and questions answered Problem: Low Risk Fall Score Description: Owens Fall Score of 0 - 24 or indicated by [facility] Assessment Goal: Patient should be free from fall Description: Interventions: 1. [place] to environment 2. Hourly rounds addressing the 4 P's (Pain, Positioning, Possessions, Potty) 3. Clear area of hazards (spills, clutter, electrical cords, unnecessary equipment) 4. Place equipment (bed & TV controls, call light, phone, urinal) within reach 5. Encourage patient to wear glasses and hearing aides as appropriate 6. Maintain bed in lowest position 7. Lock wheels on bed/wheelchair 8. Provide adequate lighting, including night light 9. Assess need for additional bedding, food/fluids, pain med's prior to sleep/routinely 10. Provide gripper slippers or personal non-skid footwear 11. Teach patient and patient agency sales representative to maintain environment for safety and engage in all aspects of fall prevention program Outcome: Progressing Note: Evaluation of progress towards goal: Pt remains free from falls or accidental injury during stay. Fall prevention measures in place. Hourly rounding completed to meet needs, area clear of hazards, bed in lowest position with wheels locked. Call light in reach. Problem: Potential for Compromised Skin Integrity Goal: Patient's nutritional intake is adequate Description: Patient's goal is: INTERVENTIONS 1. Assess and monitor food intake and supplements, patient food preferences, nausea, vomiting, labs, oral cavity (gums, teeth, tongue, mucosa), proper denture fit, and cultural beliefs 2. Monitor for signs of hypoglycemia and hyperglycemia 3. Collaborate with interdisciplinary team and initiate plan and interventions as ordered 4. Monitor patient's weight 5. Assist patient with meals/food selection 6. Assist patient with eating 7. Allow adequate time for meals 8. Provide pleasant environment during mealtime 9. Increase social contact during mealtimes 10. Plan activities to conserve energy 11. Encourage/perform oral hygiene as appropriate 12. Encourage patient to take dietary supplement as ordered 13. Collaborate with clinical foreign correspondent 14. Include patient/ patient's agency sales representative in decisions related to nutrition Outcome: Progressing Note: Evaluation of progress towards goal: Pt with continuous fluids running and eating all of meals. Problem: Urinary Incontinence Goal: Perineal skin integrity is maintained or improved Description: INTERVENTIONS 1. Assess genitourinary system, perineal skin, labs (urinalysis), and history of incontinence to include past management, aggravating, and alleviating factors 2. Keep skin clean and dry 3. Apply skin protectant 4. Develop skin care regimen 5. Provide privacy when changing patients incontinence device to maintain their dignity 6. Consider placing an indwelling catheter 7. Collaborate with interdisciplinary team and initiate plans and interventions as needed Outcome: Progressing Note: Evaluation of progress towards goal: Davidson catheter removed and latia pads changed as needed Additional Comments: [facility] 05-19-2024 Plan of care note Problem: Pain Goal: Patient goal is pain score less than 4, able to rest, and participant in treatment plan as appropriate Description: INTERVENTIONS: 1. Encourage patient or legal agency sales representative to report early pain and ask for pain medicine when needed 2. Assess pain using appropriate pain scale and include the scale used when documenting 3. Administer analgesics based on type and severity of pain and evaluate response within appropriate time frame 4. Implement non-pharmacological measures as appropriate and evaluate response 5. Consider cultural and social influences on pain and pain management 6. Notify LIP if interventions ineffective or patient reports new pain 7. Monitor vital signs including pulse ox, end-tidal CO2 based on pain intervention 8. Reassess pain per policy 9. Teach patient or legal agency sales representative interventions for comforting Outcome: Progressing Note: Evaluation of progress towards goal: Patient denies pain. Problem: Safety Goal: Patient will be injury free during hospitalization Description: INTERVENTIONS: 1. Assess patient's risk for falls and implement fall prevention plan of care per policy 2. Provide and maintain a safe environment 3. Proper use of double Identifiers 4. Medication administration using the 5 rights 5. Hand hygiene 6. Specimens are labeled at the bedside 7. Instruct patient/ patient agency sales representative about use of safety devices 8. Include patient/ patient agency sales representative in decisions related to safety Outcome: Progressing Note: Evaluation of progress towards goal: Patient remains injury free. Problem: Discharge Planning Goal: Discharge to post-acute care, other facility, or home with appropriate resources Description: Patient's goal is: INTERVENTIONS 1. Conduct assessment to determine patient/family and health care team treatment goals, and need for post-acute services based on payer coverage, community resources, and patient preferences, and barriers to discharge 2. Coordinate with Social work, Care Navigation, and Utilization Review to arrange appropriate level of services according to patient's needs based on patient preference and payer coverage in collaboration with the physician and health care team 3. Address psychosocial, clinical, and financial barriers to discharge as identified in assessment in conjunction with the patient/family and health care team 4. Consult appropriate ancillary services (i.e.. PT/OT/ST, etc) as needed 5. Communicate with and update the patient/family, physician, and health care team regarding progress on the discharge plan 6. Identify discharge learning needs (meds, wound care, etc). 7. Arrange for needed discharge transportation as appropriate Outcome: Progressing Note: Evaluation of progress towards goal: Patient plans to return home upon discharge. Problem: Low Risk Fall Score Description: Owens Fall Score of 0 - 24 or indicated by [facility] Assessment Goal: Patient should be free from fall Description: Interventions: 1. [place] to environment 2. Hourly rounds addressing the 4 P's (Pain, Positioning, Possessions, Potty) 3. Clear area of hazards (spills, clutter, electrical cords, unnecessary equipment) 4. Place equipment (bed & TV controls, call light, phone, urinal) within reach 5. Encourage patient to wear glasses and hearing aides as appropriate 6. Maintain bed in lowest position 7. Lock wheels on bed/wheelchair 8. Provide adequate lighting, including night light 9. Assess need for additional bedding, food/fluids, pain med's prior to sleep/routinely 10. Provide gripper slippers or personal non-skid footwear 11. Teach patient and patient agency sales representative to maintain environment for safety and engage in all aspects of fall prevention program Outcome: Progressing Note: Evaluation of progress towards goal: Patient remains free from falls. Problem: Potential for Compromised Skin Integrity Goal: Skin integrity is maintained or improved Description: Patient's goal is: INTERVENTIONS 1. Perform initial skin assessment on admission and as needed 2. Turn patient every 2 hours and PRN 3. Relieve pressure to bony prominences 4. Avoid shearing 5. Keep skin clean and dry 6. Alternate a full bath with partial baths for elderly 7. Apply lotion/moisturizer on skin 8. Monitor patient's hygiene practices 9. Float heels 10. Collaborate with interdisciplinary team and initiate plans and interventions as needed Outcome: Progressing Note: Evaluation of progress towards goal: Patients incision remains intact without redness or drainage. Goal: Patient's nutritional intake is adequate Description: Patient's goal is: INTERVENTIONS 1. Assess and monitor food intake and supplements, patient food preferences, nausea, vomiting, labs, oral cavity (gums, teeth, tongue, mucosa), proper denture fit, and cultural beliefs 2. Monitor for signs of hypoglycemia and hyperglycemia 3. Collaborate with interdisciplinary team and initiate plan and interventions as ordered 4. Monitor patient's weight 5. Assist patient with meals/food selection 6. Assist patient with eating 7. Allow adequate time for meals 8. Provide pleasant environment during mealtime 9. Increase social contact during mealtimes 10. Plan activities to conserve energy 11. Encourage/perform oral hygiene as appropriate 12. Encourage patient to take dietary supplement as ordered 13. Collaborate with clinical foreign correspondent 14. Include patient/ patient's agency sales representative in decisions related to nutrition Outcome: Progressing Note: Evaluation of progress towards goal: Patient has eaten dinner without nausea. Problem: Urinary Incontinence Goal: Perineal skin integrity is maintained or improved Description: INTERVENTIONS 1. Assess genitourinary system, perineal skin, labs (urinalysis), and history of incontinence to include past management, aggravating, and alleviating factors 2. Keep skin clean and dry 3. Apply skin protectant 4. Develop skin care regimen 5. Provide privacy when changing patients incontinence device to maintain their dignity 6. Consider placing an indwelling catheter 7. Collaborate with interdisciplinary team and initiate plans and interventions as needed Outcome: Progressing Note: Evaluation of progress towards goal: Perineum is intact without redness or edema. Additional Comments: [facility] 05-19-2024 Labor and deliver y summary note Delivery Record Patient Observations (Last 24 hours) None Patient Observations (Last 24 hours) None [place], Baby Girl Ramya [[id number]] Events of Labor labor?: No steroids?: None Cervical ripening date/time: Antibiotics received during labor?: No Rupture date/time: 05/19/24 1123 Rupture type: Artificial Fluid color: Clear Fluid odor: No Labor Event Times No data filed Anesthesia Method: Spinal Anesthesia provided by: LAKISHA Wu Assisted Delivery Forceps attempted?: No Vacuum extractor attempted?: No Document Additional Attempt Document Additional Attempt Shoulder Dystocia Shoulder dystocial present?: No Second Maneuver Third Maneuver Fourth Maneuver Fifth Maneuver Sixth Maneuver Seventh Maneuver Eighth Maneuver \Ninth Maneuver Presentation No data filed [place] Information Delivery date/time: 05/19/24 1124 Delivery type: details: Trial of labor?: No categorization: repeat priority: scheduled Indications for : Prior Uterine Surgery Delivery Providers Delivering clinician: Ekaterina Spears MD Provider Role Mindi Herrera RN Delivery Nurse Krystal West, PERFECT BIND MACHINE OPERATOR-LAISHAM Delivery Assist [place] Nurse Cord Information Vessels: 3 vessels Complications: None Delayed cord clamping?: Yes Cord clamped date/time: 05/19/2024 11:25 AM Cord blood obtained?: Yes Cord blood disposition: Lab Gases sent?: Yes Stem cell collection (by )?: No Placenta Date/time: 05/19/2024 1126 Removal: Manual removal Appearance: Intact Disposition: lab hemorrhage: No Resuscitation Method: Suctioning, Tactile stimulation Resuscitation needed: No Additional resources called: No Assessment Skin color: Heart rate: Reflex irritability: Muscle tone: Respiratory effort: Total: 1 Minute: 1 2 2 2 2 9 1 total from OB History 5 Minute: 1 2 2 2 2 9 5 total from OB History 10 Minute: 15 Minute: 20 Minute: Apgars assigned by: José Miguel HERRERA RN Skin to Skin Skin to skin initiation date/time: 05/19/24 1335 EDT Measurements Weight: 3.4 kg Length: 48.3 cm Head circumference: 34.5 cm Lacerations/EBL Surgical or additional est. blood loss (mL): 600 Combined est. blood loss (mL): 600 Other Delivery Procedures No data filed Brief Post-op Note NAME: Ramya Last : 1990 PROCEDURE DATE: 05/19/2024 Surgeon: Surgeons and Role: * Ekaterina Spears MD - Primary Assistants: MONICA LEE Staff: Medicare Contact Specialist Primary: Kadie Bourne RN Scrub Person: Michelle Grigsby Baby Nurse : Mindi Herrera RN Pre-op Diagnosis: repeat Procedure Details: Procedure(s) with comments: REPEAT - Baby girl delivered on 05/19/2024 at 11:24.10 - Wound Class: Clean Contaminated - Incision Closure: Deep and Superficial Layers Anesthesia Type: Spinal * No Diagnosis Codes entered * Complications: NONE Additions (Drains, Specimens, Implants): Specimens: * No specimens in log * Estimated Blood Loss: * No values recorded between 05/19/2024 10:46 AM and 05/19/2024 12:08 PM * OB Surgical Procedure Blood Loss: Anesthesia EBL: 600 mL OB QBL: 600 mL Total IV Fluids: Intravenous fluids were administered Crystalloids 1700mls Colloids 0 mls. Condition: stable Findings: Evidence of infection was not visualized at time of surgery. Section Procedure Note Pre-operative Diagnosis: 33 y.o. with intra-uterine @ 39 week 1 day(s) with previous uterine incision LTCS X 1; contraceptive choice- Post-operative Diagnosis: same Procedure: repeat Low Transverse Section via PFANNENSTIEL Surgeon: EKATERINA SPEARS MD Prison Librarian: MONICA LEE CNM assisted me during this surgery. She provided retraction, allowing for adequate visualization of surgical field, and improved safety and efficiency during the case. She assisted with delivery of the infant, allowing for adequate exposure, fundal pressure and assessment while primary surgeon continued surgical procedure. She assisted with wound closure, independantly performing skin closure. Indications for skilled speech language pathologist assistant, in addition to the above documentation: obesity, increased risk for hemorrhage, and prior surgical history Anesthesia: spinal Estimated Blood Loss: 500 mL Total IV Fluids: 1700 mL UOP: 1400 mL Findings: Normal uterus, bilateral tubes and ovaries. Viable female at 1124, scores 9 at 1 minute and 9 at 5 minutes. Weight: 7 lb 8 oz. Specimens: Placenta, cord blood Complications: none apparent Indications: Ramya Last is a 33 y.o. at 39 weeks and 1 day(s) for delivery due to previous delivery x 1 for repeat . The risks, benefits, complications, alternative treatment options, and expected outcomes were discussed with the patient. Risks of surgery were discussed, including but not limited to: pain, bleeding, need for blood transfusion, infection, injury to internal organs including intestines, bladder, uterus, fallopian tubes, ovaries and rarely injury to the fetus. Postoperative complications including pain, bleeding, need for blood transfusion, infection, re-operation, infection of the incisions were also explained. The patient verbalized understanding and agreed to proceed, giving informed consent. The patient was taken to Operating Room, identified as Ramya Last and the procedure verified as Delivery. A Time Out was held and the above information confirmed. Procedure Details After induction of anesthesia, the patient was draped and prepped in the usual sterile manner in a dorsal supine position with a leftward tilt. A PFANNENSTIEL incision was made with a scalpel and carried down to the fascia. Fascial incision was made by scoring fascia in midline then CARRYING THE INCISION BILATERALLY WITH ELECTROCAUTERY. THE RECTUS MUSCLES ALSO NEEDED TO BE DISSECTED IN ORDER TO ALLOW ADEQUATE EXPOSURE. The peritoneum was identified and entered superiorly. Peritoneal incision was extended longitudinally with blunt dissection with good visualization of the bladder. The BLADDER RETRACTOR was placed and a Low Transverse uterine incision was made. This incision was extended using blunt dissection in a cephalad to caudad manner. At 1124, a live female infant was delivered without complications. The was vigorous with spontaneous cry and there was delayed cord clamping of approximately 1 minute. scores were 9 at 1 minute and 9 at 5 minutes. Weight: 7 lb 8 oz. After the umbilical cord was clamped and cut, was handed off to awaiting nurse. Then cord blood was collected and the placenta was delivered using gentle traction and fundal massage, it was intact and appeared normal. The uterus was exteriorized and cleared of all clots and debris. The uterine incision was closed 0 CHROMIC IN LOCKING FASHION FOLLOWED BY IMBRICATING LAYER OF THE SAME. THE BLADDER FLAP WAS ALSO CLOSED WITH 3-0 VICRYL. Gutters were cleared of all clots and debris. The uterus was returned to abdomen and incision was reinspected and found to be hemostatic. The uterus, bilateral tubes and ovaries were WITHIN NORMAL LIMITS The fascia was then reapproximated with running sutures of 0 Vicryl. The subcutaneous tissue was irrigated, any bleeding sites were cauterized, then re-approximated with 3-0 vicryl. The skin was closed with INSORB then dressed with Telfa and large Tegaderm dressing. Instrument, sponge, and needle counts were correct prior to the procedure, prior to the abdominal closure and RFID scan was negative at the conclusion of the case. The patient received preoperative antibiotics and intraoperative analgesic. Patient was transferred to recovery room in stable condition. EKATERINA SPEARS MD [facility] 05-19-2024 Procedure note Brief Post-op Note NAME: Ramya Last : 1990 PROCEDURE DATE: 05/19/2024 Surgeon: Surgeons and Role: * Ekaterina Spears MD - Primary Assistants: MONICA LEE Staff: Medicare Contact Specialist Primary: Kadie Bourne RN Scrub Person: Michelle Grigsby Baby Nurse : Mindi Herrera RN Pre-op Diagnosis: repeat Procedure Details: Procedure(s) with comments: REPEAT - Baby girl delivered on 05/19/2024 at 11:24.10 - Wound Class: Clean Contaminated - Incision Closure: Deep and Superficial Layers Anesthesia Type: Spinal * No Diagnosis Codes entered * Complications: NONE Additions (Drains, Specimens, Implants): Specimens: * No specimens in log * Estimated Blood Loss: * No values recorded between 05/19/2024 10:46 AM and 05/19/2024 12:08 PM * OB Surgical Procedure Blood Loss: Anesthesia EBL: 600 mL OB QBL: 600 mL Total IV Fluids: Intravenous fluids were administered Crystalloids 1700mls Colloids 0 mls. Condition: stable Findings: Evidence of infection was not visualized at time of surgery. Section Procedure Note Pre-operative Diagnosis: 33 y.o. with intra-uterine @ 39 week 1 day(s) with previous uterine incision LTCS X 1; contraceptive choice- Post-operative Diagnosis: same Procedure: repeat Low Transverse Section via PFANNENSTIEL Surgeon: EKATERINA SPEARS MD Prison Librarian: MONICA LEE CNM assisted me during this surgery. She provided retraction, allowing for adequate visualization of surgical field, and improved safety and efficiency during the case. She assisted with delivery of the infant, allowing for adequate exposure, fundal pressure and assessment while primary surgeon continued surgical procedure. She assisted with wound closure, independantly performing skin closure. Indications for skilled speech language pathologist assistant, in addition to the above documentation: obesity, increased risk for hemorrhage, and prior surgical history Anesthesia: spinal Estimated Blood Loss: 500 mL Total IV Fluids: 1700 mL UOP: 1400 mL Findings: Normal uterus, bilateral tubes and ovaries. Viable female infant at 1124, scores 9 at 1 minute and 9 at 5 minutes. Weight: 7 lb 8 oz. Specimens: Placenta, cord blood Complications: none apparent Indications: Ramya Last is a 33 y.o. at 39 weeks and 1 day(s) for delivery due to previous delivery x 1 for repeat . The risks, benefits, complications, alternative treatment options, and expected outcomes were discussed with the patient. Risks of surgery were discussed, including but not limited to: pain, bleeding, need for blood transfusion, infection, injury to internal organs including intestines, bladder, uterus, fallopian tubes, ovaries and rarely injury to the fetus. Postoperative complications including pain, bleeding, need for blood transfusion, infection, re-operation, infection of the incisions were also explained. The patient verbalized understanding and agreed to proceed, giving informed consent. The patient was taken to Operating Room, identified as Ramya Last and the procedure verified as Delivery. A Time Out was held and the above information confirmed. Procedure Details After induction of anesthesia, the patient was draped and prepped in the usual sterile manner in a dorsal supine position with a leftward tilt. A PFANNENSTIEL incision was made with a scalpel and carried down to the fascia. Fascial incision was made by scoring fascia in midline then CARRYING THE INCISION BILATERALLY WITH ELECTROCAUTERY. THE RECTUS MUSCLES ALSO NEEDED TO BE DISSECTED IN ORDER TO ALLOW ADEQUATE EXPOSURE. The peritoneum was identified and entered superiorly. Peritoneal incision was extended longitudinally with blunt dissection with good visualization of the bladder. The BLADDER RETRACTOR was placed and a Low Transverse uterine incision was made. This incision was extended using blunt dissection in a cephalad to caudad manner. At 1124, a live female was delivered without complications. The was vigorous with spontaneous cry and there was delayed cord clamping of approximately 1 minute. scores were 9 at 1 minute and 9 at 5 minutes. Weight: 7 lb 8 oz. After the umbilical cord was clamped and cut, was handed off to awaiting nurse. Then cord blood was collected and the placenta was delivered using gentle traction and fundal massage, it was intact and appeared normal. The uterus was exteriorized and cleared of all clots and debris. The uterine incision was closed 0 CHROMIC IN LOCKING FASHION FOLLOWED BY IMBRICATING LAYER OF THE SAME. THE BLADDER FLAP WAS ALSO CLOSED WITH 3-0 VICRYL. Gutters were cleared of all clots and debris. The uterus was returned to abdomen and incision was reinspected and found to be hemostatic. The uterus, bilateral tubes and ovaries were WITHIN NORMAL LIMITS The fascia was then reapproximated with running sutures of 0 Vicryl. The subcutaneous tissue was irrigated, any bleeding sites were cauterized, then re-approximated with 3-0 vicryl. The skin was closed with INSORB then dressed with Telfa and large Tegaderm dressing. Instrument, sponge, and needle counts were correct prior to the procedure, prior to the abdominal closure and RFID scan was negative at the conclusion of the case. The patient received preoperative antibiotics and intraoperative analgesic. Patient was transferred to recovery room in stable condition. EKATERINA SPEARS MD [facility] 05-19-2024 Procedure note Brief Post-op Note NAME: Ramya Last : 1990 PROCEDURE DATE: 05/19/2024 Surgeon: Surgeons and Role: * Ekaterina Spears MD - Primary Assistants: MONICA LEE Staff: Medicare Contact Specialist Primary: Kadie Bourne RN Scrub Person: Michelle Grigsby Baby Nurse : Mindi Herrera RN Pre-op Diagnosis: repeat Procedure Details: Procedure(s) with comments: REPEAT - Baby girl delivered on 05/19/2024 at 11:24.10 - Wound Class: Clean Contaminated - Incision Closure: Deep and Superficial Layers Anesthesia Type: Spinal * No Diagnosis Codes entered * Complications: NONE Additions (Drains, Specimens, Implants): Specimens: * No specimens in log * Estimated Blood Loss: * No values recorded between 05/19/2024 10:46 AM and 05/19/2024 12:08 PM * OB Surgical Procedure Blood Loss: Anesthesia EBL: 600 mL OB QBL: 600 mL Total IV Fluids: Intravenous fluids were administered Crystalloids 1700mls Colloids 0 mls. Condition: stable Findings: Evidence of infection was not visualized at time of surgery. Section Procedure Note Pre-operative Diagnosis: 33 y.o. with intra-uterine @ 39 week 1 day(s) with previous uterine incision LTCS X 1 ; contraceptive choice- Post-operative Diagnosis: same Procedure: repeat Low Transverse Section via PFANNENSTIEL Surgeon: EKATERINA SPEARS MD Prison Librarian: MONICA LEE CNM assisted me during this surgery. She provided retraction, allowing for adequate visualization of surgical field, and improved safety and efficiency during the case. She assisted with delivery of the , allowing for adequate exposure, fundal pressure and assessment while primary surgeon continued surgical procedure. She assisted with wound closure, independantly performing skin closure. Indications for skilled speech language pathologist assistant, in addition to the above documentation: obesity, increased risk for hemorrhage, and prior surgical history Anesthesia: spinal Estimated Blood Loss: 500 mL Total IV Fluids: 1700 mL UOP: 1400 mL Findings: Normal uterus, bilateral tubes and ovaries. Viable female at 1124, scores 9 at 1 minute and 9 at 5 minutes. Weight: 7 lb 8 oz. Specimens: Placenta, cord blood Complications: none apparent Indications: Ramya Last is a 33 y.o. at 39 weeks and 1 day(s) for delivery due to previous delivery x 1 for repeat . The risks, benefits, complications, alternative treatment options, and expected outcomes were discussed with the patient. Risks of surgery were discussed, including but not limited to: pain, bleeding, need for blood transfusion, infection, injury to internal organs including intestines, bladder, uterus, fallopian tubes, ovaries and rarely injury to the fetus. Postoperative complications including pain, bleeding, need for blood transfusion, infection, re-operation, infection of the incisions were also explained. The patient verbalized understanding and agreed to proceed, giving informed consent. The patient was taken to Operating Room, identified as Ramya Last and the procedure verified as Delivery. A Time Out was held and the above information confirmed. Procedure Details After induction of anesthesia, the patient was draped and prepped in the usual sterile manner in a dorsal supine position with a leftward tilt. A PFANNENSTIEL incision was made with a scalpel and carried down to the fascia. Fascial incision was made by scoring fascia in midline then CARRYING THE INCISION BILATERALLY WITH ELECTROCAUTERY. THE RECTUS MUSCLES ALSO NEEDED TO BE DISSECTED IN ORDER TO ALLOW ADEQUATE EXPOSURE. The peritoneum was identified and entered superiorly. Peritoneal incision was extended longitudinally with blunt dissection with good visualization of the bladder. The BLADDER RETRACTOR was placed and a Low Transverse uterine incision was made. This incision was extended using blunt dissection in a cephalad to caudad manner. At 1124, a live female infant was delivered without complications. The infant was vigorous with spontaneous cry and there was delayed cord clamping of approximately 1 minute. scores were 9 at 1 minute and 9 at 5 minutes. Weight: 7 lb 8 oz. After the umbilical cord was clamped and cut, infant was handed off to awaiting nurse. Then cord blood was collected and the placenta was delivered using gentle traction and fundal massage, it was intact and appeared normal. The uterus was exteriorized and cleared of all clots and debris. The uterine incision was closed 0 CHROMIC IN LOCKING FASHION FOLLOWED BY IMBRICATING LAYER OF THE SAME. THE BLADDER FLAP WAS ALSO CLOSED WITH 3-0 VICRYL. Gutters were cleared of all clots and debris. The uterus was returned to abdomen and incision was reinspected and found to be hemostatic. The uterus, bilateral tubes and ovaries were WITHIN NORMAL LIMITS The fascia was then reapproximated with running sutures of 0 Vicryl. The subcutaneous tissue was irrigated, any bleeding sites were cauterized, then re-approximated with 3-0 vicryl. The skin was closed with INSORB then dressed with Telfa and large Tegaderm dressing. Instrument, sponge, and needle counts were correct prior to the procedure, prior to the abdominal closure and RFID scan was negative at the conclusion of the case. The patient received preoperative antibiotics and intraoperative analgesic. Patient was transferred to recovery room in stable condition. EKATERINA SPEARS MD [facility] 05-19-2024 History and physical note Admission Chief Complaint: Chief Complaint Patient presents with Non-stress Test Scheduled C/S Ramya Last is a 33 y.o. female with Estimated Date of Delivery: 05/25/24 at 39w1d weeks gestation who is being admitted for repeat C/Section . Her current obstetrical history is significant for prior . Patient has no complaints. Pt reports pos FM. REVIEW OF SYSTEMS: General: WNL Head: No headache or visual changes Cardio: Denies chest pain. Respiratory: Denies shortness of breath GI: No nausea/vomiting : Denies urinary symptoms. No Known Allergies Past Medical History: Diagnosis Date Preeclampsia 2013 Past Surgical History: Procedure Laterality Date SECTION NONSTRESS TEST 05/12/2024 INDUCED x 3 Family History Problem Relation Age of Onset No Known Problems Father No Known Problems Mother Social History Socioeconomic History Marital status: Single Tobacco Use Smoking status: Former Types: Cigarettes, Cigars Smokeless tobacco: Never Vaping Use Vaping status: Former Substances: Nicotine Devices: Disposable Substance and Sexual Activity Alcohol use: Not Currently Drug use: Not Currently Types: Marijuana Comment: LAST TIME USE 2 MONTHS AGO Sexual activity: Yes Partners: Male control/protection: None Social Determinants of Health Food Insecurity: No Food Insecurity (05/19/2024) Hunger Screening Food Insecurity - Worry: Never True Food Insecurity - Inability: Never True Transportation Needs: No Transportation Needs (05/12/2024) PRAPARE - Transportation Lack of Transportation (Medical): No Lack of Transportation (Non-Medical): No Interpersonal Safety: Not At Risk (05/12/2024) Humiliation, Afraid, Rape, and Kick questionnaire Fear of Current or Ex-Partner: No Emotionally Abused: No Physically Abused: No Sexually Abused: No Housing Instability: Low Risk (05/12/2024) Housing Instability Housing Instability: No Medications Prior to Admission Medication Sig Dispense Refill Last Dose aspirin 81 mg chewable tablet Chew 1 tablet (81 mg total) and swallow in the morning. 90 tablet 1 05/18/2024 [id number] 9-dha 31 mg iron- 1 mg-200 mg capsule Take 1 capsule by mouth in the morning. 90 capsule 3 05/18/2024 Vitals: 05/19/24 0840 BP: 140/101 Pulse: (!) 127 Resp: 18 Temp: SpO2: 99% Lab Review ABO/Rh: Lab Results Component Value Date ABOINTEP B 01/28/2024 ABOINTEP B 01/28/2024 RHINTEP Positive 01/28/2024 RHINTEP Positive 01/28/2024 Group B Strep: Negative Hepatitis B Surface Antigen: Lab Results Component Value Date HEPBSAG Negative 01/28/2024 Rubella: immune HIV: Non Reactive RPR (VDRL): Non Reactive One hour GTT: Patient did not get this done. Physical Exam PHYSICAL EXAM: General: Alert, oriented, NAD Neurological: No deficits Psych: Appropriate Head/Neck: No masses/adenopathy, non-tender Skin: Normal temp and turgor, dry, intact Respiratory: CTA B PA Cardiovascular: RRR Abdomen: Soft, gravid, non-tender to palpation Back: No CVAT, no back pain Musculoskeletal: ROM x 4, normal gait Extremities: No LE edema, non-tender, DTR 1+/1+ Genitourinary: No masses or lesions SSE: Not performed VE: Not examined FHR: 150 baseline, moderate variability, positive accels, Absent Uterine Activity: none per toco BP slightly elevated this morning. She has history of pre eclampsia. Denies any symptoms today. Pre eclampsia labs have been drawn along with routine pre op labs.. Impression: 33 y.o., at 39w1d weeks admitted for repeat C/Section today. Cat I EFM P: Admit to Labor. Routine Pre op Orders. Expect repeat C/Section delivery. SRINI CADE APRN-CNM 05/19/24 0919 [facility] 05-19-2024 History and physical note Admission Chief Complaint: Chief Complaint Patient presents with Non-stress Test Scheduled C/S Ramya Last is a 33 y.o. female with Estimated Date of Delivery: 05/25/24 at 39w1d weeks gestation who is being admitted for repeat C/Section . Her current obstetrical history is significant for prior . Patient has no complaints. Pt reports pos FM. REVIEW OF SYSTEMS: General: WNL Head: No headache or visual changes Cardio: Denies chest pain. Respiratory: Denies shortness of breath GI: No nausea/vomiting : Denies urinary symptoms. No Known Allergies Past Medical History: Diagnosis Date Preeclampsia 2013 Past Surgical History: Procedure Laterality Date SECTION NONSTRESS TEST 05/12/2024 INDUCED x 3 Family History Problem Relation Age of Onset No Known Problems Father No Known Problems Mother Social History Socioeconomic History Marital status: Single Tobacco Use Smoking status: Former Types: Cigarettes, Cigars Smokeless tobacco: Never Vaping Use Vaping status: Former Substances: Nicotine Devices: Disposable Substance and Sexual Activity Alcohol use: Not Currently Drug use: Not Currently Types: Marijuana Comment: LAST TIME USE 2 MONTHS AGO Sexual activity: Yes Partners: Male control/protection: None Social Determinants of Health Food Insecurity: No Food Insecurity (05/19/2024) Hunger Screening Food Insecurity - Worry: Never True Food Insecurity - Inability: Never True Transportation Needs: No Transportation Needs (05/12/2024) PRAPARE - Transportation Lack of Transportation (Medical): No Lack of Transportation (Non-Medical): No Interpersonal Safety: Not At Risk (05/12/2024) Humiliation, Afraid, Rape, and Kick questionnaire Fear of Current or Ex-Partner: No Emotionally Abused: No Physically Abused: No Sexually Abused: No Housing Instability: Low Risk (05/12/2024) Housing Instability Housing Instability: No Medications Prior to Admission Medication Sig Dispense Refill Last Dose aspirin 81 mg chewable tablet Chew 1 tablet (81 mg total) and swallow in the morning. 90 tablet 1 05/18/2024 [id number] 9-dha 31 mg iron- 1 mg-200 mg capsule Take 1 capsule by mouth in the morning. 90 capsule 3 05/18/2024 Vitals: 05/19/24 0840 BP: 140/101 Pulse: (!) 127 Resp: 18 Temp: SpO2: 99% Lab Review ABO/Rh: Lab Results Component Value Date ABOINTEP B 01/28/2024 ABOINTEP B 01/28/2024 RHINTEP Positive 01/28/2024 RHINTEP Positive 01/28/2024 Group B Strep: Negative Hepatitis B Surface Antigen: Lab Results Component Value Date HEPBSAG Negative 01/28/2024 Rubella: immune HIV: Non Reactive RPR (VDRL): Non Reactive One hour GTT: Patient did not get this done. Physical Exam PHYSICAL EXAM: General: Alert, oriented, NAD Neurological: No deficits Psych: Appropriate Head/Neck: No masses/adenopathy, non-tender Skin: Normal temp and turgor, dry, intact Respiratory: CTA B PA Cardiovascular: RRR Abdomen: Soft, gravid, non-tender to palpation Back: No CVAT, no back pain Musculoskeletal: ROM x 4, normal gait Extremities: No LE edema, non-tender, DTR 1+/1+ Genitourinary: No masses or lesions SSE: Not performed VE: Not examined FHR: 150 baseline, moderate variability, positive accels, Absent Uterine Activity: none per toco BP slightly elevated this morning. She has history of pre eclampsia. Denies any symptoms today. Pre eclampsia labs have been drawn along with routine pre op labs.. Impression: 33 y.o., at 39w1d weeks admitted for repeat C/Section today. Cat I EFM P: Admit to Labor. Routine Pre op Orders. Expect repeat C/Section delivery. SRINI CADE APRN-CNM 05/19/24 0919 documented in this encounter [facility] 05-12-2024 Miscellaneous Notes Patient saw Dr. Spears today for repeat consult. Dr. Spears wants the patient added on 05/19/24. Spoke to Aracely in scheduling and patient is scheduled for her repeat on 05/19/24 at 10:30am with hospital arrival at 8:30am. Zoë in L&D notified. Patient given packet. Dr. Spears ordered a STAT ultrasound. Girma in central scheduling said the patient can have it done today as long as she is at the hospital before 3. The patient is going right over there. NST to be done after ultrasound. Patient notified to go to L&D after ultrasound. Zoë in L&D notified. Patient voiced understanding. documented in this encounter [facility] 05-12-2024 Telephone encounter Note Patient saw Dr. Spears today for repeat consult. Dr. Spears wants the patient added on 05/19/24. Spoke to Aracely in scheduling and patient is scheduled for her repeat on 05/19/24 at 10:30am with hospital arrival at 8:30am. Zoë in L&D notified. Patient given packet. Dr. Spears ordered a STAT ultrasound. Girma in central scheduling said the patient can have it done today as long as she is at the hospital before 3. The patient is going right over there. NST to be done after ultrasound. Patient notified to go to L&D after ultrasound. Zoë in L&D notified. Patient voiced understanding. [facility] 05-12-2024 History of Presen t illness Narrative NO CO'S OR ISSUES. NO LOF, NO VAGINAL BLEEDING OR DC. +FM. [facility]KC BID ENCOURAGED. LABOR PRECAUTIONS GIVEN. HISTORY OF SPOTTY CARE AND LATE CARE PREECLAMPSIA AFFECTING PREVIOUS SHE HAS NOT GOTTEN HER TESTING WHICH WAS PREVIOUSLY RECOMMENDED BY MATERNAL- MEDICINE HER JESSENIA AND NST AND ULTRASOUND FOR GROWTH ARE ALL ORDERED TODAY TO BE DONE STAT QUICKLY ULTRASOUND CAN GET HER IN SHE HAS DECIDED SHE DOES NOT WANT TO DO TRIAL OF LABOR IN [place] BUT WOULD RATHER DO A REPEAT HERE IN [place] OR [place] SHE IS COUNSELED THAT WE SCHEDULE AT [place] AND SEEMS TO BE HAPPY TO DELIVER HERE IN [place] GROUP B STREP CULTURE DONE TODAY SCHEDULED FOR AT 39 WEEKS/NEXT WEEK RBAI OF RPT CS DW PT AT LENGTH TO INCL BUT NOT LIMITED TO BLEEDING TRANSFUSION INFX ANESTHESIA INJURY TO SURROUNDING TISSUES OR NEED FOR MORE EXTENSIVE SURGERY. VOICES UNDERSTANDING AND DESIRES TO PROCEED. CONSENT SIGNED AND ON CHART. documented in this encounter [facility] 05-07-2024 Miscellaneous Notes Pt called office with complaints of pelvic pressure as well as pain at the top of her belly. Pt reports she has been experiencing this for the last few days and is unsure if it could be contractions or not. Pt has not been seen since 04/09/24, and since she will be a repeat C/Section, advised pt to present to L&D for evaluation. documented in this encounter [facility] 05-07-2024 Telephone encounter Note Pt called office with complaints of pelvic pressure as well as pain at the top of her belly. Pt reports she has been experiencing this for the last few days and is unsure if it could be contractions or not. Pt has not been seen since 04/09/24, and since she will be a repeat C/Section, advised pt to present to L&D for evaluation. [facility] 04-15-2024 Miscellaneous Notes Patient called stating she works 3 days per week & she is having too much pain & exhaustion) and would like to start her maternity leave on 04/21/24. Patient instructed any time taken off prior to delivery counts as her 12 weeks. Patient voiced understanding. I informed her I would check with our provider to see if you are will to sign the paperwork for her to start 04/21/24. Please advise. Thank you. As long as patient realizes she will likely only get 6 weeks off after delivery. LVM for patient to return my call Patient returned my call. Patient voiced understanding. Patient notified she needs to check with her employer/HR as to what paperwork they would need completed. Patient voiced understanding. documented in this encounter [facility] 04-15-2024 Telephone encounter Note Patient called stating she works 3 days per week & she is having too much pain & exhaustion) and would like to start her maternity leave on 04/21/24. Patient instructed any time taken off prior to delivery counts as her 12 weeks. Patient voiced understanding. I informed her I would check with our provider to see if you are will to sign the paperwork for her to start 04/21/24. Please advise. Thank you. [facility] 04-15-2024 Telephone encounter Note As long as patient realizes she will likely only get 6 weeks off after delivery. [facility] 04-15-2024 Telephone encounter Note LVM for patient to return my call [facility] 04-15-2024 Telephone encounter Note Patient returned my call. Patient voiced understanding. Patient notified she needs to check with her employer/HR as to what paperwork they would need completed. Patient voiced understanding. [facility] 04-09-2024 History of Presen t illness Narrative Routine OB Visit 33 y.o. at 33w3d. Positive movement. No contractions, vaginal bleeding or leaking of fluid. No headaches or swelling. Patient does not yet have a breast pump, will call her insurance. She has not done 28 week labs, states she will go this Sunday. Growth scans recommended every 4 weeks and order given for patient to get one scheduled for this week. She has a f/u with MFM on 05/13/24. Weekly NSTs / AFIs to begin at 36 weeks, ordered. Patient desires TOLAC. Vitals: 04/09/24 1027 BP: 124/80 Weight: 96.9 kg (213 lb 9.6 oz) complicated by: Patient Active Problem List Diagnosis Vapes nicotine containing substance History of delivery, currently Hx of pre-eclampsia in prior , currently Obesity affecting History of elective x 3 Bacterial vaginosis in Insufficient care 1. Reviewed warning signs of including signs of labor and preeclampsia. 2. Encouraged FKC twice daily. Pt to notify provider if criteria not met or if FM decreases by 50%. 3. Referral to [facility] placed. 4. Patient declines Tdap. 5. Educational information given. 6. Questions answered. 7. Next visit 2 weeks at [facility]. DELFINA Jordan 04/09/24 1051 documented in this encounter [facility] 03-28-2024 History of Presen t illness Narrative Routine OB visit SUBJECTIVE Ramya Last is a 33 y.o. at 31w5d by LMP=17 wk us She denies cramping, contractions, or abdominal pain She denies vaginal bleeding, vaginal discharge, or loss of fluid. movement: present OBJECTIVE Current Medications: Current Outpatient Medications: aspirin 81 mg chewable tablet, Chew 1 tablet (81 mg total) and swallow in the morning., Disp: 90 tablet, Rfl: 1 45-fjmn-[id number] 9-dha 31 mg iron- 1 mg-200 mg capsule, Take 1 capsule by mouth in the morning., Disp: 90 capsule, Rfl: 3 Vitals BP 122/64 Wt 95.1 kg (209 lb 9.6 oz) LMP 08/15/2023 (Approximate) BMI 34.88 kg/m See OB flowsheet Labs ABO/Rh: No results found for: ABORH Group B Strep: Lab Results Component Value Date CULTURE 10-50,000 ORGANISMS/mL NORMAL UROGENITAL ERICK 01/28/2024 Hepatitis B Surface Antigen: Lab Results Component Value Date HEPBSAG Negative 01/28/2024 Rubella: Lab Results Component Value Date RUBELLAIMMU 2.7 01/28/2024 Varicella Lab Results Component Value Date VARIGG 5.2 (H) 01/28/2024 HIV: Lab Results Component Value Date HIV4 Non-Reactive 01/28/2024 RPR (VDRL): Lab Results Component Value Date SYPHILISTOT <0.2 01/28/2024 Physical Exam: General: Patient is well-appearing, alert, oriented, and in no distress Abd: soft, non-tender, gravid Ext: no edema FHT: 144 Fundal height: 32 cm ASSESSMENT & PLAN 33 y.o. @ 31w5d, SINCERE 05/25/2024, by Ultrasound presents for routine OB visit 1. 31 weeks gestation of Needs 28 week labs drawn - Syphilis Total(Unknown Syphilis Status); Future - CBC without diff; Future - Glucose 1h post 50g load; Future 2. History of delivery, currently Pt is considering vs scheduled rpt C/S. Discussed transfer of care to [facility] for delivery at [facility] if she would like . Risks and benefits were discussed with pt at MFM visit 3. Hx of pre-eclampsia in prior , currently Continue daily ASA Baseline HTN labs obtained. - Protein creat ratio; Future 4. Third trimester - Syphilis Total(Unknown Syphilis Status); Future - CBC without diff; Future - Glucose 1h post 50g load; Future 5. Insufficient care in third trimester MFM US (02/22/24) FHR 143, cephalic, posterior placenta, DVP 4.65 cm, EFW 39%tile. Survey incomplete due to position. Follow up survey needs to be scheduled. Then growth US Q4wk. S/p MFM consultation (02/21/24) Recommendations: If the patient continues to be interested in a or desires delivery at [facility] please transfer her care Please obtain the records for her delivery and verify the reason for the as well as the type of the incision she has The patient is scheduled in 4 weeks for anatomy completion Serial growth ultrasounds every 4 weeks recommended after anatomy completion and this can be done through OB office testing to be initiated at 36 weeks weekly NST and weekly DVP - to be scheduled through OB office Delivery at or after 39 weeks or sooner if clinically indicated Monitor for signs and symptoms of preeclampsia If the patient is still vaping please strongly recommend cessation Pt to get 28 wk labs drawn and call to schedule follow-up anatomy US Continue to monitor FKC RTO in 2 week(s) - DELFINA Page 03/28/24 11:05 AM DELFINA Dominguez 03/28/24 1143 documented in this encounter [facility] 02-21-2024 History of Presen t illness Narrative [facility] Consult Note Reason For Consult: History of a section, history of preeclampsia HPI: Ramya Last is a 33 y.o. at 26w4d with Estimated Date of Delivery: 05/25/24 who presented for consultation from Aleyda Hung APRN-CNP regarding Chief Complaint Patient presents with Hx c/s Hx pre-e I have reviewed the pertinent available patient records including but not limited to notes, labs and images She presents today with her partner. She reports that she is doing well. She reports normal movements and she denies leakage of fluid, contractions or vaginal bleeding. She denies fever, chills, nausea, vomiting, shortness of breath, chest pain, headache, blurry vision, right upper quadrant pain or edema. Complications: Hx of CSx1 calculator 59% Hx of preeclampsia - on low dose aspirin; Delivery was up in [facility]; the patient tells me that she had an emergency section and induction was not started; records are not available. She did not require an antihypertensive medication and does not recall requiring magnesium sulfate Umbilical hernia - denies N+V, has normal bowel function. Plans for postdelivery evaluation Opted out of genetic screening Denies family history of: Learning difficulties, congenital anomalies, DVT/VTE, early-onset cancer, early-onset cardiac disease or other inherited conditions Denies smoking, alcohol or other substance use in Recent hospitalization: no Review of systems: Review of systems was noncontributory OB Hx: OB History Para Term AB Living 5 1 1 3 1 SAB IAB Ectopic Multiple Live Births 1 # Outcome Date GA Lbr Willem/2nd Weight Sex Type Anes PTL Lv 5 Current 4 Term 01/18/14 40w0d 2.92 kg M Spinal N KASIE Complications: Failure to Progress in First Stage, Preeclampsia 3 AB 2 AB 1 AB PMH: Past Medical History: Diagnosis Date Preeclampsia 2013 PSHIST: Past Surgical History: Procedure Laterality Date SECTION INDUCED x 3 Allergies: No Known Allergies Meds: Prior to Admission medications Medication Sig Start Date End Date Taking? Authorizing Provider aspirin 81 mg chewable tablet Chew 1 tablet (81 mg total) and swallow in the morning. 01/29/24 DELFINA Jordan 23-hphl-qrcwug 9-dha 31 mg iron- 1 mg-200 mg capsule Take 1 capsule by mouth in the morning. 10/04/23 DELFINA Jordan SH: Social History Socioeconomic History Marital status: Single Spouse name: Not on file Number of children: Not on file Years of education: Not on file Highest education level: Not on file Occupational History Not on file Tobacco Use Smoking status: Former Types: Cigarettes, Cigars Smokeless tobacco: Never Vaping Use Vaping status: Former Substances: Nicotine Devices: Disposable Substance and Sexual Activity Alcohol use: Not Currently Drug use: Not Currently Types: Marijuana Comment: LAST TIME USE 2 MONTHS AGO Sexual activity: Yes Partners: Male control/protection: None Other Topics Concern Not on file Social History Narrative Not on file Social Determinants of Health Financial Resource Strain: Not on file Food Insecurity: No Food Insecurity (02/21/2024) Hunger Screening Food Insecurity - Worry: Never True Food Insecurity - Inability: Never True Transportation Needs: Not on file Physical Activity: Not on file Stress: Not on file Social Connections: Not on file Interpersonal Safety: Not on file Housing Instability: Not on file Physical Exam: Vital Signs Vitals: 02/21/24 1302 BP: 125/77 Pulse: 81 Physical Exam: Gen: Not in acute distress, alert and oriented. Eyes: Pupils equal and reactive Chest: Nonlabored breathing Cardiac: Pulse was regular on vital signs assessment Abdomen: Gravid. Umbilical hernia present. Reducable. No signs of incarcerated hernia. Skin/extremities: Appears intact. No visible lesions MS:no visible edema Neuro: No focal deficits Notes/Imaging/Labs reviewed Hospital Outpatient Visit on 01/28/2024 Component Date Value Ref Range Status Urine creatinine 01/28/2024 265.74 mg/dL Final Amphetamine/methamphetamine 01/28/2024 Negative Negative^Negative Final AMPH/METH screening cut off = 1000 ng/mL Barbiturate Screen, Ur 01/28/2024 Negative Negative^Negative Final Barbiturates screening cut off value = 200 ng/mL Benzodiazepine Screen, Urine 01/28/2024 Negative Negative^Negative Final Benzodiazepines screening cut off value = 200 ng/mL THC, urine 01/28/2024 Positive (A) Negative^Negative Final Comment: Confirmation available upon request. Cannabinoids/THC screening cut off value = 50 ng/mL Cocaine (metabolite) 01/28/2024 Negative Negative^Negative Final Cocaine screening cut off value = 300 ng/mL Opiate Quant, Ur 01/28/2024 Negative Negative^Negative Final Comment: Opiates screening cut off value = 300 ng/mL NOTE: This test is used for the detection of codeine, hydrocodone (>1000 ng/mL), morphine and hydromorphone (>900 ng/mL) in urine. Phencyclidine 01/28/2024 Negative Negative^Negative Final Phencyclidine screening cut off value = 25 ng/mL Oxycodone 01/28/2024 Negative Negative^Negative Final Comment: Oxycodone screening cut off value = 300 ng/mL NOTE: This test is used for the detection of oxycodone and oxymorphone in urine. Methadone 01/28/2024 Negative Negative^Negative Final Methadone screening cut off value = 300 ng/mL. Ecstasy 01/28/2024 Negative Negative^Negative Final Comment: Ecstasy screening cut off value = 500 ng/mL This report is intended for use in clinical monitoring or management of patients. Color 01/28/2024 YELLOW YELLOW^YELLOW Final Turbidity 01/28/2024 HAZY (A) CLEAR^CLEAR Final Specific gravity 01/28/2024 1.026 1.003 - 1.035 Final Nitrite 01/28/2024 Negative Negative^Negative Final Ph urine 01/28/2024 7.5 5.0 - 8.5 Final Leukocyte esterase 01/28/2024 Negative Negative^Negative Final Protein 01/28/2024 30 (A) Negative^Negative mg/dL Final Glucose, Ur 01/28/2024 Negative Negative^Negative mg/dL Final Ketones urine 01/28/2024 Trace (A) Negative^Negative mg/dL Final Urobilinogen 01/28/2024 <1.1 <1.1 eu/dL Final Bilirubin, urine 01/28/2024 Negative Negative^Negative Final Hemoglobin 01/28/2024 Negative Negative^Negative Final Amorphous sediment 01/28/2024 PRESENT (A) NONE^NONE Final Mucus, UA 01/28/2024 PRESENT (A) NONE^NONE Final RBC 01/28/2024 1 0 - 5 /hpf Final Squamous epithelium 01/28/2024 4 0 - 5 /hpf Final WBC 01/28/2024 3 0 - 5 /hpf Final Culture 01/28/2024 10-50,000 ORGANISMS/mL NORMAL UROGENITAL ERICK Final ABO 01/28/2024 B Final RH 01/28/2024 Positive Final Antibody Screen 01/28/2024 Negative Final Uric Acid 01/28/2024 3.1 2.6 - 7.2 mg/dL Final White Blood Cells 01/28/2024 7.3 4.0 - 11.0 X10E9/L Final RBC count 01/28/2024 3.64 (L) 3.80 - 5.20 X10E12/L Final Hemoglobin 01/28/2024 10.7 (L) 11.7 - 15.5 g/dL Final Hematocrit 01/28/2024 31.4 (L) 35 - 47 % Final MCV 01/28/2024 86 80 - 100 fL Final MCH 01/28/2024 29.5 27 - 34 pg Final MCHC 01/28/2024 34.2 32 - 36 g/dL Final RDW 01/28/2024 13.4 11.5 - 15.0 % Final Platelets 01/28/2024 289 150 - 450 X10E9/L Final MPV 01/28/2024 8.2 7 - 12 fL Final LDH 01/28/2024 160 100 - 235 U/L Final Sodium 01/28/2024 137 134 - 146 mmol/L Final Potassium, Bld 01/28/2024 3.7 3.5 - 5.0 mmol/L Final Chloride 01/28/2024 105 98 - 109 mmol/L Final CO2 01/28/2024 23 22 - 32 mmol/L Final Anion gap 01/28/2024 9 5 - 15 mmol/L Final BUN 01/28/2024 5 5 - 23 mg/dL Final Creatinine 01/28/2024 0.57 0.40 - 1.00 mg/dL Final METHOD TRACEABLE TO IDMS STANDARD Glucose 01/28/2024 79 65 - 99 mg/dL Final Calcium 01/28/2024 8.7 8.5 - 10.5 mg/dL Final Total Protein 01/28/2024 6.3 6.0 - 8.0 g/dL Final Albumin 01/28/2024 3.5 3.2 - 5.3 g/dL Final Alkaline Phosphatase 01/28/2024 65 39 - 130 U/L Final AST 01/28/2024 15 0 - 41 U/L Final ALT 01/28/2024 11 0 - 31 U/L Final Total bilirubin 01/28/2024 0.4 0.3 - 1.2 mg/dL Final eGFR (CKD-EPI)non-race dependent 01/28/2024 >90 >59 ml/min/1.73sq.m Final Comment: Reported eGFR is based on the CKD-EPI 2020 equation that does not use a race coefficient. Varicella IgG 01/28/2024 5.2 (H) <0.9 AI Final Comment: Interpretation-------- <0.9 Negative 0.9 - 1.0 Equivocal >1.0 Positive Syphilis Total 01/28/2024 <0.2 0.0 - 0.8 AI Final Comment: NON REACTIVE No serologic evidence of infection to Treponema pallidum (syphilis). Repeat testing may be considered in patients with suspected acute or primary syphilis in 2 to 4 weeks. Rubella immune IgG 01/28/2024 2.7 AI Final Comment: Interpretation-------- <0.8 NEGATIVE-considered Not Immune 0.8-0.9 EQUIVOCAL-consider retesting with new specimen >0.9 POSITIVE-considered Immune HIV 1&2 AB/AG 01/28/2024 Non-Reactive Non-Reactive^Non-Reactive Final Comment: This information has been disclosed to you from confidential records protected from disclosure by state law. You shall make no further disclosure of this information without the specific, written and informed release of the individual to whom it pertains, or as otherwise permitted by state law. A general authorization for the release of medical or other information is not sufficient for the purpose of the release of HIV test results or diagnoses. Hepatitis B Surface Ag 01/28/2024 Negative Negative^Negative Final Hep B Core IgM Ab 01/28/2024 Negative Negative^Negative Final Hep A IgM Ab 01/28/2024 Non-Reactive Non-Reactive^Non-Reactive Final Anti HCV w/ PCR reflex 01/28/2024 Non-Reactive Non-Reactive^Non-Reactive Final Comment: If recent infection suspected, recommend repeat testing (>2 months). Bdcpdf-[id number]-[id number] ratio is <0.80. ABO 01/28/2024 B Final RH 01/28/2024 Positive Final Ultrasound findings Pertinent Ultrasound findings are see report Assessment/Plan 33 y.o. @ at 26w4d with Estimated Date of Delivery: 05/25/24 here for consultation regardin. 26 weeks gestation of 2. History of delivery, currently Tohja and partner are interested in . calculator 59% provided there was no arrest of labor disorder at prior delivery. Records not available We had a long conversation regarding risks and benefits of a versus repeat section. Benefits of vaginal delivery were reviewed with the patient in detail including but not limited to lower risk for bleeding, faster recovery time, avoidance of surgery. Risks of section were discussed in detail including but not limited to bleeding, infection, scar tissue, abnormal placentation, scar , need for further surgery, hysterectomy. Risks of were reviewed. Discussed with the patient risk of a uterine rupture if she has a low transverse section that is 1 in 200. I do not have the operative note. The delivery was done at term. Please obtain operative note to verify scar. I discussed with the patient that depending on the type of the incision she had on the uterus she may or may not qualify for a . Please obtain those records Discussed with the patient risks of uterine rupture to her and the baby. Reviewed that uterine rupture can be associated with significant maternal morbidity and mortality as well as significant risk for morbidity to the fetus including temporary or permanent neurological injury, as well as . The patient desires to further think about if she is interested in . She would like to further talk to her OB. Her and her partner also expressed potential desire for delivery at [facility]. Please continue to address with the patient. Please transfer care if she desires or delivery at [facility] 3. Hx of pre-eclampsia in prior , currently The patient is on low-dose aspirin for preeclampsia prevention. Her blood pressure today is normal and she denies signs and symptoms of preeclampsia Reviewed with the patient that she has a high-risk for preeclampsia to reoccur. Discussed with the patient the pathophysiology of preeclampsia and difference between preeclampsia with or without severe features. I also reviewed that if she develops preeclampsia that can change timing of delivery. Discussed with the patient signs and symptoms of preeclampsia and I gave her education. We also reviewed current evidence on vitamin-D, calcium and probiotics as well as salt intake. Discussed with the patient that she has high-risk for cardiovascular disease in the future and therefore overall close follow-up with the PCP recommended Reviewed aneuploidy testing that could be performed during . I explained that definitive testing can be obtained by an amniocentesis, which has a 1/800 risk of loss. We also discussed noninvasive screening via cell free DNA testing. Limitations of cell free DNA reviewed. The patient opted out of aneuploidy screening and testing Has umbilical hernia and desires postdelivery evaluation. Given education on red flags symptoms with umbilical hernia and when to seek care Recommendations: Opted out of aneuploidy screening and testing Continue low-dose aspirin for preeclampsia prevention If the patient continues to be interested in a or desires delivery at [facility] please transfer her care Please obtain the records for her delivery and verify the reason for the as well as the type of the incision she has The patient is scheduled in 4 weeks for anatomy completion Serial growth ultrasounds every 4 weeks recommended after anatomy completion and this can be done through OB office testing to be initiated at 36 weeks weekly NST and weekly DVP - to be scheduled through OB office Delivery at or after 39 weeks or sooner if clinically indicated Monitor for signs and symptoms of preeclampsia If the patient is still vaping please strongly recommend cessation If you if you have any questions or concerns please reach out to [facility] Plan reviewed with patient. She vocalized understanding all questions answered. The patient is to continue with routine care in your office Thank you for allowing me to participate in her care. Please contact me if you have any concerns. Tabby Womack MD, FACOG (she/hers) Maternal- Medicine [facility] [address] [place] [address] [facility], the CDC, and other organizations representing maternal and public health professionals recommend that , , and lactating people and those considering receive the COVID-19 vaccination. Vaccination is the best method to reduce maternal and complications of SARS-CoV-2 infection. This document was created with qLearning technology. Though I make every effort to review the dictation as it is transcribed, on occasion the spoken word can be misinterpreted by the technology leading to inappropriate words, phrases, or sentences. This note is addressed to the requesting provider as a consultation for clinical guidance. Specific medical abbreviations are occasionally used and those are generally approved by the [place]?Board of?Obstetrics and?Gynecology?as well as?Priyanka lowery abbreviations. The above plan of care was based solely on the diagnoses for which a consultation was requested. ?More frequent testing may be indicated based on her other medical/obstetrical conditions. The management of other or medical conditions is beyond the scope of requested consultation and will continue to be followed by the primary artificial flowers starcher or primary care provider. Note to patient: The Century Cures Act makes medical notes like these available to patients in the interest of transparency. However, be advised this is a medical document. It is intended as peer to peer communication. It is written in medical language and may contain abbreviations or verbiage that are unfamiliar. It may appear blunt or direct. Medical documents are intended to carry relevant information, facts as evident, and the clinical opinion of the practitioner. Headache/epigastric pain/blurry vision/swelling? no Cramping/contractions? no Abnormal vaginal discharge? no Spotting/vaginal bleeding? no Loss of fluid like your water may have broken? no Cats in the home? no Do you change the litter box? Flu vaccine? no Genetic testing done this here or other office? no Have you been seen here at [facility] in a previous ? no Recent ER visits or hospitalizations? no Bring blood sugar log or meter with you today? (Please bring them with you for every visit at [facility]) n/a Traveled outside the country in the past 6 month no Any concerns that you would like me to mention to the provider today? C/s vs. v hoda Patient complains of umbilical hernia and increased pain when walking. Patient uses a belly band. documented in this encounter [facility] 01-29-2024 History of Presen t illness Narrative Initial visit 33 y.o. at 23w6d. Telephone OB intake and video visit with provider done on 10/04/23. Patient denies cramping, vaginal bleeding, loss of fluid. She is feeling good movement. Tolerating regular diet without emesis. Patient reports an intermittent bulge and discomfort at her umbilicus. Patient has not yet been seen in this , states she was having transportation issues that have now resolved. S/O present with patient today. Vitals: 01/29/24 1255 BP: 118/68 Weight: 90.4 kg (199 lb 6.4 oz) complicated by: Patient Active Problem List Diagnosis Vapes nicotine containing substance History of delivery, currently Hx of pre-eclampsia in prior , currently Obesity affecting History of elective x 3 Bacterial vaginosis in Insufficient care 1. Reviewed danger signs. 2. Discussed genetic testing. Patient declines. 3. physical complete and pap / cultures collected. 4. Reviewed labs. Cessation of marijuana recommended. 5. survey / MFM consult ordered. 6. Baby asa started for hx preeclampsia. 7. Educational information given. 8. Questions answered 9. Return 4 weeks. DELFINA Jordan 01/29/24 1331 documented in this encounter [facility] 01-02-2024 Miscellaneous Notes LVM for Pt to call Office to reschedule missed OB appointment. documented in this encounter [facility] 01-02-2024 Telephone encounter Note LVM for Pt to call Office to reschedule missed OB appointment. [facility] Evaluation note No assessment inform ation available [facility] Work Phone: Evaluation note Diagnosis Pap smear, as part of routine gynecological examination Screening for malignant neoplasm of the cervix Encounter for follow-up ultrasound of anatomy- Primary [facility] Diagnosis Pap smear, as part of routine gynecological examination Screening for malignant neoplasm of the cervix 26 weeks gestation of - Primary History of delivery, currently Hx of pre-eclampsia in prior , currently [facility] Diagnosis 31 weeks gestation of - Primary History of delivery, currently Hx of pre-eclampsia in prior , currently Third trimester state, incidental Insufficient care in third trimester [facility] Diagnosis Third trimester - Primary state, incidental Hx of pre-eclampsia in prior , currently Desires (vaginal after ) trial Previous delivery, unspecified as to episode of care or not applicable [facility] Diagnosis care, third trimester- Primary care, third trimester [facility] Diagnosis Delivery of by section- Primary Delivery of by section Normal intrauterine in third trimester care following delivery Obesity affecting Iron deficiency anemia secondary to inadequate dietary iron intake hypertension [facility] Diagnosis hypertension- Primary [facility] Diagnosis Second trimester - Primary state, incidental Pap smear, as part of routine gynecological examination Screening for malignant neoplasm of the cervix Hx of preeclampsia, prior , currently with other poor obstetric history [facility] Diagnosis Encounter for initial prescription of contraceptive pills- Primary General counselling and advice on contraception Does not have primary care provider [facility] Diagnosis Well woman exam with routine gynecological exam- Primary Routine gynecological examination Standardized adult depression screening tool completed Initial encounter for management of contraceptive patch use Acute vaginitis Unspecified vaginitis and vulvovaginitis Screening for STD (sexually transmitted disease) documented [facility] Diagnosis Bacterial vaginosis- Primary Unspecified vaginitis and vulvovaginitis [facility] Additional Instructions May take verv-vft-[id number] Tylenol and/or ibuprofen as needed for sore throat Frequent warm salt water gargles Throat lozenges May take ijda-wts-kgicfrp cough and cold medication decongestant to help with any runny nose Follow-up with family doctor as needed Return to the ER for difficulty breathing high fever vomiting or any other concerns[facility] Work Phone: InstructionsNot on filedocumented in this encounter [facility]* Attachments The following attachments cannot be sent through Care Everywhere. * Preeclampsia ([place]) * Movement ([place]) [facility] SystemInstructionsNot on file documented in this encounterN[facility] SystemInstructions* Attachments The following attachments cannot be sent through Care Everywhere. * Vaginal after a ([place]) * Vaginal After ([place]) documented in this encounterPro[facility] SystemInstructionsNot on file documented in [facility] encounterMar[facility] Log[facility] Therapeutics SystemInstructionsNot on file documented in this encounterMarion [facility] Logical Therapeutics SystemInstructionsNot on file documented in this encounterProUab [facility] Health SystemInstructionsNot on file documented in this encounterProUab [facility] Health SystemInstructionsNot on file documented in this encounterNationwide [facility] SystemInstructions* Attachments The following attachments cannot be sent through Care Everywhere. * The Sixth Month ([place]) * Umbilical Hernia, Adult ([place]) documented in this encounterNationwide [facility] SystemInstructions* Attachments The following attachments cannot be sent through Care Everywhere. * Drospirenone, ADULT ([place]) * High blood pressure in adults ([place]) documented in this encounterNationwide [facility] SystemInstructions* Attachments The following attachments cannot be sent through Care Everywhere. * Ethinyl Estradiol and Levonorgestrel, ADULT ([place]) * Vaping ([place]) documented in this encounterNationwide Children[facility] Hospital SystemInstructionsNot on file documented in this encounterNationwide Children's Hospital SystemReason for referral (narrative)* Consultation (Routine) - Pending Review Specialty Diagnoses / Procedures Referred By Christal t Referred To Contact Obstetrics and Gynecology Diagnoses Desires (vaginal after ) trial Aleyda Magaña APRN-JANET [address] [place] [address] [facility] [address] [place] [address] Referral ID Status Reason Start Date Expiration Date Visits Requested Visits Authorized [id number] Pending Review Specialty Services Required 04/09/2024 04/09/2025 1 1 * OBGYN (Routine) - Pending Review Specialty Diagnoses / Procedures Referred By Contac t Referred To Contact Diagnoses Hx of pre-eclampsia in prior , currently Third trimester Procedures nonstress test Aleyda Magaña APRN-JANET [address] [place] [address] Referral ID Status Reason Start Date Expiration Date V isits Requested Visits Authorized [id number] Pending Review 04/09/2024 04/09/2025 5 5 [facility] Consultation (Routine) - Pending Review Specialty Diagnoses / Procedures Referred By Contac t Referred To Contact Diagnoses Does not have primary care provider Aleyda Elam APRN-CNP [address] [place] [address] Referral ID Status Reason Start Date Expiration Date V isits Requested Visits Authorized [id number] Pending Review 07/16/2024 07/16/2025 1 1 [facility] Chief Complaint and Reason for Visit Chief Complaint sore throat Advance Directives Date Activated Date Inactivated Comments 05/19/2024 9:07 AM 05/22/2024 7:29 PM Date Activated Date Inactivated Comments 05/12/2024 6:30 PM 05/12/2024 9:08 PM Advance Directive Response Recorded Date/ Time Advance Directives No September 1:46pm Date Activated Date Inactivated Comments 05/12/2024 6:30 PM Date Activated Date Inactivated Comments 05/19/2024 9:07 AM Date Activated Date Inactivated Comments 05/19/2024 9:07 AM 05/22/2024 7:29 PM Date Activated Date Inactivated Comments 05/12/2024 6:30 PM 05/12/2024 9:08 PM Summary Purpose Family History No Family History Records FoundNo Family History Records FoundNo Family History Records FoundNo Family History Records Found Reason for Referral Specialty Diagnoses / Procedures Referred By Contac t Referred To Contact Maternal and Medicine Diagnoses Encounter for follow-up ultrasound of anatomy Procedures US MF with or without consult Tabby Womack MD [address] [facility] [address] [address] [facility] [address] [place] [address] Referral ID Status Reason Start Date Expiration Date V isits Requested Visits Authorized [id number] Pending Review 02/21/2024 02/20/2025 1 1 Specialty Diagnoses / Procedures Referred By Contac t Referred To Contact Maternal and Medicine Diagnoses Second trimester Procedures US [facility] with or without consult Aleyda Magaña, PERFECT BIND MACHINE OPERATOR-FIELD LOGISTICS COORDINATOR [address] [place] [address] [facility] [address] [place] [address] Referral ID Status Reason Start Date Expiration Date V isits Requested Visits Authorized [id number] Pending Review 01/29/2024 01/28/2025 1 1 Additional Source Comments Care Teams (unrecognized sec tion and content) Team Status: Inactive Member Role Status Dates PHYSICIAN NO FAMILY Primary Care Provider Active Diana Solano , DUPLIGRAPH OPERATOR-BC Emergency Provider Active Team Status: Active Member Role Status Dates PHYSICIAN NO FAMILY Primary Care Provider Active Book Binder Relationship Specialty Start Date End Date No Pcp, [place] [address] PCP - General Family Medicine 01/28/24 Book Binder Relationship Specialty Start Date End Date No Pcp, [place] [address] PCP - General Family Medicine 01/28/24 Book Binder Relationship Specialty Start Date End Date No Pcp, [place] [address] PCP - General Family Medicine 01/28/24 Book Binder Relationship Specialty Start Date End Date No Pcp, [place] [address] PCP - General Family Medicine 01/28/24 Book Binder Relationship Specialty Start Date End Date No Pcp, [place] [address] PCP - General Family Medicine 01/28/24 Book Binder Relationship Specialty Start Date End Date No Pcp, [place] [address] PCP - General Family Medicine 01/28/24 Book Binder Relationship Specialty Start Date End Date No Pcp, [place] [address] PCP - General Family Medicine 01/28/24 Book Binder Relationship Specialty Start Date End Date No Pcp, [place] [address] PCP - General Family Medicine 01/28/24 Book Binder Relationship Specialty Start Date End Date No Pcp, [place] [address] PCP - General Family Medicine 01/28/24 Book Binder Relationship Specialty Start Date End Date No Pcp, [place] [address] PCP - General [facility] Medicine 01/28/24 Goals (unrecognized section and content) Goals may be documented in a n alternate sectionNot on filedocumented as of this encounterNot on filedocumented as of this encounterNot on filedocumented as of this encounterNot on filedocumented as of this encounterNot on filedocumented as of this encounterNot on filedocumented as of this encounterNot on filedocumented as of this encounterNot on filedocumented as of this encounterNot on filedocumented as of this encounterNot on filedocumented as of this encounterNot on filedocumented as of this encounterNot on filedocumented as of this encounterNot on filedocumented as of this encounterNot on filedocumented as of this encounterNot on filedocumented as of this encounterNot on filedocumented as of this encounterNot on filedocumented as of this encounter INFORMATION SOURCE (unrecogn ized section and content) DATE CREATED AUTHOR 03/24/2023 [facility] DATE CREATED AUTHOR AUTHOR'S ORGANIZ ATION 05/14/2024 [facility] DATE CREATED AUTHOR AUTHOR'S ORGANIZ ATION 05/27/2024 [facility] DATE CREATED AUTHOR AUTHOR'S ORGANIZ ATION 04/12/2025 [facility] Reason for Visit (unrecogniz ed section and content) Reason Comments Hx c/s Hx pre-e Reason Comments Routine Visit Reason Comments Routine Visit Reason Comments Non-stress Test Scheduled C/S Specialty Diagnoses / Procedures Referred By Contac t Referred To Contact Diagnoses Intrauterine Previous section repeat Procedures MD C-SEC ONLY,PREV C-SEC REPEAT Ekaterina Spears MD [address] [place] [address] Referral ID Status Reason Start Date Expiration Date Visits Re quested Visits Authorized [id number] 1 1 Reason Comments Care Reason Comments Initial Visit Reason Comments Contraception Reason Comments Annual Exam Scheduled Active and Recently Administ ered Medications (unrecognized section and content) Medication Order 05/20/2024 05/21/2024 05/22/2024 acetaminophen (TYLENOL EXTRA STRENGTH) tablet 1,000 mg 1,000 mg, oral, Every 8 hours, First dose (after last modification) on Sun05/19/24 at 2300, , Alternate administration every 4 hours with ketorolac or ibuprofen, Indications: fever, headache disorder, pain 0723 (Given - Provider: Maria Eugenia Nye RN)1504 (Given - Provider: Maria Eugenia Nye RN)2304 (Given - Provider: Fadumo Ragland RN) 0723 (Given - Provider: Maria Eugenia Nye RN)1515 (Given - Provider: Maria Eugenia Nye RN)2305 (Given - Provider: Gris Tay, MAI) 0700 (Given - Provider: Gris Tay, MAI)1518 (Given - Provider: Mindi Herrera RN)2300 (Due) docusate sodium (COLACE) capsule 100 mg 100 mg, oral, 2 times daily, First dose on Sun05/19/24 at 1400, , Look-alike/sound-alike medication - verify indication for use. 0810 (Given - Provider: Maria Eugenia Nye, MAI)210 (Given - Provider: Fadumo Ragland RN) 0922 (Given - Provider: Maria Eugenia Nye RN)2132 (Given - Provider: Gris Tay, RN) 0814 (Given - Provider: Mindi Herrera, RN)2100 (Due) enoxaparin (LOVENOX) syringe 40 mg 40 mg, subcutaneous, Every 24 hours scheduled, First dose on Sun05/20/24 at 0800, For 3 days, , Look-alike/sound-alike medication - verify indication for use. 0725 (Given - Provider: Maria Eugenia Nye RN) 0628 (Given - Provider: Fadumo Ragland RN) 0815 (Not Given - Provider: Mindi Herrera RN - Reason: Patient/family refused - Comment: Patient declines; medicine already opened so it was wasted.) ferrous sulfate tablet 325 mg 325 mg, oral, Daily with breakfast, First dose on Sun05/21/24 at 0800, Give ferrous sulfate 2 hours before or 4 hours after antacids. 0923 (Given - Provider: Maria Eugenia Nye RN) 0815 (Given - Provider: Mindi Herrera, MAI) ibuprofen (MOTRIN) tablet 800 mg(Linked Group 1) 800 mg, oral, Every 8 hours, First dose on Sun05/20/24 at 1900, , Alternate administration every 4 hours with acetaminophen Look-alike/sound-alike medication - verify indication for use. Take/Give with food or milk. 1906 (Given - Provider: Fadumo Ragland RN) 0300 (Given - Provider: Fadumo Ragladn RN)1044 (Given - Provider: Maria Eugenia Nye, MAI)1904 (Given - Provider: Maria Eugenia Nye RN) 0302 (Given - Provider: Gris Tay, RN)1129 (Given - Provider: Mindi Herrera, MAI)1900 (Due) ketorolac (TORADOL) injection 30 mg (COMPLETED)(Linked Group 1) 30 mg, intravenous, Every 8 hours, First dose on Sun05/19/24 at 1900, For 24 hours, , Alternate administration every 4 hours with acetaminophen Look-alike/sound-alike medication - verify indication for use. Duration of therapy is not to exceed 5 days. Maximum recommended dose + 120mg/24 hours. 0306 (Given - Provider: Fadumo Ragland RN)1057 (Given - Provider: Maria Eugenia Nye, MAI) NIFEdipine XL (PROCARDIA XL) 24 hr tablet 30 mg (CANCELED) 30 mg, oral, Every 24 hours scheduled, First dose on Sun05/20/24 at 1545, Look-alike/sound-alike medication - verify indication for use. Swallow whole-do not split, crush, or chew. Avoid grapefruit juice. 1559 (Given - Provider: Maria Eugenia Nye RN) 0924 (Given - Provider: Maria Eugenia Nye, RN) NIFEdipine XL (PROCARDIA XL) 24 hr tablet 30 mg (COMPLETED) 30 mg, oral, Once, On Sun05/21/24 at 1145, For 1 dose, Look-alike/sound-alike medication - verify indication for use. Swallow whole-do not split, crush, or chew. Avoid grapefruit juice. 1245 (Given - Provider: Maria Eugenia Nye, MAI) NIFEdipine XL (PROCARDIA XL) 24 hr tablet 60 mg 60 mg, oral, Every 24 hours scheduled, First dose (after last modification) on Sun05/22/24 at 0900, Look-alike/sound-alike medication - verify indication for use. Swallow whole-do not split, crush, or chew. Avoid grapefruit juice. 0924 (Given - Provider: Mindi Herrera RN) Continuous Medication Order 05/20/2024 05/21/2024 05/22/2024 lactated ringers infusion 125 mL/hr, intravenous, Continuous, Starting on Sun05/19/24 at 0915, , Start after 4 hour oxytocin (PITOCIN) infusion and lactated ringers infusion is completed. 0015 (New Bag - Provider: Fadumo Ragland RN)0717 (Rate/Dose Verify - Provider: Zoë Argueta RN)0816 (New Bag - Provider: Maria Eugenia Nye RN)1107 (Stop Bag - Provider: Maria Eugenia Nye RN) PRN Medication Order 05/20/2024 05/21/2024 05/22/2024 bisacodyL (DULCOLAX) suppository 10 mg 10 mg, rectal, Once as needed, constipation, no relief from docusate or senna/docusate, Starting on Sun05/20/24 at 0000, For 1 dose, , Start 2nd day Look-alike/sound-alike medication - verify indication for use. carboprost (HEMABATE) injection 250 mcg 250 mcg, intramuscular, Once as needed, hemorrhage management, Starting on Sun05/19/24 at 0857, For 1 dose, , Administer as directed by provider for Hemorrhage management. DO NOT ADMINISTER IV. Contraindicated if patient has a history of asthma or cardiovascular disease diphenhydrAMINE (BENADRYL) injection 12.5 mg 12.5 mg, intravenous, Every 6 hours PRN, itching, if Nubain is ineffective, Starting on Sun05/19/24 at 1253, For 3 doses, PACU & Post-op, Look-alike/sound-alike medication - verify indication for use., Intravenous Specific Administration: IV Push hydrocortisone (ANUSOL-HC) 2.5 % rectal cream 1 Application 1 Application, rectal, As needed, hemorrhoids, Starting on Sun05/19/24 at 1259, , May keep at bedside, Indications: hemorrhoids lactated ringers infusion(Linked Group 2) 83 mL/hr, intravenous, Continuous PRN, post-delivery hemostasis, Starting on Sun05/19/24 at 0857, , Administer for 4 hours. Administer with Oxytocin bolus and infusion lactated ringers infusion 999 mL/hr, intravenous, Continuous PRN, hemorrhage treatment, Starting on Sun05/19/24 at 0857, , Per infusion pump. For hemorrhage treatment, administer as directed by provider for Hemorrhage management miSOPROStoL (CYTOTEC) tablet 1,000 mcg 1,000 mcg, rectal, Once as needed, hemorrhage treatment, Starting on Sun05/19/24 at 0857, For 1 dose, , Administer as directed by provider for Hemorrhage management Look-alike/sound-alike medication - verify indication for use. modified lanolin (LANSINOH) 100 % cream cream 1 Application 1 Application, topical, As needed, sore/cracked nipples, Starting on Sun05/19/24 at 1259, , May keep at bedside nalbuphine (NUBAIN) injection 5 mg 5 mg, intravenous, Every 6 hours PRN, for nausea and/or pruritis, Starting on Sun05/19/24 at 1253, For 3 doses, PACU & Post-op, Look-alike/sound-alike medication - verify indication for use. ondansetron (PF) (ZOFRAN) injection 4 mg 4 mg, intravenous, Every 6 hours PRN, nausea, vomiting, Starting on Sun05/19/24 at 1253, For 3 doses, PACU & Post-op, Administer over 2-5 minutes., Intravenous Specific Administration: IV Push oxyCODONE (ROXICODONE) immediate release tablet 10 mg 10 mg, oral, Every 4 hours PRN, severe pain - pain scale 7-10, breakthrough pain, Starting on Sun05/19/24 at 1259, , Look-alike/sound-alike medication - verify indication for use. Immediate release. 0808 (Given - Provider: Maria Eugenia Nye RN)1602 (Given - Provider: Maria Eugenia Nye RN)2100 (Given - Provider: Fadumo Ragland RN) 0127 (Given - Provider: Fadumo Ragland RN)0513 (Given - Provider: Fadumo Ragland RN)1248 (Given - Provider: Maria Eugenia Nye RN)1702 (Given - Provider: Maria Eugenia Nye RN)2305 (Given - Provider: Gris Tay RN) 0405 (Given - Provider: Gris Tay RN)0816 (Given - Provider: Mindi Herrera RN) oxyCODONE (ROXICODONE) immediate release tablet 5 mg 5 mg, oral, Every 4 hours PRN, moderate pain - pain scale 4-6, breakthrough pain, Starting on Sun05/19/24 at 1259, , Look-alike/sound-alike medication - verify indication for use. Immediate release. oxytocin (PITOCIN) bolus from bag solution 10 Units 10 Units, intravenous, Administer over 30 Minutes, Once as needed, post-delivery hemostasis, Starting on Sun05/19/24 at 0857, For 1 dose, , Administer via programmable pump with lactated ringers solution oxytocin (PITOCIN) infusion 30 units/500 mL in lactated ringers (0.06 units/mL premix)(Linked Group 2) 42 aroldo-units/min (42 mL/hr), intravenous, Continuous PRN, for post-delivery hemostasis, Starting on Sun05/19/24 at 0857, , Administer for 4 hours. Administer via programmable pump with lactated ringers solution 1 mL/hour = 1 aroldo-unit/min oxytocin (PITOCIN) injection 10 Units 10 Units, intramuscular, Once as needed, hemorrhage treatment, Starting on Sun05/19/24 at 0857, For 1 dose, , administer as directed by provider for Hemorrhage management polyethylene glycol (GLYCOLAX) packet 17 g 17 g, oral, Daily PRN, constipation, Starting on Sun05/19/24 at 1259, , Look-alike/sound-alike medication - verify indication for use. Dissolve 1 packet (17 gm) in 8 ounces of water, juice, soda, coffee or tea. 1655 (Given - Provider: Maria Eugenia Nye, MAI) simethicone (MYLICON) chewable tablet 80 mg 80 mg, oral, 4 times daily before meals and at bedtime as needed, flatulence, abdominal discomfort caused by gas and distension, Starting on Sun05/19/24 at 1259, , Maximum dose 500 mg daily tranexamic acid (CYKLOKAPRON) injection 1,000 mg 1,000 mg, intravenous, Administer over 10 Minutes, Every 30 min PRN, hemostasis/ post- hemorrhage, Starting on Sun05/19/24 at 0857, For 2 doses, , As directed by provider for hemostasis/ hemorrhage management. Give slow IV push over 10 minutes, may repeat one time in 30 minutes after initial dose Linked Groups Order Group 1: ketorolac (TORADOL) injection 30 mg (COMPLETED)Jump to med 30 mg, intravenous, Every 8 hours, First dose on Sun05/19/24 at 1900, For 24 hours, , Alternate administration every 4 hours with acetaminophen Look-alike/sound-alike medication - verify indication for use. Duration of therapy is not to exceed 5 days. Maximum recommended dose + 120mg/24 hours. Followed by ibuprofen (MOTRIN) tablet 800 mgJump to med 800 mg, oral, Every 8 hours, First dose on Sun05/20/24 at 1900, , Alternate administration every 4 hours with acetaminophen Look-alike/sound-alike medication - verify indication for use. Take/Give with food or milk. Group 2: oxytocin (PITOCIN) infusion 30 units/500 mL in lactated ringers (0.06 units/mL premix)Jump to med 42 aroldo-units/min (42 mL/hr), intravenous, Continuous PRN, for post-delivery hemostasis, Starting on Sun05/19/24 at 0857, , Administer for 4 hours. Administer via programmable pump with lactated ringers solution 1 mL/hour = 1 aroldo-unit/min And lactated ringers infusionJump to med 83 mL/hr, intravenous, Continuous PRN, post-delivery hemostasis, Starting on Sun05/19/24 at 0857, , Administer for 4 hours. Administer with Oxytocin bolus and infusion FOR RECORDS PERTAINING TO PATIENTS WHO ARE OR HAVE BEEN ENROLLED IN A CHEMICAL DEPENDENCY/SUBSTANCEABUSE PROGRAM, SOME INFORMATION MAY BE OMITTED. This clinical summary was aggregated from multiple sources. Caution should be exercised in using it in the provision of clinical care. This summary normalizes information from multiple sources, and as a consequence, information in this document may materially change the coding, format and clinical context of patient data. In addition, data may be omitted in some cases. CLINICAL DECISIONS SHOULD BE BASED ON THE PRIMARY CLINICAL RECORDS. [email or web address]. provides no warranty or guarantee of the accuracy or completeness of information in this document.
== END 2025-04-17 10:10 | disposition home or self-care (01) ==
PROVIDERS: Emergency Provider Emergency Medicine
DX: H10.32 Unspecified acute conjunctivitis, left eye (principal); F17.200 Nicotine dependence, unspecified, uncomplicated
CPT/HCPCS: 99283